=== PATIENT | male | born 1975 | race Caucasian/White ===

== ENCOUNTER 2017-05-17 15:58 | Emergency (ER) | payer MEDICARE, MEDICAID, SELFPAY ==
[2017-05-17 16:00] VITALS: BP 121/90; PULSE 85; RESP 16; TEMP 36.3; O2SAT 96; BMI 29.7
--- NOTE | 2017-05-17 16:02 | NURSING ---
NO OLD EKGS
--- NOTE | 2017-05-17 16:11 | EKG12_ITS ---
Test Reason : CP Blood Pressure : / mmHG Vent. Rate : 086 BPM Atrial Rate : 086 BPM P-R Int : 172 ms QRS Dur : 086 ms QT Int : 346 ms P-R-T Axes : 033 040 052 degrees QTc Int : 414 ms Normal sinus rhythm Normal ECG Confirmed by RANJANA FLORES MD ([id number]), proposal editor LORETA GARCIA ([id number] on 05/20/2017 1:20:03 PM Referred By: EKATERINA Confirmed By:RANJANA FLORES MD
--- NOTE | 2017-05-17 16:16 | ED.DCSUM_ITS ---
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 Per family and staff members at bedside, the transportation maintenance specialist pulled over and called 911. When EMS arrived patient had no complaints. They estimate symptoms lasted less than 5 minutes. He does reportedly state there was some shortness of breath during the episode, but denies any complaint at this time. Mother does state the patient had a heart cath in the past to evaluate his valves. I do not have record of this to review. Physical Examination: Vital signs are unremarkable. Patient sitting upright in bed no acute distress. Head and neck examination is unremarkable. Heart is regular rate and rhythm. There is no chest wall tenderness. Lungs are clear with good air movement. Abdomen is soft nontender. Lower exam examination was no significant edema or calf tenderness. Test Results: EKG is sinus 86 with no sign of acute ischemia. Two-view chest x- ray is unremarkable. Emergency Department Course and Treatment: Patient has had no recurrent symptoms here. His pain was extremely brief and I do not feel significant laboratory evaluation is necessary. This was discussed with mother at bedside. Treatment Plan: [] Disposition: Discharge Impression: Atypical chest pain, resolved This note was generated with Check dictation software. It may contain incorrect words, spelling, and punctuation that were not noted in review of the chart prior to signing ED Disposition - Plan for ED Patient: Chief Complaint: Chest Pain Referrals: Valencia Sánchez DO [Primary Care Provider] -
--- NOTE | 2017-05-17 16:20 | RAD_ITS ---
STUDY: X-RAY CHEST REASON FOR EXAM: Male, 42 years old. Chest pain TECHNIQUE: Frontal and lateral views of the chest. COMPARISON: None. FINDINGS: The lungs are clear and expanded. There is no demonstrated pleural abnormality. Normal size heart. Normal mediastinum and nathalie. Normal visualized pulmonary arteries. Normal visualized aortic arch and descending thoracic aorta. Normal visualized thoracic spine. Normal visualized ribs, clavicles, and shoulders. There is no demonstrated abnormality of the visualized soft tissue structures of the upper abdomen. RAD/Chest PA and Lateral IMPRESSION: Normal x-ray examination of the chest. Electronically Signed: Danny Taylor MD at 16:37 EDT , Service support ,
--- NOTE | 2017-05-17 16:51 | ED.DEP ---
ED Disposition - Plan for ED Patient: Disposition: Home or Assisted Living Chief Complaint: Chest Pain Instructions: ED Chest Pain Atypical Unkn Cause Referrals: Valencia Sánchez DO [Primary Care Provider] - As Needed
[2017-05-17 16:52] VITALS: BP 123/83; PULSE 83; RESP 16; O2SAT 100
== END 2017-05-17 16:58 | disposition home or self-care (01) ==
PROVIDERS: Emergency Provider Emergency Medicine; Family Provider Internal Medicine; PCP Internal Medicine
DX: R07.89 Other chest pain (principal); E66.9 Obesity, unspecified; I10 Essential (primary) hypertension; E78.00 Pure hypercholesterolemia, unspecified; E03.9 Hypothyroidism, unspecified; F84.0 Autistic disorder; Z79.899 Other long term (current) drug therapy
CPT/HCPCS: 71046; 93005; 99282

== ENCOUNTER → 2017-05-21 07:01 | Outpatient (CLI) | payer MEDICARE, MEDICAID, SELFPAY ==
[2017-05-21 08:24] LABS: Absolute Neutrophil Count 2.3 X10^3/uL (2.0-7.7); Basophil# 0.04 X10^3/uL; Basophil% 0.6 % (0-1); Eosinophils% 1.6 % (0-5); Hematocrit 38.7 % (40-54); Hemoglobin 12.6 g/dl (13.0-16.5); Lymphocyte % 49.1 % (19-41); Mean Corp Hgb Conc 32.6 g/gl (32-36); Mean Corpuscular Hgb 32.7 pg (27.0-32.0); Mean Corpuscular Volume 100.5 fL (80-94); Monocyte# 0.63 X10^3/uL; Neutrophil # 2.29 X10^3/uL (2.7-7.7); Neutrophil % 36.2 % (47-70); Platelet Count 236 K/mm3 (150-450); RBC Distribution Width SD 47.2 fl (35.1-43.9); Red Blood Count 3.85 M/mm3 (4.6-6.2); White Blood Count 6.3 K/mm3 (4.4-11.0)
[2017-05-21 08:25] LABS: POSITIVE COUNT YES; POSITIVE DIFFERENTIAL NO; POSITIVE MORPHOLOGY YES
[2017-05-21 08:38] LABS: Valproic Acid (Depakene) Level 78 ug/mL (50-100)
[2017-05-21 09:10] LABS: Cholesterol 236 mg/dL (200); High Density Lipoprotein 26 mg/dL; Thyroid Stim Hormone (TSH) 4.29 uIU/mL (0.358-3.74); Triglycerides 551 mg/dL
[2017-05-23 09:57] LABS: Vitamin D,25 Hydroxy 38.1 ng/mL (29.95-100.01)
[2017-05-23 12:45] LABS: Pathologist Review Reviewed
[2017-05-24 14:45] LABS: Lamotrigine (Lamictal) Level 11.1 ug/mL (2.0-20.0); Topiramate 8.8 ug/mL (2.0-25.0)
== END ==
PROVIDERS: Family Provider Internal Medicine; PCP Internal Medicine; Visit Provider Psychiatry & Neurology Neurology
DX: G40.019 Localization-related (focal) (partial) idiopathic epilepsy and epileptic syndromes with seizures of localized onset, intractable, without status epilepticus (principal); G40.319 Generalized idiopathic epilepsy and epileptic syndromes, intractable, without status epilepticus; E03.9 Hypothyroidism, unspecified; E78.00 Pure hypercholesterolemia, unspecified; E55.9 Vitamin D deficiency, unspecified; I10 Essential (primary) hypertension
CPT/HCPCS: 80061; 80164; 80201; 81001; 82043; 82306; 82542; 82570; 84443; 85025

== ENCOUNTER 2017-07-19 13:05 | Emergency (ER) | payer MEDICARE, MEDICAID, SELFPAY ==
[2017-07-19 13:06] VITALS: BP 131/86; PULSE 88; RESP 18; RESP 19; TEMP 36.5; O2SAT 94; O2SAT 95; BMI 31.8
--- NOTE | 2017-07-19 14:16 | ED.VISSUMM ---
- ER Visit Summary Date of Service: 07/19/17 Chief Complaint: Seizure History of Present Illness: The patient is a 42 M who presents after a seizure. He has a known seizure disorder and is on multiple antiepileptics. He actually has daily seizures. However his seizure today lasted greater than 5 minutes and per the facilities protocol he needs to be sent to the ER if seizure lasts greater than 5 minutes. The seizure did terminate on its own. He was postictal for about 15 minutes but is currently back to baseline with no complaints. The patient denies any recent illness. He has no complaints at this time. Physical Examination: Afebrile vitals are stable Alert and oriented ?3 with no focal or lateralizing neurological deficits Heart regular rate and rhythm Lungs are clear Abdomen soft Test Results: Not indicated Emergency Department Course and Treatment: Patient had levels on all of his antiepileptics checked about 2 months ago which were all normal. He denies missing any doses and has been compliant with his medications. He has no recent illness and otherwise has no complaints. He has a known seizure disorder with daily seizures. I do not believe any further workup is indicated at this time has benign examination. Patient discharged. Treatment Plan: [] Disposition: Discharge Impression: Seizure This note was generated with [employer] dictation software. It may contain incorrect words, spelling, and punctuation that were not noted in review of the chart prior to signing ED Disposition - Plan for ED Patient: Chief Complaint: Seizure Referrals: Valencia Sánchez DO [Primary Care Provider] -
--- NOTE | 2017-07-19 14:18 | ED.DEP ---
ED Disposition - Plan for ED Patient: Chief Complaint: Seizure Instructions: ED Seizure Recurrent Referrals: Valencia Sánchez DO [Primary Care Provider] -
[2017-07-19 14:57] VITALS: BP 119/85; PULSE 80; RESP 17; O2SAT 98
== END 2017-07-19 14:58 | disposition home or self-care (01) ==
LOC: ED 14:41
PROVIDERS: Emergency Provider Emergency Medicine; Family Provider Internal Medicine; PCP Internal Medicine
DX: G40.909 Epilepsy, unspecified, not intractable, without status epilepticus (principal); I10 Essential (primary) hypertension; E78.00 Pure hypercholesterolemia, unspecified; E03.9 Hypothyroidism, unspecified; Z79.899 Other long term (current) drug therapy
CPT/HCPCS: 99285; J7030

== ENCOUNTER 2017-11-25 16:05 | Emergency (ER) | payer MEDICARE, MEDICAID, SELFPAY ==
[2017-11-25 16:06] VITALS: BP 132/67; PULSE 86; RESP 18; TEMP 37.4; O2SAT 95; BMI 28.2
--- NOTE | 2017-11-25 16:28 | ED.VISSUMM ---
- ER Visit Summary Date of Service: 11/25/17 Chief Complaint: Seizure History of Present Illness: The patient is a 42 M brought in by paramedics after a seizure. Patient has daily seizures. Per the intermediate policy if his seizure last longer than 5 minutes he has to be evaluated. Staff estimates the seizure lasted approximately 10-12 minutes followed by a postictal period. There is been no recent change to his seizure medications. Patient follows with Dr. Velasquez. Physical Examination: Vital signs are unremarkable. Patient sitting upright in bed no acute distress. Head neck examination is unremarkable. There is no tongue injury. Heart is regular rate and rhythm. Lung sounds are clear. Abdomen is soft nontender. Neuro exam reveals no focal deficits. Test Results: Blood sugar was measured by paramedics and was 93. Valproic acid level here is 80. Lamictal and Topamax levels were sent out. Emergency Department Course and Treatment: Patient has been observed for an hour and a half and remains at baseline. Mother was advised she would receive a call if his levels return this weekend and are abnormal. Treatment Plan: [] Disposition: Discharge Impression: Seizure with history of epilepsy This note was generated with [employer] dictation software. It may contain incorrect words, spelling, and punctuation that were not noted in review of the chart prior to signing ED Disposition - Plan for ED Patient: Chief Complaint: Seizure Referrals: Valencia Sánchez DO [Primary Care Provider] -
[2017-11-25 17:35] LABS: Valproic Acid (Depakene) Level 80 ug/mL (50-100)
--- NOTE | 2017-11-25 17:48 | ED.DEP ---
ED Disposition - Plan for ED Patient: Disposition: Home or Assisted Living Chief Complaint: Seizure Instructions: ED Seizure Recurrent Referrals: Adam Velasquez MD [STAFF PHYSICIAN] -
[2017-11-25 18:08] VITALS: BP 121/79; PULSE 77; RESP 16; O2SAT 96
[2017-11-29 11:00] LABS: Topiramate 14.6 ug/mL (2.0-25.0)
== END 2017-11-25 18:09 | disposition home or self-care (01) ==
PROVIDERS: Emergency Provider Emergency Medicine; Family Provider Internal Medicine; PCP Internal Medicine
DX: G40.909 Epilepsy, unspecified, not intractable, without status epilepticus (principal); I10 Essential (primary) hypertension; E78.00 Pure hypercholesterolemia, unspecified; E03.9 Hypothyroidism, unspecified; Z79.899 Other long term (current) drug therapy
CPT/HCPCS: 80164; 80201; 82542; 99285; A4216

== ENCOUNTER → 2018-02-04 07:16 | Outpatient (CLI) | payer MEDICARE, MEDICAID, SELFPAY ==
[2018-02-04 10:06] LABS: Valproic Acid (Depakene) Level 88 ug/mL (50-100)
[2018-02-08 12:07] LABS: Lamotrigine (Lamictal) Level 13.8 ug/mL (2.0-20.0); Topiramate 11.8 ug/mL (2.0-25.0)
--- OUTSIDE RECORDS SUMMARY | 2018-03-31 18:20 | XMS RPT_ITS | Continuity of Care Document ---
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 afterwards and was acting appropriately. He has had no vomiting. He has had this happened multiple t imes in the past. PAST MEDICAL HISTORY: Significant for MR, seizure disorder, hypertension, high cholesterol. PAST SURGICAL HISTORY: None. PRIMARY CARE PHYSICIAN: Dr. Barrett. ALLERGIES: ALLERGY TO T EGRETOL. SOCIAL HISTORY: The patient does not smoke or drink alcohol. PHYSICAL EXAMINATION: VITAL SIGNS: Blood pressure 128/66, temperature 98.2, heart rate 67, respirations 17, pulse oximetry 99% on room air. HEENT: The patient has a 7 cm start-shaped laceration to the posterior occiput, no bony step-offs noted. Pupils equal, react to light. TMs are clear. No hemotympanum. NECK: Supple, no C-spine tenderness on palpation. CARDIOVASCULAR: Heart is regular rate and rhythm. LUNGS: Clear. No rales or wheezes. ABDOMEN: Soft, nontender. EXTREMITIES: Intact x4. Exam otherwise unremarkable. EMERGENCY DE PARTMENT COURSE: Laceration repair, wound sterilely draped and prepped, anesthetized locally with lidocaine 6 mL 1% with epinephrine, irrigated with saline, cleansed with Shur-Clens. Using 4-0 nylon, a total of 6 single interrupted sutures placed with good wound edge approximation. The patient tolerated the procedure well. At this point, he will be discharged to home. DIAGNOSIS: Fall with scalp lacer ation, simple repair. Instructed to follow up with his primary care physician in 10 days for suture removal. DISPOSITION: Discharged home in stable condition. Ernst Kim DO T: NTS JOB: [id number] 01/07/162233 <Electronically signed by Ernst Kim DO> Date Ernst Kim DO Cosigner Signature (If Indicated): Date CC: Valencia Barrett DO Date Dictated: 01/07/161624 Date Transcribed: 01/07/161624 Supervisor Grips: Signed 08-Dec-2015 Emergency Department Summary Result: Comments: See Note; NOTES: [facility] Medical Records Department [address] [place] [address] Emergency Department Summary MR#: [id number] Acct: [id number] Name: RAGHU LOPEZ Rep #: [id number] : 1975 40 From: Ernst Kim DO PCP: Valencia Barrett DO Status: [facility] ER DATE OF SERVICE: 12/01/2015 CHIEF COMPLAINT: Laceration, scalp. HISTORY OF CHIEF COMPLAINT: A 40-y ear-old male with history of seizures. Mother heard some noise upstairs and when he came out he was covered in blood, noted that he had a laceration to the back of his head. He has got a history of seiz ures, has them every day. He has been taking his medicines regularly. She does not think the seizure lasted very long. She states it was very short lived. He has not been ill recently. He has been to [facility] multiple times for these type of issues. PAST MEDICAL HISTORY: Significant for hypertension, seizures. SURGICAL HISTORY: None. PRIMARY CARE PHYSICIAN: Dr. Barrett. NEUROLOGIST: Dr. Velasquez. INA GALVEZ MEDICATIONS: Include Depakote, Topamax, Lamictal and Ethosuximide. SOCIAL HISTORY: The patient does not smoke or drink alcohol. Denies any illicit drug use. PHYSICAL EXAMINATION: VITAL SIGNS: Blood pressure 114/67, temperature 97, heart rate 72, respiratory rate 18, pulse oximetry 97. GENERAL APPEARANCE: The patient is awake, alert, in no acute distress, nontoxic appearing. HEENT: He is normoceph alic. Pupils are equal and reactive to light. TMs are clear. No hemotympanum. He has no C-spine tenderness on palpation. Evaluation of the scalp reveals a 3- cm vertical laceration to posterior occiput. No bony step-offs or depressions noted. CARDIOVASCULAR: Heart is regular rate and rhythm. LUNGS: Clear. No rales or wheezes. ABDOMEN: Soft, nontender. EXTREMITIES: Intact x4. Exam otherwise is unremarka ble. EMERGENCY DEPARTMENT COURSE: Laceration repair, wound sterilely draped and prepped, anesthetized locally with 1% lidocaine, total of 4 mL. Wound cleansed with Shur-Clens, irrigated with copious sa line. Using 4-0 nylon, a total of 3 single interrupted sutures placed with good wound edge approximation. The patient tolerated procedure well. At this point, he will be discharged to home. DIAGNOSES: 1. Scalp laceration, 3 cm, simple repair. 2. Closed head injury. 3. Seizure, recurrent. The patient is instructed to follow up with his primary care physician in 10 days for suture removal. DISPOSITION : Discharged to home in stable condition. Ernst Kim DO T: MELANIE JOB: [id number] 12/08/15 6386 <Electronically signed by Ernst Kim DO> Date Ernst Kim DO Cosigner Signature (If Indicated): Date CC: Valencia Barrett DO Date Dictated: 12/01/152247 Date Transcribed: 12/01/152247 Supervisor Grips: Signed 01-Dec-2015 Discharge Instruction Result: Comments: See Note; NOTES: [facility] Medical Records Department [address] [place] [address] Discharge Instruction 12/01/152242 MR#: [id number] Acct: [id number] Name: RAGHU LOPEZ Rep #: [id number] : 1975 40 From: Ernst Kim DO PCP: Valencia Barrett DO Status: PRE ER ED Disposition - Plan for ED Patient: Chief Complaint: Head Injury Instructions: ED Laceratio n, Scalp, ED Seizure, Recurrent (Adult) Referrals: Valencia Barrett DO [Primary Care Provider] - 10 Day for suture removal What to do if you have Problems For any increased pain, shortness of breath , bleeding, nausea or vomiting, chest pain, or any unexpected problems, contact your doctor. Call [facility] ([phone]) or report to the closest Emergency Room. Call 911 if necessary. [phone] <Electronically signed by Ernst Kim DO> Date Ernst Kim DO Cosigner Signature (If Indicated): Date CC: Valencia Barrett DO 05-Jun-2015 Emergency Department Summary Result: Comments: See Note; NOTES: [facility] Medical Records Department [address] [place] [address] Emergency Department Summary MR#: [id number] Acct: [id number] Name: RAGHU LOPEZ Rep #: [id number] : 1975 40 From: Ernst Kim DO PCP: Valencia Barrett DO Status: DEP ER DATE OF SERVICE: 06/04/2015 CHIEF COMPLAINT: Seizure. HISTORY OF CHIEF COMPLAINT: A 40-year-old with a seizure that happened today while at work, he fell onto the ground sustaining a scalp laceration, postictal, apparently seizure activity lasted about 5 minutes, history comes fr om the mom who states that he has seizures every day, 4 different types, occasionally he will have to drop kind of seizures where he just falls and he hits his head. He has had multiple suture repairs of the scalp in the past. PAST MEDICAL HISTORY: The patient's past medical history significant for hypertension and seizures. PAST SURGICAL HISTORY: None. PRIMARY CARE PHYSICIAN: Valencia molina D.O. NEUROLOGIST: Adam Velasquez M.D. CURRENT MEDICATIONS: Include Topamax, Lamictal and Depakote. ALLERGIES: CERTAIN ANTICONVULSANTS, MOM IS NOT SURE. SOCIAL HISTORY: The patient does not smoke, does not drink alcohol. Denies any illicit drug use. PHYSICAL EXAMINATION: VITAL SIGNS: Blood pressure 152/94, temperature 97.4, heart rate 80, respirations 14, pulse oximetry 99 on room air . GENERAL APPEARANCE: He is awake, in no acute distress, nontoxic appearing. He is quiet and really nonverbal initially. HEENT: Normocephalic. Pupils equal, react to light. TMs are clear. NECK: Supp le. Mucous membranes are moist. Evaluation of the posterior occiput does reveal a 3.5 cm linear laceration. No bony step-offs noted. No C-spine tenderness on palpation. CARDIOVASCULAR: Heart is regul ar rate and rhythm. LUNGS: Clear. ABDOMEN: Soft, nontender. EXTREMITIES: Intact x4. Exam otherwise unremarkable. EMERGENCY DEPARTMENT COURSE: The patient had an IV line established. CBC with diff obtained was normal. Chemistries unremarkable. His valproic acid level was therapeutic at 73. CT brain showed nothing acute, just a septal hematoma, after returned from CT, he is not conversant, appr opriate, back to his baseline, looks well. Laceration repair of scalp wound sterilely draped and prepped, anesthetized locally with 1% lidocaine with epinephrine, a total of 6 mL. Wound cleansed with Shur-Clens, irrigated with copious saline. Using 4-0 nylon, a total of 3 single interrupted sutures placed with good wound edge approximation. The patient tolerated the procedure well. At this point, he will be discharged to home. DIAGNOSES: 1. Recurrent seizure. 2. Scalp laceration with simple repair 3.5 cm. Instructed to follow up with doctor Gruber in 10 days for suture removal. To return if increasing pain, redness, swelling, purulent drainage or condition worsens in any way. DISPOSITION: Discharged to home in stable condition. Enrst Kim DO T: MELANIE JOB: [id number] 06/05/15 2355 <Electronically signed by Ernst Kim DO> Date Ernst Kim DO Cosigner Signature (If Indicated): Date CC: Valencia Barrett DO Date Dictated: 06/04/151548 Date Transcribed: 06/04/151548 Supervisor Grips: Signed 04-Jun-2015 Discharge Instruction Result: Comments: See Note; NOTES: [facility] Medical Records Department [address] [place] [address] Discharge Instruction 06/04/155 MR#: [id number] Acct: [id number] Name: LOPEZRAGHU Rep #: [id number] : 1975 40 From: Ernst Kim DO PCP: Valencia Barrett DO Status: REG ER ED Disposition - Plan for ED Patient: Chief Complaint: Seizure Instruction s: ED Seizure, Recurrent (Adult), ED Laceration, Scalp Referrals: Valencia Barrett DO [Primary Care Provider] - 10 Day for suture removal What to do if you have Problems For any increased pain, shortness of breath, bleeding, nausea or vomiting, chest pain, or any unexpected problems, contact your doctor. Call [facility] ([phone]) or report to the closest Emergency Room. Call 911 if necessary. 06/04/15 1546 <Electronically signed by Ernst Kim DO> Date Ernst Kim DO Cosigner Signature (If Indicated): Date CC: Valencia Barrett DO 04-Jun-2015 Brain/Head without Contrast Result: Comments: See Note; NOTES: [facility] Imaging Services [address] [place] [address] Verdana 4d Brain/Head without Contrast MR#: [id number] Acct: [id number] Name: RAGHU LOPEZ Rep #: [id number] : 1975 M 40 From: Johny Claudio DO PCP: Valencia Barrett DO Status: REG ER Study: Brain/Head without Contrast Date of Exam: 06/04/15 Exam# [id number] Ordering Dr : Ernst Kim DO STUDY: CT BRAIN WITHOUT CONTRAST REASON FOR EXAM: Male, 40 years old. Seizure. Laceration to the back of the head. RADIATION DOSAGE (If Supplied By Facility): CTDIvol = ( 60.8 1 ) mGy, DLP = ( 1112.69 ) mGycm TECHNIQUE: Transaxial CT imaging of the brain was performed without administration of intravenous contrast material. Individualized dose optimization techniques we re used for this CT. COMPARISON: November 22, 2014 FINDINGS: There is subcutaneous hematoma overlying the dorsal aspect of the right parietal vertex. Normal c alvarium. Normal size ventricles and extra-axial spaces for the patient's age. Normal white matter tracts of the cerebral hemispheres. Normal basal ganglia and thalami. Normal brainstem. Normal cere bellum. There is no intracranial hemorrhage. There are no findings of an acute ischemic infarction. There is chronic right sphenoid sinusitis. IMPRESSION: 1. No acute intracranial or calvarial abnormality 2. Soft tissue hematoma of the right parietal vertex. Electronically Signed: Johny Claudio DO at 15:40 EDT Tel [phone], Service support [phone], CC: Valencia Barrett DO; Ernst Kim DO Supervisor Grips: Signed 08-Mar-2015 Emergency Department Summary Result: Comments: See Note; NOTES: [facility] Medical Records Department [address] [place] [address] Emergency Department Summary MR#: [id number] Acct: [id number] Name: RAGHU LOPEZ Rep #: [id number] : 1975 40 From: Ramses Roque MD PCP: Valencia Barrett DO Status: [facility] ER DATE OF SERVICE: 02/21/2015 CHIEF COMPLAINT: Head injury and seizure. HISTORY OF PRESENT ILLNESS: A 40-year-old male with history of seizure disorder, compliant with his medications and has daily seizures. He had another one today, lasts approximately 15 seconds. When he had a seizure, he fell, hit his head on the corner of a piece of furniture and sustained a scalp laceration. He denies any headache or vomiting. The patient is really without complaint at this time. PHYS ICAL EXAMINATION: VITAL SIGNS: Afebrile. Vitals are stable. HEENT: There is a roughly 2 cm occipital scalp laceration. No signs of basilar skull fracture such as raccoon eyes. No rich sign. HEART: Regular rate and rhythm. LUNGS: Clear. ABDOMEN: Soft. NECK: Nontender to palpation. NEUROLOGIC: He is alert and oriented with no focal or lateralizing neurological deficits. EMERGENCY DEPARTMENT COURSE: The patient's laceration was anesthetized with local lidocaine and closed using a total of 4 simple interrupted 4-0 nonabsorbable sutures. Discussed imaging with the patient, as he had extens payton number of CT scans for his seizures with closed head injury. He has no history of intracranial hemorrhage. These have always been negative previously. The patient has no headache. No vomiting. He is not anticoagulated. We discuss deferring on imaging given the radiation risks and just monitoring for symptoms; however, the family members are concerned that they are leaving town tomorrow and zaheer l be out of town for the next 9 days, so would not easily be able to be reevaluated, therefore they did request CT. CT of the head was obtained, which is normal. The patient was discharged in good c ondition. Instructed on local wound care and to have sutures removed in 7-10 days. IMPRESSION: 1. Breakthrough seizure in the setting of epilepsy. 2. Closed head injury. 3. Scalp laceration. 4. La ceration repair. DISPOSITION: Discharge. Dr. Ramses Roque MD T: NTS JOB: [id number] 03/08/15 0840 <Electronically signed by Ramses Roque MD> Date Ramses Roque MD Cosigner Signature (If Indicated): Date CC: Valencia Barrett DO Date Dictated: 02/21/151735 Date Transcribed: 02/21/151735 Supervisor Grips: Signed 21-Feb-2015 Discharge Instruction Result: Comments: See Note; NOTES: [facility] Medical Records Department [address] [place] [address] Discharge Instruction 02/21/151736 MR#: [id number] Acct: [id number] Name: RAGHU LOPEZ Rep #: [id number] : 1975 40 From: Ramses Roque MD PCP: Valencia Barrett DO Status: REG ER ED Disposition - Plan for ED Patient: Chief Complaint: Laceration Instr uctions: ED Laceration, Scalp, ED HEAD INJURY, No Wake-Up (Adult) What to do if you have Problems For any increased pain, shortness of breath, bleeding, nausea or vomiting, chest pain, or any une xpected problems, contact your doctor. Call [employer] [facility] ([phone]) or report to the closest Emergency Room. Call 911 if necessary. 02/21/151736 <Electronically signed by Ramses chen MD> Date Ramses Roque MD Cosigner Signature (If Indicated): Date CC: Valencia Barrett DO 21-Feb-2015 Brain/Head without Contrast Result: Comments: See Note; NOTES: [facility] Imaging Services [address] [place] [address] Verdana 4d Brain/Head without Contrast MR#: [id number] Acct: [id number] Name: RAGHU LOPEZ Rep #: [id number] : 1975 M 40 From: Kena Fountain MD PCP: Valencia Barrett DO Status: REG ER Study: Brain/Head without Contrast Date of Exam: 02/21/15 Exam# [id number] Orderin g Dr: Ramses Roque MD STUDY: CT BRAIN WITHOUT CONTRAST REASON FOR EXAM: Male, 40 years old. Seizure, hit back of head, laceration. RADIATION DOSAGE (If Supplied By Facility): CTDIvol = ( 58. 46 ) mGy, DLP = ( 1045.13 ) mGycm TECHNIQUE: Transaxial CT imaging of the brain was performed without administration of intravenous contrast material. COMPARISON: March 12, 2014 FINDINGS: Superficial soft tissue swelling consistent with hematoma and laceration overlying the posterior calvarium superiorly. No calvarial fracture. Normal size ventricles a nd extra-axial spaces for the patient's age. Normal white matter tracts of the cerebral hemispheres. Normal basal ganglia and thalami. Normal brainstem. Normal cerebellum. There is no intracranial h emorrhage. There are no findings of an acute ischemic infarction. The right sphenoid sinus is nearly completely opacified. There is mild mucoperiosteal thickening of the ethmoid air spaces bilateral ly. IMPRESSION: Normal unenhanced CT scan of the brain. No acute intracranial hemorrhage. Sinus disease with near complete opacity of the right sphenoid sinus no lizzy. The sinus disease is new Electronically Signed: Kena Fountain MD at 17:28 EST Tel , Service support [phone], CC: Ramses Roque MD; Eligio Barrett DO Supervisor Grips: Signed 01-Jan-2015 EKG ([id number]) Comments: nsr no acute chg Result: [MEASUREMENTS ANALYSIS] Date of Test: 01/01/2015 13:24:06; Heart Rate: 61; SD Interval: 184; QRS: 86; QT Interval: 374; Corrected QT Interval (QTc): 375; P Wave [place]: 42; QRS Wave [place]: 35; T Wave [place]: 53; Blood Pressure: 100/58 [ECG DIAGNOSTIC STATEMENTS] Date of Test: 01/01/2015 13:24:06; Summary: Sinus Rhythm WITHIN NORMAL LIMITS 23-Mar-2014 Emergency Department Summary Result: Comments: See Note; NOTES: [facility] Medical Records Department [address] [place] [address] Emergency Department Summary MR#: [id number] Acct: [id number] Name: RAGHU LOPEZ Rep #: [id number] : 1975 39 From: Ernst Kim DO PCP: Valencia Barrett DO Status: DEP ER DATE OF SERVICE: 03/22/2014 CHIEF COMPLAINT: Head injury, status post seizure. HISTORY OF CHIEF COMPLAINT: A 39-year-old male with history of seizures, had a seizure, fell, struck his head on a coffee table edge lacerating his scalp. The patient's seizure lasted about 2 minutes. Per mom, he gets seizures every day. He has had them for many years. He takes Depakote, Lamictal and Topamax typically. He has not been ill recently. He has been taking his medications regularly. PAST MEDICAL HISTORY: Other than seizures nothing. SURGICAL HISTORY: None. PRIMARY CARE PHYSICIAN: Dr. Barrett. NEUROLOGIST: Dr. Velasquez. ALLERGIES: CERTAIN ANTICONVULSANTS. SOCIAL HISTORY: The patient does not smoke, does not drink alcohol. Denies illicit drug use. PHYSICAL EXAMINATION: VITAL SIGNS: Blood pressure 120/70, temperature 98.7, heart rate 84, respiratory rate 16. GENERAL APPE ARANCE: He is awake, alert, no acute distress. He is nontoxic appearing. HEENT: He is normocephalic. Pupils are equal and reactive to light. TMs are clear. No hemotympanum. He does have a 4-cm lacer ation to the posterior occiput. NECK: Nontender, normoactive range of motion, is painless, using NEXUS criteria, C-spine cleared clinically. CARDIOVASCULAR: Heart is regular rate and rhythm. LUNGS: Clear. No rales or wheezes. ABDOMEN: Soft, nontender. EXTREMITIES: Intact x4. Exam is otherwise unremarkable. EMERGENCY DEPARTMENT COURSE: CT scan of the brain without contrast showed nothing acut e. Valproic acid level here was 54, therapeutic. The patient's laceration repair, wound sterilely draped and prepped, anesthetized locally with 1 percent lidocaine, total of 6 mL. Wound cleansed gualberto Morgan, irrigated with copious saline. Using 4-0 nylon, a total of 5 single interrupted sutures placed with good wound edge approximation. The patient tolerated procedure well. At this point , he will be discharged to home. DIAGNOSES: Scalp laceration, simple repair, closed head injury and recurrent seizure. Instructed to follow up with Dr. Barrett in 10 days for suture removal and to r eturn if increasing pain, redness, swelling, purulent drainage or condition worsens in any way. DISPOSITION: Discharged to home in stable condition. Ernst Kim DO T: NTS JOB: [id number] 03/23/14 0059 <Electronically signed by Ernst Kim DO> Date Ernst Kim DO CC: Valencia Barrett DO Date Dictated: 03/22/142205 Date Transcribed: 03/22/142205 Supervisor Grips: Signed 22-Mar-2014 Discharge Instruction Result: Comments: See Note; NOTES: [facility] Medical Records Department [address] [place] [address] Discharge Instruction 03/22/142201 MR#: [id number] Acct: [id number] Name: RAGHU LOPEZ Rep #: [id number] : 1975 39 From: Ernst Kim DO PCP: Valencia Barrett DO Status: REG ER ED Disposition - Plan for ED Patient: Chief Complaint: Laceration Instructions: E D Laceration, Scalp, ED Seizure, Recurrent (Adult), ED HEAD INJURY, No Wake-Up (Adult) Referrals: Valencia Barrett DO [Primary Care Provider] - 10 Day for suture removal What to do if you have Pr oblems For any increased pain, shortness of breath, bleeding, nausea or vomiting, chest pain, or any unexpected problems, contact your doctor. Call [facility] ( [phone]) or report to the [facility] Emergency Room. Call 911 if necessary. 03/22/142203 <Electronically signed by Ernst Kim DO> Date Ernst Kim DO Co signer Signature (If Indicated): Date CC: Valencia Barrett DO 22-Mar-2014 Brain/Head without Contrast Result: Comments: See Note; NOTES: [facility] Imaging Services [address] [place] [address] CAT Scan Report MR#: [id number] Acct: [id number] Name: RAGHU LOPEZ Rep #: [id number] : 1975 M 39 From: Lizabeth Ovalle DO PCP: Valencia Barrett DO Status: REG ER Study: Brain/Head without Contrast Date of Exam: 03/22/14 Exam# [id number] Ordering Dr: Ernst Kim DO STUDY: CT BRAIN WITHOUT CONTRAST REASON FOR EXAM: Male, 39 years old. Seizures, laceration, chronic seizures since childhood RADIATION DOSAGE (If Supplied By Facility): CTDIvol = ( 58.42 ) mGy, DLP = ( 1066.27 ) mGycm TECHNIQUE: Transaxial CT imaging of the brain was performed without administration of intravenous contrast material. COMPARISON: 02/08/2010 FIN DINGS: Normal soft tissue structures. There is diffuse calvarial thickening, unchanged from 02/08/2010 which may be related to anti-seizure therapy. Normal size ventricles and extra-axial spaces for the patient's age. Normal white matter tracts of the cerebral hemispheres. Normal basal ganglia and thalami. Normal brainstem. Normal cerebellum. There is no intracranial hemorrhage. There are no fi ndings of an acute ischemic infarction. Normal visualized paranasal sinuses. IMPRESSION: No acute findings. No interval change. Electronically Signed: Chantal Ovalle DO at 21:48 EST Tel , Service support [phone], CC: Valencia Barrett DO; Ernst Kim DO Supervisor Grips: Signed 10-Jul-2013 Emergency Department Summary Result: Comments: See Note; NOTES: [facility] Medical Records Department [address] [place] [address] Emergency Department Summary MR#: [id number] Acct: [id number] Name: RGAHU LOPEZ Rep #: [id number] : 1975 38 From: Yesi Trejo MD PCP: Valencia Barrett DO Status: DEP ER DATE OF SERVICE: 06/27/2013 CHIEF COMPLAINT: Seizure. HISTORY OF PRESENT ILLNESS: This is a 38-year-old male with history of mental developmental delay as well as seizure disorder. He is on many antiepileptic including Depakote and Keppra and there have been no recent changes in his medicines. However, today he had fairly extensive row of seizures. His mother is at bedside and he was brought in by EMS. Mom tells all of the history as the patient is really not able to help thao best. She tells me that he has seizures essentially daily. It sounds as though they are typically absence type seizures and every 6 months or so, he will have what as she describes sounds like a st atus epilepticus where he will have seizure for at least an hour to 2 hours. Last conversation with the neurologist, Dr. Velasquez she had. He had suggested that she bring the patient to the hospital i f he has another long episode of seizures and that is what happened today, so she brought him here. He did have urinary incontinence, but he did not injure himself and she states that the seizure ac tivity she observed was similar to his longer episodes of seizures in the past. There is no history of any trauma or injury. PHYSICAL EXAMINATION: GENERAL: He is well appearing. He is alert. He is c ooperative and pleasant, but he is not verbal. NEUROLOGIC: He has no focal neurologic findings. HEART: Rate is regular. LUNGS: Clear. HEENT: Pupils are equal and reactive to light and accommodatio n. ABDOMEN: Soft and benign. CLINICAL COURSE AND DECISION MAKING: The patient was observed in the ED for about an hour and when I reevaluated him , his mother noticed that he had had a couple of sm all limited absence type seizures that she had observed. Given his history from earlier today, I did elect to give him one dose of Ativan p.o. and she was comfortable with this. They do not have res cue medication such as ____ benzodiazepine at home and I suggest that she discuss this with his neurologist and they are meeting with him next week. I also did discuss the case with the neurologist program professional for Dr. Velasquez and he was comfortable with the plan. DISPOSITION: Discharge. DIAGNOSIS: Acute on chronic seizure disorder. MD Ashley Cast C: Adam Villalta: MELANIE JOB: [id number] 07/10/13 0725 <Electronically signed by Yesi Trejo MD> Date Yesi Trejo MD CC: Valencia Barrett DO Date Dictated: 06/27/131746 Date Transcribed: 06/27/131746 Supervisor Grips: Signed 27-Jun-2013 Discharge Instruction Result: Comments: See Note; NOTES: [facility] Medical Records Department [address] [place] [address] Discharge Instruction 06/27/131749 MR#: [id number] Acct: [id number] Name: RAGHU LOPEZ Rep #: [id number] : 1975 38 From: Yesi Trejo MD PCP: Valnecia Barrett DO Status: REG ER ED Disposition - Plan for ED Patient: Disposition: Home Chief Complaint: Seizure Instructions: SEIZURE, Recurrent [Adult] Referrals: Valencia Barrett DO [Primary Care Provider] - Adam Velasquez Jr [NON-STAFF] - Adam Velasquez MD [STAFF PHYSICIAN] - 3-5 Days What to do if you hav e Problems For any increased pain, shortness of breath, bleeding, nausea or vomiting, chest pain, or any unexpected problems, contact your doctor. Call [facility] ) or report to [facility]. Call 911 if necessary. 06/27/131751 <Electronically signed by Yesi Trejo MD> Date Yesi Trejo MD CC: Valencia Barrett DO Family History Unknown Family Member Name Dates Details First Degree Relatives Comments: HBP Status: Active Social History Name Dates Details Caffeine Use Comments: rare Status: Active Living Situation Comments: Single, heterosexual Status: Active No Drug Use Status: Active Non Drinker/No Alcohol Use Status: Active Non Smoker/No Tobacco Use Status: Active Tobacco use: Never smoker. Comments: 06/23/11 Status: Active Smoking Status Name Dates Details Never smoker Vital Signs Date Test Result Details [id number] Temperature 97.6 f Comments: Method: Temporal Pulse 76 /min Comments: Pattern: Regular Respiration Rate 16 /min Comments: Pattern: Unlabored O2 SAT 99 % Comments: Room air BP Systolic 132 mm[Hg] Comments: Patient Position: Sitting; Cuff Location: Left Arm; Cuff Size: Standard BP Diastolic 74 mm[Hg] Comments: Patient Position: Sitting; Cuff Location: Left Arm; Cuff Size: Standard Weight 225 lb Height 74 in Body Mass Index Calculated 28.89 kg/m2 Body Surface Area Calculated 2.28 m2 [id number]:06 Pulse 88 /min Comments: Pattern: Regular Respiration Rate 18 /min Comments: Pattern: Unlabored O2 SAT 98 % Comments: Room air BP Systolic 120 mm[Hg] Comments: Patient Position: Sitting; Cuff Location: Left Arm; Cuff Size: Large BP Diastolic 78 mm[Hg] Comments: Patient Position: Sitting; Cuff Location: Left Arm; Cuff Size: Large Weight 225 lb Height 74 in Body Mass Index Calculated 28.89 kg/m2 Body Surface Area Calculated 2.28 m2 [id number]:41 Pulse 69 /min Comments: Pattern: Regular Respiration Rate 18 /min Comments: Pattern: Unlabored O2 SAT 96 % Comments: Room air BP Systolic 122 mm[Hg] Comments: Patient Position: Sitting; Cuff Location: Left Arm; Cuff Size: Large BP Diastolic 80 mm[Hg] Comments: Patient Position: Sitting; Cuff Location: Left Arm; Cuff Size: Large Weight 224 lb Height 74 in Body Mass Index Calculated 28.76 kg/m2 Body Surface Area Calculated 2.28 m2 [id number]:10 Pulse 80 /min Comments: Pattern: Regular Respiration Rate 18 /min Comments: Pattern: Unlabored O2 SAT 98 % Comments: Room air BP Systolic 122 mm[Hg] Comments: Patient Position: Sitting; Cuff Location: Left Arm; Cuff Size: Large BP Diastolic 70 mm[Hg] Comments: Patient Position: Sitting; Cuff Location: Left Arm; Cuff Size: Large Weight 222.125 lb Height 74 in Body Mass Index Calculated 28.52 kg/m2 Body Surface Area Calculated 2.27 m2 30-Sqg-762244:46 Pulse 78 /min Comments: Pattern: Regular Respiration Rate 18 /min Comments: Pattern: Unlabored O2 SAT 98 % Comments: Room air BP Systolic 124 mm[Hg] Comments: Patient Position: Sitting; Cuff Location: Left Arm; Cuff Size: Large BP Diastolic 70 mm[Hg] Comments: Patient Position: Sitting; Cuff Location: Left Arm; Cuff Size: Large Weight 220.5 lb Height 74 in Body Mass Index Calculated 28.31 kg/m2 Body Surface Area Calculated 2.27 m2 [id number]-[id number]:00 Pulse 71 /min Comments: Pattern: Regular Respiration Rate 18 /min Comments: Pattern: Unlabored O2 SAT 98 % Comments: Room air BP Systolic 122 mm[Hg] Comments: Patient Position: Sitting; Cuff Location: Left Arm; Cuff Size: Large BP Diastolic 62 mm[Hg] Comments: Patient Position: Sitting; Cuff Location: Left Arm; Cuff Size: Large Weight 218.5 lb Height 74 in Body Mass Index Calculated 28.05 kg/m2 Body Surface Area Calculated 2.26 m2 :27 Pulse 72 /min Comments: Pattern: Regular Respiration Rate 18 /min Comments: Pattern: Unlabored O2 SAT 96 % Comments: Room air BP Systolic 118 mm[Hg] Comments: Patient Position: Sitting; Cuff Location: Left Arm; Cuff Size: Large BP Diastolic 64 mm[Hg] Comments: Patient Position: Sitting; Cuff Location: Left Arm; Cuff Size: Large Weight 213.375 lb Height 74 in Body Mass Index Calculated 27.4 kg/m2 Body Surface Area Calculated 2.23 m2 :52 Pulse 73 /min Comments: Pattern: Regular Respiration Rate 18 /min Comments: Pattern: Unlabored O2 SAT 98 % Comments: Room air BP Systolic 118 mm[Hg] Comments: Patient Position: Sitting; Cuff Location: Left Arm; Cuff Size: Large BP Diastolic 68 mm[Hg] Comments: Patient Position: Sitting; Cuff Location: Left Arm; Cuff Size: Large Weight 206.125 lb Height 74 in Body Mass Index Calculated 26.46 kg/m2 Body Surface Area Calculated 2.2 m2 :18 Pulse 72 /min Comments: Pattern: Regular Respiration Rate 16 /min Comments: Pattern: Unlabored O2 SAT 97 % Comments: Room air BP Systolic 108 mm[Hg] Comments: Patient Position: Sitting; Cuff Location: Left Arm; Cuff Size: Large BP Diastolic 68 mm[Hg] Comments: Patient Position: Sitting; Cuff Location: Left Arm; Cuff Size: Large Weight 206.125 lb Height 74 in Body Mass Index Calculated 26.46 kg/m2 Body Surface Area Calculated 2.2 m2 :58 Pulse 70 /min Comments: Pattern: Regular Respiration Rate 18 /min Comments: Pattern: Unlabored O2 SAT 96 % Comments: Room air BP Systolic 118 mm[Hg] Comments: Patient Position: Sitting; Cuff Location: Left Arm; Cuff Size: Large BP Diastolic 80 mm[Hg] Comments: Patient Position: Sitting; Cuff Location: Left Arm; Cuff Size: Large Weight 200.5 lb Height 74 in Body Mass Index Calculated 25.74 kg/m2 Body Surface Area Calculated 2.18 m2 :23 Temperature 97.6 f Pulse 63 /min Comments: Pattern: Regular Respiration Rate 16 /min Comments: Pattern: Unlabored O2 SAT 100 % Comments: Room air BP Systolic 122 mm[Hg] Comments: Patient Position: Sitting; Cuff Location: Left Arm; Cuff Size: Standard BP Diastolic 80 mm[Hg] Comments: Patient Position: Sitting; Cuff Location: Left Arm; Cuff Size: Standard Weight 200.25 lb Height 74 in Body Mass Index Calculated 25.71 kg/m2 Body Surface Area Calculated 2.17 m2 :50 Pulse 89 /min Comments: Pattern: Regular Respiration Rate 18 /min Comments: Pattern: Unlabored O2 SAT 98 % Comments: Room air BP Systolic 142 mm[Hg] Comments: Patient Position: Sitting; Cuff Location: Left Arm; Cuff Size: Large BP Diastolic 98 mm[Hg] Comments: Patient Position: Sitting; Cuff Location: Left Arm; Cuff Size: Large Weight 200.25 lb Height 74 in Body Mass Index Calculated 25.71 kg/m2 Body Surface Area Calculated 2.17 m2 :53 Temperature 97 f Pulse 67 /min Comments: Pattern: Regular Respiration Rate 18 /min Comments: Pattern: Unlabored O2 SAT 98 % Comments: Room air BP Systolic 122 mm[Hg] Comments: Patient Position: Sitting; Cuff Location: Left Arm; Cuff Size: Standard BP Diastolic 78 mm[Hg] Comments: Patient Position: Sitting; Cuff Location: Left Arm; Cuff Size: Standard Weight 202.375 lb Height 74 in Body Mass Index Calculated 25.98 kg/m2 Body Surface Area Calculated 2.18 m2 :50 Temperature 96.9 f Comments: Method: Temporal Pulse 66 /min Comments: Pattern: Regular Respiration Rate 18 /min Comments: Pattern: Unlabored O2 SAT 96 % Comments: Room air BP Systolic 100 mm[Hg] Comments: Patient Position: Sitting; Cuff Location: Left Arm; Cuff Size: Large BP Diastolic 58 mm[Hg] Comments: Patient Position: Sitting; Cuff Location: Left Arm; Cuff Size: Large Weight 205.125 lb Height 74 in Body Mass Index Calculated 26.34 kg/m2 Body Surface Area Calculated 2.2 m2 :04 Temperature 96.2 f Comments: Method: Oral Pulse 76 /min Comments: Pattern: Regular Respiration Rate 18 /min Comments: Pattern: Unlabored O2 SAT 94 % Comments: Room air BP Systolic 116 mm[Hg] Comments: Patient Position: Sitting; Cuff Location: Left Arm; Cuff Size: Large BP Diastolic 64 mm[Hg] Comments: Patient Position: Sitting; Cuff Location: Left Arm; Cuff Size: Large Weight 218.25 lb Height 74 in Body Mass Index Calculated 28.02 kg/m2 Body Surface Area Calculated 2.26 m2 60-Iar-261015:15 Pulse 65 /min Comments: Pattern: Regular Respiration Rate 18 /min Comments: Pattern: Unlabored O2 SAT 98 % Comments: Room air BP Systolic 122 mm[Hg] Comments: Patient Position: Sitting; Cuff Location: Left Arm; Cuff Size: Large BP Diastolic 60 mm[Hg] Comments: Patient Position: Sitting; Cuff Location: Left Arm; Cuff Size: Large Weight 215.3125 lb Height 74 in Body Mass Index Calculated 27.64 kg/m2 Body Surface Area Calculated 2.24 m2 :33 Comments: DR. Montalvo 2011 no glaucoma test Temperature 97.1 f Comments: Method: Temporal Pulse 68 /min Comments: Pattern: Regular Respiration Rate 16 /min Comments: Pattern: Unlabored O2 SAT 98 % Comments: Room air BP Systolic 138 mm[Hg] Comments: Patient Position: Sitting; Cuff Location: Left Arm; Cuff Size: Standard BP Diastolic 82 mm[Hg] Comments: Patient Position: Sitting; Cuff Location: Left Arm; Cuff Size: Standard Weight 207 lb Height 74 in Body Mass Index Calculated 26.58 kg/m2 Body Surface Area Calculated 2.21 m2 :29 Pulse 77 /min Comments: Pattern: Regular Respiration Rate 20 /min Comments: Pattern: Unlabored O2 SAT 98 % Comments: Room air BP Systolic 120 mm[Hg] Comments: Patient Position: Sitting; Cuff Location: Left Arm; Cuff Size: Large BP Diastolic 60 mm[Hg] Comments: Patient Position: Sitting; Cuff Location: Left Arm; Cuff Size: Large Weight 207 lb Height 74 in Body Mass Index Calculated 26.58 kg/m2 Body Surface Area Calculated 2.21 m2 :12 Temperature 98.6 f Comments: Method: Oral Pulse 72 /min Comments: Pattern: Regular Respiration Rate 20 /min Comments: Pattern: Unlabored BP Systolic 122 mm[Hg] Comments: Patient Position: Sitting; Cuff Location: Left Arm; Cuff Size: Large BP Diastolic 78 mm[Hg] Comments: Patient Position: Sitting; Cuff Location: Left Arm; Cuff Size: Large Weight 207.5625 lb Height 74 in Body Mass Index Calculated 26.65 kg/m2 Body Surface Area Calculated 2.21 m2 :43 Temperature 98.4 f Comments: Method: Oral Pulse 72 /min Comments: Pattern: Regular Respiration Rate 20 /min Comments: Pattern: Unlabored BP Systolic 120 mm[Hg] Comments: Patient Position: Sitting; Cuff Location: Left Arm; Cuff Size: Standard BP Diastolic 70 mm[Hg] Comments: Patient Position: Sitting; Cuff Location: Left Arm; Cuff Size: Standard Weight 206 lb Height 74 in Body Mass Index Calculated 26.45 kg/m2 Body Surface Area Calculated 2.2 m2 :42 Pulse 60 /min Comments: Pattern: Regular Respiration Rate 20 /min Comments: Pattern: Unlabored BP Systolic 122 mm[Hg] Comments: Patient Position: Sitting; Cuff Location: Left Arm; Cuff Size: Large BP Diastolic 70 mm[Hg] Comments: Patient Position: Sitting; Cuff Location: Left Arm; Cuff Size: Large Weight 214.125 lb Height 74 in Body Mass Index Calculated 27.49 kg/m2 Body Surface Area Calculated 2.24 m2 :06 Temperature 98.1 f Comments: Method: Oral Pulse 72 /min Comments: Pattern: Regular Respiration Rate 16 /min Comments: Pattern: Unlabored BP Systolic 124 mm[Hg] Comments: Patient Position: Sitting; Cuff Location: Left Arm; Cuff Size: Standard BP Diastolic 82 mm[Hg] Comments: Patient Position: Sitting; Cuff Location: Left Arm; Cuff Size: Standard Weight 213.5 lb Height 74 in Body Mass Index Calculated 27.41 kg/m2 Body Surface Area Calculated 2.23 m2 :37 Pulse 72 /min Comments: Pattern: Regular Respiration Rate 16 /min Comments: Pattern: Unlabored BP Systolic 112 mm[Hg] Comments: Patient Position: Sitting; Cuff Location: Left Arm; Cuff Size: Standard BP Diastolic 72 mm[Hg] Comments: Patient Position: Sitting; Cuff Location: Left Arm; Cuff Size: Standard Weight 213.5 lb Height 74 in Body Mass Index Calculated 27.41 kg/m2 Body Surface Area Calculated 2.23 m2 :23 Temperature 98.5 f Comments: Method: Oral Pulse 68 /min Comments: Pattern: Regular Respiration Rate 20 /min Comments: Pattern: Unlabored BP Systolic 110 mm[Hg] Comments: Patient Position: Sitting; Cuff Location: Left Arm; Cuff Size: Large BP Diastolic 62 mm[Hg] Comments: Patient Position: Sitting; Cuff Location: Left Arm; Cuff Size: Large Weight 213.5 lb Height 74 in Body Mass Index Calculated 27.41 kg/m2 Body Surface Area Calculated 2.23 m2 :07 Pulse 68 /min Comments: Pattern: Regular Respiration Rate 20 /min Comments: Pattern: Unlabored BP Systolic 142 mm[Hg] Comments: Patient Position: Sitting; Cuff Location: Left Arm; Cuff Size: Large BP Diastolic 78 mm[Hg] Comments: Patient Position: Sitting; Cuff Location: Left Arm; Cuff Size: Large Weight 217.0625 lb Height 74 in Body Mass Index Calculated 27.87 kg/m2 Body Surface Area Calculated 2.25 m2 :26 Pulse 68 /min Comments: Pattern: Regular Respiration Rate 20 /min Comments: Pattern: Unlabored BP Systolic 118 mm[Hg] Comments: Patient Position: Sitting; Cuff Location: Left Arm; Cuff Size: Large BP Diastolic 70 mm[Hg] Comments: Patient Position: Sitting; Cuff Location: Left Arm; Cuff Size: Large Weight 212.5625 lb :03 Temperature 98.1 f Comments: Method: Oral Pulse 80 /min Comments: Pattern: Regular Respiration Rate 16 /min Comments: Pattern: Unlabored BP Systolic 112 mm[Hg] Comments: Patient Position: Sitting; Cuff Location: Left Arm; Cuff Size: Large BP Diastolic 68 mm[Hg] Comments: Patient Position: Sitting; Cuff Location: Left Arm; Cuff Size: Large :04 Pulse 64 /min Comments: Pattern: Regular Respiration Rate 20 /min Comments: Pattern: Unlabored BP Systolic 122 mm[Hg] Comments: Patient Position: Sitting; Cuff Location: Left Arm; Cuff Size: Large BP Diastolic 80 mm[Hg] Comments: Patient Position: Sitting; Cuff Location: Left Arm; Cuff Size: Large Weight 215.25 lb :02 Pulse 74 /min Comments: Pattern: Regular Respiration Rate 18 /min Comments: Pattern: Unlabored BP Systolic 108 mm[Hg] Comments: Patient Position: Sitting; Cuff Location: Left Arm; Cuff Size: Standard BP Diastolic 68 mm[Hg] Comments: Patient Position: Sitting; Cuff Location: Left Arm; Cuff Size: Standard Weight 210.25 lb :01 Pulse 88 /min Comments: Pattern: Regular Respiration Rate 20 /min Comments: Pattern: Unlabored BP Systolic 118 mm[Hg] Comments: Patient Position: Sitting; Cuff Location: Left Arm; Cuff Size: Large BP Diastolic 70 mm[Hg] Comments: Patient Position: Sitting; Cuff Location: Left Arm; Cuff Size: Large Weight 212.1875 lb :41 Pulse 68 /min Comments: Pattern: Regular Respiration Rate 18 /min Comments: Pattern: Unlabored BP Systolic 132 mm[Hg] Comments: Patient Position: Sitting; Cuff Location: Left Arm; Cuff Size: Large BP Diastolic 78 mm[Hg] Comments: Patient Position: Sitting; Cuff Location: Left Arm; Cuff Size: Large Weight 218.3125 lb Height 0 in Head Circumference 0.00 cm :57 Pulse 64 /min Comments: Pattern: Regular Respiration Rate 20 /min Comments: Pattern: Unlabored BP Systolic 122 mm[Hg] Comments: Patient Position: Sitting; Cuff Location: Left Arm; Cuff Size: Large BP Diastolic 70 mm[Hg] Comments: Patient Position: Sitting; Cuff Location: Left Arm; Cuff Size: Large Weight 219.375 lb Height 0 in Head Circumference 0.00 cm :10 Pulse 64 /min Comments: Pattern: Regular Respiration Rate 18 /min Comments: Pattern: Labored BP Systolic 116 mm[Hg] Comments: Patient Position: Sitting; Cuff Location: Left Arm; Cuff Size: Large BP Diastolic 62 mm[Hg] Comments: Patient Position: Sitting; Cuff Location: Left Arm; Cuff Size: Large Weight 222.3125 lb Height 0 in Head Circumference 0.00 cm :46 Pulse 88 /min Comments: Pattern: Regular Respiration Rate 20 /min Comments: Pattern: Unlabored BP Systolic 122 mm[Hg] Comments: Patient Position: Sitting; Cuff Location: Left Arm; Cuff Size: Large BP Diastolic 60 mm[Hg] Comments: Patient Position: Sitting; Cuff Location: Left Arm; Cuff Size: Large Weight 222.3125 lb Height 0 in Head Circumference 0.00 cm :59 Pulse 68 /min Comments: Pattern: Regular Respiration Rate 18 /min Comments: Pattern: Unlabored BP Systolic 120 mm[Hg] Comments: Patient Position: Sitting; Cuff Location: Right Arm; Cuff Size: Large BP Diastolic 64 mm[Hg] Comments: Patient Position: Sitting; Cuff Location: Right Arm; Cuff Size: Large Weight 0 lb Height 0 in Head Circumference 0.00 cm :50 Pulse 72 /min Comments: Pattern: Regular Respiration Rate 18 /min Comments: Pattern: Unlabored BP Systolic 118 mm[Hg] Comments: Patient Position: Sitting; Cuff Location: Right Arm; Cuff Size: Standard BP Diastolic 76 mm[Hg] Comments: Patient Position: Sitting; Cuff Location: Right Arm; Cuff Size: Standard Weight 221.0625 lb Height 0 in Head Circumference 0.00 cm :59 Pulse 60 /min Comments: Pattern: Regular Respiration Rate 16 /min Comments: Pattern: Unlabored BP Systolic 122 mm[Hg] Comments: Patient Position: Sitting; Cuff Location: Right Arm; Cuff Size: Standard BP Diastolic 76 mm[Hg] Comments: Patient Position: Sitting; Cuff Location: Right Arm; Cuff Size: Standard Weight 221.25 lb Height 0 in Head Circumference 0.00 cm :36 Temperature 98.2 f Comments: Method: Oral Pulse 74 /min Comments: Pattern: Regular Respiration Rate 18 /min Comments: Pattern: Unlabored BP Systolic 120 mm[Hg] Comments: Patient Position: Sitting; Cuff Location: Left Arm; Cuff Size: Standard BP Diastolic 76 mm[Hg] Comments: Patient Position: Sitting; Cuff Location: Left Arm; Cuff Size: Standard Weight 233.4375 lb Height 0 in Head Circumference 0.00 cm :04 Temperature 98.5 f Comments: Method: Oral Pulse 74 /min Comments: Pattern: Regular BP Systolic 120 mm[Hg] Comments: Patient Position: Sitting; Cuff Location: Left Arm; Cuff Size: Standard BP Diastolic 74 mm[Hg] Comments: Patient Position: Sitting; Cuff Location: Left Arm; Cuff Size: Standard Weight 233.4375 lb Height 0 in Head Circumference 0.00 cm :31 Temperature 98.9 f Comments: Method: Undefined Pulse 72 /min Comments: Pattern: Regular Respiration Rate 20 /min Comments: Pattern: Undefined BP Systolic 126 mm[Hg] Comments: Patient Position: Sitting; Cuff Location: Left Arm; Cuff Size: Large BP Diastolic 78 mm[Hg] Comments: Patient Position: Sitting; Cuff Location: Left Arm; Cuff Size: Large Weight 235 lb Height 0 in Head Circumference 0.00 cm Results Date Description Value Details :40 Lamotrigine (Lamictal) Level Comments: [facility] (refer to report for specific site)refer to report for address and phone number LAMOTRIG [id number] 10.0 ug/mL (Normal) Range: 2.0-20.0 Comments: Detection Limit = 1.0Performed at: [facility] [address] [id number] Director: Kar Robison MD, Phone: [phone] [id number] Topiramate, Serum Comments: [facility] (refer to report for specific site)refer to report for address and phone number TOPIRAMATE 14.6 ug/mL (Normal) Range: 2.0-25.0 Comments: Detection Limit = 1.0 :40 Valproic Acid (Depakene) Level Comments: [facility] [id number] [place], [address] VALPROIC ACID 80 ug/mL (Normal) Range: 50-100 40-Aoa-30101:16 CBC W/Diff, Automated Comments: DR VELASQUEZ ORDERED TOPAMAX DEPAKOTE LAMICTAL [facility] [id number] [place], [address] PATH REV Reviewed (Normal) Comments: Neutrophilic left shift.MacrocytosisClinical correlation necessary.Ken Pearl M.D. 05/23/17Pathologist comment added AMENDED REPORT 05/23/17 1244 PATH REV previously reported as: May foll Absolute Lymph 3.10 {X10_3/ul} (Normal) Range: 0.83-4.51 Absolute Neut 2.3 {X10_3/uL} (Normal) Range: 2.0-7.7 IM GRAN % 2.500 % (Abnormal) Range: 0.0-0.9 Comments: IG% - Immature Granulocytes (promyelocytes, myelocytes andmetamyelocytes) > 1% indicates that a LEFT SHIFT is Present. BASO% 0.6 % (Normal) Range: 0-1 EO% 1.6 % (Normal) Range: 0-5 MONO% 10.0 % (Normal) Range: 0-10 LY% 49.1 % (Abnormal) Range: 19-41 NEUT% 36.2 % (Abnormal) Range: 47-70 MPV 10.0 fL (Normal) Range: 6.2-12.0 PLT 236 K/mm3 (Normal) Range: 150-450 RDW SD 47.2 fL (Abnormal) Range: 35.1-43.9 RDW CV 13.0 % (Normal) Range: 11.6-14.6 MCHC 32.6 {g/gl} (Normal) Range: 32-36 MCH 32.7 pg (Abnormal) Range: 27.0-32.0 MCV 100.5 fL (Abnormal) Range: 80-94 HCT 38.7 % (Abnormal) Range: 40-54 HGB 12.6 g/dL (Abnormal) Range: 13.0-16.5 RBC 3.85 {M/mm3} (Abnormal) Range: 4.6-6.2 WBC 6.3 K/mm3 (Normal) Range: 4.4-11.0 91-Ogr-96496:16 Lamotrigine (Lamictal) Level Comments: DR VELASQUEZ ORDERED TOPAMAX DEPAKOTE LAMICTAL [facility] (refer to report for specific site)refer to report for address and phone number LAMOTRIG [id number] 11.1 ug/mL (Normal) Range: 2.0-20.0 Comments: Detection Limit = 1.0Performed at: - [facility] [id number] Director: Kar Robison MD, Phone: [phone] 14-Bhh-[id number]:16 Lipid Profile Comments: DR VELASQUEZ ORDERED TOPAMAX DEPAKOTE LAMICTAL [facility] [id number] [place], [place], [id number] VLDL Test not performed mg/dL (Normal) Range: 5-40 LDL Test not performed mg/dL (Normal) Range: 0-130 HDL 26 mg/dL (Abnormal) Comments: The drugs N-Acetylcysteine and Metamizole may falselydepress this assay. Reference Range HDL <40 mg/dL Low HDL Cholesterol HDL >or= 60 mg/dL High HDL Cholesterol TRIG 551 mg/dL (Abnormal) Comments: The drugs N-Acetylcysteine and Metamizole may falselydepress this assay.TRIGLYCERIDE IS GREATER THAN 400 mg/dL.LDL RESULT IS INVALID AND WILL NOT BE REPORTED.Serum Triglycerides Referenc e Interval Normal <150 mg/dL Borderline high 150 - 199 mg/dL High 200 - 499 mg/dL Very High > or = 500 mg/dL CHOL 236 mg/dL (Abnormal) Comments: <200 mg/dL Desirable 200-240 mg/dL Borderline >240 mg/dL High Risk :16 Thyroid Stim Hormone (TSH) Comments: DR VELASQUEZ [facility] [id number] [place], [address] TSH 4.29 {uIU/mL} (Abnormal) Range: 0.358-3.74 :16 Topiramate, Serum Comments: DR VELASQUEZ ORDERED TOPAMAX DEPAKOTE L[facility]ICTAL [facility] (refer to report for specific site)refer to report for address and phone number TOPIRAMATE 8.8 ug/mL (Normal) Range: 2.0-25.0 Comments: Detection Limit = 1.0 :16 Valproic Acid (Depakene) Level Comments: [facility] [id number] [place], [address] VALPROIC ACID 78 ug/mL (Normal) Range: 50-100 56-Rfj-84628:16 Vitamin D,25 Hydroxy Comments: DR VELASQUEZ ORDERED TOPAMAX DEPUNIV[facility] [id number] [place], [address] Vitamin D 25-OH 38.1 ng/mL (Normal) Range: 29.95-100.01 Comments: Vitamin D 25(OH) Status Range Deficiency <20 ng/mL (50nmol/L) Insuffciency 20 - 30 ng/mL (50 - 75 nmol/L) Sufficiency 30 - 100 ng/mL (75 - 250 nmol/L) Toxicity >100 ng/mL (>250 nmol/L) 40-Ttu-650145:42 HgA1C , Office (08606) HgA1C , Office 5.4 % (Normal) Range: 4.6 - 7.1 45-Blb-040861:42 Blood Glucose , Office (74089) Blood Glucose , Office 109 (Normal) :01 CBC W/Diff, Automated Comments: [facility] [id number] [place], [place], [phone]) MONOCYTE 1 % (Normal) Range: 0-10 LYMPH 55 % (Abnormal) Range: 19-41 META 2 % (Abnormal) Range: 0-1 BAND 5 % (Normal) Range: 0-5 SEGS 37 % (Abnormal) Range: 47-70 CELLS COUNTED 100 (Normal) Absolute Lymph 4.00 {X10_3/ul} (Normal) Range: 0.83-4.51 Absolute Neut 3.1 {X10_3/uL} (Normal) Range: 2.0-7.7 MPV 9.4 fL (Normal) Range: 6.2-12.0 PLT 236 K/mm3 (Normal) Range: 150-450 RDW SD 49.7 fL (Abnormal) Range: 35.1-43.9 RDW CV 13.5 % (Normal) Range: 11.6-14.6 MCHC 31.8 {g/gl} (Abnormal) Range: 32-36 MCH 32.0 pg (Normal) Range: 27.0-32.0 MCV 100.5 fL (Abnormal) Range: 80-94 HCT 39.9 % (Abnormal) Range: 40-54 HGB 12.7 g/dL (Abnormal) Range: 13.0-16.5 RBC 3.97 {M/mm3} (Abnormal) Range: 4.6-6.2 WBC 7.3 K/mm3 (Normal) Range: 4.4-11.0 :01 Comprehensive Metabolic Profil Comments: [facility] [address] [place], [place], [id number] GAP 8 (Normal) Range: 5-15 CO2 21.0 mmol/L (Normal) Range: 21.0-32.0 CL 112 mmol/L (Abnormal) Range: 98-107 K 4.4 mmol/L (Normal) Range: 3.5-5.1 NA 141 mmol/L (Normal) Range: 136-145 T BILI 0.20 mg/dL (Normal) Range: 0.20-1.00 ALT 65 U/L (Normal) Range: 12-78 ALK P 36 U/L (Abnormal) Range: 45-117 AST 46 U/L (Abnormal) Range: 15-37 CA 8.1 mg/dL (Abnormal) Range: 8.5-10.1 A/G 1.0 {RATIO} (Normal) Range: 0.9-2.4 GLOB 3.4 g/dL (Normal) Range: 2.3-3.5 ALB 3.4 g/dL (Normal) Range: 3.4-5.0 T PROT 6.8 g/dL (Normal) Range: 6.4-8.2 BUN/CRE 16.7 {RATIO} (Normal) Range: 10-20 EST GFR - AA 81 mL/min (Normal) Comments: GFR Calc EST GFR 67 mL/min (Normal) Comments: Non- GFR Calc CREAT,SERUM 1.26 mg/dL (Normal) Range: 0.70-1.30 Comments: The validity of the calculated GFR AND GFRAA in patients over70 years has not been determined. Clinical correlation isessential. BUN 21 mg/dL (Abnormal) Range: 7-18 GLU 111 mg/dL (Abnormal) Range: 70-110 Comments: Fasting Glucose result from 110 to <126 mg/dLsuggests IMPAIRED HOMEOSTASIS per A.D.A. criteria. :01 PSA,Total - Annual Screen Comments: [facility] [address] [place], [place], [id number] PSA,TOT SCREEN 0.49 ng/mL (Normal) Range: 0.00-4.00 Comments: This test was performed using the TPSA assay method for the[facility] chemistry system. Values obtained with differentassay methods cannot be used interchangably.When changing PSA assays in the course of monitoring apatient, additional sequential testing should be carriedout to confirm baseline values. :01 Thyroid Stim Hormone (TSH) Comments: [facility] [address] [place], [address] TSH 3.21 {uIU/mL} (Normal) Range: 0.358-3.74 :01 Vitamin D,25 Hydroxy Comments: [facility] [address] [place], [address] Vitamin D 25-OH 36.7 ng/mL (Normal) Comments: Vitamin D 25(OH) Status Range Deficiency <20 ng/mL (50nmol/L) Insuffciency 20 - 30 ng/mL (50 - 75 nmol/L) Sufficiency 30 - 100 ng/mL (75 - 250 nmol/L) Toxicity >100 ng/mL (>250 nmol/L) 86-Rwq-282010:10 Blood Glucose , Office (44151) Blood Glucose , Office 90 (Normal) 61-Fbp-[id number]:10 HgA1C , Office (49718) HgA1C , Office 5.3 % (Normal) Range: 4.6 - 7.1 :04 Comprehensive Metabolic Profil Comments: [facility] [address] [place], [address] GAP 10 (Normal) Range: 5-15 CO2 22.0 mmol/L (Normal) Range: 21.0-32.0 CL 111 mmol/L (Abnormal) Range: 98-107 K 4.3 mmol/L (Normal) Range: 3.5-5.1 NA 143 mmol/L (Normal) Range: 136-145 T BILI 0.10 mg/dL (Abnormal) Range: 0.20-1.00 ALT 56 U/L (Normal) Range: 12-78 ALK P 40 U/L (Abnormal) Range: 45-117 AST 37 U/L (Normal) Range: 15-37 CA 8.4 mg/dL (Abnormal) Range: 8.5-10.1 A/G 0.9 {RATIO} (Normal) Range: 0.9-2.4 GLOB 3.4 g/dL (Normal) Range: 2.3-3.5 ALB 3.2 g/dL (Abnormal) Range: 3.4-5.0 T PROT 6.6 g/dL (Normal) Range: 6.4-8.2 BUN/CRE 17.2 {RATIO} (Normal) Range: 10-20 EST GFR - AA 75 mL/min (Normal) Comments: GFR Calc EST GFR 62 mL/min (Normal) Comments: Non- GFR Calc CREAT,SERUM 1.34 mg/dL (Abnormal) Range: 0.70-1.30 Comments: The validity of the calculated GFR AND GFRAA in patients over70 years has not been determined. Clinical correlation isessential. BUN 23 mg/dL (Abnormal) Range: 7-18 GLU 112 mg/dL (Abnormal) Range: 70-110 Comments: Fasting Glucose result from 110 to <126 mg/dLsuggests IMPAIRED HOMEOSTASIS per A.D.A. criteria. :04 Free T3 Comments: [facility] [address] [facility]. [place], [place], [phone] FREE T3 2.3 pg/mL (Normal) Range: 2.18-3.98 :04 Lipid Profile Comments: [facility] [address] [facility]. [place], [place], [phone] VLDL Test not performed mg/dL (Normal) Range: 5-40 LDL Test not performed mg/dL (Normal) Range: 0-130 HDL 34 mg/dL (Abnormal) Comments: The drugs N-Acetylcysteine and Metamizole may falsely deressthis assay. Reference Range HDL <40 mg/dL Low HDL Cholesterol HDL >or= 60 mg/dL High HDL Cholesterol TRIG 406 mg/dL (Abnormal) Comments: The drugs N-Acetylcysteine and Metamizole may falsely deressthis assay.TRIGLYCERIDE IS GREATER THAN 400 mg/dL.LDL RESULT IS INVALID AND WILL NOT BE REPORTED.Serum Triglycerides Reference Interval Normal <150 mg/dL Borderline high 150 - 199 mg/dL High 200 - 499 mg/dL Very High > or = 500 mg/dL CHOL 238 mg/dL (Abnormal) Comments: <200 mg/dL Desirable 200-240 mg/dL Borderline >240 mg/dL High Risk :04 T4 Free Direct Comments: [facility] [address] [facility]. [place], [place], [phone] T4 FREE DIRECT 0.97 ng/dL (Normal) Range: 0.76-1.46 :04 Thyroid Peroxidase AB Comments: [facility] (refer to report for specific site)refer to report for address and phone number TPO AB [phone] 11 {IU/mL} (Normal) Range: 0-34 Comments: Performed at: [facility] [id number] Director: Ortiz Shukla PhD, Phone: [phone] 78-Huj-75816:04 Thyroid Stim Hormone (TSH) Comments: [facility] [address] [facility] [address] [place], [place], [phone] TSH 4.52 {uIU/mL} (Abnormal) Range: 0.358-3.74 :24 CBC W/Diff, Automated Comments: [facility] [address] [facility] [address] [place], [place], [address] Absolute Lymph 2.81 {X10_3/ul} (Normal) Range: 0.83-4.51 Absolute Neut 2.9 {X10_3/uL} (Normal) Range: 2.0-7.7 IM GRAN % 1.000 % (Abnormal) Range: 0.0-0.9 Comments: IG% - Immature Granulocytes (promyelocytes, myelocytes andmetamyelocytes) > 1% indicates that a LEFT SHIFT is Present. BASO% 0.6 % (Normal) Range: 0-1 EO% 1.6 % (Normal) Range: 0-5 MONO% 12.1 % (Abnormal) Range: 0-10 LY% 41.4 % (Abnormal) Range: 19-41 NEUT% 43.3 % (Abnormal) Range: 47-70 MPV 9.3 fL (Normal) Range: 6.2-12.0 PLT 255 K/mm3 (Normal) Range: 150-450 RDW SD 48.5 fL (Abnormal) Range: 35.1-43.9 RDW CV 13.3 % (Normal) Range: 11.6-14.6 MCHC 32.8 {g/gl} (Normal) Range: 32-36 MCH 33.4 pg (Abnormal) Range: 27.0-32.0 MCV 102.0 fL (Abnormal) Range: 80-94 HCT 35.7 % (Abnormal) Range: 40-54 HGB 11.7 g/dL (Abnormal) Range: 13.0-16.5 RBC 3.50 {M/mm3} (Abnormal) Range: 4.6-6.2 WBC 6.8 K/mm3 (Normal) Range: 4.4-11.0 :24 Comprehensive Metabolic Profil Comments: [facility] [address] [place], [address] GAP 9 (Normal) Range: 5-15 CO2 23.0 mmol/L (Normal) Range: 21.0-32.0 CL 114 mmol/L (Abnormal) Range: 98-107 K 4.4 mmol/L (Normal) Range: 3.5-5.1 NA 146 mmol/L (Abnormal) Range: 136-145 T BILI 0.20 mg/dL (Normal) Range: 0.20-1.00 ALT 45 U/L (Normal) Range: 12-78 ALK P 31 U/L (Abnormal) Range: 45-117 AST 32 U/L (Normal) Range: 15-37 CA 8.1 mg/dL (Abnormal) Range: 8.5-10.1 A/G 1.0 {RATIO} (Normal) Range: 0.9-2.4 GLOB 3.3 g/dL (Normal) Range: 2.3-3.5 ALB 3.4 g/dL (Normal) Range: 3.4-5.0 T PROT 6.7 g/dL (Normal) Range: 6.4-8.2 BUN/CRE 18.7 {RATIO} (Normal) Range: 10-20 EST GFR - AA 76 mL/min (Normal) Comments: GFR Calc EST GFR 62 mL/min (Normal) Comments: Non- GFR Calc CREAT,SERUM 1.34 mg/dL (Abnormal) Range: 0.70-1.30 Comments: The validity of the calculated GFR AND GFRAA in patients over70 years has not been determined. Clinical correlation isessential. BUN 25 mg/dL (Abnormal) Range: 7-18 GLU 105 mg/dL (Normal) Range: 70-110 :24 Lamotrigine (Lamictal) Level Comments: [facility] (refer to report for specific site)refer to report for address and phone number LAMOTRIG [id number] 12.6 ug/mL (Normal) Range: 2.0-20.0 Comments: Detection Limit = 1.0Performed at: - [facility] [address] [id number] Director: Kar Robison MD, Phone: [phone] :24 Topiramate, Serum Comments: [facility] (refer to report for specific site)refer to report for address and phone number TOPIRAMATE 9.3 ug/mL (Normal) Range: 2.0-25.0 Comments: Detection Limit = 1.0 :24 Valproic Acid (Depakene) Level Comments: [facility] [address] [place], [address] VALPROIC ACID 92 ug/mL (Normal) Range: 50-100 :15 HgA1C , Office (14875) HgA1C , Office 5.0 % (Normal) Range: 4.6 - 7.1 :15 Blood Glucose , Office (02405) Blood Glucose , Office 75 (Normal) :12 Comprehensive Metabolic Profil Comments: ORDERED: DEPAKOTE, LAMICTIL, TOPAMAXDR.ARNOLD ORDERED: LIPID, TSH, VITD, CBCD, CMP, KRISSY, AND [facility] [address] [place], [place], [phone] GAP 5 (Normal) Range: 5-15 CO2 23.0 mmol/L (Normal) Range: 21.0-32.0 CL 116 mmol/L (Abnormal) Range: 98-107 K 4.2 mmol/L (Normal) Range: 3.5-5.1 NA 144 mmol/L (Normal) Range: 136-145 T BILI 0.20 mg/dL (Normal) Range: 0.20-1.00 ALT 40 U/L (Normal) Range: 12-78 ALK P 38 U/L (Abnormal) Range: 50-136 AST 23 U/L (Normal) Range: 15-37 CA 8.2 mg/dL (Abnormal) Range: 8.5-10.1 A/G 0.9 {RATIO} (Normal) Range: 0.9-2.4 GLOB 3.5 g/dL (Normal) Range: 2.3-3.5 ALB 3.2 g/dL (Abnormal) Range: 3.4-5.0 T PROT 6.7 g/dL (Normal) Range: 6.4-8.2 BUN/CRE 20.2 {RATIO} (Abnormal) Range: 10-20 EST GFR - AA 83 mL/min (Normal) Comments: GFR Calc EST GFR 69 mL/min (Normal) Comments: Non- GFR Calc CREAT,SERUM 1.24 mg/dL (Normal) Range: 0.70-1.30 Comments: The validity of the calculated GFR AND GFRAA in patients over70 years has not been determined. Clinical correlation isessential. BUN 25 mg/dL (Abnormal) Range: 7-18 GLU 102 mg/dL (Normal) Range: 70-110 :12 Lamotrigine (Lamictal) Level Comments: ORDERED: DEPAKOTE, LAMICTIL, TOPAMAXDR.ARNOLD ORDERED: LIPID, TSH, VITD, CBCD, CMP, KRISSY, AND [facility]Lab[facility] (refer to report for specific site)refer to report for address and phone number LAMOTRIG [id number] 12.9 ug/mL (Normal) Range: 2.0-20.0 Comments: Detection Limit = 1.0Performed at: [facility] [address] [id number] Director: Kar Robison MD, Phone: [phone] 12-Jul-20157:12 Lipid Profile Comments: ORDERED: DEPAKOTE, LAMICTIL, TOPAMAXDR.ARNOLD ORDERED: LIPID, TSH, VITD, CBCD, CMP, KRISSY, AND [facility] [address] [facility] [place], [place], [phone] VLDL 32 mg/dL (Normal) Range: 5-40 LDL 77 mg/dL (Normal) Range: 0-130 HDL 28 mg/dL (Abnormal) Comments: Reference Range HDL <40 mg/dL Low HDL Cholesterol HDL >or= 60 mg/dL High HDL Cholesterol TRIG 158 mg/dL (Normal) Comments: Serum Triglycerides Reference Interval Normal <150 mg/dL Borderline high 150 - 199 mg/dL High 200 - 499 mg/dL Very High > or = 500 mg/dL CHOL 137 mg/dL (Normal) Comments: <200 mg/dL Desirable 200-240 mg/dL Borderline >240 mg/dL High Risk :12 Thyroid Stim Hormone (TSH) Comments: ORDERED: DEPAKOTE, LAMICTIL, TOPAMAXDR.ARNOLD ORDERED: LIPID, TSH, VITD, CBCD, CMP, KRISSY, AND [facility] [address] [place], [address] TSH 3.73 {uIU/mL} (Normal) Range: 0.358-3.74 :12 Topiramate, Serum Comments: ORDERED: DEPAKOTE, LAMICTIL, TOPAMAXDR.ARNOLD ORDERED: LIPID, TSH, VITD, CBCD, CMP, KRISSY, AND [facility]ACLabCorp (refer to report for specific site)refer to report for address and phone number TOPIRAMATE 10.0 ug/mL (Normal) Range: 2.0-25.0 Comments: Detection Limit = 1.0 :12 Valproic Acid (Depakene) Level Comments: ORDERED: DEPAKOTE, LAMICTIL, TOPAMAXDR.ARNOLD ORDERED: LIPID, TSH, VITD, CBCD, CMP, KRISSY, AND [facility] [address] [place], [place], [phone] VALPROIC ACID 73 ug/mL (Normal) Range: 50-100 :12 Vitamin D,25 Hydroxy Comments: ORDERED: DEPAKOTE, LAMICTIL, TOPAMAXDR.ARNOLD ORDERED: LIPID, TSH, VITD, CBCD, CMP, KRISSY, AND [facility] [address] [place], [place], [id number] Vitamin D 25-OH 53.5 ng/mL (Normal) Comments: Vitamin D 25(OH) Status Range Deficiency <20 ng/mL (50nmol/L) Insuffciency 20 - 30 ng/mL (50 - 75 nmol/L) Sufficiency 30 - 100 ng/mL (75 - 250 nmol/L) Toxicity >100 ng/mL (>250 nmol/L) 4-Qhh-621173:54 HgA1C , Office (11330) HgA1C , Office 5.3 % (Normal) Range: 4.6 - 7.1 :54 Blood Glucose , Office (98965) Blood Glucose , Office 77 (Normal) 90-Amx-434203:40 Basic Metabolic Profile (BMP) Comments: [facility] [address] [place], [place], [phone] GAP 5 (Normal) Range: 5-15 CO2 22.0 mmol/L (Normal) Range: 21.0-32.0 CL 112 mmol/L (Abnormal) Range: 98-107 K 4.0 mmol/L (Normal) Range: 3.5-5.1 NA 139 mmol/L (Normal) Range: 136-145 CA 8.5 mg/dL (Normal) Range: 8.5-10.1 BUN/CRE 27.5 {RATIO} (Abnormal) Range: 10-20 Estimated CRCL 95.14 ml/min (Normal) EST GFR - AA 86 mL/min (Normal) Comments: GFR Calc EST GFR 71 mL/min (Normal) Comments: Non- GFR Calc CREAT,SERUM 1.20 mg/dL (Normal) Range: 0.70-1.30 Comments: The validity of the calculated GFR AND GFRAA in patients over70 years has not been determined. Clinical correlation isessential. BUN 33 mg/dL (Abnormal) Range: 7-18 GLU 113 mg/dL (Abnormal) Range: 70-110 Comments: Fasting Glucose result from 110 to <126 mg/dLsuggests IMPAIRED HOMEOSTASIS per A.D.A. criteria. 50-Zxq-459082:40 CBC W/Diff, Automated Comments: [facility] [address] [place], [place], [address] Absolute Lymph 3.02 {X10_3/ul} (Normal) Range: 0.83-4.51 Absolute Neut 2.7 {X10_3/uL} (Normal) Range: 2.0-7.7 IM GRAN % 0.800 % (Normal) Range: 0.0-0.9 Comments: IG% - Immature Granulocytes (promyelocytes, myelocytes andmetamyelocytes) > 1% indicates that a LEFT SHIFT is Present. BASO% 0.5 % (Normal) Range: 0-1 EO% 1.1 % (Normal) Range: 0-5 MONO% 8.2 % (Normal) Range: 0-10 LY% 47.6 % (Abnormal) Range: 19-41 NEUT% 41.8 % (Abnormal) Range: 47-70 MPV 9.2 fL (Normal) Range: 6.2-12.0 PLT 224 K/mm3 (Normal) Range: 150-450 RDW SD 52.9 fL (Abnormal) Range: 35.1-43.9 RDW CV 14.5 % (Normal) Range: 11.6-14.6 MCHC 32.8 {g/gl} (Normal) Range: 32-36 MCH 32.4 pg (Abnormal) Range: 27.0-32.0 MCV 98.9 fL (Abnormal) Range: 80-94 HCT 35.4 % (Abnormal) Range: 40-54 HGB 11.6 g/dL (Abnormal) Range: 13.0-16.5 RBC 3.58 {M/mm3} (Abnormal) Range: 4.6-6.2 WBC 6.4 K/mm3 (Normal) Range: 4.4-11.0 90-Ewn-295140:40 Valproic Acid (Depakene) Level Comments: [facility] [address] [place], [address] VALPROIC ACID 73 ug/mL (Normal) Range: 50-100 :53 CBC W/Diff, Automated Comments: [facility] [address] [place], [address] Absolute Lymph 3.63 {X10_3/ul} (Normal) Range: 0.83-4.51 Absolute Neut 2.9 {X10_3/uL} (Normal) Range: 2.0-7.7 IM GRAN % 1.500 % (Abnormal) Range: 0.0-0.9 Comments: IG% - Immature Granulocytes (promyelocytes, myelocytes andmetamyelocytes) > 1% indicates that a LEFT SHIFT is Present. BASO% 0.5 % (Normal) Range: 0-1 EO% 2.1 % (Normal) Range: 0-5 MONO% 9.3 % (Normal) Range: 0-10 LY% 48.5 % (Abnormal) Range: 19-41 NEUT% 38.1 % (Abnormal) Range: 47-70 MPV 9.6 fL (Normal) Range: 6.2-12.0 PLT 278 K/mm3 (Normal) Range: 150-450 RDW SD 52.2 fL (Abnormal) Range: 35.1-43.9 RDW CV 14.5 % (Normal) Range: 11.6-14.6 MCHC 32.2 {g/gl} (Normal) Range: 32-36 MCH 32.6 pg (Abnormal) Range: 27.0-32.0 MCV 101.1 fL (Abnormal) Range: 80-94 HCT 36.9 % (Abnormal) Range: 40-54 HGB 11.9 g/dL (Abnormal) Range: 13.0-16.5 RBC 3.65 {M/mm3} (Abnormal) Range: 4.6-6.2 WBC 7.5 K/mm3 (Normal) Range: 4.4-11.0 :53 Comprehensive Metabolic Profil Comments: [facility] [address] [place] [place], [place], [address] GAP 7 (Normal) Range: 5-15 CO2 21.0 mmol/L (Normal) Range: 21.0-32.0 CL 114 mmol/L (Abnormal) Range: 98-107 K 4.4 mmol/L (Normal) Range: 3.5-5.1 NA 142 mmol/L (Normal) Range: 136-145 T BILI 0.20 mg/dL (Normal) Range: 0.20-1.00 ALT 55 U/L (Normal) Range: 12-78 ALK P 38 U/L (Abnormal) Range: 50-136 AST 44 U/L (Abnormal) Range: 15-37 CA 8.1 mg/dL (Abnormal) Range: 8.5-10.1 A/G 1.0 {RATIO} (Normal) Range: 0.9-2.4 GLOB 3.4 g/dL (Normal) Range: 2.3-3.5 ALB 3.4 g/dL (Normal) Range: 3.4-5.0 T PROT 6.8 g/dL (Normal) Range: 6.4-8.2 BUN/CRE 19.1 {RATIO} (Normal) Range: 10-20 EST GFR - AA 75 mL/min (Normal) Comments: GFR Calc EST GFR 62 mL/min (Normal) Comments: Non- GFR Calc CREAT,SERUM 1.36 mg/dL (Abnormal) Range: 0.70-1.30 Comments: The validity of the calculated GFR AND GFRAA in patients over70 years has not been determined. Clinical correlation isessential. BUN 26 mg/dL (Abnormal) Range: 7-18 GLU 100 mg/dL (Normal) Range: 70-110 :53 Lipid Profile Comments: [facility] [address] [place], [place], [phone] VLDL 38 mg/dL (Normal) Range: 5-40 LDL 73 mg/dL (Normal) Range: 0-130 HDL 34 mg/dL (Abnormal) Comments: Reference Range HDL <40 mg/dL Low HDL Cholesterol HDL >or= 60 mg/dL High HDL Cholesterol TRIG 190 mg/dL (Normal) Comments: Serum Triglycerides Reference Interval Normal <150 mg/dL Borderline high 150 - 199 mg/dL High 200 - 499 mg/dL Very High > or = 500 mg/dL CHOL 145 mg/dL (Normal) Comments: <200 mg/dL Desirable 200-240 mg/dL Borderline >240 mg/dL High Risk :53 PSA,Total - Annual Screen Comments: [facility] [address] [place], [place], [id number] PSA,TOT SCREEN 0.40 ng/mL (Normal) Range: 0.00-4.00 Comments: This test was performed using the TPSA assay method for the[facility] chemistry system. Values obtained with differentassay methods cannot be used interchangably.When changing PSA assays in the course of monitoring apatient, additional sequential testing should be carriedout to confirm baseline values. :53 Thyroid Stim Hormone (TSH) Comments: [facility] [address] [place], [address] TSH 4.06 {uIU/mL} (Abnormal) Range: 0.358-3.74 :53 Vitamin D,25 Hydroxy Comments: [facility] [address] [place], [address] Vitamin D 25-OH 50.9 ng/mL (Normal) Comments: Vitamin D 25(OH) Status Range Deficiency <20 ng/mL (50nmol/L) Insuffciency 20 - 30 ng/mL (50 - 75 nmol/L) Sufficiency 30 - 100 ng/mL (75 - 250 nmol/L) Toxicity >100 ng/mL (>250 nmol/L) :49 HgA1C , Office (96548) HgA1C , Office 4.9 % (Normal) Range: 4.6 - 7.1 :49 Blood Glucose , Office (56237) Blood Glucose , Office 73 (Normal) :09 HgA1C , Office (85741) HgA1C , Office 5.3 % (Normal) Range: 4.6 - 7.1 :34 CALCIFIDIOL (43024) VIT D 25 Comments: PATIENT WAS FASTINGPERFORMED BY: [facility] [facility] [id number] Vitamin D, 25-Hydroxy 51.2 ng/mL (Normal) Range: 30.0-100.0 Comments: Vitamin D deficiency has been defined by the [place] ofMedicine and an Endocrine Society practice guideline as alevel of serum 25-OH vitamin D less than 20 ng/mL (1,2).The Endocrine Society went on to further define vitamin Dinsufficiency as a level between 21 and 29 ng/mL (2).1. IOM ([place] of Medicine). 2010. Dietary reference intakes for calcium and D. [place]: The National Academies Press.2. Rhys BLAND, Obi SANTOS, Rosalino BULLOCK, et al. Evaluation, treatment, and prevention of vitamin D deficiency: an Endocrine Society clinical practice guideline. JCEM. 2010; 96(7):1911-30. :34 TSH (92820) Comments: PATIENT WAS FASTINGPERFORMED BY: [facility] [address] [facility] [id number] TSH 2.240 {uIU/mL} (Normal) Range: 0.450-4.500 :34 METABOLIC PANEL, COMPREHENSIVE Comments: PATIENT WAS FASTINGPERFORMED BY: [facility] [address] [facility] [id number] (21595) ALT (SGPT) 45 [iU]/L (Abnormal) Range: 0-44 AST (SGOT) 40 [iU]/L (Normal) Range: 0-40 Alkaline Phosphatase, S 31 [iU]/L (Abnormal) Range: 39-117 Bilirubin, Total 0.2 mg/dL (Normal) Range: 0.0-1.2 A/G Ratio 1.8 (Normal) Range: 1.1-2.5 Globulin, Total 2.5 g/dL (Normal) Range: 1.5-4.5 Albumin, Serum 4.4 g/dL (Normal) Range: 3.5-5.5 Protein, Total, Serum 6.9 g/dL (Normal) Range: 6.0-8.5 Calcium, Serum 9.5 mg/dL (Normal) Range: 8.7-10.2 Carbon Dioxide, Total 21 mmol/L (Normal) Range: 18-29 Chloride, Serum 104 mmol/L (Normal) Range: 97-108 Potassium, Serum 4.8 mmol/L (Normal) Range: 3.5-5.2 Sodium, Serum 139 mmol/L (Normal) Range: 134-144 BUN/Creatinine Ratio 24 (Abnormal) Range: 8-19 eGFR If Africn Am 102 mL/min/1.73 (Normal) eGFR If NonAfricn Am 88 mL/min/1.73 (Normal) Creatinine, Serum 1.06 mg/dL (Normal) Range: 0.76-1.27 BUN 25 mg/dL (Abnormal) Range: 6-20 Glucose, Serum 83 mg/dL (Normal) Range: 65-99 :34 LIPID PANEL (17005) Comments: PATIENT WAS FASTINGPERFORMED BY: [facility] [id number] LDL/HDL Ratio 3.4 {ratio_units} (Normal) Range: 0.0-3.6 Comments: LDL/HDL Ratio Men Women 1/2 Avg.Risk 1.0 1.5 Av g.Risk 3.6 3.2 2X Avg.Risk 6.2 5.0 3X Avg.Risk 8.0 6.1 LDL Cholesterol Calc 108 mg/dL (Abnormal) Range: 0-99 Comments: Please note reference interval change VLDL Cholesterol Abdirizak 65 mg/dL (Abnormal) Range: 5-40 HDL Cholesterol 32 mg/dL (Abnormal) Comments: According to ATP-III Guidelines, HDL-C >59 mg/dL is considered anegative risk factor for CHD. Triglycerides 325 mg/dL (Abnormal) Range: 0-149 Comments: Please note reference interval change Cholesterol, Total 205 mg/dL (Abnormal) Range: 100-199 Comments: Please note reference interval change 56-Myd-479844:34 CBC W/AUTO DIFF WBC Comments: PATIENT WAS FASTINGPERFORMED BY: [facility] Oixwne[address]82 [facility] [id number] Information: [id number] (54489) Immature Grans (Abs) 0.0 {x10E3/uL} (Normal) Range: 0.0-0.1 Immature Granulocytes 0 % (Normal) Baso (Absolute) 0.0 {x10E3/uL} (Normal) Range: 0.0-0.2 Eos (Absolute) 0.1 {x10E3/uL} (Normal) Range: 0.0-0.4 Monocytes(Absolute) 0.6 {x10E3/uL} (Normal) Range: 0.1-0.9 Lymphs (Absolute) 3.8 {x10E3/uL} (Abnormal) Range: 0.7-3.1 Neutrophils (Absolute) 2.8 {x10E3/uL} (Normal) Range: 1.4-7.0 Basos 1 % (Normal) Eos 2 % (Normal) Monocytes 8 % (Normal) Lymphs 51 % (Normal) Neutrophils 38 % (Normal) Platelets 271 {x10E3/uL} (Normal) Range: 150-379 RDW 13.6 % (Normal) Range: 12.3-15.4 MCHC 32.4 g/dL (Normal) Range: 31.5-35.7 MCH 31.4 pg (Normal) Range: 26.6-33.0 MCV 97 fL (Normal) Range: 79-97 Hematocrit 38.3 % (Normal) Range: 37.5-51.0 Hemoglobin 12.4 g/dL (Abnormal) Range: 12.6-17.7 RBC 3.95 {x10E6/uL} (Abnormal) Range: 4.14-5.80 WBC 7.5 {x10E3/uL} (Normal) Range: 3.4-10.8 :10 CBC W/Diff, Automated Comments: Test performed at:[facility] [id number] Matthews[address] [place], [place] [id number] Absolute Lymph 3.58 {X10_3/ul} (Normal) Range: 0.83-4.51 Absolute Neut 2.3 {X10_3/uL} (Normal) Range: 2.0-7.7 IM GRAN % 1.600 % (Abnormal) Range: 0.0-0.9 Comments: IG% - Immature Granulocytes (promyelocytes, myelocytes andmetamyelocytes) > 1% indicates that a LEFT SHIFT is Present. BASO% 0.7 % (Normal) Range: 0-1 EO% 1.5 % (Normal) Range: 0-5 MONO% 9.2 % (Normal) Range: 0-10 LY% 52.9 % (Abnormal) Range: 19-41 NEUT% 34.1 % (Abnormal) Range: 47-70 MPV 9.4 fL (Normal) Range: 6.2-12.0 PLT 277 K/mm3 (Normal) Range: 150-450 RDW SD 48.6 fL (Abnormal) Range: 35.1-43.9 RDW CV 13.3 % (Normal) Range: 11.6-14.6 MCHC 31.6 {g/gl} (Abnormal) Range: 32-36 MCH 31.6 pg (Normal) Range: 27.0-32.0 MCV 99.7 fL (Abnormal) Range: 80-94 HCT 37.3 % (Abnormal) Range: 40-54 HGB 11.8 g/dL (Abnormal) Range: 13.0-16.5 RBC 3.74 {M/mm3} (Abnormal) Range: 4.6-6.2 WBC 6.8 K/mm3 (Normal) Range: 4.4-11.0 :10 Comprehensive Metabolic Profil Comments: Test performed at:[facility] [id number] [place], [place] [id number] GAP 8 (Normal) Range: 5-15 CO2 23.0 mmol/L (Normal) Range: 21.0-32.0 CL 110 mmol/L (Abnormal) Range: 98-107 K 4.0 mmol/L (Normal) Range: 3.5-5.1 NA 141 mmol/L (Normal) Range: 136-145 T BILI 0.20 mg/dL (Normal) Range: 0.00-4.00 ALT 61 U/L (Normal) Range: 12-78 ALK P 39 U/L (Abnormal) Range: 50-136 AST 42 U/L (Abnormal) Range: 15-37 CA 8.4 mg/dL (Abnormal) Range: 8.5-10.1 A/G 1.0 {RATIO} (Normal) Range: 0.9-2.4 GLOB 3.4 g/dL (Normal) Range: 2.7-4.2 ALB 3.4 g/dL (Normal) Range: 3.4-5.0 T PROT 6.8 g/dL (Normal) Range: 6.4-8.2 BUN/CRE 16.9 {RATIO} (Normal) Range: 10-20 EST GFR - AA 79 mL/min (Normal) EST GFR 65 mL/min (Normal) CREAT,SERUM 1.3 mg/dL (Normal) Range: 0.8-1.3 BUN 22 mg/dL (Abnormal) Range: 7-18 GLU 94 mg/dL (Normal) Range: 70-110 :10 Lipid Profile Comments: Test performed at:[facility] W[address]em[address]ii4432 [facility] [address] [place], [place] [id number] VLDL 51 mg/dL (Abnormal) Range: 5-40 LDL 102 mg/dL (Normal) Range: 0-130 HDL 24 mg/dL (Abnormal) Comments: Reference Range HDL <40 mg/dL Low HDL Cholesterol HDL >or= 60 mg/dL High HDL Cholesterol TRIG 254 mg/dL (Abnormal) Range: 0-199 Comments: Serum Triglycerides Reference Interval Normal <150 mg/dL Borderline high 150 - 199 mg/dL High 200 - 499 mg/dL Very High > or = 500 mg/dL CHOL 177 mg/dL (Normal) Comments: <200 mg/dL Desirable 200-240 mg/dL Borderline >240 mg/dL High Risk :10 Thyroid Stim Hormone (TSH) Comments: Test performed at:[facility] [address] [place] [address] TSH 3.58 {uIU/mL} (Normal) Range: 0.358-3.74 :10 Vitamin D,25 Hydroxy Comments: Test performed at:[facility] [address] [place] [address]691 Vitamin D 25-OH 27.0 ng/mL (Normal) Comments: Vitamin D 25(OH) Status Range Deficiency <20 ng/mL (50nmol/L) Insuffciency 20 - 30 ng/mL (50 - 75 nmol/L) Sufficiency 30 - 100 ng/mL (75 - 250 nmol/L) Toxicity >100 ng/mL (>250 nmol/L) :26 Comprehensive Metabolic Profil Comments: Test performed at:[facility] [address] [place] [address] ; ordered by Tequila GAP 8 (Normal) Range: 5-15 CO2 23.0 mmol/L (Normal) Range: 21.0-32.0 CL 113 mmol/L (Abnormal) Range: 98-107 K 4.2 mmol/L (Normal) Range: 3.5-5.1 NA 144 mmol/L (Normal) Range: 136-145 T BILI 0.20 mg/dL (Normal) Range: 0.00-4.00 ALT 52 U/L (Normal) Range: 12-78 ALK P 41 U/L (Abnormal) Range: 50-136 AST 26 U/L (Normal) Range: 15-37 CA 8.5 mg/dL (Normal) Range: 8.5-10.1 A/G 1.0 {RATIO} (Normal) Range: 0.9-2.4 GLOB 3.5 g/dL (Normal) Range: 2.7-4.2 ALB 3.5 g/dL (Normal) Range: 3.4-5.0 T PROT 7.0 g/dL (Normal) Range: 6.4-8.2 BUN/CRE 17.7 {RATIO} (Normal) Range: 10-20 EST GFR - AA 79 mL/min (Normal) EST GFR 65 mL/min (Normal) CREAT,SERUM 1.3 mg/dL (Normal) Range: 0.8-1.3 BUN 23 mg/dL (Abnormal) Range: 7-18 GLU 100 mg/dL (Normal) Range: 70-110 :26 Lamotrigine (Lamictal) Level Comments: Test performed at:[facility] [address] [place] [address] LAMOTRIG [id number] 15.3 ug/mL (Normal) Range: 2.0-20.0 Comments: Detection Limit = 1.0Performed at: [facility] [address] [id number] Director: Kar Robison MD, Phone: [phone] [id number]:26 Topiramate, Serum Comments: Test performed at:[facility] [address] [place] [address] TOPIRAMATE 8.2 ug/mL (Normal) Range: 2.0-25.0 Comments: Detection Limit = 1.0 :26 Valproic Acid (Depakene) Level Comments: Test performed at:[facility] [address] [place] [address] VALPROIC ACID 80 ug/mL (Normal) Range: 50-100 47-Isy-969974:45 Valproic Acid (Depakene) Level Comments: Test performed at:[facility] [address] [place] [address]69 VALPROIC ACID 54 ug/mL (Normal) Range: 50-100 09-Feb-20147:03 CMP GAP 9 (Normal) Range: 5-15 CO2 22.0 mmol/L (Normal) Range: 21.0-32.0 CL 108 mmol/L (Abnormal) Range: 98-107 K 4.0 mmol/L (Normal) Range: 3.5-5.1 NA 139 mmol/L (Normal) Range: 136-145 BIT 0.20 mg/dL (Normal) Range: 0.00-4.00 ALT 33 U/L (Normal) Range: 12-78 ALK 49 U/L (Abnormal) Range: 50-136 AST 20 U/L (Normal) Range: 15-37 CA 9.5 mg/dL (Normal) Range: 8.5-10.1 AG 0.9 {RATIO} (Normal) Range: 0.9-2.4 GLOB 4.0 g/dL (Normal) Range: 2.7-4.2 ALB 3.5 g/dL (Normal) Range: 3.4-5.0 TPROT 7.5 g/dL (Normal) Range: 6.4-8.2 BC 23.3 {RATIO} (Abnormal) Range: 10-20 GFRAA 87 mL/min (Normal) GFR 72 mL/min (Normal) CREAT 1.2 mg/dL (Normal) Range: 0.8-1.3 BUN 28 mg/dL (Abnormal) Range: 7-18 GLU 101 mg/dL (Normal) Range: 70-110 :03 Lamotrigine (Lamictal) Level Comments: Test performed at:[facility] [address] [place] [address] LAMOTRIG [id number] 2.6 ug/mL (Normal) Range: 2.0-20.0 Comments: Detection Limit = 1.0Performed at: [facility] [address] [id number] Director: Kar Robison MD, Phone: [phone] :[phone] Topiramate, Serum Comments: Test performed at:[facility] [address] [place] [address] TOPIRAMATE 12.5 ug/mL (Normal) Range: 2.0-25.0 Comments: Detection Limit = 1.0 :03 ROSHNI 79 ug/mL (Normal) Range: 50-100 :16 CBCD ALC 3.33 {X10_3/ul} (Normal) Range: 0.83-4.51 ANC 2.5 {X10_3/uL} (Normal) Range: 2.0-7.7 IG% 1.200 % (Abnormal) Range: 0.0-0.9 Comments: IG% - Immature Granulocytes (promyelocytes, myelocytes andmetamyelocytes) > 1% indicates that a LEFT SHIFT is Present. B% 0.3 % (Normal) Range: 0-1 E% 1.2 % (Normal) Range: 0-5 M% 10.5 % (Abnormal) Range: 0-10 L% 49.4 % (Abnormal) Range: 19-41 N% 37.4 % (Abnormal) Range: 47-70 MPV 10.3 fL (Normal) Range: 6.2-12.0 PLT 226 K/mm3 (Normal) Range: 150-450 RDWSD 48.3 fL (Abnormal) Range: 35.1-43.9 RDWCV 13.2 % (Normal) Range: 11.6-14.6 MCHC 31.1 {g/gl} (Abnormal) Range: 32-36 MCH 31.2 pg (Normal) Range: 27.0-32.0 MCV 100.3 fL (Abnormal) Range: 80-94 HCT 38.6 % (Abnormal) Range: 40-54 HGB 12.0 g/dL (Abnormal) Range: 13.0-16.5 RBC 3.85 {M/mm3} (Abnormal) Range: 4.6-6.2 WBC 6.7 K/mm3 (Normal) Range: 4.4-11.0 :16 CMP GAP 9 (Normal) Range: 5-15 CO2 21.0 mmol/L (Normal) Range: 21.0-32.0 CL 109 mmol/L (Abnormal) Range: 98-107 K 4.0 mmol/L (Normal) Range: 3.5-5.1 NA 139 mmol/L (Normal) Range: 136-145 BIT 0.20 mg/dL (Normal) Range: 0.00-4.00 ALT 72 U/L (Normal) Range: 12-78 ALK 43 U/L (Abnormal) Range: 50-136 AST 50 U/L (Abnormal) Range: 15-37 CA 8.4 mg/dL (Abnormal) Range: 8.5-10.1 AG 0.9 {RATIO} (Normal) Range: 0.9-2.4 GLOB 3.6 g/dL (Normal) Range: 2.7-4.2 ALB 3.4 g/dL (Normal) Range: 3.4-5.0 TPROT 7.0 g/dL (Normal) Range: 6.4-8.2 BC 20.0 {RATIO} (Normal) Range: 10-20 ECRCL 91.61 ml/min (Normal) GFRAA 87 mL/min (Normal) GFR 72 mL/min (Normal) CREAT 1.2 mg/dL (Normal) Range: 0.8-1.3 BUN 24 mg/dL (Abnormal) Range: 7-18 GLU 95 mg/dL (Normal) Range: 70-110 :16 LIPID VLDL 78 mg/dL (Abnormal) Range: 5-40 LDL 117 mg/dL (Normal) Range: 0-130 HDL 16 mg/dL (Abnormal) Comments: Reference RangeHDL <40 mg/dL Low HDL CholesterolHDL >or= 60 mg/dL High HDL Cholesterol TRIG 389 mg/dL (Abnormal) Range: 0-199 Comments: Serum Triglycerides Reference IntervalNormal <150 mg/dLBorderline high 150 - 199 mg/dLHigh 200 - 499 mg/ dLVery High > or = 500 mg/dL CHOL 211 mg/dL (Abnormal) Comments: <200 mg/dL Fjwqanpmp489-611 mg/dL Borderline>240 mg/dL High Risk :16 TSH 5.98 {uIU/mL} (Abnormal) Range: 0.358-3.74 :16 ROSHNI 84 ug/mL (Normal) Range: 50-100 :16 VITD 34.8 ng/mL (Normal) Comments: Vitamin D 25(OH) Status RangeDeficiency <20 ng/mL (50nmol/L)Insuffciency 20 - 30 ng/mL (50 - 75 nmol/L)Sufficiency 30 - 100 ng/mL (75 - 250 nmol/L)Toxicity >100 ng/mL (>250 nmol/L) :18 CBCD PATHR Reviewed (Normal) ANC 2.8 {X10_3/uL} (Normal) Range: 2.0-7.7 IG% 2.300 % (Abnormal) Range: 0.0-0.9 Comments: IG% - Immature Granulocytes (promyelocytes, myelocytes andmetamyelocytes) > 1% indicates that a LEFT SHIFT is Present. B% 0.7 % (Normal) Range: 0-1 E% 1.8 % (Normal) Range: 0-5 M% 8.5 % (Normal) Range: 0-10 L% 49.0 % (Abnormal) Range: 19-41 MPV 9.3 fL (Normal) Range: 6.2-12.0 N% 37.7 % (Abnormal) Range: 47-70 PLT 278 K/mm3 (Normal) Range: 150-450 RDWSD 49.8 fL (Abnormal) Range: 35.1-43.9 RDWCV 13.9 % (Normal) Range: 11.6-14.6 MCHC 32.6 {g/gl} (Normal) Range: 32-36 MCH 32.2 pg (Abnormal) Range: 27.0-32.0 MCV 98.7 fL (Abnormal) Range: 80-94 HCT 37.7 % (Abnormal) Range: 40-54 HGB 12.3 g/dL (Abnormal) Range: 13.0-16.5 RBC 3.82 {M/mm3} (Abnormal) Range: 4.6-6.2 WBC 7.3 K/mm3 (Normal) Range: 4.4-11.0 :18 CMP GAP 9 (Normal) Range: 5-15 CO2 23.0 mmol/L (Normal) Range: 21.0-32.0 CL 106 mmol/L (Normal) Range: 98-107 K 4.2 mmol/L (Normal) Range: 3.5-5.1 NA 138 mmol/L (Normal) Range: 136-145 BIT 0.20 mg/dL (Normal) Range: 0.00-1.00 ALT 65 U/L (Normal) Range: 12-78 ALK 36 U/L (Abnormal) Range: 45-117 AST 37 U/L (Normal) Range: 15-37 CA 8.6 mg/dL (Normal) Range: 8.5-10.1 AG 1.2 {RATIO} (Normal) Range: 0.9-2.4 GLOB 3.2 g/dL (Normal) Range: 2.7-4.2 ALB 3.7 g/dL (Normal) Range: 3.4-5.0 TPROT 6.9 g/dL (Normal) Range: 6.4-8.2 BC 22.3 {RATIO} (Abnormal) Range: 10-20 GFRAA 80 mL/min (Normal) GFR 66 mL/min (Normal) CREAT 1.3 mg/dL (Normal) Range: 0.8-1.3 BUN 29 mg/dL (Abnormal) Range: 7-18 GLU 92 mg/dL (Normal) Range: 70-110 :18 MEZA 12.5 ug/mL (Normal) Range: 2.0-20.0 Comments: Detection Limit = 1.0Performed at: [facility] [address] [id number] Director: Kar Robison MD, Phone: [phone] :[phone] TOPIR tTOPIR 4.3 ug/mL (Normal) Range: 2.0-25.0 Comments: Detection Limit = 1.0 :18 ROSHNI 68 ug/mL (Normal) Range: 50-100 :11 LIPID VLDL 54 mg/dL (Abnormal) Range: 5-40 LDL 94 mg/dL (Normal) Range: 0-130 HDL 17 mg/dL (Abnormal) Comments: Reference RangeHDL <40 mg/dL Low HDL CholesterolHDL >or= 60 mg/dL High HDL Cholesterol TRIG 271 mg/dL (Abnormal) Comments: Serum Triglycerides Reference IntervalNormal <150 mg/dLBorderline high 150 - 199 mg/dLHigh 200 - 499 mg/ dLVery High > or = 500 mg/dL CHOL 165 mg/dL (Normal) Comments: <200 mg/dL Qmlvzehni101-057 mg/dL Borderline>240 mg/dL High Risk :33 MEZA 14.9 ug/mL (Normal) Comments: DR BARRETT ORDERED LIPIDDR TEQUILA ORDERED VALPROIC ACID,LAMOTRIGINE,TOPIRAMATE,CMP Range: 2.0-20.0 Comments: Detection Limit = 1.0Performed at: [facility] [address] [id number] Director: Kar Robison MD, Phone: [phone] :[phone] TOPIR Comments: DR BARRETT ORDERED LIPIDDR BAVALFA ORDERED VALPROIC ACID,LAMOTRIGINE,TOPIRAMATE,CMP tTOPIR 5.5 ug/mL (Normal) Range: 2.0-25.0 Comments: Detection Limit = 1.0 :16 CBCMD ANC 2.6 3/uL (Normal) Range: 2.0-7.7 IG# 0.080 3/ul (Abnormal) Range: 0.0-0.0 IG% 1.10 % (Abnormal) Range: 0.0-0.0 B% 0.7 % (Normal) Range: 0-1 E% 1.9 % (Normal) Range: 0-5 M% 11.4 % (Abnormal) Range: 0-10 L% 48.8 % (Abnormal) Range: 19-41 N% 36.1 % (Abnormal) Range: 47-70 MPV 9.4 fL (Normal) Range: 6.2-12.0 PLT 311 K/mm3 (Normal) Range: 150-450 RDWSD 47.1 fL (Abnormal) Range: 35.1-43.9 RDWCV 13.2 % (Normal) Range: 11.6-14.6 MCHC 32.4 g/dL (Normal) Range: 32-36 MCH 31.8 pg (Normal) Range: 27.0-32.0 HCT 38.6 % (Abnormal) Range: 40-54 MCV 98.2 fL (Abnormal) Range: 80-94 HGB 12.5 g/dL (Abnormal) Range: 13.0-16.5 RBC 3.93 {M/mm3} (Abnormal) Range: 4.6-6.2 WBC 7.3 {k/mm3} (Normal) Range: 4.4-11.0 :16 CMP CO2 23.0 mmol/L (Normal) Range: 21.0-32.0 GAP 8 (Normal) Range: 5-15 CL 110 mmol/L (Abnormal) Range: 98-107 K 4.2 mmol/L (Normal) Range: 3.5-5.1 NA 141 mmol/L (Normal) Range: 136-145 ALT 46 U/L (Normal) Range: 12-78 BIT 0.20 mg/dL (Normal) Range: 0.00-1.00 ALK 39 U/L (Abnormal) Range: 50-136 AST 26 U/L (Normal) Range: 15-37 CA 8.3 mg/dL (Abnormal) Range: 8.5-10.1 AG 1.1 {RATIO} (Normal) Range: 0.9-2.4 GLOB 3.5 g/dL (Normal) Range: 2.7-4.2 ALB 3.7 g/dL (Normal) Range: 3.4-5.0 TPROT 7.2 g/dL (Normal) Range: 6.4-8.2 BC 16.2 {RATIO} (Normal) Range: 10-20 GFRAA 80 mL/min (Normal) CREAT 1.3 mg/dL (Normal) Range: 0.8-1.3 GFR 66 mL/min (Normal) BUN 21 mg/dL (Abnormal) Range: 7-18 GLU 89 mg/dL (Normal) Range: 70-110 :16 LIPID HDL 36 mg/dL (Abnormal) Comments: Reference RangeHDL <40 mg/dL Low HDL CholesterolHDL >or= 60 mg/dL High HDL Cholesterol LDL 81 mg/dL (Normal) Range: 0-130 VLDL 50 mg/dL (Abnormal) Range: 5-40 CHOL 167 mg/dL (Normal) Comments: <200 mg/dL Kuxpralft163-695 mg/dL Borderline>240 mg/dL High Risk TRIG 250 mg/dL (Abnormal) Comments: Serum Triglycerides Reference IntervalNormal <150 mg/dLBorderline high 150 - 199 mg/dLHigh 200 - 499 mg/ dLVery High > or = 500 mg/dL :16 VITD 31.6 ng/mL (Normal) Comments: Vitamin D 25(OH) Status RangeDeficiency <20 ng/mL (50nmol/L)Insufficiency 20 - 30 ng/mL (50 - 75 nmol/L)Sufficiency 30 - 100 ng/mL (75 - 250 nm ol/L)Toxicity >100 ng/mL (250 nmol/L)Effective 201222-Jul-201114-Nfi-190948:05 ABS SCREEN CELL III NEGATIVE (Normal) SCREEN CELL I NEGATIVE (Normal) SCREEN CELL II NEGATIVE (Normal) Ab SCREEN GEL NEGATIVE (Normal) 36-Fis-243132:05 B12 1099 pg/mL (Abnormal) Range: 211-946 Comments: Performed at: [facility] [address] [id number] Director: Kar Robison MD, Phone: [phone] at: [place] [address]Aod Director: Geno Gamez MD, Phone: [phone] 22-Otp-143953:05 VONDA DIRECT GIOVANY= NEG w/POLYSPECIFIC (Normal) 55-Rik-774202:05 FDP tFDP NEGATIVE ug/mL (Normal) : ISABEL 284 ng/mL (Normal) Range: 26-388 :05 FOL 34.00 ng/mL (Abnormal) Range: 3.1-17.5 :05 IBC %ISAT 11.3 % (Abnormal) Range: 15.0-55.0 FE 51 ug/dL (Abnormal) Range: 65-175 TIBC 452 ug/dL (Abnormal) Range: 250-450 :05 LDH 184 U/L (Normal) Range: 84-246 :05 METHYL 164 nmol/L (Normal) Range: 73-376 Comments: The reference range for methylmalonic acid has been set at+3sd above the mean for healthy blood bank donors. In theclinical assessment of patients with megaloblastic anemiasa cutoff of +3sd provides gre ater specificity in thediagnosis of the vitamin deficiency states, despite thesacrifice of some sensitivity. :05 RETIC 2.10 % (Abnormal) Range: 0.5-1.5 :34 CBCMD PATHR July (Normal) RBCM NORM C+C {NORMAL} (Normal) PE ADEQUATE (Normal) EOS 2 % (Normal) Range: 0-5 LYMPH 59 % (Abnormal) Range: 19-41 BAND 2 % (Normal) Range: 0-5 PMN 37 % (Abnormal) Range: 47-70 MARSHA 100 (Normal) ANC 2.6 3/uL (Normal) Range: 2.0-7.7 PLT 288 K/mm3 (Normal) Range: 150-450 RDW 13.1 % (Normal) Range: 11.6-14.6 MCHC 34.6 g/dL (Normal) Range: 32-36 MCH 32.7 pg (Abnormal) Range: 27.0-32.0 MCV 94.7 fL (Abnormal) Range: 80-94 HCT 35.6 % (Abnormal) Range: 40-54 HGB 12.3 g/dL (Abnormal) Range: 14.0-18.0 RBC 3.76 {M/mm3} (Abnormal) Range: 4.6-6.2 WBC 6.2 K/mm3 (Normal) Range: 4.4-11.0 :34 CMP GAP 13 (Normal) Range: 5-15 CO2 23.0 mmol/L (Normal) Range: 21.0-32.0 CL 107 mmol/L (Normal) Range: 98-107 K 4.2 mmol/L (Normal) Range: 3.5-5.1 NA 143 mmol/L (Normal) Range: 136-145 BIT 0.30 mg/dL (Normal) Range: 0.00-1.00 ALT 44 U/L (Normal) Range: 12-78 ALK 30 U/L (Abnormal) Range: 50-136 AST 32 U/L (Normal) Range: 15-37 CA 8.8 mg/dL (Normal) Range: 8.5-10.1 AG 1.2 {RATIO} (Normal) Range: 0.9-2.4 GLOB 3.2 g/dL (Normal) Range: 2.7-4.2 ALB 3.8 g/dL (Normal) Range: 3.4-5.0 TPROT 7.0 g/dL (Normal) Range: 6.4-8.2 BC 16.9 {RATIO} (Normal) Range: 10-20 GFRAA 80 mL/min (Normal) GFR 66 mL/min (Normal) CREAT 1.3 mg/dL (Normal) Range: 0.8-1.3 BUN 22 mg/dL (Abnormal) Range: 7-18 GLU 91 mg/dL (Normal) Range: 70-110 :34 LIPID VLDL 37 mg/dL (Normal) Range: 5-40 HDL 26 mg/dL (Abnormal) Comments: Reference Range HDL <40 mg/dL Low HDL Cholesterol HDL >or= 60 mg/dL High HDL Cholesterol LDL 109 mg/dL (Normal) Range: 0-130 CHOL 172 mg/dL (Normal) Comments: <200 mg/dL Desirable 200-240 mg/dL Borderline >240 mg/dL High Risk TRIG 185 mg/dL (Normal) Comments: Serum Triglycerides Reference Interval Normal <150 mg/dL Borderline high 150 - 199 mg/dL High 200 - 499 mg/dL Very High > or = 500 mg/dL :34 TSH 2.16 {uIU/mL} (Normal) Range: 0.358-3.74 :13 MEZA 6.5 ug/mL (Normal) Comments: DR VELASQUEZ ORDERED DEPAKOTE,LAMACTIL,TOPAMAX,LIVER FUNCTIONDR ARNOLD ORDERED VITD Range: 2.0-20.0 Comments: Detection Limit = 1.0Performed at: [facility] [id number] Director: Geno Gamez MD, Phone: [phone] at: [facility] [id number] Director: Kar Robison MD, Phone: [phone] LIVER Comments: DR VELASQUEZ ORDERED DEPAKOTE,LAMACTIL,TOPAMAX,LIVER FUNCTIONDR ARNOLD ORDERED VITD BID 0.08 mg/dL (Normal) Range: 0.00-0.30 ALT 44 U/L (Normal) Range: 12-78 BIT 0.20 mg/dL (Normal) Range: 0.00-1.00 ALK 32 U/L (Abnormal) Range: 50-136 AST 18 U/L (Normal) Range: 15-37 ALB 3.9 g/dL (Normal) Range: 3.4-5.0 TPROT 7.4 g/dL (Normal) Range: 6.4-8.2 :13 TOPIR Comments: DR VELASQUEZ ORDERED DEPAKOTE,LAMACTIL,TOPAMAX,LIVER FUNCTIONDR ARNOLD ORDERED VITD tTOPIR 4.1 ug/mL (Normal) Range: 2.0-25.0 Comments: Detection Limit = 1.0 :13 ROSHNI 75 ug/mL (Normal) Comments: DR VELASQUEZ ORDERED DEPAKOTE,LAMACTIL,TOPAMAX,LIVER FUNCTIONDR ARNOLD ORDERED VITD Range: 50-100 :13 VITD 31.3 ng/mL (Normal) Comments: DR VELASQUEZ ORDERED DEPAKOTE,LAMACTIL,TOPAMAX,LIVER FUNCTIONDR ARNOLD ORDERED VITD Range: 30.0-100.0 Comments: Vitamin D deficiency has been defined by the [place] of[employer] and an Endocrine Society practice guideline as alevel of serum 25-OH vitamin D less than 20 ng/mL (1,2).The Endocrine Society went on to further define vitamin Dinsufficiency as a level between 21 and 29 ng/mL (2).1. IOM ([place] of Medicine). 2010. Dietary reference intakes for calcium and D. [place]: The National Academies Press.2. Rhys MF, Obi SANTOS, Rosalino BULLOCK, et al. Evaluation, treatment, and prevention of vitamin D deficiency: an Endocrine Society clinical practice guideline. JCEM. 2010; 96(7):1911-30. 6-Oab-351034:04 TSH 3.03 {uIU/mL} (Normal) Range: 0.358-3.74 :56 TSH (THYROID STIMULATING Comments: PATIENT WAS FASTINGPERFORMED BY: [facility] Dbxjkc6636 [facility] [id number] HORMONE) (10803) TSH 6.850 {uIU/mL} (Abnormal) Range: 0.450-4.500 :56 CBC & PLATELETS (AUTO) Comments: PATIENT WAS FASTINGPERFORMED BY: [facility] Gxsxsb1037 [facility] [id number] Information: [id number] (48010) Platelets 322 {x10E3/uL} (Normal) Range: 140-415 RDW 13.5 % (Normal) Range: 11.7-15.0 MCHC 32.7 g/dL (Normal) Range: 32.0-36.0 MCH 31.2 pg (Normal) Range: 27.0-34.0 MCV 95 fL (Normal) Range: 80-98 Hematocrit 39.4 % (Normal) Range: 36.0-50.0 Hemoglobin 12.9 g/dL (Normal) Range: 12.5-17.0 RBC 4.13 {x10E6/uL} (Normal) Range: 4.10-5.60 WBC 8.8 {x10E3/uL} (Normal) Range: 4.0-10.5 :56 LIPID PANEL (23976) Comments: PATIENT WAS FASTINGPERFORMED BY: [facility] [id number] LDL/HDL Ratio 3.1 {ratio_units} (Normal) Range: 0.0-3.6 LDL Cholesterol Calc 107 mg/dL (Abnormal) Range: 0-99 VLDL Cholesterol Abdirizak 49 mg/dL (Abnormal) Range: 5-40 HDL Cholesterol 35 mg/dL (Abnormal) Comments: According to ATP-III Guidelines, HDL-C >59 mg/dL is considered anegative risk factor for CHD. Triglycerides 245 mg/dL (Abnormal) Range: 0-149 Cholesterol, Total 191 mg/dL (Normal) Range: 100-199 :56 CALCIFEDIOL (85499) Comments: PATIENT WAS FASTINGPERFORMED BY: [facility]6370 [facility] [id number] Vitamin D, 25-Hydroxy 22.0 ng/mL (Abnormal) Range: 32.0-100.0 Comments: Effective January 25, 2011 Vitamin D, 25-Hydroxy reference intervals will be changing to 30-100. .Recent studies consider the lower li liu of 32.0 ng/mL to be athreshold for optimal health.Yonas ARNOLD. J Nutr. 2004;135(2):317-22. :25 LIPID PANEL (90962) Comments: PATIENT WAS FASTINGPERFORMED BY: [facility] Ovjaaz0648 [facility] [id number] Information: [id number] LDL/HDL Ratio 3.3 {ratio_units} (Normal) Range: 0.0-3.6 HDL Cholesterol 37 mg/dL (Abnormal) Comments: According to ATP-III Guidelines, HDL-C >59 mg/dL is considered anegative risk factor for CHD. LDL Cholesterol Calc 121 mg/dL (Abnormal) Range: 0-99 VLDL Cholesterol Abdirizak 41 mg/dL (Abnormal) Range: 5-40 Triglycerides 203 mg/dL (Abnormal) Range: 0-149 Cholesterol, Total 199 mg/dL (Normal) Range: 100-199 :53 TSH (79799) Comments: do in 3 months; PATIENT WAS FASTINGPERFORMED BY: [facility] [id number] TSH 3.940 {uIU/mL} (Normal) Range: 0.450-4.500 :53 HEPATIC FUNCTION PANEL Comments: PATIENT WAS FASTINGPERFORMED BY: [facility] [id number] Information: [id number] (52013) ALT (SGPT) 51 [iU]/L (Normal) Range: 0-55 Alkaline Phosphatase, S 33 [iU]/L (Normal) Range: 25-150 AST (SGOT) 40 [iU]/L (Normal) Range: 0-40 Bilirubin, Direct 0.08 mg/dL (Normal) Range: 0.00-0.40 Albumin, Serum 4.3 g/dL (Normal) Range: 3.5-5.5 Bilirubin, Total 0.2 mg/dL (Normal) Range: 0.0-1.2 Protein, Total, Serum 7.0 g/dL (Normal) Range: 6.0-8.5 :53 LIPID PANEL (22591) Comments: do in 3 months; PATIENT WAS FASTINGPERFORMED BY: [facility]6370 [facility] [id number] LDL/HDL Ratio 2.7 {ratio_units} (Normal) Range: 0.0-3.6 LDL Cholesterol Calc 107 mg/dL (Abnormal) Range: 0-99 VLDL Cholesterol Abdirizak 58 mg/dL (Abnormal) Range: 5-40 HDL Cholesterol 40 mg/dL (Normal) Comments: According to ATP-III Guidelines, HDL-C >59 mg/dL is considered anegative risk factor for CHD. Cholesterol, Total 205 mg/dL (Abnormal) Range: 100-199 Triglycerides 291 mg/dL (Abnormal) Range: 0-149 :35 Hepatic Function Panel (7) Comments: PATIENT WAS FASTINGPERFORMED BY: [facility] [id number] [facility] [id number] Alkaline Phosphatase, S 31 [iU]/L (Normal) Range: 25-150 ALT (SGPT) 53 [iU]/L (Normal) Range: 0-55 AST (SGOT) 36 [iU]/L (Normal) Range: 0-40 Bilirubin, Direct 0.09 mg/dL (Normal) Range: 0.00-0.40 Bilirubin, Total 0.3 mg/dL (Normal) Range: 0.0-1.2 Albumin, Serum 4.5 g/dL (Normal) Range: 3.5-5.5 Protein, Total, Serum 7.0 g/dL (Normal) Range: 6.0-8.5 :35 Lipid Panel With LDL/HDL Comments: PATIENT WAS FASTINGPERFORMED BY: [facility] [id number] [facility] [id number] Ratio LDL Cholesterol Calc 143 mg/dL (Abnormal) Range: 0-99 LDL/HDL Ratio 4.0 {ratio_units} (Abnormal) Range: 0.0-3.6 VLDL Cholesterol Abdirizak 50 mg/dL (Abnormal) Range: 5-40 Cholesterol, Total 229 mg/dL (Abnormal) Range: 100-199 HDL Cholesterol 36 mg/dL (Abnormal) Comments: According to ATP-III Guidelines, HDL-C >59 mg/dL is considered anegative risk factor for CHD. Triglycerides 249 mg/dL (Abnormal) Range: 0-149 [id number] TSH (39375) Comments: PATIENT NOT FASTINGPERFORMED BY: [employer] GamesF[id number] [facility] [id number] Information: [id number] TSH 3.800 {uIU/mL} (Normal) Range: 0.450-4.500 :21 CBC Comments: ORDERED LIPIDNMR LIVERDR.SAVAGE ORDERED DEPAKOTE LAMACTAL CBC LIVER HCT 38.8 % (Abnormal) Range: 40-54 HGB 13.0 g/dL (Abnormal) Range: 14.0-18.0 MCH 32.4 pg (Abnormal) Range: 27.0-32.0 MCHC 33.6 g/dL (Normal) Range: 32-36 MCV 96.3 fL (Abnormal) Range: 80-94 MPV 7.3 fL (Normal) Range: 6.5-12.0 PLT 283 K/mm3 (Normal) Range: 150-450 RBC 4.03 {M/mm3} (Abnormal) Range: 4.6-6.2 RDW 13.1 % (Normal) Range: 11.6-14.6 WBC 7.2 K/mm3 (Normal) Range: 4.4-11.0 :21 LAMOTRIG 196970 7.9 ug/mL (Normal) Comments: ORDERED LIPIDNMR LIVERDR.SAVAGE ORDERED DEPAKOTE LAMACTAL CBC LIVER Range: 2.0-20.0 Comments: Detection Limit = 1.0Performed at: - [facility] [id number] [place], [place] [id number] Director: Jez Grullon PhDPerformed at: [facility] [id number] Director: Kar Robison MD :21 LIVER Comments: ORDERED LIPIDNMR LIVERDR.SAVAGE ORDERED DEPAKOTE LAMACTAL CBC LIVER D BILI 0.07 mg/dL (Normal) Range: 0.00-0.30 ALB 3.8 g/dL (Normal) Range: 3.4-5.0 ALK P 38 U/L (Abnormal) Range: 50-136 ALT 32 U/L (Normal) Range: 12-78 AST 9 U/L (Abnormal) Range: 15-37 T BILI 0.30 mg/dL (Normal) Range: 0.00-1.00 T PROT 7.5 g/dL (Normal) Range: 6.4-8.2 :21 NMR LIPOPROFILE . (Normal) Comments: ORDERED LIPIDNMR LIVERDRRAMIREZ ORDERED DEPAKOTE LAMACTAL CBC LIVER Comments: PLEASE SEE SCANNED RESULTS IN PCI. :21 VALPROIC ACID 83 ug/mL (Normal) Comments: ORDERED LIPIDNMR LIVERDR.SAVAGE ORDERED DEPAKOTE LAMACTAL CBC LIVER Range: 50-100 :30 NMR LIPOPROFILE CHOLESTEROL TOT 249 mg/dL (Abnormal) HDL-C 40 mg/dL (Abnormal) LARGE HDL-P 1.0 umol/L (Abnormal) LARGE VLDL-P 15.1 nmol/L (Abnormal) Comments: Small LDL-P, LDL Particle Size, Large HDL-P and Large VLDL-Phave been validated by [employer] but not cleared by [place] FDA;the clinical utility of these test results has not been fully establi shed. LDL PARTICLE SZ 20.6 nm (Normal) Comments: . Small (Pattern B) 18.0 - 20.5 Large (Pattern A) 20.6 - 23.0 . LDL-C 143 mg/dL (Abnormal) Comments: LDL-C is inaccurate if patient is nonfasting. . Optimal < 100 Above optimal 100 - 129 Borderline 130 - 159 High 160 - 189 Very high > 189 . LDL-P 2073 nmol/L (Abnormal) Comments: . Optimal < 1000 Above optimal 1000 - 1299 Borderline 13 00 - 1599 High 1600 - 2000 Very high > 2000 . PATIENT GOALS Comment (Normal) Comments: High Risk: LDL-P < 1000; Secondary goal: SmallLDL-P < 527 Moderately High-Risk: LDL-P < 1300; Secondarygoal: Small LDL-P < 527Performed At: [id number] [place] [id number] SMALL LDL-P 1111 nmol/L (Abnormal) Comments: . Low < 117 Moderate 117 - 526 Borderline 5 27 - 839 High > 839 . TRIGLYCERIDES 329 mg/dL (Abnormal) :30 NMRLIP xCHOLTOT 249 mg/dL (Abnormal) xHDL-C 40 mg/dL (Abnormal) xLARGE HDL-P 1.0 umol/L (Abnormal) xLARGE VLDL-P 15.1 nmol/L (Abnormal) Comments: Small LDL-P, LDL Particle Size, Large HDL-P and Large VLDL-Phave been validated by [employer] but not cleared by [place] FDA;the clinical utility of these test results has not been fully establi shed. xLDL PART SIZE 20.6 nm (Normal) Comments: . Small (Pattern B) 18.0 - 20.5 Large (Pattern A) 20.6 - 23.0 . xLDL-C 143 mg/dL (Abnormal) Comments: LDL-C is inaccurate if patient is nonfasting. . Optimal < 100 Above optimal 100 - 129 Borderline 130 - 159 High 160 - 189 Very high > 189 . xLDLP 2073 nmol/L (Abnormal) Comments: . Optimal < 1000 Above optimal 1000 - 1299 Borderline 13 00 - 1599 High 1600 - 2000 Very high > 2000 . xPATIENT GOALS Comment (Normal) Comments: High Risk: LDL-P < 1000; Secondary goal: SmallLDL-P < 527 Moderately High-Risk: LDL-P < 1300; Secondarygoal: Small LDL-P < 527Performed At: [facility] [address] [id number] xSMLDLP 1111 nmol/L (Abnormal) Comments: . Low < 117 Moderate 117 - 526 Borderline 5 27 - 839 High > 839 . xTRIGLYCERIDES 329 mg/dL (Abnormal) :41 HEPATIC FUNCTION PANEL Comments: PATIENT WAS FASTINGClinical Information: ADD [id number], [id number] [facility]FORMED BY: [facility] [id number] ([id number]) Albumin, Serum 4.5 g/dL (Normal) Range: 3.5-5.5 Alkaline Phosphatase, S 36 [iU]/L (Normal) Range: 25-150 ALT (SGPT) 27 [iU]/L (Normal) Range: 0-55 AST (SGOT) 22 [iU]/L (Normal) Range: 0-40 Bilirubin, Direct 0.07 mg/dL (Normal) Range: 0.00-0.40 Bilirubin, Total 0.3 mg/dL (Normal) Range: 0.1-1.2 Protein, Total, Serum 7.0 g/dL (Normal) Range: 6.0-8.5 :41 LIPID PANEL ([id number]) Comments: do in 3 mo; PATIENT WAS FASTINGPERFORMED BY: [facility] [place] [id number] Cholesterol, Total 235 mg/dL (Abnormal) Range: 100-199 HDL Cholesterol 42 mg/dL (Normal) Comments: According to ATP-III Guidelines, HDL-C >59 mg/dL is considered anegative risk factor for CHD. LDL Cholesterol Calc 122 mg/dL (Abnormal) Range: 0-99 LDL/HDL Ratio 2.9 {ratio_units} (Normal) Range: 0.0-3.6 Triglycerides 353 mg/dL (Abnormal) Range: 0-149 VLDL Cholesterol Abdirizak 71 mg/dL (Abnormal) Range: 5-40 :19 CBCD,SMEAR DIFF CELLS COUNTED 100 (Normal) HCT 38.1 % (Abnormal) Range: 40-54 HGB 13.1 g/dL (Abnormal) Range: 14.0-18.0 LYMPH 51 % (Abnormal) Range: 19-41 MCH 32.5 pg (Abnormal) Range: 27.0-32.0 MCHC 34.4 g/dL (Normal) Range: 32-36 MCV 94.5 fL (Abnormal) Range: 80-94 MONOCYTE 8 % (Normal) Range: 0-10 PLT 221 K/mm3 (Normal) Range: 150-450 PLT EST SeeNote (Normal) Comments: Result: ADEQUATE RBC 4.03 {M/mm3} (Abnormal) Range: 4.6-6.2 RDW 13.0 % (Normal) Range: 11.6-14.6 RED CELL MORPH SeeNote {NORMAL} (Normal) Comments: Result: NORM C+C SEGS 41 % (Abnormal) Range: 47-70 WBC 6.8 K/mm3 (Normal) Range: 4.4-11.0 :19 COMP METABOLIC A/G 1.1 {RATIO} (Normal) Range: 0.9-2.4 ALB 3.6 g/dL (Normal) Range: 3.4-5.0 ALK P 58 U/L (Normal) Range: 50-136 ALT 29 U/L (Abnormal) Range: 30-65 AST 9 U/L (Abnormal) Range: 15-37 BUN 21 mg/dL (Abnormal) Range: 7-18 BUN/CRE 19.1 {RATIO} (Normal) Range: 10-20 CA 8.6 mg/dL (Normal) Range: 8.5-10.1 CL 107 mmol/L (Normal) Range: 98-107 CO2 24.5 mmol/L (Normal) Range: 21.0-32.0 CREAT,SERUM 1.1 mg/dL (Normal) Range: 0.8-1.3 EST GFR 82 mL/min (Normal) EST GFR - AA 99 mL/min (Normal) GAP 9 (Normal) Range: 5-15 GLOB 3.4 g/dL (Normal) Range: 2.7-4.2 GLU 94 mg/dL (Normal) Range: 70-110 K 4.1 mmol/L (Normal) Range: 3.5-5.1 NA 140 mmol/L (Normal) Range: 136-145 T BILI 0.17 mg/dL (Normal) Range: 0.00-1.00 T PROT 7.0 g/dL (Normal) Range: 6.4-8.2 :19 LIPID CHOL 175 mg/dL (Normal) Comments: <200 mg/dL Desirable 200-240 mg/dL Borderline >240 mg/dL High Risk HDL 40 mg/dL (Normal) Comments: Reference Range HDL <40 mg/dL Low HDL Cholesterol HDL >or= 60 mg/dL High HDL Cholesterol LDL 89 mg/dL (Normal) Range: 0-130 TRIG 231 mg/dL (Abnormal) Comments: Serum Triglycerides Reference Interval Normal <150 mg/dL Borderline high 150 - 199 mg/dL High 200 - 499 mg/dL Very High > or = 500 mg/dL VLDL 46 mg/dL (Abnormal) Range: 5-40 :19 TSH 3.92 {uIU/mL} (Normal) Range: 0.34-4.82 :21 CBCD,SMEAR DIFF CELLS COUNTED 100 (Normal) HCT 36.8 % (Abnormal) Range: 40-54 HGB 12.7 g/dL (Abnormal) Range: 14.0-18.0 LYMPH 60 % (Abnormal) Range: 19-41 MCH 31.3 pg (Normal) Range: 27.0-32.0 MCHC 34.5 g/dL (Normal) Range: 32-36 MCV 90.6 fL (Normal) Range: 80-94 MONOCYTE 5 % (Normal) Range: 0-10 PATH REV SeeNote (Normal) Comments: Result: Reviewed Normocytic anemia.Reactive lymphocytes noted. Kristofer Graves D.O. AMENDED REPORT 06/26/07 1525 PATH REV previously reported as: Katie latif Reason: Pathologist comment added PLT 271 K/mm3 (Normal) Range: 150-450 PLT EST SeeNote (Normal) Comments: Result: ADEQUATE RBC 4.06 {M/mm3} (Abnormal) Range: 4.6-6.2 RDW 13.0 % (Normal) Range: 11.6-14.6 RED CELL MORPH SeeNote {NORMAL} (Normal) Comments: Result: NORM C+C SEGS 35 % (Abnormal) Range: 47-70 WBC 6.9 K/mm3 (Normal) Range: 4.4-11.0 :21 COMP METABOLIC A/G 1.1 {RATIO} (Normal) Range: 0.9-2.4 ALB 3.5 g/dL (Normal) Range: 3.4-5.0 ALK P 52 U/L (Normal) Range: 50-136 ALT 31 [iU]/L (Normal) Range: 30-65 AST 16 U/L (Normal) Range: 15-37 BUN 21 mg/dL (Abnormal) Range: 7-18 BUN/CRE 21.0 {RATIO} (Abnormal) Range: 10-20 CA 8.5 mg/dL (Normal) Range: 8.5-10.1 CL 108 mmol/L (Abnormal) Range: 98-107 CO2 19.9 mmol/L (Abnormal) Range: 21.0-32.0 CREAT,SERUM 1.0 mg/dL (Normal) Range: 0.8-1.3 GAP 12 (Normal) Range: 5-15 GLOB 3.3 g/dL (Normal) Range: 2.7-4.2 GLU 85 mg/dL (Normal) Range: 70-110 K 4.1 mmol/L (Normal) Range: 3.5-5.1 NA 140 mmol/L (Normal) Range: 136-145 T BILI 0.14 mg/dL (Normal) Range: 0.00-1.00 T PROT 6.8 g/dL (Normal) Range: 6.4-8.2 :21 LIPID CHOL 176 mg/dL (Normal) Comments: <200 mg/dL Desirable 200-240 mg/dL Borderline >240 mg/dL High Risk HDL 38 mg/dL (Normal) Comments: Reference Range HDL <40 mg/dL Low HDL Cholesterol HDL >or= 60 mg/dL High HDL Cholesterol LDL 92 mg/dL (Normal) Range: 0-130 TRIG 232 mg/dL (Abnormal) Comments: Serum Triglycerides Reference Interval Normal <150 mg/dL Borderline high 150 - 199 mg/dL High 200 - 499 mg/dL Very High > or = 500 mg/dL VLDL 46 mg/dL (Abnormal) Range: :21 TSH 2.93 {uIU/mL} (Normal) Range: 0.34-4.82 :32 LIPID CHOL 171 mg/dL (Normal) Comments: <200 mg/dL Desirable 200-240 mg/dL Borderline >240 mg/dL High Risk HDL 32 mg/dL (Abnormal) Comments: Reference Range HDL <40 mg/dL Low HDL Cholesterol HDL >or= 60 mg/dL High HDL Cholesterol LDL 82 mg/dL (Normal) Range: 0-130 TRIG 286 mg/dL (Abnormal) Comments: Serum Triglycerides Reference Interval Normal <150 mg/dL Borderline high 150 - 199 mg/dL High 200 - 499 mg/dL Very High > or = 500 mg/dL VLDL 57 mg/dL (Abnormal) Range: :25 B12/FOLATES 810 FOLATES,S 2013 14.2 ng/mL (Normal) Comments: Indeterminate: 3.4 - 5.4 Deficient: <3.4 VIT B12 1503 888 pg/mL (Normal) Range: 211-911 :25 CBC HCT 40.0 % (Normal) Range: 40-54 HGB 13.9 g/dL (Abnormal) Range: 14.0-18.0 MCH 32.1 pg (Abnormal) Range: 27.0-32.0 MCHC 34.7 g/dL (Normal) Range: 32-36 MCV 92.4 fL (Normal) Range: 80-94 PLT 287 K/mm3 (Normal) Range: 150-450 RBC 4.33 {M/mm3} (Abnormal) Range: 4.6-6.2 RDW 13.5 % (Normal) Range: 11.6-14.6 WBC 6.1 K/mm3 (Normal) Range: 4.4-11.0 :25 FERRITIN 156 ng/mL (Normal) Range: 3-244 :25 HAPTOGLOB 1628 80 mg/dL (Normal) Range: 34-200 Comments: Performed At: [facility] [place], [place] [id number] :25 IRON, SERUM 95 ug/dL (Normal) Range: 35-150 :25 LDH 136 U/L (Normal) Range: 100-190 :25 RETIC 2.37 % (Abnormal) Range: 0.5-1.5 :25 TIBC 360 ug/dL (Normal) Range: 250-450 :24 CBCD,SMEAR DIFF BAND 1 % (Normal) Range: 0-5 BASOPHIL 1 % (Normal) Range: 0-1 CELLS COUNTED 100 (Normal) EOS 1 % (Normal) Range: 0-5 HCT 39.2 % (Abnormal) Range: 40-54 HGB 13.2 g/dL (Abnormal) Range: 14.0-18.0 LYMPH 55 % (Abnormal) Range: 19-41 MCH 31.6 pg (Normal) Range: 27.0-32.0 MCHC 33.8 g/dL (Normal) Range: 32-36 MCV 93.8 fL (Normal) Range: 80-94 MONOCYTE 7 % (Normal) Range: 0-10 PATH REV SeeNote (Normal) Comments: Result: July PLT 277 K/mm3 (Normal) Range: 150-450 PLT EST SeeNote (Normal) Comments: Result: ADEQUATE RBC 4.18 {M/mm3} (Abnormal) Range: 4.6-6.2 RDW 13.4 % (Normal) Range: 11.6-14.6 RED CELL MORPH SeeNote {NORMAL} (Normal) Comments: Result: NORM C&C SEGS 35 % (Abnormal) Range: 47-70 WBC 6.9 K/mm3 (Normal) Range: 4.4-11.0 :24 LIPID CHOL 202 mg/dL (Abnormal) Comments: <200 mg/dL Desirable 200-240 mg/dL Borderline >240 mg/dL High Risk HDL 37 mg/dL (Normal) Comments: Reference Range HDL <40 mg/dL Low HDL Cholesterol HDL >or= 60 mg/dL High HDL Cholesterol LDL 91 mg/dL (Normal) Range: 0-130 TRIG 370 mg/dL (Abnormal) Comments: Serum Triglycerides Reference Interval Normal <150 mg/dL Borderline high 150 - 199 mg/dL High 200 - 499 mg/dL Very High > or = 500 mg/dL VLDL 74 mg/dL (Abnormal) Range: 5-40 :24 TSH 4.27 {uIU/mL} (Normal) Range: 0.34-4.82 :16 CBCD,SMEAR DIFF CELLS COUNTED 100 (Normal) EOS 7 % (Abnormal) Range: 0-5 HCT 39.3 % (Abnormal) Range: 40-54 HGB 13.4 g/dL (Abnormal) Range: 14.0-18.0 LYMPH 48 % (Abnormal) Range: 19-41 MCH 31.9 pg (Normal) Range: 27.0-32.0 MCHC 34.1 g/dL (Normal) Range: 32-36 MCV 93.5 fL (Normal) Range: 80-94 MONOCYTE 13 % (Abnormal) Range: 0-10 PLT 239 K/mm3 (Normal) Range: 150-450 PLT EST SeeNote (Normal) Comments: Result: ADEQUATE RBC 4.20 {M/mm3} (Abnormal) Range: 4.6-6.2 RDW 13.6 % (Normal) Range: 11.6-14.6 RED CELL MORPH SeeNote {NORMAL} (Normal) Comments: Result: NORM C&C SEGS 32 % (Abnormal) Range: 47-70 WBC 7.0 K/mm3 (Normal) Range: 4.4-11.0 :16 COMP METABOLIC A/G 1.0 {RATIO} (Normal) Range: 0.9-2.4 ALB 3.7 g/dL (Normal) Range: 3.4-5.0 ALK P 60 U/L (Normal) Range: 50-136 ALT 37 [iU]/L (Normal) Range: 30-65 AST 14 U/L (Abnormal) Range: 15-37 BUN 21 mg/dL (Abnormal) Range: 7-18 BUN/CRE 17.5 {RATIO} (Normal) Range: 10-20 CA 8.6 mg/dL (Normal) Range: 8.5-10.1 CL 106 mmol/L (Normal) Range: 98-107 CO2 24.3 mmol/L (Normal) Range: 22.0-29.0 CREAT,SERUM 1.2 mg/dL (Normal) Range: 0.8-1.3 GAP 10 (Normal) Range: 5-15 GLOB 3.6 g/dL (Abnormal) Range: 2.3-3.5 GLU 91 mg/dL (Normal) Range: 70-110 K 4.1 mmol/L (Normal) Range: 3.5-5.1 NA 140 mmol/L (Normal) Range: 136-145 T BILI 0.23 mg/dL (Normal) Range: 0.00-1.00 T PROT 7.3 g/dL (Normal) Range: 6.4-8.2 :16 D BILI 0.04 mg/dL (Normal) Range: 0.00-0.30 :16 TSH 3.66 {uIU/mL} (Normal) Range: 0.34-4.82 Plan of Care Name Dates Details Instructions Benign essential hypertension : Follow up in 6 months Indication: Benign essential hypertension Benign essential hypertension : HTN/CAD Red Flags Indication: Benign essential hypertension Epilepsy, unspecified, not intractable, without status epilepticus : Continue Current Prescription(s) Indication: Epilepsy, unspecified, not intractable, without status epilepticus Epilepsy, unspecified, not intractable, without status epilepticus : Reviewed 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[employer]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 Indication: Epilepsy, unspecified, not intractable, without status epilepticus Hypercholesterolemia : Cholesterol mgmt Indication: Hypercholesterolemia Non-smoker : Eprescribed prescriptions (G8553) Indication: Non-smoker Annual Medicare Physical WITH abnormal findings (Renamed from Encounter for general adult medical examination with abnormal findings) : fall reduction handout Indication: Annual Medicare Physical WITH abnormal findings (Renamed from Encounter for general adult medical examination with abnormal findings) Annual Medicare Physical WITH abnormal findings (Renamed from Encounter for general adult medical examination with abnormal findings) : elderly packet given Indication: Annual Medicare Physical WITH abnormal findings (Renamed from Encounter for general adult medical examination with abnormal findings) Annual Medicare Physical WITH abnormal findings (Renamed from Encounter for general adult medical examination with abnormal findings) : advance planning information Indication: Annual Medicare Physical WITH abnormal findings (Renamed from Encounter for general adult medical examination with abnormal findings) Encounter for screening for malignant neoplasm of colon (Renamed from Special screening for malignant neoplasms, colon) : *Colon Cancer Screening Indication: Encounter for screening for malignant neoplasm of colon (Renamed from Special screening for malignant neoplasms, colon) Epilepsy, unspecified, not intractable, without status epilepticus : Reviewed Bindery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 Indication: Epilepsy, unspecified, not intractable, without status epilepticus Hypercholesterolemia : Cholesterol mgmt Indication: Hypercholesterolemia Benign essential hypertension : HTN/CAD Red Flags Indication: Benign essential hypertension Controlled diabetes mellitus : Follow up in 4 months Indication: Controlled diabetes mellitus Controlled diabetes mellitus : *Diabetes Education Indication: Controlled diabetes mellitus Benign essential hypertension : Diet, Exercise, and Wt loss Indication: Benign essential hypertension Benign essential hypertension : HTN/CAD Red Flags Indication: Benign essential hypertension Epilepsy, unspecified, not intractable, without status epilepticus : Continue Current Prescription(s) Indication: Epilepsy, unspecified, not intractable, without status epilepticus Epilepsy, unspecified, not intractable, without status epilepticus : Reviewed Bindery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 Indication: Epilepsy, unspecified, not intractable, without status epilepticus Hypercholesterolemia : Cholesterol mgmt Indication: Hypercholesterolemia Hypothyroidism : Continue Current Prescription(s) Indication: Hypothyroidism Hypothyroidism : Reviewed Lab Indication: Hypothyroidism Controlled diabetes mellitus : Follow up in 3 months Indication: Controlled diabetes mellitus Benign essential hypertension : Diet, Exercise, and Wt loss Indication: Benign essential hypertension Benign essential hypertension : HTN/CAD Red Flags Indication: Benign essential hypertension Hypercholesterolemia : Cholesterol mgmt Indication: Hypercholesterolemia Controlled diabetes mellitus : Follow up in 3 months Indication: Controlled diabetes mellitus Epilepsy, unspecified, not intractable, without status epilepticus : Continue Current Prescription(s) Indication: Epilepsy, unspecified, not intractable, without status epilepticus Epilepsy, unspecified, not intractable, without status epilepticus : Reviewed Bindery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 Indication: Epilepsy, unspecified, not intractable, without status epilepticus Hypercholesterolemia : Cholesterol mgmt Indication: Hypercholesterolemia Epilepsy, unspecified, not intractable, without status epilepticus : Reviewed Bindery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 Indication: Epilepsy, unspecified, not intractable, without status epilepticus Epilepsy, unspecified, not intractable, without status epilepticus : Reviewed Bindery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 Indication: Epilepsy, unspecified, not intractable, without status epilepticus Epilepsy, unspecified, not intractable, without status epilepticus : Reviewed Lab Indication: Epilepsy, unspecified, not intractable, without status epilepticus Epilepsy, unspecified, not intractable, without status epilepticus : Reviewed Diagnostic Tests Indication: Epilepsy, unspecified, not intractable, without status epilepticus Epilepsy, unspecified, not intractable, without status epilepticus : Reviewed Bindery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 Indication: Epilepsy, unspecified, not intractable, without status epilepticus Hypercholesterolemia : Cholesterol mgmt Indication: Hypercholesterolemia Benign essential hypertension : HTN/CAD Red Flags Indication: Benign essential hypertension Controlled diabetes mellitus : Follow up in 4 months Indication: Controlled diabetes mellitus Controlled diabetes mellitus : Eprescribed prescriptions (G8553) Indication: Controlled diabetes mellitus Controlled diabetes mellitus : Diabetes and Exercise: Preventing Low Blood Sugar: blood sugar Indication: Controlled diabetes mellitus Controlled diabetes mellitus : Follow up in 3 months Indication: Controlled diabetes mellitus Hypothyroidism : Continue Current Prescription(s) Indication: Hypothyroidism Hypercholesterolemia : Cholesterol mgmt Indication: Hypercholesterolemia Benign essential hypertension : HTN/CAD Red Flags Indication: Benign essential hypertension Controlled diabetes mellitus : Eprescribed prescriptions (G8553) Indication: Controlled diabetes mellitus Controlled diabetes mellitus : Diabetes and Exercise: Preventing Low Blood Sugar: blood sugar Indication: Controlled diabetes mellitus Laceration of scalp : Reviewed Bindery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 Indication: Laceration of scalp Benign essential hypertension : HTN/CAD Red Flags Indication: Benign essential hypertension Controlled diabetes mellitus : *Diabetes Education Indication: Controlled diabetes mellitus Hypercholesterolemia : Cholesterol mgmt Indication: Hypercholesterolemia Controlled diabetes mellitus : Follow up in 3 months Indication: Controlled diabetes mellitus Controlled diabetes mellitus : Eprescribed prescriptions (G8553) Indication: Controlled diabetes mellitus Controlled diabetes mellitus : Diabetes and Exercise: Preventing Low Blood Sugar: blood sugar Indication: Controlled diabetes mellitus Physical exam WITH abnormal findings (Renamed from Encounter for general adult medical examination with abnormal findings) : advance planning information Indication: Physical exam WITH abnormal findings (Renamed from Encounter for general adult medical examination with abnormal findings) Controlled diabetes mellitus : Follow up in 3 months Indication: Controlled diabetes mellitus Controlled diabetes mellitus : Diet, Exercise, and Wt loss Indication: Controlled diabetes mellitus Controlled diabetes mellitus : *Diabetes Education Indication: Controlled diabetes mellitus Benign essential hypertension : HTN/CAD Red Flags Indication: Benign essential hypertension Need for prophylactic vaccination and inoculation against influenza : Flu (Influenza) *: flu shot Indication: Need for prophylactic vaccination and inoculation against influenza Benign essential hypertension : Follow up in 6 months-- gen med adn mediare physical Indication: Benign essential hypertension Epilepsy, unspecified, not intractable, without status epilepticus : Reviewed Diagnostic Tests Indication: Epilepsy, unspecified, not intractable, without status epilepticus Epilepsy, unspecified, not intractable, without status epilepticus : Reviewed Bindery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 Indication: Epilepsy, unspecified, not intractable, without status epilepticus Encounter for Medicare annual wellness exam : fall reduction handout Indication: Encounter for Medicare annual wellness exam Encounter for Medicare annual wellness exam : advance planning information Indication: Encounter for Medicare annual wellness exam Encounter for Medicare annual wellness exam : *Weight Loss Discussion Indication: Encounter for Medicare annual wellness exam Anemia, unspecified : Anemia: diagnosis and treatment Indication: Anemia, unspecified Benign essential hypertension : HTN/CAD Red Flags Indication: Benign essential hypertension Hypercholesterolemia : Cholesterol mgmt Indication: Hypercholesterolemia Need for prophylactic vaccination and inoculation against influenza : Flu (Influenza) *: flu Indication: Need for prophylactic vaccination and inoculation against influenza Need for prophylactic vaccination and inoculation against influenza : Flu (Influenza) *: flu shot Indication: Need for prophylactic vaccination and inoculation against influenza Benign essential hypertension : Eprescribed prescriptions (G8553) Indication: Benign essential hypertension Hypothyroidism : Continue Current Prescription(s) Indication: Hypothyroidism Benign essential hypertension : Follow up may 2013 general medical Indication: Benign essential hypertension Benign essential hypertension : Continue Current Prescription(s) Indication: Benign essential hypertension Hypercholesterolemia : Cholesterol mgmt Indication: Hypercholesterolemia Benign essential hypertension : HTN/CAD Red Flags Indication: Benign essential hypertension Hypercholesterolemia : Reviewed Lab Indication: Hypercholesterolemia Hypercholesterolemia : Follow up in 6 months Indication: Hypercholesterolemia Hypercholesterolemia : Cholesterol mgmt Indication: Hypercholesterolemia Epilepsy, unspecified, not intractable, without status epilepticus : Continue Current Prescription(s) Indication: Epilepsy, unspecified, not intractable, without status epilepticus Hypothyroidism : Continue Current Prescription(s) Indication: Hypothyroidism Benign essential hypertension : Follow up in 4 months Indication: Benign essential hypertension Hypercholesterolemia : Cholesterol mgmt Indication: Hypercholesterolemia Epilepsy, unspecified, not intractable, without status epilepticus : Reviewed Bindery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 Indication: Epilepsy, unspecified, not intractable, without status epilepticus Hypothyroidism : Reviewed Lab Indication: Hypothyroidism Benign essential hypertension : Diet, Exercise, and Wt loss Indication: Benign essential hypertension Benign essential hypertension : HTN/CAD Red Flags Indication: Benign essential hypertension Benign essential hypertension : High Blood Pressure (Essential Hypertension) *: blood pressure problems Indication: Benign essential hypertension Benign essential hypertension : Follow up in 6 months Indication: Benign essential hypertension Hypothyroidism : Continue Current Prescription(s) Indication: Hypothyroidism Benign essential hypertension : HTN/CAD Red Flags Indication: Benign essential hypertension Hypercholesterolemia : *Cholesterol - Nonprescription Treatment Indication: Hypercholesterolemia Hypercholesterolemia : Cholesterol mgmt Indication: Hypercholesterolemia Abnormal TSH : Follow up in 6 months Indication: Abnormal TSH Hypercholesterolemia : Reviewed Lab Indication: Hypercholesterolemia Vitamin D deficiency, unspecified : *ERGOCALCIFEROL DOSAGE PER SHEWMON Indication: Vitamin D deficiency, unspecified Abnormal TSH : Reviewed Lab Indication: Abnormal TSH Hypercholesterolemia : FOLLOW UP IN 6 MONTHS Indication: Hypercholesterolemia Benign essential hypertension : Continue Current Prescription(s) Indication: Benign essential hypertension Hypothyroidism : Continue Current Prescription(s) Indication: Hypothyroidism Hypercholesterolemia : CHOLESTEROL MGMT. Indication: Hypercholesterolemia Hypercholesterolemia : *Cholesterol - Nonprescription Treatment Indication: Hypercholesterolemia Hypercholesterolemia : *Cholesterol - Medication Side Effects Indication: Hypercholesterolemia Benign essential hypertension : BP MONITORING - SELF Indication: Benign essential hypertension Benign essential hypertension : FOLLOW UP IN 3 MONTHS Indication: Benign essential hypertension Benign essential hypertension : Continue Current Prescription(s) Indication: Benign essential hypertension Hypothyroidism : Continue Current Prescription(s) Indication: Hypothyroidism Hypothyroidism : Reviewed Lab Indication: Hypothyroidism Epilepsy, unspecified, not intractable, without status epilepticus : Continue Current Prescription(s) Indication: Epilepsy, unspecified, not intractable, without status epilepticus Hypercholesterolemia : Reviewed Lab Indication: Hypercholesterolemia Benign essential hypertension : Reviewed Lab Indication: Benign essential hypertension Hypercholesterolemia : CHOLESTEROL MGMT. Indication: Hypercholesterolemia Hypercholesterolemia : *Cholesterol - Nonprescription Treatment Indication: Hypercholesterolemia Benign essential hypertension : Diet, Exercise, and Wt loss Indication: Benign essential hypertension Benign essential hypertension : HTN/CAD Red Flags Indication: Benign essential hypertension Benign essential hypertension : FOLLOW UP IN 3 MONTHS Indication: Benign essential hypertension Hypercholesterolemia : Reviewed Lab Indication: Hypercholesterolemia Epilepsy, unspecified, not intractable, without status epilepticus : Continue Current Prescription(s) Indication: Epilepsy, unspecified, not intractable, without status epilepticus Hypercholesterolemia : *Cholesterol - Nonprescription Treatment Indication: Hypercholesterolemia Hypercholesterolemia : CHOLESTEROL MGMT. Indication: Hypercholesterolemia Hypothyroidism : Continue Current Prescription(s) Indication: Hypothyroidism Benign essential hypertension : Diet, Exercise, and Wt loss Indication: Benign essential hypertension Benign essential hypertension : HTN/CAD Red Flags Indication: Benign essential hypertension Benign essential hypertension : FOLLOW UP IN 6 MONTHS Indication: Benign essential hypertension Hypothyroidism : Continue Current Prescription(s) Indication: Hypothyroidism Epilepsy, unspecified, not intractable, without status epilepticus : Reviewed [employer]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 Indication: Epilepsy, unspecified, not intractable, without status epilepticus Hypercholesterolemia : CHOLESTEROL MGMT. Indication: Hypercholesterolemia Hypercholesterolemia : *Cholesterol - Nonprescription Treatment Indication: Hypercholesterolemia Hypercholesterolemia : *Cholesterol - Medication Side Effects Indication: Hypercholesterolemia Benign essential hypertension : Diet, Exercise, and Wt loss Indication: Benign essential hypertension Benign essential hypertension : HTN/CAD Red Flags Indication: Benign essential hypertension Benign essential hypertension : Continue Current Prescription(s) Indication: Benign essential hypertension Hypothyroidism : Continue Current Prescription(s) Indication: Hypothyroidism Hypercholesterolemia : Cholesterol - Nonprescription Treatment Indication: Hypercholesterolemia Hypercholesterolemia : CHOLESTEROL MGMT. Indication: Hypercholesterolemia Hypercholesterolemia : Cholesterol - Medication Side Effects Indication: Hypercholesterolemia Benign essential hypertension : Diet, Exercise, and Wt loss Indication: Benign essential hypertension Benign essential hypertension : HTN/CAD Red Flags Indication: Benign essential hypertension Benign essential hypertension : Continue Current Prescription(s) Indication: Benign essential hypertension Hypothyroidism : Continue Current Prescription(s) Indication: Hypothyroidism Hypercholesterolemia : Cholesterol - Nonprescription Treatment Indication: Hypercholesterolemia Hypercholesterolemia : CHOLESTEROL MGMT. Indication: Hypercholesterolemia Hypercholesterolemia : Cholesterol - Medication Side Effects Indication: Hypercholesterolemia Benign essential hypertension : Diet, Exercise, and Wt loss Indication: Benign essential hypertension Benign essential hypertension : HTN/CAD Red Flags Indication: Benign essential hypertension Hypercholesterolemia : CHOLESTEROL MGMT. Indication: Hypercholesterolemia Hypercholesterolemia : Cholesterol - Nonprescription Treatment Indication: Hypercholesterolemia Hypercholesterolemia : Cholesterol - Medication Side Effects Indication: Hypercholesterolemia Benign essential hypertension : Diet, Exercise, and Wt loss Indication: Benign essential hypertension Benign essential hypertension : HTN/CAD Red Flags Indication: Benign essential hypertension Hypercholesterolemia : CHOLESTEROL MGMT. Indication: Hypercholesterolemia Hypercholesterolemia : Cholesterol - Nonprescription Treatment Indication: Hypercholesterolemia Hypercholesterolemia : Cholesterol - Medication Side Effects Indication: Hypercholesterolemia Hypothyroidism : Continue Current Prescription(s) Indication: Hypothyroidism HTN/CAD Red Flags Hypercholesterolemia : Diet, Exercise, and Wt loss Indication: Hypercholesterolemia Hypercholesterolemia : Reviewed Lab Indication: Hypercholesterolemia Reviewed Lab Hypothyroidism : Reviewed Lab Indication: Hypothyroidism Hypercholesterolemia : CHOLESTEROL MGMT. Indication: Hypercholesterolemia Hypercholesterolemia : Cholesterol - Medication Side Effects Indication: Hypercholesterolemia Hypercholesterolemia : Cholesterol - Nonprescription Treatment Indication: Hypercholesterolemia FOLLOW UP IN 6 MONTHS Epilepsy, unspecified, not intractable, without status epilepticus : Continue Current Prescription(s) Indication: Epilepsy, unspecified, not intractable, without status epilepticus Hypercholesterolemia : FOLLOW UP IN 6 MONTHS Indication: Hypercholesterolemia Hypercholesterolemia : Cholesterol - Nonprescription Treatment Indication: Hypercholesterolemia Hypercholesterolemia : CHOLESTEROL MGMT. Indication: Hypercholesterolemia Hypercholesterolemia : Cholesterol - Medication Side Effects Indication: Hypercholesterolemia Hypercholesterolemia : Diet and Exercise Indication: Hypercholesterolemia HTN/CAD Red Flags Other injury of chest wall : FOLLOW UP IF NO IMPROVEMENT OR IF SYMPTOMS WORSEN Indication: Other injury of chest wall Planned Observations CALCIFIDIOL (35243) VIT D 25Indication: Vitamin D deficiency, unspecified On: :53 Request TSH ([id number])Indication: Hypothyroidism On: :53 Request URINALYSIS, W/ MICRO ([id number])Indication: Benign essential hypertension On: 36-Brm-645503:53 Request MICROALBUMIN: CREATININE RATIO ([id number]) AND ([id number])Indication: Benign essential hypertension On: 46-Nzl-260361:53 Request METABOLIC PANEL, COMPREHENSIVE ([id number])Indication: Benign essential hypertension On: :53 Request LIPID PANEL ([id number])Indication: Benign essential hypertension On: :53 Request CBC W/AUTO DIFF WBC ([id number])Indication: Benign essential hypertension On: :53 Request CALCIFEDIOL (33343)Indication: Vitamin D deficiency, unspecified On: 4-Pnz-020365:38 Request URINALYSIS, W/ MICRO ([id number])Indication: Benign essential hypertension On: 3-Jry-816185:37 Request MICROALBUMIN: CREATININE RATIO ([id number]) AND ([id number])Indication: Benign essential hypertension On: :37 Request METABOLIC PANEL, COMPREHENSIVE ([id number])Indication: Benign essential hypertension On: :37 Request LIPID PANEL (67102)Indication: Hypercholesterolemia On: :37 Request CBC W/AUTO DIFF WBC ([id number])Indication: Benign essential hypertension On: :37 Request TSH ([id number])Indication: Hypothyroidism On: 8-Nrm-084534:37 Request PSA (PROSTATE SPECIFIC ANTIGEN) (V76.44)Indication: Encounter for screening for malignant neoplasm of prostate (Renamed from Screening for prostate cancer) On: 95-Amw-605706:13 Request URINALYSIS, W/ MICRO ([id number])Indication: Controlled diabetes mellitus On: 89-Mhc-496479:11 Request MICROALBUMIN: CREATININE RATIO (05067) AND ([id number])Indication: Controlled diabetes mellitus On: 71-Mdf-990578:11 Request METABOLIC PANEL, COMPREHENSIVE (05624)Indication: Controlled diabetes mellitus On: 69-Tmh-197876:11 Request CBC W/AUTO DIFF WBC ([id number])Indication: Controlled diabetes mellitus On: 76-Eyk-659408:11 Request TSH ([id number])Indication: Hypothyroidism On: 77-Fdy-573724:11 Request CALCIFIDIOL (84333) VIT D 25Indication: Vitamin D deficiency, unspecified On: 12-Lya-795510:10 Request TSH ([id number])Indication: Hypothyroidism On: 1-Ifb-504121:43 Request T4, FREE (THYROXINE) (35763)Indication: Hypothyroidism On: 1-Qnh-028944:43 Request T3, FREE (TRIDOTHYRONINE) (34832)Indication: Hypothyroidism On: 43 Request Anti-TPO Antibody (45729)Indication: Hypothyroidism On: :36 Request T4, FREE (THYROXINE) (96750)Indication: Hypothyroidism On: :36 Request T3, FREE (TRIDOTHYRONINE) ([id number])Indication: Hypothyroidism On: :36 Request TSH (74850)Indication: Controlled diabetes mellitus On: :36 Request URINALYSIS, W/ MICRO ([id number])Indication: Benign essential hypertension On: :36 Request MICROALBUMIN: CREATININE RATIO (99395) AND ([id number])Indication: Benign essential hypertension On: :36 Request METABOLIC PANEL, COMPREHENSIVE (13628)Indication: Benign essential hypertension On: :36 Request LIPID PANEL ([id number])Indication: Hypercholesterolemia On: :36 Request CBC W/AUTO DIFF WBC ([id number])Indication: Benign essential hypertension On: :36 Request Blood Glucose , Office ([id number])Indication: Controlled diabetes mellitus On: :36 Request HgA1C , Office ([id number])Indication: Controlled diabetes mellitus On: :35 Request CALCIFIDIOL (04252) VIT D 25Indication: Vitamin D deficiency, unspecified On: : Request URINALYSIS, W/ MICRO ([id number])Indication: Benign essential hypertension On: :19 Request MICROALBUMIN: CREATININE RATIO (37246) AND ([id number])Indication: Benign essential hypertension On: :19 Request METABOLIC PANEL, COMPREHENSIVE (19879)Indication: Benign essential hypertension On: : Request CBC W/AUTO DIFF WBC ([id number])Indication: Benign essential hypertension On: :19 Request LIPID PANEL ([id number])Indication: Hypercholesterolemia On: :19 Request TSH ([id number])Indication: Hypothyroidism On: :19 Request CALCIFIDIOL (36404) VIT D 25Indication: Vitamin D deficiency, unspecified On: :46 Request TSH (99749)Indication: Hypothyroidism On: 46 Request URINALYSIS, W/ MICRO ([id number])Indication: Controlled diabetes mellitus On: 46 Request MICROALBUMIN: CREATININE RATIO (62384) AND (65841)Indication: Controlled diabetes mellitus On: :46 Request METABOLIC PANEL, COMPREHENSIVE (37188)Indication: Controlled diabetes mellitus On: :46 Request LIPID PANEL ([id number])Indication: Hypercholesterolemia On: Request CBC W/AUTO DIFF WBC ([id number])Indication: Controlled diabetes mellitus On: Request METABOLIC PANEL, COMPREHENSIVE ([id number])Indication: Benign essential hypertension On: :29 Request PSA (PROSTATE SPECIFIC ANTIGEN) (V76.44)Indication: Encounter for screening for malignant neoplasm of prostate (Renamed from Screening for prostate cancer) On: :16 Request CALCIFIDIOL ([id number]) VIT D 25Indication: Vitamin D deficiency, unspecified On: :14 Request URINALYSIS, W/ MICRO (23178)Indication: Benign essential hypertension On: :14 Request MICROALBUMIN: CREATININE RATIO (11292) AND (37960)Indication: Benign essential hypertension On: :14 Request METABOLIC PANEL, COMPREHENSIVE (89743)Indication: Benign essential hypertension On: :14 Request CBC W/AUTO DIFF WBC ([id number])Indication: Benign essential hypertension On: :14 Request LIPID PANEL ([id number])Indication: Hypercholesterolemia On: :14 Request TSH ([id number])Indication: Hypothyroidism On: :14 Request Blood Glucose , Office ([id number])Indication: Controlled diabetes mellitus On: :09 Request URINALYSIS, W/ MICRO ([id number])Indication: Benign essential hypertension On: 76-Xqm-730549:08 Request MICROALBUMIN: CREATININE RATIO (86206) AND (02290)Indication: Benign essential hypertension On: 11-Ikz-546668:08 Request CALCIFEDIOL (60397)Indication: Unspecified Diagnosis On: :55 Request Vitamin D Hydroxy (57240)Indication: Vitamin D deficiency, unspecified On: : Request TSH ([id number])Indication: Hypothyroidism On: : Request MICROALBUMIN: CREATININE RATIO (33755) AND (34377)Indication: Benign essential hypertension On: Request METABOLIC PANEL, COMPREHENSIVE (41792)Indication: Benign essential hypertension On: : Request LIPID PANEL ([id number])Indication: Hypercholesterolemia On: : Request CBC with auto diff (69884)Indication: Benign essential hypertension On: Request LIPID PANEL (13413)Indication: Hypercholesterolemia On: :34 Request TSH ([id number])Indication: Abnormal TSH On: :33 Request FECAL OCCULT- Tubes sent home (62307)Indication: Anemia, unspecified On: Request GIOVANY TEST, DIRECT (21645)Indication: Anemia, unspecified On: Request FOLIC ACID SERUM (84221)Indication: Anemia, unspecified On: Request Methymalonic Acid, Serum (06725)Indication: Anemia, unspecified On: Request VITAMIN B-12 (CYANOCOBALAMIN) (00950)Indication: Anemia, unspecified On: Request RETICULOCYTE COUNT MANUL ([id number])Indication: Anemia, unspecified On: Request LDH (LD) (LACTATE DEHYDROGENASE) (52640)Indication: Anemia, unspecified On: Request IRON BINDING CAPACITY (TIBC) (72657)Indication: Anemia, unspecified On: Request IRON (39931)Indication: Anemia, unspecified On: Request FERRITIN (47850)Indication: Anemia, unspecified On: Request CBC, PLATELETS & AUT DIFF (79030)Indication: Anemia, unspecified On: 47-Lcn-005264:30 Request CALCIFEDIOL (40133)Indication: Vitamin D deficiency, unspecified On: 42-Fqa-489059:37 Request MICROALBUMIN: CREATININE RATIO (01044) AND (73206)Indication: Benign essential hypertension On: :36 Request URINALYSIS (25460)Indication: Benign essential hypertension On: :36 Request TSH (36435)Indication: Hypothyroidism On: :34 Request CBC, Platelets & Auto Diff (05104)Indication: Benign essential hypertension On: :34 Request Metabolic Panel, Comprehensive (07511)Indication: Benign essential hypertension On: :33 Request Valproic Acid (17405)Indication: Epilepsy, unspecified, not intractable, without status epilepticus On: :33 Request Lipid Panel (66161)Indication: Hypercholesterolemia On: :32 Request Vitamin D Hydroxy (86014)Indication: Vitamin D deficiency, unspecified On: :45 Request LIPID PANEL (86290)Indication: Hypercholesterolemia On: :45 Request TSH ([id number])Indication: Hypothyroidism On: :45 Request URINALYSIS, W/ MICRO (68741)Indication: Benign essential hypertension On: :45 Request MICROALBUMIN: CREATININE RATIO (96169) AND (03247)Indication: Benign essential hypertension On: :45 Request METABOLIC PANEL, COMPREHENSIVE (36197)Indication: Benign essential hypertension On: :45 Request CBC WITH MANUAL DIFF (65505)Indication: Benign essential hypertension On: :45 Request LIPID PANEL (57025)Indication: Hypercholesterolemia On: 0-Ebd-246160:41 Request LIPID PANEL (83388)Indication: Hypercholesterolemia On: :16 Request Vitamin D Hydroxy (16386)Indication: Vitamin D deficiency, unspecified On: :16 Request URINALYSIS, W/ MICRO ([id number])Indication: Benign essential hypertension On: 12-Lhe-512862:16 Request MICROALBUMIN: CREATININE RATIO (95164) AND (31163)Indication: Benign essential hypertension On: 03-Ofs-661689:16 Request METABOLIC PANEL, COMPREHENSIVE (90018)Indication: Benign essential hypertension On: 26-Zas-646907:15 Request CBC WITH MANUAL DIFF ([id number])Indication: Benign essential hypertension On: 05-Tqo-828414:15 Request TSH ([id number])Indication: Hypothyroidism On: 00-Ulv-512750:08 Request LIPID PANEL ([id number])Indication: Hypercholesterolemia On: 66-Jlq-241206:08 Request FOLIC ACID SERUM (22206)Indication: Anemia, unspecified On: 02-Pjw-302405:28 Request Fecal Occult Blood , Office (49464)Indication: Anemia, unspecified On: :38 Request FIBRIN DEGRAD QUANTITATV (04465)Indication: Anemia, unspecified On: : Request RETICULOCYTE COUNT (06347)Indication: Anemia, unspecified On: :38 Request LDH (LD) (LACTATE DEHYDROGENASE) (23396)Indication: Anemia, unspecified On: :38 Request GIOVANY TEST, INDIRECT (05195)Indication: Anemia, unspecified On: 0-Zva-798581:38 Request GIOVANY TEST, DIRECT (56324)Indication: Anemia, unspecified On: :38 Request Methylmalonic acid, serum 23977Hihgypknkj: Anemia, unspecified On: 1-Sih-076402:38 Request Vitamin B-12 (cyanocobalamin) (80554)Indication: Anemia, unspecified On: 9-Uuz-632300:37 Request Iron Binding Capacity (TIBC) (24394)Indication: Anemia, unspecified On: 1-Oyr-516475:37 Request Iron (97552)Indication: Anemia, unspecified On: 9-Slk-016015:37 Request Ferritin (02282)Indication: Anemia, unspecified On: 4-Izg-114947:37 Request Folic Acid Serum (70995)Indication: Anemia, unspecified On: 0-Vda-194714:37 Request MICROALBUMIN: CREATININE RATIO (63058) AND (32296)Indication: Benign essential hypertension On: 99-Xzx-869375:03 Request CBC WITH MANUAL DIFF (34626)Indication: Benign essential hypertension On: 28-Lua-674366:03 Request METABOLIC PANEL, COMPREHENSIVE (49850)Indication: Benign essential hypertension On: 33-Ekj-254286:03 Request TSH ([id number])Indication: Hypothyroidism On: 71-Maw-231563:03 Request LIPID PANEL (69407)Indication: Hypercholesterolemia On: 05-Kav-156252:03 Request CALCIFIDIOL (23409) VIT D 25Indication: Vitamin D deficiency, unspecified On: 86-Eav-459383:42 Request TSH (55759)Indication: Abnormal TSH On: 81-Oau-118837:40 Request MICROALBUMIN: CREATININE RATIO (96899) AND (73464)Indication: Hypothyroidism On: 1-Ifs-068034:39 Request PHENYLKETONES QUALIT (09818)Indication: Epilepsy, unspecified, not intractable, without status epilepticus On: 28-Zaj-671674:12 Request Comments: Diliantin level PSA (PROSTATE SPECIFIC ANTIGEN) (15179)Indication: Benign essential hypertension On: 56-Utl-418356:04 Request LIPID PANEL (12006)Indication: Hypercholesterolemia On: :03 Request HEPATIC FUNCTION PANEL (55552)Indication: Hypercholesterolemia On: :19 Request LIPOPROTEIN, BLD, BY NMR (93970)Indication: Hypercholesterolemia On: :19 Request LIPID PANEL (93715)Indication: Hypercholesterolemia On: 91-Zci-640714:19 Request Comments: do in 3 months LIPOPROTEIN, BLD, BY NMR (72094)Indication: Hypercholesterolemia On: :28 Request LIPID PANEL ([id number])Indication: Hypercholesterolemia On: 01-Ylq-045812:28 Request URINALYSIS W/O MICRO (52187)Indication: Benign essential hypertension On: 67-Kyp-945033:00 Request TSH (01658)Indication: Hypothyroidism On: 22-Mfq-339909:00 Request MICROALBUMIN: CREATININE RATIO (75806) AND (85843)Indication: Benign essential hypertension On: 96-Fst-581548:00 Request METABOLIC PANEL, COMPREHENSIVE (18673)Indication: Benign essential hypertension On: 74-Rbq-796426:00 Request LIPID PANEL (58307)Indication: Benign essential hypertension On: 97-Nuc-276126:00 Request CBC WITH MANUAL DIFF ([id number])Indication: Benign essential hypertension On: 81-Oex-383035:00 Request URINALYSIS W/O MICRO ([id number]) On: 81-Gun-686590:50 Request MICROALBUMIN URINE QUANT ([id number]) On: 23-Nzy-441068:49 Request LIPID PANEL ([id number]) On: 23-Fwn-698527:49 Request CBC WITH MANUAL DIFF ([id number]) On: 97-Vez-740603:49 Request TSH (26863)Indication: Hypothyroidism On: :49 Request Lipid Panel (42841)Indication: Hypercholesterolemia On: 1-Wwy-943378:17 Request VITAMIN B-12 (CYANOCOBALAMIN) (42121)Indication: Anemia, unspecified On: 9-Umh-929197:12 Request RETICULOCYTE COUNT MANUL (52972)Indication: Anemia, unspecified On: 6-Vkq-912801:12 Request LDH (LD) (LACTATE DEHYDROGENASE) (10290)Indication: Anemia, unspecified On: 2-Gqf-910053:12 Request IRON BINDING CAPACITY (TIBC) ([id number])Indication: Anemia, unspecified On: 5-Tbu-196874:12 Request IRON ([id number])Indication: Anemia, unspecified On: 0-Aup-752633:12 Request FOLIC ACID SERUM (06651)Indication: Anemia, unspecified On: 2-Ffp-266779:12 Request HAPTOGLOBIN (75948)Indication: Anemia, unspecified On: 8-Aep-426679:12 Request FERRITIN ([id number])Indication: Anemia, unspecified On: 2-Oik-470060:12 Request CBC, PLATELETS & AUT DIFF (13749)Indication: Anemia, unspecified On: 4-Axc-188160:12 Request CBC WITH MANUAL DIFF ([id number])Indication: Anemia, unspecified On: 90-Xbr-174717:27 Request TSH (89827)Indication: Hypothyroidism On: 96-Qkb-841407:25 Request LIPID PANEL (93253)Indication: Hypercholesterolemia On: 92-Ysg-440017:25 Request Planned Encounters Medical; 6 Month FU - On: 26-Apr-2018 13:15 [facility] Valencia Barrett DO, DO, Kathleen Planned Procedures Flu Vaccine (Quadrivalent) On: 03-Jan-2017 Intent 54836Sx: Valencia aBrrett DO Comments: Lot #[id number]/[id number]-L dltd, IMDose prefilled syringegiven by:SAL Pedroza and ABN signed Valencia Barrett DO ELECTROCARDIOGRAM, COMPLETE On: 03-Jan-2017 Intent (ECG) (87772)By: Arnold HILL, Comments: nsr no acute chg - Valencia Arnold DO, Valencia Flu Vaccine (Quadrivalent) On: 01-Jan-2015 Intent [id number]: Valencia Barrett DO Comments: Lot:[id number]:09/04/15Amt:0.5mlRoute:IMSite: L DltdGiven By: SAL Escobedo signed Valencia Barrett DO EKG ([id number])By: Arnold HILL, On: 14-Dec-2013 Intent Valenciasixto Barrett DO Valencia Comments: nsr no acute chg ADMINISTRATION OF INFLUENZA On: 14-Dec-2013 Intent VIRUS VACCINE (G0008)By: Arnold Comments: Lot #[id number]-L dltd, IMDose prefilled syringegiven by:SAL Pedroza and ABN signed DO, Valencia Arnold DO, Valencia FLU VAC, SPLIT, >3 YEARS, On: 14-Dec-2013 Intent INTRAMUSC (94360)By: Valencia Barrett DO, DO Valencia ADMINISTRATION OF INFLUENZA On: 11-Dec-2012 Intent VIRUS VACCINE (G0008)By: Arnold Comments: Lot:[id number]:6.14Amt:0.5mLSite: L Dltd, IMGiven by: SAL Leal signed DO, Valencia Arnold DO, Valencia EKG (05349)By: Arnold HILL, On: 11-Dec-2012 Intent Valenciapat Barrett DOMiaValencia Comments: nsr no acute chg Eprescribed prescriptions On: 11-Dec-2012 Intent (G8553)By: Valencia Barrett DO Arnold DO, Valencia FLU VAC, SPLIT, >3 YEARS, On: 11-Dec-2012 Intent INTRAMUSC (48427)By: Valencia Barrett DO Arnold DO, Valencia Eprescribed prescriptions On: 26-Apr-2012 Intent (G8553)By: Valencia Barrett DO, DO, Kathleen EKG (21924)By: Arnold HILL, On: 20-Dec-2011 Intent Valencia Taylor DO Comments: no acute chg/ nsr EKG (00558)By: Arnold HILL, On: 16-Dec-2010 Intent Valencia Taylor DO Comments: nsr no acute chg TDAP VACCINE >7 IM (60770)By: On: 16-Dec-2010 Intent Valencia Barrett DO, DO, Kathleen FLU VAC, SPLIT, >3 YEARS, On: 05-Dec-2010 Intent INTRAMUSC (30160)By: Sherry, Comments: had already Delilah SALAZAR IMMUNIZ ADMNIN, 1 VAC, On: 10-Dec-2009 Intent SNGL/COMBO (56118)By: Delilah Powell LPN FLU VAC, SPLIT, >3 YEARS, On: 10-Dec-2009 Intent INTRAMUSC (55984)By: Sherry, Comments: Lot #[id number]-4/11Site-L armDose0.5mlgiven by:BRADLEY Mazariegos LPN EKG (76364)By: Arnold HILL, On: 18-Jun-2009 Intent Valencia Taylor DO Comments: NSR NO ACUTE CHAGNES EKG (36376)By: Arnold HILL, On: 26-Jun-2008 Intent Valencia Taylor DO Comments: nsr no acute EKG (63428)By: Arnold HILL, On: 05-Jul-2007 Intent Valencia Taylor DO Comments: NSR NO ACUTE ISCHEMIC CHANGES EKG (03655)By: Arnold HILL, On: 25-May-2006 Intent Valencia Taylor DO Comments: NSR NO ACUTE ISCHEMIC CHANGES Radiology - ClavicleBy: TIEN On: 26-Apr-2006 Intent MATTHEW ROBERSON Radiology - Shoulder - RightBy: On: 26-Apr-2006 Intent MATTHEW CHAUHAN CNP Instructions Name Dates Details Non-smoker : How to access health information online Indication: Non-smoker Non-smoker : How to access health information online - Detail Indication: Non-smoker Non-smoker : Patient Instructions Indication: Non-smoker Non-smoker : How to access health information online - Detail Indication: Non-smoker Non-smoker : Patient Instructions Indication: Non-smoker Controlled diabetes mellitus : How to access health information online Indication: Controlled diabetes mellitus Controlled diabetes mellitus : How to access health information online - Detail Indication: Controlled diabetes mellitus Controlled diabetes mellitus : Patient Instructions Indication: Controlled diabetes mellitus Non-smoker : How to access health information online Indication: Non-smoker Non-smoker : Patient Instructions Indication: Non-smoker Non-smoker : How to access health information online Indication: Non-smoker Non-smoker : How to access health information online - Detail Indication: Non-smoker Non-smoker : Patient Instructions Indication: Non-smoker Non-smoker : How to access health information online Indication: Non-smoker Non-smoker : How to access health information online - Detail Indication: Non-smoker Non-smoker : Patient Instructions Indication: Non-smoker Controlled diabetes mellitus : How to access health information online - Detail Indication: Controlled diabetes mellitus Controlled diabetes mellitus : How to access health information online - Detail Indication: Controlled diabetes mellitus Controlled diabetes mellitus : Patient Instructions Indication: Controlled diabetes mellitus Controlled diabetes mellitus : How to access health information online Indication: Controlled diabetes mellitus Controlled diabetes mellitus : How to access health information online - Detail Indication: Controlled diabetes mellitus Controlled diabetes mellitus : Patient Instructions Indication: Controlled diabetes mellitus Controlled diabetes mellitus : How to access health information online Indication: Controlled diabetes mellitus Controlled diabetes mellitus : How to access health information online - Detail Indication: Controlled diabetes mellitus Controlled diabetes mellitus : Patient Instructions Indication: Controlled diabetes mellitus Need for prophylactic vaccination and inoculation against influenza : How to access health information online Indication: Need for prophylactic vaccination and inoculation against influenza Need for prophylactic vaccination and inoculation against influenza : How to access health information online - Detail Indication: Need for prophylactic vaccination and inoculation against influenza Need for prophylactic vaccination and inoculation against influenza : Patient Instructions Indication: Need for prophylactic vaccination and inoculation against influenza Benign essential hypertension : How to access health information online Indication: Benign essential hypertension Benign essential hypertension : How to access health information online - Detail Indication: Benign essential hypertension Benign essential hypertension : Patient Instructions Indication: Benign essential hypertension Need for prophylactic vaccination and inoculation against influenza : Patient Instructions Indication: Need for prophylactic vaccination and inoculation against influenza Hypercholesterolemia : Patient Instructions Indication: Hypercholesterolemia Benign essential hypertension : Patient Instructions Indication: Benign essential hypertension Encounters Office Visit On: 20-Oct-2017 11:41 Encounter Reason: Follow up for chronic medical issues - The patient feels well with minor complaints, has good energy level and is sleeping well. Patient has been compliant with instructions. Current medication use: no End: 20-Oct-2017 12:56 side effects and compliant with dosing regimen. Patient sleeps 7 hours per night. Nutrition: balanced diet and supplemental vitamins. The medical issues the patient is following up for include All ident ified problems below, high blood pressure and hypothyroid. blood pressure range : and weight :.Encounter Diagnosis: BMI 28.0-28.9,adult, Non-smoker, Epilepsy, unspecified, not intractable, without status epilepticus, Hypercholesterolemia, Vitamin D deficiency, unspecified, Hypothyroidism, Benign essential hypertension (401.1) [facility] Office Visit On: 05-May-2017 10:03 Encounter Reason: Follow up for chronic medical issues - The patient feels well with minor complaints, has good energy level and is sleeping well. Patient has been compliant with instructions. Current medication use: no End: 05-May-2017 12:35 side effects and compliant with dosing regimen. Patient sleeps 7 hours per night. Nutrition: balanced diet and supplemental vitamins. The medical issues the patient is following up for include All ident ified problems below, high blood pressure and hypothyroid. blood pressure range : and weight :., [ADDITIONAL REASON] Annual Medicare Exam - No the patient did not have a mini mental status exam do ne today. The activities of daily living the patient needs help with are shopping for groceries, housework, laundry, managing finances, taking medications and meal preparation. The patient has not had f ecal incontinence, had urinary incontinence, missed or ran out of medications to soon, driven in past 6 months, fallen in the past 6 months, gotten lost, has a medalert necklace or bracelet, put area ru gs through house or put handrails in bathroom. The patient does not have durable power of admitted attorneys or living will. Other providers contributing to the patient's care are other: (neurologist). Encounter Diagnosis: BMI 28.0-28.9,adult, Non-smoker, Benign essential hypertension (401.1), Hypothyroidism, Epilepsy, unspecified, not intractable, without status epilepticus, Vitamin D deficiency, unspecified, Hypercholesterolemia, Annual Medicare Physical WITH abnormal findings (Renamed from Encounter for general adult medical examination with abnormal findings), Encounter for screening for malignant neoplasm of prostate (Renamed from Screening for prostate cancer), Encounter for screening for malignant neoplasm of colon (Renamed from Special screening for malignant neoplasms, colon) [facility] Annotation/Addendum On: 17-Mar-2017 10:39 Encounter Diagnosis: Benign essential hypertension (401.1) End: 17-Mar-2017 10:42 [facility] Office Visit On: 03-Jan-2017 10:14 Encounter Reason: Follow up for chronic medical issues - The patient feels well with minor complaints, has good energy level and is sleeping well. Patient has been compliant with instructions. Current medication use: no End: 03-Jan-2017 12:53 side effects and compliant with dosing regimen. Patient sleeps 6 hours per night. Nutrition: balanced diet and supplemental vitamins. The medical issues the patient is following up for include All ident ified problems below, blood sugar issues, high blood pressure and high cholesterol. weight :.Encounter Diagnosis: BMI 28.0-28.9,adult, Non-smoker, Controlled diabetes mellitus, Benign essential hypertension (401.1), Vitamin D deficiency, unspecified , Hypercholesterolemia, Epilepsy, unspecified, not intractable, without status epilepticus, Anemia, unspecified, Hypothyroidism, Need for prophylactic vaccination and inoculation against influenza [facility] Office Visit On: 24-Sep-2016 10:04 Encounter Reason: Follow up for chronic medical issues - The patient feels well with minor complaints, has good energy level and is sleeping well. Patient has been compliant with instructions. Current medication use: no End: 24-Sep-2016 13:25 side effects and compliant with dosing regimen. Patient sleeps 7 hours per night. Nutrition: balanced diet and supplemental vitamins. The medical issues the patient is following up for include All ident ified problems below, high blood pressure, high cholesterol, hypothyroid and other.Encounter Diagnosis: BMI 28.0-28.9,adult, Non-smoker, Benign essential hypertension (401.1), Hypothyroidism, Epilepsy, unspecified, not intractable, without status epilepticus, Hypercholesterolemia, Vitamin D deficiency, unspecified, Controlled diabetes mellitus, Encounter for screening for malignant neoplasm of prostate (Renamed from Screening for prostate cancer) [facility] Phone Encounter On: 05-Jul-2016 11:42 Encounter Diagnosis: Hypothyroidism End: 05-Jul-2016 11:46 [facility] Office Visit On: 16-Jun-2016 10:40 Encounter Reason: Follow up for chronic medical issues - The patient feels well with minor complaints, has good energy level and is sleeping well. Patient has been compliant with instructions. Current medication use: no End: 17-Jun-2016 8:29 side effects and compliant with dosing regimen. Patient sleeps 7 hours per night. Nutrition: balanced diet and supplemental vitamins. The medical issues the patient is following up for include All ident ified problems below, high blood pressure and high cholesterol.Encounter Diagnosis: BMI 28.0-28.9,adult, Non-smoker, Benign essential hypertension (401.1), Hypercholesterolemia, Hypothyroidism, Epilepsy, unspecified, not intractable, without status epilepticus, Controlled diabetes mellitus [facility] Office Visit On: 10-Jun-2016 11:27 Encounter Reason: Follow up ER - Reason for hospitalization note: (May 29 we were in hotel rooma nd he had a seziure and he fell off of the bed and hit his head,). Patient has been compliant with instructions.Encounter Diagnosis: End: 10-Jun-2016 12:15 BMI 28.0-28.9,adult, Non-smoker, Epilepsy, unspecified, not intractable, without status epilepticus, Laceration [facility] Office Visit On: 23-Jan-2016 10:14 Encounter Reason: Follow up ER - Reason for hospitalization note: (laceration)., [ADDITIONAL REASON] suture removal Encounter Diagnosis: Encounter for removal of sutures, Laceration, Epilepsy, unspecified, not intractable, without status epilepticus End: 23-Jan-2016 12:28 [facility] Office Visit On: 11-Dec-2015 11:50 Encounter Reason: suture removal - The suture were placed because of laceration.Complications at the area of the sutures include none. Note for suture removal: a week ago mon fell and hit his head, [ADDITIONAL REASON] Follow up ER End: 11-Dec-2015 14:35 Encounter Diagnosis: Epilepsy, unspecified, not intractable, without status epilepticus, Laceration, Encounter for removal of sutures [facility] Office Visit On: 15-Oct-2015 13:14 Encounter Reason: Follow up for chronic medical issues - The patient feels well with minor complaints, has good energy level and is sleeping well. Patient has been compliant with instructions. Current medication use: no End: 15-Oct-2015 14:28 side effects and compliant with dosing regimen. Patient sleeps 7 hours per night. Nutrition: balanced diet and supplemental vitamins. The medical issues the patient is following up for include All ident ified problems below, blood sugar issues, high blood pressure, high cholesterol and hypothyroid.Encounter Diagnosis: Controlled diabetes mellitus, Hypothyroidism, Hypercholesterolemia, Benign essential hypertension (401.1), Vitamin D deficiency, unspecified [facility] Office Visit On: 09-Jul-2015 12:53 Encounter Reason: Follow up for chronic medical issues - The patient feels well with minor complaints, has good energy level and is sleeping well. Patient has been compliant with instructions. Current medication use: no End: 09-Jul-2015 13:47 side effects and compliant with dosing regimen. Patient sleeps 7 hours per night. Nutrition: balanced diet and supplemental vitamins. The medical issues the patient is following up for include All ident ified problems below, blood sugar issues, high blood pressure and high cholesterol.Encounter Diagnosis: Controlled diabetes mellitus, Vitamin D deficiency, unspecified, Benign essential hypertension (401.1), Hypercholesterolemia, Hypothyroidism [facility] Office Visit On: 20-Jun-2015 6:51 Encounter Reason: Follow up ER - Reason for hospitalization note: (sutures placed (3)). Hospitalization details include: fall (from seizure ??during work) Patient has been compliant with instructions. Current medication End: 20-Jun-2015 12:02 use: no side effects. Note for Follow up ER: brought in by mother Encounter Diagnosis: Laceration of scalp, Encounter for removal of sutures [facility] Prescription Refill On: 26-May-2015 14:26 Encounter Diagnosis: Benign essential hypertension (401.1) End: 26-May-2015 14:29 [facility] Office Visit On: 09-Apr-2015 12:49 Encounter Reason: Follow up for chronic medical issues - The patient feels well with minor complaints, has good energy level and is sleeping well. Patient has been compliant with instructions. Current medication use: no End: 09-Apr-2015 13:24 side effects and compliant with dosing regimen. Patient sleeps 7 hours per night. Nutrition: supplemental vitamins. The medical issues the patient is following up for include All identified problems bel ow, blood sugar issues, high blood pressure and high cholesterol.Encounter Diagnosis: Controlled diabetes mellitus, Hypothyroidism, Hypercholesterolemia, Benign essential hypertension (401.1), Vitamin D deficiency, unspecified, Encounter for screening for malignant neoplasm of prostate (Renamed from Screening for prostate cancer) [facility] Nurse Visit On: 10-Mar-2015 8:02 Encounter Reason: Follow up ER - Reason for hospitalization note: (jose). Hospitalization details include: fall Current medication use: no side effects. The patient feels well with no complaints.Encounter Diagnosis: End: 10-Mar-2015 11:45 Encounter for removal of sutures [facility] Office Visit On: 01-Jan-2015 12:48 Encounter Reason: Follow up for chronic medical issues - The patient feels well with minor complaints, has good energy level and is sleeping well. Patient has been compliant with instructions. Current medication use: no End: 01-Jan-2015 15:37 side effects and compliant with dosing regimen. Patient sleeps 7 hours per night. Nutrition: balanced diet and supplemental vitamins. The medical issues the patient is following up for include All ident ified problems below, high blood pressure, high cholesterol and hypothyroid., [ADDITIONAL REASON] Annual Medicare Exam - The patient had reviewed and updated the family history, medication/s, past medical history and social history. Yes the patient did have a mini mental status exam done today. The activities of daily living the patient needs help with are bathing (he bathes hi mself, but needs help turning the water on), shopping for groceries, laundry, managing finances and taking medications. The patient has not had fecal incontinence, had urinary incontinence, missed or ra n out of medications to soon, driven in past 6 months, fallen in the past 6 months, gotten lost, has a medalert necklace or bracelet, put area rugs through house or put handrails in bathroom. The patien t has completed the following preventative measures: colonoscopy (never had). The patient does not have durable power of admitted attorneys or living will. The patient has noticed nothing from the geriatic depres luisa scale. Other providers contributing to the patient's care are other: (Neurologist - Dr. Velasquez). Encounter Diagnosis: Need for prophylactic vaccination and inoculation against influenza, Hypothyroidism, Hypercholesterolemia, Benign essential hypertension (401.1), Vitamin D deficiency, unspecified, Controlled diabetes mellitus, Physical exam WITH abnormal findings (Renamed from Encounter for general adult medical examination with abnormal findings) [facility] Lab Order On: 23-Jul-2014 13:54 Encounter Diagnosis: Unspecified Diagnosis End: 23-Jul-2014 13:56 [facility] Office Visit On: 03-Jul-2014 12:54 Encounter Reason: Follow up tests - Date: (06/29/14 labs)., [ADDITIONAL REASON] Follow up for chronic medical issues - The patient feels well with minor complai End: 03-Jul-2014 13:25 nts, has good energy level and is sleeping well. Patient has been compliant with instructions. Current medication use: no side effects and compliant with dosing regimen. Patient sleeps 7 hours per night . Nutrition: balanced diet and supplemental vitamins. The medical issues the patient is following up for include All identified problems below, high blood pressure, high cholesterol and hypothyroid. Encounter Diagnosis: Hypothyroidism (244.9), Benign essential hypertension (401.1), Vitamin D deficiency, unspecified (268.9), Hypercholesterolemia (272.0) [facility] Office Visit On: 03-Apr-2014 11:11 Encounter Reason: Follow up ER - Reason for hospitalization note: (had a seizure and hit his head on coffee table and split it open and to get 5 sutures in it.).Encounter Diagnosis: End: 03-Apr-2014 17:34 Epilepsy, unspecified, without mention of intractable epilepsy (345.90), Laceration of scalp, REMOVAL, SUTURES (V58.32) [facility] Office Visit On: 14-Dec-2013 10:30 Encounter Reason: Follow up tests - Date: (12.08.13)., [ADDITIONAL REASON] Follow up for chronic medical issues - The patient feels well with minor complai End: 14-Dec-2013 13:16 nts, has good energy level and is sleeping well. Patient has been compliant with instructions. Current medication use: no side effects and compliant with dosing regimen. Patient sleeps 7 hours per night . Nutrition: balanced diet and supplemental vitamins. The medical issues the patient is following up for include All identified problems below, high blood pressure, high cholesterol, hypothyroid and other. blood pressure range :. , [ADDITIONAL REASON] Annual Medicare Exam - No the patient did not have a mini mental status exam done today. The activities of daily living the patient needs help with are housework, laundry, managing finances, taking medications and meal preparation. The patient has had fecal incontinence, had urinary incontinence, fallen in the past 6 months (seizures) and put area rugs through house, but the dilia ent has not missed or ran out of medications to soon, driven in past 6 months, gotten lost, has a medalert necklace or bracelet or put handrails in bathroom. The patient has completed the following prev entative measures: PSA testing (Never had one due to age) and colonoscopy (never had one due to age). The patient does not have durable power of admitted attorneys or living will. The patient has noticed nothing from the geriatic depression scale. Other providers contributing to the patient's care are other: (Dr. Velasquez -Neurologist). Encounter Diagnosis: Vitamin D deficiency, unspecified (268.9), Hypothyroidism (244.9), Hypercholesterolemia (272.0), Benign essential hypertension (401.1), Epilepsy, unspecified, without mention of intractable epilepsy (345.90), Need for prophylactic vaccination and inoculation against influenza (V04.81), Abnormal TSH (794.5), Anemia(285.9), Annual Medicare Physical (V70.0) [facility] Lab Order On: 27-Nov-2013 13:31 Encounter Diagnosis: Benign essential hypertension (401.1), Epilepsy, unspecified, without mention of intractable epilepsy (345.90), Hypercholesterolemia (272.0), Hypothyroidism (244.9), Vitamin D deficiency, unspecified (268.9) End: 27-Nov-2013 13:38 [facility] Office Visit On: 11-Dec-2012 9:29 Encounter Reason: Follow up for chronic medical issues - The patient feels well with minor complaints, has good energy level and is sleeping well. Patient has been compliant with instructions. Current medication use: no End: 11-Dec-2012 12:43 side effects and compliant with dosing regimen. Patient sleeps 7 hours per night. Nutrition: balanced diet and supplemental vitamins. The medical issues the patient is following up for include All ident ified problems below, high blood pressure, high cholesterol, hypothyroid and other. blood pressure range :., [ADDITIONAL REASON] Follow up tests - Date: (12/02/12 labs). Encounter Diagnosis: Vitamin D deficiency, unspecified (268.9), Hypothyroidism (244.9), Epilepsy, unspecified, without mention of intractable epilepsy (345.90), Hypercholesterolemia (272.0), Benign essential hypertension (401.1), Need for prophylactic vaccination and inoculation against influenza (V04.81) [facility] Office Visit On: 26-Apr-2012 11:09 Encounter Reason: Follow up tests - Date: (04/22/12 labs)., [ADDITIONAL REASON] Follow up for chronic medical issues - The patient feels well with minor complai End: 26-Apr-2012 11:43 nts, has good energy level and is sleeping well. Patient has been compliant with instructions. Current medication use: no side effects and compliant with dosing regimen. Patient sleeps 7 hours per night . Nutrition: balanced diet and supplemental vitamins. The medical issues the patient is following up for include All identified problems below, high blood pressure and high cholesterol. Encounter Diagnosis: Hypercholesterolemia (272.0), Epilepsy, unspecified, without mention of intractable epilepsy (345.90), Hypothyroidism (244.9), Vitamin D deficiency, unspecified (268.9), Abnormal TSH (794.5), Foliculitis (704.8), Anemia(285.9) [facility] Office Visit On: 20-Dec-2011 16:42 Encounter Reason: Follow up for chronic medical issues - The patient feels well with minor complaints, has good energy level and is sleeping well. Patient has been compliant with instructions. Current medication use: no End: 20-Dec-2011 17:29 side effects and compliant with dosing regimen. Patient sleeps 7 hours per night. Nutrition: balanced diet and supplemental vitamins. The medical issues the patient is following up for include All ident ified problems below, high blood pressure, high cholesterol and other (anemia).Encounter Diagnosis: Benign essential hypertension (401.1), Vitamin D deficiency, unspecified (268.9), Hypothyroidism (244.9), Epilepsy, unspecified, without mention of intractable epilepsy (345.90), Hypercholesterolemia (272.0) [facility] Phone Encounter On: 23-Jul-2011 15:27 Encounter Diagnosis: Anemia(285.9) End: 23-Jul-2011 15:28 [facility] Phone Encounter On: 12-Jul-2011 18:35 Encounter Diagnosis: Anemia(285.9) End: 12-Jul-2011 18:38 [facility] Office Visit On: 23-Jun-2011 10:29 Encounter Reason: Follow up for chronic medical issues - The patient feels well with minor complaints, has good energy level and is sleeping well. Patient has been compliant with instructions. Current medication use: no End: 23-Jun-2011 11:09 side effects and compliant with dosing regimen. Patient sleeps 7 hours per night. Nutrition: balanced diet and supplemental vitamins. The medical issues the patient is following up for include All ident ified problems below, high blood pressure, high cholesterol and hypothyroid. blood pressure range : and weight :., [ADDITIONAL REASON] Follow up tests - Date: (06/12/11 and 06/17/11 labs). Encounter Diagnosis: Hypercholesterolemia (272.0), Vitamin D deficiency, unspecified (268.9), Hypothyroidism (244.9), Benign essential hypertension (401.1) [facility] Nurse Visit On: 15-Jan-2011 11:05 Encounter Reason: Nurse procedure visit - The symptoms have been associated with other (staple removal).Encounter Diagnosis: REMOVAL, SUTURES (V58.32) End: 15-Jan-2011 12:48 [facility] Office Visit On: 04-Jan-2011 16:34 Encounter Reason: suture removal - The lesion requiring suture removal happened days (10 days) ago. The body lesions are described as located on the neck (back of head.). The suture were placed because of laceration (fel End: 04-Jan-2011 16:51 l at home and hit head on bookcase.).Complications at the area of the sutures include none.Encounter Diagnosis: REMOVAL, SUTURES (V58.32) [facility] Office Visit On: 16-Dec-2010 10:23 Encounter Reason: Follow up for chronic medical issues - The patient feels well with minor complaints, has good energy level and is sleeping well. Patient has been compliant with instructions. Current medication use: no End: 16-Dec-2010 11:00 side effects and compliant with dosing regimen. Patient sleeps 7 hours per night. Nutrition: balanced diet and supplemental vitamins. The medical issues the patient is following up for include All ident ified problems below, high blood pressure, high cholesterol, hypothyroid and other., [ADDITIONAL REASON] Follow up tests - Date: (12/07/10). Encounter Diagnosis: Unspecified Diagnosis, Hypothyroidism (244.9), Abnormal TSH (794.5), Vitamin D deficiency, unspecified (268.9), Hypercholesterolemia (272.0), Epilepsy, unspecified, without mention of intractable epilepsy (345.90) [facility] Phone Encounter On: 11-Nov-2010 15:37 Encounter Diagnosis: Hypercholesterolemia (272.0), Anemia(285.9), Hypothyroidism (244.9) End: 11-Nov-2010 15:40 [facility] Phone Encounter On: 19-Jun-2010 14:03 Encounter Diagnosis: Benign essential hypertension (401.1), Hypercholesterolemia (272.0), Epilepsy, unspecified, without mention of intractable epilepsy (345.90) End: 19-Jun-2010 14:13 [facility] Office Visit On: 19-Jun-2010 9:44 Encounter Reason: Follow up for chronic medical issues - The patient feels well with minor complaints, has good energy level and is sleeping well. Patient has been compliant with instructions. Current medication use: no End: 19-Jun-2010 10:37 side effects and compliant with dosing regimen. Patient sleeps 7 hours per night. Nutrition: balanced diet and supplemental vitamins. The medical issues the patient is following up for include All ident ified problems below, high blood pressure and high cholesterol., [ADDITIONAL REASON] Follow up, Laboratory Test Results - Date: (06/17/10). Encounter Diagnosis: Epilepsy, unspecified, without mention of intractable epilepsy (345.90), Hypercholesterolemia (272.0), Hypothyroidism (244.9), Benign essential hypertension (401.1) [facility] Office Visit On: 18-Mar-2010 9:21 Encounter Reason: Follow up for chronic medical issues - The patient feels well with minor complaints, has good energy level and is sleeping well. Patient has been compliant with instructions. Current medication use: no End: 18-Mar-2010 10:03 side effects and compliant with dosing regimen. Patient sleeps 7 hours per night. Nutrition: balanced diet and supplemental vitamins. The medical issues the patient is following up for include All ident ified problems below, high blood pressure and high cholesterol. weight :.Encounter Diagnosis: Benign essential hypertension (401.1), Hypothyroidism (244.9), Epilepsy, unspecified, without mention of intractable epilepsy (345.90), Hypercholesterolemia (272.0) [facility] Office Visit On: 16-Feb-2010 14:53 Encounter Reason: Follow up ER - Reason for hospitalization note: (laceration to head secondary to fall). Patient has been compliant with instructions. Current medication use: no side effects, compliant with dosing regim End: 16-Feb-2010 15:21 en and considered effective by patient. The patient feels well with no complaints. Patient sleeps 7 hours per night. Nutrition: balanced diet.Encounter Diagnosis: REMOVAL, SUTURES (V58.32) [facility] Office Visit On: 10-Dec-2009 10:04 Encounter Reason: Follow up for chronic medical issues - The patient feels well with minor complaints ,has good energy level and is sleeping well. Patient has been compliant with instructions. Current medication use: no End: 10-Dec-2009 10:28 side effects and compliant with dosing regimen. Patient sleeps 6 hours per night. Nutrition: balanced diet and supplemental vitamins. The medical issues the patient is following up for include All ident ified problems below ,high blood pressure and high cholesterol. , [ADDITIONAL REASON] Follow up, Laboratory Test Results - Date: (12/05/09). Encounter Diagnosis: Benign essential hypertension (401.1), Hypothyroidism (244.9), Hypercholesterolemia (272.0), Epilepsy, unspecified, without mention of intractable epilepsy (345.90), Need for prophylactic vaccination and inoculation against influenza (V04.81) [facility] Office Visit On: 17-Jul-2009 11:57 Encounter Reason: Skin lesion - It has been decreasing in size. The skin lesion is characterized as red. The skin lesion is located on the abdomen (right side). Encounter Diagnosis: Foliculitis (704.8) End: 17-Jul-2009 12:47 [facility] Office Visit On: 18-Jun-2009 8:59 Encounter Reason: Follow up for chronic medical issues - The patient feels well with minor complaints ,has good energy level and is sleeping well. Patient has been compliant with instructions. Current medication use: no End: 18-Jun-2009 10:26 side effects and compliant with dosing regimen. Patient sleeps 6 hours per night. Nutrition: inappropriate diet and supplemental vitamins. The medical issues the patient is following up for include All identified problems below ,high blood pressure and hypothyroid. Encounter Diagnosis: Benign essential hypertension (401.1), Hypercholesterolemia (272.0), Epilepsy, unspecified, without mention of intractable epilepsy (345.90), Hypothyroidism (244.9) [facility] Office Visit On: 17-Feb-2009 15:40 Encounter Reason: Follow up for chronic medical issues - The patient feels well with minor complaints ,has good energy level and is sleeping well. Patient has been compliant with instructions. Current medication use: no End: 17-Feb-2009 16:23 side effects and compliant with dosing regimen. Patient sleeps 7 hours per night. Nutrition: balanced diet and supplemental vitamins. The medical issues the patient is following up for include All ident ified problems below ,high blood pressure ,high cholesterol and hypothyroid. , [ADDITIONAL REASON] Follow up, Laboratory Test Results - Date: (02/08/09). Encounter Diagnosis: Benign essential hypertension (401.1), Hypercholesterolemia (272.0), Hypothyroidism (244.9), Epilepsy, unspecified, without mention of intractable epilepsy (345.90) [facility] Office Visit On: 29-Oct-2008 15:56 Encounter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
--- OUTSIDE RECORDS SUMMARY | 2018-03-31 18:21 | XMS RPT_ITS | Continuity of Care Document ---
:1975 Author Organization [facility] Address [address] [facility] [address] [place] [address] Phone Care Team Providers Name Role Phone Valencia Barrett DO Unavailable Long PORTABLE TRACK CREW CHIEF, Alice L Unavailable Unavailable Messenger, PORTABLE TRACK CREW CHIEF Delilah Unavailable Unavailable Unavailable Unavailable Problems Name [...] for 0 days Refills: 0 Ordered:14-Dec-2013 Long PORTABLE TRACK CREW CHIEF, Alice LActive LAMICTAL, 100MG (Oral Tablet) 2 QD for 0 days Refills: 0 Ordered:14-Dec-2013 Long PORTABLE TRACK CREW CHIEF, Alice LActive Levothyroxine Sodium 112 MCG Oral Tablet 1 Tablet daily for 0 days Quantity: 30 {Tablet} Refills: 3 Ordered:30-Dec-2017 Abby Barrett DO, DO, Kathleen Start : 30-Dec-2017 Active Lisinopril 20 MG Oral Tablet 1 [...] 0 days Quantity: 90 {Tablet} Refills: 3 Ordered:04-Apr-2017 Abby Barrett DO, DO, Kathleen Start : 04-Apr-2017 Active TOPAMAX, 100MG (Oral Tablet) 2 BID for 0 days Refills: 0 Ordered:29-Oct-2008 Delilah Powelltive Tricor 145 MG Oral Tablet 1 (one) Tablet daily for 30 days Quantity: 30 {Tablet} Refills: 2 Ordered:16-May-2017 Abby Barrett DO, DO, Kathleen Start : 16-May-2017 Active Comments:generic okay VITAMIN D3, 2000UNIT (Oral [...] Department Summary Result: Comments: See Note; NOTES: [facility] Medical Records Department [address] [place] [address] Emergency Department Summary 11/25/17 1628 MR#: [id number] Acct: [id number] Name: RAGHU LOPEZ Rep #: [id number] : 1975 42 From: Corazon Morris MD PCP: Valencia Barrett DO Status: DEP ER - ER Visit Summary Date of Service: 11/25/17 Chief Complaint: Seizure History of Pres ent Illness: The patient is a 42 M brought in by paramedics after a seizure. Patient has daily seizures. Per the shelter policy if his seizure last longer than [...] of epilepsy This note was generated with DediServe dictation software. It may contain incorrect words, [...] Primary Care Provider. Call [facility] rs Registry ([phone]) or report to the closest Emergency Room. Call 911 if necessary. 11/26/17 0109 <Electronically signed by Corazon Morris MD> Date Corazon Morris MD Cosigner Signature (If Indicated): Date CC: Valencia Barrett DO 25-Nov-2017 Discharge Instruction Result: Comments: See Note; NOTES: [facility] Medical Records Department [address] [place] [address] Discharge Instruction 11/25/17 1748 MR#: [id number] Acct: [id number] Name: Tyler LOPEZ Rep #: [id number] : 1975 42 From: Corazon Morris MD [...] your Primary Care Provider. Call Doctors Registry ([phone]) or report to the closest Emergency Room. Call 911 if necessary. 11/25/17 1749 <El ectronically signed by Corazon Morris MD> Date Corazon Morris MD Cosigner Signature (If Indicated): Date CC: Valencia Barrett DO 19-Jul-2017 Discharge Instruction Result: Comments: See Note; NOTES: [facility] Medical Records Department [address] [place] [address] [place] [address] Discharge Instruction 07/19/171417 MR#: [id number] Acct: [id number] Name: Tyler LOPEZ ROSALINO Candida Rep #: [id number] : 1975 42 From: Ramses Roque MD [...] your Primary Care Provider. Call Doctors Registry ([phone]) or report to the closest Emergency Room. Call 911 if necessary. 07/19/17 1418 <Electronically signed by Marty Roque MD> Date Ramses Roque MD Cosignsaamntha Signature (If Indicated): Date CC: Valencia Barrett DO 19-Jul-2017 Emergency Department Summary Result: Comments: See Note; NOTES: [facility] Medical Records Department [address] [place] [address] Emergency Department Summary 07/19/17 1416 MR#: [id number] Acct: [id number] Name: RAGHU LOPEZ Rep #: [id number] : 1975 42 From: Ramses Roque MD [...] Impression: Seizure This note was generated with DediServe dictation software. It may contain incorrect words, [...] your Primary Care Provider. Call [facility] Registry ([phone]) or report to the closest Emergency Room. Call 911 if necess corby. 07/19/17 1418 <Electronically signed by Ramses Roque MD> Date Ramses Da Silvaigner Signature (If Indicated): Date ____ CC: Valencia Barrett DO 20-May-2017 12 Lead Electrocardiogram Result: Comments: See Note; NOTES: [facility] Cardiovascular Services [address] [place] [address] 12 Lead EKG 05/17/17 1604 MR#: [id number] Acct: [id number] Name: RAGHU LOPEZ Rep # : [id number] : 1975 42 From: Mark Miller MD [...] ECG Confirmed by MARK ALMANZAR, MARK ([id number]), digital editor LORETA GARCIA ([id number]) on 05/20/2017 1:20:03 PM Referred By: EKATERINA Confirmed By:AMRK MILLER MD 05/20/17 1320 Date Mark Miller MD CC: Corazon Morris MD; Valencia Barrett DO Signed 18-May-2017 Emergency Department Summary Result: Comments: See Note; NOTES: [facility] Medical Records Department [address] [place] [address] Emergency Department Summary 05/17/17 1614 MR#: [id number] Acct: [id number] Name: RAGHU LOPEZ Rep #: [id number] : 1975 42 From: Corazon Morris MD PCP: Valencia Barrett DO Status: DEP ER - ER Visit Summary Date of Service: 05/17/17 Chief Complaint: Chest pain History of P resent Illness: The patient is a 42 M who reported 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 Per family and staff members at bedside, the school transportation director pulled over and c alled 911. When [...] pain, resolved This note was generated with DediServe dictation software. It may contain incorrect words, [...] your Primary Care Provider. Call Mendy henao ([phone]) or report to the closest Emergency Room. Call 911 if necessary. 05/18/17 0016 <Electronically signed by Corazon Morris MD> Date Corazon Morris MD Cosigner Signature (If Indicated): Date CC: Valencia Barrett DO 17-May-2017 Discharge Instruction Result: Comments: See Note; NOTES: [facility] Medical Records Department [address] [place] [address] Discharge Instruction 05/17/171650 MR#: [id number] Acct: [id number] Name: Tyler LOPEZ ROSALINO Candida Rep #: [id number] : 1975 42 From: Corazon Morris MD [...] your Primary Care Provider. Call Doctors Registry ([phone]) or report to the closest Emergency Room. Call 911 if ne cessary. 05/17/171651 <Electronically signed by Corazon Morris MD> Date Corazon Morris MD Cosigner Signature (If Indicated): Date CC: Valencia Barrett DO 17-May-2017 Chest PA and Lateral Result: Comments: See Note; NOTES: [facility] Imaging Services [address] [place] [address] Chest PA and Lateral MR#: [id number] Acct: [id number] Name: RAGHU LOPEZ Rep #: [id number] : 1975 M 42 From: Danny Taylor MD PCP: Valencia Barrett DO Status: [facility] ER Study: Chest PA and Lateral Date of Exam: 05/17/17 Exam# [id number] Ordering Dr: Corazon Morris MD STUDY: X-RAY [...] CC: Corazon Morris MD; Valencia Barrett DO Manager Medical Affairs: Signed 01-Feb-2016 Emergency Department Summary Result: Comments: See Note; NOTES: [facility] Medical Records Department [address] [place] [address] Emergency Department Summary MR#: [id number] Acct: [id number] Name: RAGHU LOPEZ Rep #: [id number] : 1975 40 From: Ernst Kim DO PCP: Valencia Barrett DO Status: [facility] ER DATE OF SERVICE: 01/07/2016 CHIEF [...] condition. Ernst Kim DO T: NTS JOB: [id number] 0825 <Electronically signed by Ernst Kim DO> Date Ernst Kim DO Cosigner Signature (If Indicated): Date CC: Valencia Barrett DO Date Dictated: 01/07/161624 Date Transcribed: 01/07/161624 Manager Medical Affairs: Signed 10-Jan-2016 Emergency Department Summary Result: Comments: See Note; NOTES: [facility] Medical Records Department [address] [place] [address] Emergency Department Summary MR#: [id number] Acct: [id number] Name: RAGHU LOPEZ Rep #: [id number] : 1975 40 From: Ernst Kim DO [...] condition. Ernst Kim DO T: NTS JOB: [id number] 01/10/16 0658 <Electronically signed by Ernst Kim DO> Date Ernst Kim DO Cosigner Signature (If Indicated): Date CC: Valencia Barrett DO Date Dictated: 01/07/165 Date Transcribed: 01/07/161624 Manager Medical Affairs: Signed 07-Jan-2016 Emergency Department Summary Result: Comments: See Note; NOTES: [facility] Medical Records Department [address] [place] [address] Emergency Department Summary MR#: [id number] Acct: [id number] Name: RAGHU LOPEZ Rep #: [id number] : 1975 40 From: Ernst Kim DO PCP: aVlencia Barrett DO Status: DEP ER DATE OF [...] condition. Ernst Kim DO T: NTS JOB: [id number] 01/07/162233 <Electronically signed by Ernst Kim DO> Date Ernst Kim DO Cosigner Signature (If Indicated): Date CC: Valencia Barrett DO Date Dictated: 01/07/161624 Date Transcribed: 01/07/161624 Manager Medical Affairs: Signed 08-Dec-2015 Emergency Department Summary Result: Comments: See Note; NOTES: [facility] Medical Records Department [address] [place] [address] Emergency Department Summary MR#: [id number] Acct: [id number] Name: RAGHU LOPEZ Rep #: [id number] : 1975 40 From: Ernst Kim DO PCP: Valencia Barrett DO Status: [facility] ER DATE OF SERVICE: 12/01/2015 CHIEF [...] been ill recently. He has been to [facility] multiple times for these type of [...] condition. Ernst Kim DO T: MELANIE JOB: [id number] 12/08/15 3849 <Electronically signed by Ernst Kim DO> Date Ernst Kim DO Cosigner Signature (If Indicated): Date CC: Valencia Barrett DO Date Dictated: 12/01/152247 Date Transcribed: 12/01/152247 Manager Medical Affairs: Signed 01-Dec-2015 Discharge Instruction Result: Comments: See Note; NOTES: [facility] Medical Records Department [address] [place] [address] Discharge Instruction 12/01/152242 MR#: [id number] Acct: [id number] Name: RAGHU LOPEZ Rep #: [id number] : 1975 40 From: Ernst Kim DO [...] problems, contact your doctor. Call Doctors Registry ([phone]) or report to the closest Emergency Room. Call 911 if necessary. 2243 <Electronically signed by Ernst Kim DO> Date Ernst Kim DO Cosigner Signature (If Indicated): Date CC: Valencia Barrett DO 05-Jun-2015 Emergency Department Summary Result: Comments: See Note; NOTES: [facility] Medical Records Department [address] [place] [address] Emergency Department Summary MR#: [id number] Acct: [id number] Name: RAGHU LOPEZ Rep #: [id number] : 1975 40 From: Ernst Kim DO [...] condition. Ernst Kim DO T: MELANIE JOB: [id number] 06/05/15 2355 <Electronically signed by Ernst Kim DO> Date Ernst Kim DO Cosigner Signature (If Indicated): Date CC: Valencia Barrett DO Date Dictated: 06/04/151548 Date Transcribed: 06/04/151548 Manager Medical Affairs: Signed 04-Jun-2015 Discharge Instruction Result: Comments: See Note; NOTES: [facility] Medical Records Department [address] [place] [address] Discharge Instruction 06/04/155 MR#: [id number] Acct: [id number] Name: LOPEZRAGHU Rep #: [id number] : 1975 40 From: Ernst Kim DO [...] problems, contact your doctor. Call Doctors Registry ([phone]) or report to the closest Emergency Room. Call 911 if necessary. 06/04/15 1546 <Electronically signed by Ernst Kim DO> Date Ernst Kim DO Cosigner Signature (If Indicated): Date CC: Valencia Barrett DO 04-Jun-2015 Brain/Head without Contrast Result: Comments: See Note; NOTES: [facility] Imaging Services [address] [place] [address] Verdana 4d Brain/Head without Contrast MR#: [id number] Acct: [id number] Name: RAGHU LOPEZ Rep #: [id number] : 1975 M 40 From: Johny Claudio DO PCP: Valencia Barrett DO Status: REG ER Study: Brain/Head without Contrast Date of Exam: 06/04/15 Exam# [id number] Ordering Dr : Ernst Kim DO STUDY: [...] Johny Claudio DO at 15:40 EDT Tel [phone], Service support [phone], CC: Valencia Barrett DO; Ernst Kim DO Manager Medical Affairs: Signed 08-Mar-2015 Emergency Department Summary Result: Comments: See Note; NOTES: [facility] Medical Records Department [address] [place] [address] Emergency Department Summary MR#: [id number] Acct: [id number] Name: RAGHU LOPEZ Rep #: [id number] : 1975 40 From: Ramses Roque MD PCP: Valencia Barrett DO Status: [facility] ER DATE OF SERVICE: 02/21/2015 CHIEF [...] Dr. Ramses Roque MD T: NTS JOB: [id number] 03/08/15 0840 <Electronically signed by Ramses Roque MD> Date Ramses Roque MD Cosigner Signature (If Indicated): Date CC: Valencia Barrett DO Date Dictated: 02/21/151735 Date Transcribed: 02/21/151735 Manager Medical Affairs: Signed 21-Feb-2015 Discharge Instruction Result: Comments: See Note; NOTES: [facility] Medical Records Department [address] [place] [address] Discharge Instruction 02/21/151736 MR#: [id number] Acct: [id number] Name: RAGHU LOPEZ Rep #: [id number] : 1975 40 From: Ramses Roque MD [...] une xpected problems, contact your doctor. Call [employer] ([phone]) or report to the closest Emergency Room. Call 911 if necessary. 02/21/151736 <Electronically signed by Ramses chen MD> Date Ramses Roque MD Cosigner Signature (If Indicated): Date CC: Valencia Barrett DO 21-Feb-2015 Brain/Head without Contrast Result: Comments: See Note; NOTES: [facility] Imaging Services [address] [facility] [address] [place] [address] Verdana 4d Brain/Head without Contrast MR#: [id number] Acct: [id number] Name: RAGHU LOPEZ Rep #: [id number] : 1975 M 40 From: Kena Fountain MD PCP: Valencia Barrett DO Status: REG ER Study: Brain/Head without Contrast Date of Exam: 02/21/15 Exam# [id number] Orderin g Dr: Ramses Roque MD STUDY: [...] at 17:28 EST Tel , Service support [phone], CC: Ramses Roque MD; Eligio Barrett DO Manager Medical Affairs: Signed 01-Jan-2015 EKG ([id number]) Comments: nsr no acute chg Result: [MEASUREMENTS ANALYSIS] Date of Test: 01/01/2015 13:24:06; Heart Rate: 61; AR Interval: 184; QRS: 86; QT Interval: 374; Corrected QT Interval (QTc): 375; P Wave [place]: 42; QRS [place]: 35; T Wave [place]: 53; Blood Pressure: 100/58 [ECG DIAGNOSTIC STATEMENTS] Date of Test: 01/01/2015 13:24:06; Summary: Sinus Rhythm WITHIN NORMAL LIMITS 23-Mar-2014 Emergency Department Summary Result: Comments: See Note; NOTES: [facility] Medical Records Department [address] [place] [address] Emergency Department Summary MR#: [id number] Acct: [id number] Name: RAGHU LOPEZ Rep #: [id number] : 1975 39 From: Ernst Kim DO [...] seizure. Instructed to follow up with Dr. aBrrett in 10 days for suture removal and to r eturn if increasing pain, redness, swelling, purulent drainage or condition worsens in any way. DISPOSITION: Discharged to home in stable condition. Ernst Kim DO T: NTS JOB: [id number] 0 03/23/14 0059 <Electronically signed by Ernst Kim DO> Date Ernst Kim DO CC: Valencia Barrett DO Date Dictated: 03/22/142205 Date Transcribed: 03/22/142205 Manager Medical Affairs: Signed 22-Mar-2014 Discharge Instruction Result: Comments: See Note; NOTES: [facility] Medical Records Department [address] [place] [address] Discharge Instruction 03/22/142201 MR#: [id number] Acct: [id number] Name: RAGHU LOPEZ Rep #: [id number] : 1975 39 From: Ernst Kim DO [...] Call Doctors Registry ) or report to the [facility] Emergency Room. Call 911 if necessary. 03/22/142203 <Electronically signed by Ernst Kim DO> Date Ernst Kim DO Co signer Signature (If Indicated): Date CC: Valencia Barrett DO 22-Mar-2014 Brain/Head without Contrast Result: Comments: See Note; NOTES: [facility] Imaging Services [address] [place] [address] CAT Scan Report MR#: [id number] Acct: [id number] Name: RAGHU LOPEZ Rep #: [id number] : 1975 M 39 From: Lizabeth Ovalle DO PCP: Valenica Barrett DO Status: REG ER Study: Brain/Head without Contrast Date of Exam: 03/22/14 Exam# [id number] Ordering Dr: Ernst Kim DO STUDY: CT [...] at 21:48 EST Tel , Service support [phone], CC: Valencia Barrett DO; Ernst Kim DO Manager Medical Affairs: Signed 10-Jul-2013 Emergency Department Summary Result: Comments: See Note; NOTES: [facility] Medical Records Department [address] [place] [address] Emergency Department Summary MR#: [id number] Acct: [id number] Name: RAGHU LOPEZ Rep #: [id number] : 1975 38 From: Yesi Trejo MD [...] did discuss the case with the neurologist commissioning manager for Dr. Velasquez and he was comfortable with the plan. DISPOSITION: Discharge. DIAGNOSIS: Acute on chronic seizure disorder. MD Ashley Cast C: Adam Villalta: MELANIE JOB: [id number] 07/10/13 0725 <Electronically signed by Yesi Trejo MD> Date Yesi Trejo MD CC: Valencia Barrett DO Date Dictated: 06/27/131746 Date Transcribed: 06/27/131746 Manager Medical Affairs: Signed 27-Jun-2013 Discharge Instruction Result: Comments: See Note; NOTES: [facility] Medical Records Department [address] [place] [address] Discharge Instruction 06/27/131749 MR#: [id number] Acct: [id number] Name: RAGHU LOPEZ Rep #: [id number] : 1975 38 From: Yesi Trejo MD PCP: Valencia Barrett DO Status: REG ER ED Disposition - Plan for ED Patient: Disposition: Home Chief Complaint: Seizure Instructions: SEIZURE, Recurrent [Adult] Referrals: Valencia Barrett DO [Primary Care Provider] - Adam Velasquez Jr [NON-STAFF] - Adma Velasquez MD [STAFF PHYSICIAN] - 3-5 Days What to do if you hav e Problems For any increased pain, shortness of breath, bleeding, nausea or vomiting, chest pain, or any unexpected problems, contact your doctor. Call Doctors Registry ) or report to [facility] Emergency Room. Call 911 if necessary. 06/27/131751 [...] smoker Vital Signs Date Test Result Details [id number]-Kmo-997468:44 Temperature 97.6 f Comments: Method: Temporal Pulse [...] kg/m2 Body Surface Area Calculated 2.28 m2 5-Qwj-652984:06 Pulse 88 /min Comments: Pattern: Regular Respiration [...] kg/m2 Body Surface Area Calculated 2.28 m2 50-Tda-793095:41 Pulse 69 /min Comments: Pattern: Regular Respiration [...] kg/m2 Body Surface Area Calculated 2.28 m2 84-Okp-542591:10 Pulse 80 /min Comments: Pattern: Regular Respiration [...] kg/m2 Body Surface Area Calculated 2.27 m2 23-Sms-381450:46 Pulse 78 /min Comments: Pattern: Regular Respiration [...] kg/m2 Body Surface Area Calculated 2.27 m2 7-Und-436403:00 Pulse 71 /min Comments: Pattern: Regular Respiration [...] kg/m2 Body Surface Area Calculated 2.26 m2 53-Nxt-554376:15 Pulse 65 /min Comments: Pattern: Regular Respiration [...] report for address and phone number LAMOTRIG 238306 10.0 ug/mL (Normal) Range: 2.0-20.0 Comments: Detection Limit = 1.0Performed at: [facility] [address] [id number] Director: Kra Robison MD, Phone: [phone] 64-Jep-452351:40 Topiramate, Serum Comments: [facility] (refer to report for specific site)refer to report for address and phone number TOPIRAMATE 14.6 ug/mL (Normal) Range: 2.0-25.0 Comments: Detection Limit = 1.0 :40 Valproic Acid (Depakene) Level Comments: [facility] [address] [place], [address] VALPROIC ACID 80 ug/mL (Normal) Range: 50-100 78-Wub-63901:16 CBC W/Diff, Automated Comments: DR VELASQUEZ ORDERED TOPAMAX DEPAKOTE LAMICTAL [facility] [address] [place], [address] PATH REV Reviewed (Normal) Comments: [...] 4.6-6.2 WBC 6.3 K/mm3 (Normal) Range: 4.4-11.0 14-Qsk-96128:16 Lamotrigine (Lamictal) Level Comments: DR VELASQUEZ ORDERED TOPAMAX DEPAKOTE LAMICTAL [facility] (refer to report for specific site)refer to report for address and phone number LAMOTRIG 640960 11.1 ug/mL (Normal) Range: 2.0-20.0 Comments: Detection Limit = 1.0Performed at: - [facility] [id number] Director: Kar Robison MD, Phone: [phone] 59-Rkq-33991:16 Lipid Profile Comments: DR VELASQUEZ ORDERED TOPAMAX DEPAKOTE LAMICTAL [facility] [address] [place], [place], [id number] VLDL Test not performed mg/dL (Normal) Range: [...] Hormone (TSH) Comments: DR VELASQUEZ [facility]AM[facility] [address] [place], [address] TSH 4.29 {uIU/mL} (Abnormal) Range: 0.358-3.74 :16 Topiramate, Serum Comments: DR VELASQUEZ ORDERED TOPAMAX DEPAKOTE L[facility]AL [facility] (refer to report for specific site)refer to report for address and phone number TOPIRAMATE 8.8 ug/mL (Normal) Range: 2.0-25.0 Comments: Detection Limit = 1.0 :16 Valproic Acid (Depakene) Level Comments: [facility] [address] [place], [address] VALPROIC ACID 78 ug/mL (Normal) Range: 50-100 52-Xuh-94421:16 Vitamin D,25 Hydroxy Comments: DR VELASQUEZ ORDERED TOPAMAX DEPST[facility] [address] [place], [address] Vitamin D 25-OH 38.1 ng/mL (Normal) Range: 29.95-100.01 Comments: Vitamin D 25(OH) Status Range Deficiency <20 ng/mL (50nmol/L) Insuffciency 20 - 30 ng/mL (50 - 75 nmol/L) Sufficiency 30 - 100 ng/mL (75 - 250 nmol/L) Toxicity >100 ng/mL (>250 nmol/L) 64-Qbi-849300:42 HgA1C , Office (75536) HgA1C , Office 5.4 % (Normal) Range: 4.6 - 7.1 64-Uab-456686:42 Blood Glucose , Office (33774) Blood Glucose , Office 109 (Normal) :01 CBC W/Diff, Automated Comments: [facility] [address] [place], [place], [address](254) MONOCYTE 1 % (Normal) Range: 0-10 LYMPH [...] Range: 4.4-11.0 :01 Comprehensive Metabolic Profil Comments: [facility] [address] [place], [place], [id number] GAP 8 (Normal) Range: 5-15 CO2 21.0 [...] criteria. :01 PSA,Total - Annual Screen Comments: [facility] [address] [place], [place], [id number] PSA,TOT SCREEN 0.49 ng/mL (Normal) Range: 0.00-4.00 Comments: This test was performed using the TPSA assay method for the[facility] chemistry system. Values obtained with differentassay methods cannot be used interchangably.When changing PSA assays in the course of monitoring apatient, additional sequential testing should be carriedout to confirm baseline values. :01 Thyroid Stim Hormone (TSH) Comments: [facility] [address] [place], [address] TSH 3.21 {uIU/mL} (Normal) Range: 0.358-3.74 :01 Vitamin D,25 Hydroxy Comments: [facility] [address] [place], [address] Vitamin D 25-OH 36.7 ng/mL (Normal) Comments: Vitamin D 25(OH) Status Range Deficiency <20 ng/mL (50nmol/L) Insuffciency 20 - 30 ng/mL (50 - 75 nmol/L) Sufficiency 30 - 100 ng/mL (75 - 250 nmol/L) Toxicity >100 ng/mL (>250 nmol/L) 76-Icy-127062:10 Blood Glucose , Office (91455) Blood Glucose , Office 90 (Normal) 17-Cou-212204:10 HgA1C , Office (73043) HgA1C , Office 5.3 % (Normal) Range: 4.6 - 7.1 :04 Comprehensive Metabolic Profil Comments: [facility] [address] [place], [address] GAP 10 (Normal) Range: 5-15 CO2 22.0 [...] per A.D.A. criteria. :04 Free T3 Comments: [facility] [address] [facility]. [place], [place], [address] FREE T3 2.3 pg/mL (Normal) Range: 2.18-3.98 :04 Lipid Profile Comments: [facility] [address] [facility]. [place], [place], [address] VLDL Test not performed mg/dL (Normal) Range: [...] High Risk :04 T4 Free Direct Comments: [facility] [address] [facility]. [place], [place], [address] T4 FREE DIRECT 0.97 ng/dL (Normal) Range: 0.76-1.46 :04 Thyroid Peroxidase AB Comments: [facility] (refer to report for specific site)refer to report for address and phone number TPO AB 6676 11 {IU/mL} (Normal) Range: 0-34 Comments: Performed at: [facility] [id number] Director: Ortiz Shukla PhD, Phone: [phone] 10-Mbt-30973:04 Thyroid Stim Hormone (TSH) Comments: [facility] [address] [facility] [address] [place], [place], [address] TSH 4.52 {uIU/mL} (Abnormal) Range: 0.358-3.74 :24 CBC W/Diff, Automated Comments: [facility] [address] [facility] [address] [place], [place], [address] Absolute Lymph 2.81 {X10_3/ul} (Normal) Range: 0.83-4.51 [...] Range: 4.4-11.0 :24 Comprehensive Metabolic Profil Comments: [facility] [address] [place], [address] GAP 9 (Normal) Range: 5-15 CO2 23.0 [...] report for address and phone number LAMOTRIG [id number] 12.6 ug/mL (Normal) Range: 2.0-20.0 Comments: Detection Limit = 1.0Performed at: - [facility] [address] [id number] Director: Kar Robison MD, Phone: [phone] :24 Topiramate, Serum Comments: [facility] (refer to report for specific site)refer to report for address and phone number TOPIRAMATE 9.3 ug/mL (Normal) Range: 2.0-25.0 Comments: Detection Limit = 1.0 :24 Valproic Acid (Depakene) Level Comments: [facility] [address] [place], [address] VALPROIC ACID 92 ug/mL (Normal) Range: 50-100 :15 HgA1C , Office (02981) HgA1C , Office 5.0 % (Normal) Range: 4.6 - 7.1 :15 Blood Glucose , Office (07305) Blood Glucose , Office 75 (Normal) :12 Comprehensive Metabolic Profil Comments: ORDERED: DEPAKOTE, LAMICTIL, TOPAMAXDR.ARNOLD ORDERED: LIPID, TSH, VITD, CBCD, CMP, KRISSY, AND [facility] [address] [place], [place], [id number] GAP 5 (Normal) Range: 5-15 CO2 23.0 [...] report for address and phone number LAMOTRIG [id number] 12.9 ug/mL (Normal) Range: 2.0-20.0 Comments: Detection Limit = 1.0Performed at: [facility] [address] [id number] Director: Kar Robison MD, Phone: [phone] 12-Jul-20157:12 Lipid Profile Comments: ORDERED: DEPAKOTE, LAMICTIL, TOPAMAXDR.ARNOLD ORDERED: LIPID, TSH, VITD, CBCD, CMP, KRISSY, AND [facility] Fwznjrdeca2189 [facility] [place], [place], [id number] VLDL 32 mg/dL (Normal) Range: 5-40 LDL [...] LIPID, TSH, VITD, CBCD, CMP, KRISSY, AND [facility] [address], [address] TSH 3.73 {uIU/mL} (Normal) Range: [...] LIPID, TSH, VITD, CBCD, CMP, KRISSY, AND [facility] [address] [place], [place], [id number] VALPROIC ACID 73 ug/mL (Normal) Range: 50-100 :12 Vitamin D,25 Hydroxy Comments: ORDERED: DEPAKOTE, LAMICTIL, TOPAMAXDR.ARNOLD ORDERED: LIPID, TSH, VITD, CBCD, CMP, KRISSY, AND [facility] [address] [place], [place], [address] Vitamin D 25-OH 53.5 ng/mL (Normal) Comments: Vitamin D 25(OH) Status Range Deficiency <20 ng/mL (50nmol/L) Insuffciency 20 - 30 ng/mL (50 - 75 nmol/L) Sufficiency 30 - 100 ng/mL (75 - 250 nmol/L) Toxicity >100 ng/mL (>250 nmol/L) 1-Ctj-152026:54 HgA1C , Office (32290) HgA1C , Office 5.3 % (Normal) Range: 4.6 - 7.1 :54 Blood Glucose , Office (13816) Blood Glucose , Office 77 (Normal) 67-Zsb-202136:40 Basic Metabolic Profile (BMP) Comments: [facility] [address] [place], [place], [phone] GAP 5 (Normal) Range: 5-15 CO2 22.0 [...] <126 mg/dLsuggests IMPAIRED HOMEOSTASIS per A.D.A. criteria. 39-Opd-217702:40 CBC W/Diff, Automated Comments: [facility] [address] [place], [place], [address] Absolute Lymph 3.02 {X10_3/ul} (Normal) Range: 0.83-4.51 [...] 4.6-6.2 WBC 6.4 K/mm3 (Normal) Range: 4.4-11.0 53-Ylz-221553:40 Valproic Acid (Depakene) Level Comments: [facility] [address] [place], [address] VALPROIC ACID 73 ug/mL (Normal) Range: 50-100 :53 CBC W/Diff, Automated Comments: [facility] [address] [place], [address] Absolute Lymph 3.63 {X10_3/ul} (Normal) [...] Range: 4.4-11.0 :53 Comprehensive Metabolic Profil Comments: [facility] [address] [place], [place], [address] GAP 7 (Normal) Range: 5-15 CO2 21.0 [...] (Normal) Range: 70-110 :53 Lipid Profile Comments: [facility] [address] [place], [place], [phone] VLDL 38 mg/dL (Normal) Range: 5-40 LDL [...] Risk :53 PSA,Total - Annual Screen Comments: [facility] [address] [place], [place], [address] PSA,TOT SCREEN 0.40 ng/mL (Normal) Range: 0.00-4.00 Comments: This test was performed using the TPSA assay method for the[facility] chemistry system. Values obtained with differentassay methods cannot be used interchangably.When changing PSA assays in the course of monitoring apatient, additional sequential testing should be carriedout to confirm baseline values. :53 Thyroid Stim Hormone (TSH) Comments: [facility] [address] [place], [address] TSH 4.06 {uIU/mL} (Abnormal) Range: 0.358-3.74 :53 Vitamin D,25 Hydroxy Comments: [facility] [address] [place], [address] Vitamin D 25-OH 50.9 ng/mL (Normal) Comments: Vitamin D 25(OH) Status Range Deficiency <20 ng/mL (50nmol/L) Insuffciency 20 - 30 ng/mL (50 - 75 nmol/L) Sufficiency 30 - 100 ng/mL (75 - 250 nmol/L) Toxicity >100 ng/mL (>250 nmol/L) :49 HgA1C , Office (41282) HgA1C , Office 4.9 % (Normal) Range: 4.6 - 7.1 :49 Blood Glucose , Office (05929) Blood Glucose , Office 73 (Normal) :09 HgA1C , Office (22808) HgA1C , Office 5.3 % (Normal) Range: 4.6 - 7.1 :34 CALCIFIDIOL (60084) VIT D 25 Comments: PATIENT WAS FASTINGPERFORMED BY: [facility] [id number] Vitamin D, 25-Hydroxy 51.2 ng/mL (Normal) Range: 30.0-100.0 Comments: Vitamin D deficiency has been defined by the [place] ofMedicine and an Endocrine Society practice guideline as alevel of serum 25-OH vitamin D less than 20 ng/mL (1,2).The Endocrine Society went on to further define vitamin Dinsufficiency as a level between 21 and 29 ng/mL (2).1. IOM ([place] of Medicine). 2010. Dietary reference intakes for calcium and D. [place]: The National Academies Press.2. Rhys BLAND, Obi SANTOS, Rosalino BULLOCK, et al. Evaluation, treatment, and prevention of vitamin D deficiency: an Endocrine Society clinical practice guideline. JCEM. 2010; 96(7):1911-30. :34 TSH (80663) Comments: PATIENT WAS FASTINGPERFORMED BY: [facility] [address] [id number] TSH 2.240 {uIU/mL} (Normal) Range: 0.450-4.500 :34 METABOLIC PANEL, COMPREHENSIVE Comments: PATIENT WAS FASTINGPERFORMED BY: [facility] [address] [id number] (12849) ALT (SGPT) 45 [iU]/L (Abnormal) Range: 0-44 [...] mg/dL (Normal) Range: 65-99 :34 LIPID PANEL (64992) Comments: PATIENT WAS FASTINGPERFORMED BY: [facility] [id number] LDL/HDL Ratio 3.4 {ratio_units} (Normal) Range: 0.0-3.6 [...] 100-199 Comments: Please note reference interval change 66-Ybb-556436:34 CBC W/AUTO DIFF WBC Comments: PATIENT WAS FASTINGPERFORMED BY: [facility] I[address]jla22[address] [facility] [facility] [id number] Information: [id number] (88295) Immature Grans (Abs) 0.0 {x10E3/uL} (Normal) Range: [...] :10 CBC W/Diff, Automated Comments: Test performed at:[facility] [address] [place], [place] [address] Absolute Lymph 3.58 {X10_3/ul} (Normal) Range: 0.83-4.51 [...] :10 Comprehensive Metabolic Profil Comments: Test performed at:[facility] [address] [place], [place] [phone] GAP 8 (Normal) Range: 5-15 CO2 23.0 [...] 70-110 :10 Lipid Profile Comments: Test performed at:[facility] O[address]qxfzeic4[address] [facility] [place] [place], [place] [phone] VLDL 51 mg/dL (Abnormal) Range: 5-40 LDL [...] Thyroid Stim Hormone (TSH) Comments: Test performed at:[facility] [address] [place] [address] TSH 3.58 {uIU/mL} (Normal) Range: 0.358-3.74 :10 Vitamin D,25 Hydroxy Comments: Test performed at:[facility] [address] [place] [address] Vitamin D 25-OH 27.0 ng/mL (Normal) Comments: Vitamin D 25(OH) Status Range Deficiency <20 ng/mL (50nmol/L) Insuffciency 20 - 30 ng/mL (50 - 75 nmol/L) Sufficiency 30 - 100 ng/mL (75 - 250 nmol/L) Toxicity >100 ng/mL (>250 nmol/L) :26 Comprehensive Metabolic Profil Comments: Test performed at:[facility] [address] [place] [address] ; ordered by Tequila GAP 8 [...] :26 Lamotrigine (Lamictal) Level Comments: Test performed at:[facility] Re[address] [place] [address] LAMOTRIG 538019 15.3 ug/mL (Normal) Range: 2.0-20.0 Comments: Detection Limit = 1.0Performed at: [facility] [id number] Director: Kar Robison MD, Phone: [phone] 46-Zbz-19486:26 Topiramate, Serum Comments: Test performed at:[facility] [address] [place] [address] TOPIRAMATE 8.2 ug/mL (Normal) Range: 2.0-25.0 Comments: Detection Limit = 1.0 :26 Valproic Acid (Depakene) Level Comments: Test performed at:[facility] W[address]ings[address] [place] [address] VALPROIC ACID 80 ug/mL (Normal) Range: 50-100 10-Qgl-761482:45 Valproic Acid (Depakene) Level Comments: Test performed at:[facility] [address] [place] [address] VALPROIC ACID 54 ug/mL (Normal) Range: 50-100 [...] :03 Lamotrigine (Lamictal) Level Comments: Test performed at:[facility] Rslqdzzfjj9331 [place] [address] LAMOTRIG 080608 2.6 ug/mL (Normal) Range: 2.0-20.0 Comments: Detection Limit = 1.0Performed at: [facility] [id number] Director: Kar Robison MD, Phone: [phone] :[phone] Topiramate, Serum Comments: Test performed at:[facility] Yjerorbswx8214 [place] [address] TOPIRAMATE 12.5 ug/mL (Normal) Range: 2.0-25.0 Comments: [...] CHOL 211 mg/dL (Abnormal) Comments: <200 mg/dL Lqmwzoyfn880-559 mg/dL Borderline>240 mg/dL High Risk :16 TSH [...] 2.0-20.0 Comments: Detection Limit = 1.0Performed at: [facility] [address] [id number] Director: Kar Robison MD, Phone: [phone] :18 TOPIR tTOPIR 4.3 ug/mL (Normal) Range: [...] CHOL 165 mg/dL (Normal) Comments: <200 mg/dL Vtqobhsyr511-523 mg/dL Borderline>240 mg/dL High Risk :33 MEZA 14.9 ug/mL (Normal) Comments: DR BARRETT ORDERED LIPIDDR TEQUILA ORDERED VALPROIC ACID,LAMOTRIGINE,TOPIRAMATE,CMP Range: 2.0-20.0 Comments: Detection Limit = 1.0Performed at: [facility] [address] [id number] Director: Kar Robison MD, Phone: [phone] :33 TOPIR Comments: DR BARRETT ORDERED LIPIDDR [...] CHOL 167 mg/dL (Normal) Comments: <200 mg/dL Zncpjbhou462-993 mg/dL Borderline>240 mg/dL High Risk TRIG 250 [...] 250 nm ol/L)Toxicity >100 ng/mL (250 nmol/L)Effective 201222-Jul-201191-Lxc-081388:05 ABS SCREEN CELL III NEGATIVE (Normal) SCREEN CELL I NEGATIVE (Normal) SCREEN CELL II NEGATIVE (Normal) Ab SCREEN GEL NEGATIVE (Normal) 42-Lig-026348:05 B12 1099 pg/mL (Abnormal) Range: 211-946 Comments: Performed at: [facility] [address] [id number] Director: Kar Robison MD, Phone: [phone] at: [place] [address]Jqa Director: Geno Gamez MD, Phone: [phone] 32-Yjk-999109:05 VONDA DIRECT GIOVANY= NEG w/POLYSPECIFIC (Normal) 18-Lfd-217023:05 FDP tFDP NEGATIVE ug/mL (Normal) : ISABEL [...] 2.0-20.0 Comments: Detection Limit = 1.0Performed at: [facility] [id number] Director: Geno Gamez MD, Phone: [phone] at: [facility] [id number] Director: Kar Robison MD, Phone: [phone] :13 LIVER Comments: DR VELASQUEZ ORDERED DEPAKOTE,LAMACTIL,TOPAMAX,LIVER [...] D deficiency has been defined by the [place] of[place]icine and an Endocrine Society practice guideline as alevel of serum 25-OH vitamin D less than 20 ng/mL (1,2).The Endocrine Society went on to further define vitamin Dinsufficiency as a level between 21 and 29 ng/mL (2).1. IOM ([place] of Medicine). 2010. Dietary reference intakes for calcium and D. [place]: The National Academies Press.2. Rhys MF, Obi SANTOS, Rosalino BULLOCK, et al. Evaluation, treatment, and prevention of vitamin D deficiency: an Endocrine Society clinical practice guideline. JCEM. 2010; 96(7):1911-30. 5-Oyg-179890:04 TSH 3.03 {uIU/mL} (Normal) Range: 0.358-3.74 :56 TSH (THYROID STIMULATING Comments: PATIENT WAS FASTINGPERFORMED BY: [facility] Vmbldb[address] [facility] [id number] HORMONE) (40080) TSH 6.850 {uIU/mL} (Abnormal) Range: 0.450-4.500 :56 CBC & PLATELETS (AUTO) Comments: PATIENT WAS FASTINGPERFORMED BY: [facility] [address] [id number] Information: [id number] (43267) Platelets 322 {x10E3/uL} (Normal) Range: 140-415 RDW 13.5 % (Normal) Range: 11.7-15.0 MCHC 32.7 g/dL (Normal) Range: 32.0-36.0 MCH 31.2 pg (Normal) Range: 27.0-34.0 MCV 95 fL (Normal) Range: 80-98 Hematocrit 39.4 % (Normal) Range: 36.0-50.0 Hemoglobin 12.9 g/dL (Normal) Range: 12.5-17.0 RBC 4.13 {x10E6/uL} (Normal) Range: 4.10-5.60 WBC 8.8 {x10E3/uL} (Normal) Range: 4.0-10.5 :56 LIPID PANEL (71241) Comments: PATIENT WAS FASTINGPERFORMED BY: [employer] [facility] [id number] LDL/HDL Ratio 3.1 {ratio_units} (Normal) Range: 0.0-3.6 LDL Cholesterol Calc 107 mg/dL (Abnormal) Range: 0-99 VLDL Cholesterol Abdirizak 49 mg/dL (Abnormal) Range: 5-40 HDL Cholesterol 35 mg/dL (Abnormal) Comments: According to ATP-III Guidelines, HDL-C >59 mg/dL is considered anegative risk factor for CHD. Triglycerides 245 mg/dL (Abnormal) Range: 0-149 Cholesterol, Total 191 mg/dL (Normal) Range: 100-199 :56 CALCIFEDIOL (85854) Comments: PATIENT WAS FASTINGPERFORMED BY: [facility] [id number] Vitamin D, 25-Hydroxy 22.0 ng/mL (Abnormal) Range: 32.0-100.0 Comments: Effective January 25, 2011 Vitamin D, 25-Hydroxy reference intervals will be changing to 30-100. .Recent studies consider the lower li liu of 32.0 ng/mL to be athreshold for optimal health.Yonas ARNOLD. J Nutr. 2004;135(2):317-22. :25 LIPID PANEL (59225) Comments: PATIENT WAS FASTINGPERFORMED BY: [facility] Eqdqer7[address] [id number] Information: [id number] LDL/HDL Ratio 3.3 {ratio_units} (Normal) Range: 0.0-3.6 HDL Cholesterol 37 mg/dL (Abnormal) Comments: According to ATP-III Guidelines, HDL-C >59 mg/dL is considered anegative risk factor for CHD. LDL Cholesterol Calc 121 mg/dL (Abnormal) Range: 0-99 VLDL Cholesterol Abdirizak 41 mg/dL (Abnormal) Range: 5-40 Triglycerides 203 mg/dL (Abnormal) Range: 0-149 Cholesterol, Total 199 mg/dL (Normal) Range: 100-199 :53 TSH (04379) Comments: do in 3 months; PATIENT WAS FASTINGPERFORMED BY: [employer] [employer] [id number] TSH 3.940 {uIU/mL} (Normal) Range: 0.450-4.500 :53 HEPATIC FUNCTION PANEL Comments: PATIENT WAS FASTINGPERFORMED BY: [employer] [employer] [id number] Information: [id number] (43561) ALT (SGPT) 51 [iU]/L (Normal) Range: 0-55 Alkaline Phosphatase, S 33 [iU]/L (Normal) Range: 25-150 AST (SGOT) 40 [iU]/L (Normal) Range: 0-40 Bilirubin, Direct 0.08 mg/dL (Normal) Range: 0.00-0.40 Albumin, Serum 4.3 g/dL (Normal) Range: 3.5-5.5 Bilirubin, Total 0.2 mg/dL (Normal) Range: 0.0-1.2 Protein, Total, Serum 7.0 g/dL (Normal) Range: 6.0-8.5 :53 LIPID PANEL (76327) Comments: do in 3 months; PATIENT WAS FASTINGPERFORMED BY: [facility] [id number] LDL/HDL Ratio 2.7 {ratio_units} (Normal) Range: 0.0-3.6 [...] Panel (7) Comments: PATIENT WAS FASTINGPERFORMED BY: [facility] [address] [id number] Alkaline Phosphatase, S 31 [iU]/L (Normal) Range: 25-150 ALT (SGPT) 53 [iU]/L (Normal) Range: 0-55 AST (SGOT) 36 [iU]/L (Normal) Range: 0-40 Bilirubin, Direct 0.09 mg/dL (Normal) Range: 0.00-0.40 Bilirubin, Total 0.3 mg/dL (Normal) Range: 0.0-1.2 Albumin, Serum 4.5 g/dL (Normal) Range: 3.5-5.5 Protein, Total, Serum 7.0 g/dL (Normal) Range: 6.0-8.5 :35 Lipid Panel With LDL/HDL Comments: PATIENT WAS FASTINGPERFORMED BY: [facility] Mydgdc[address]41 [address] [id number] Ratio LDL Cholesterol Calc 143 mg/dL (Abnormal) Range: 0-99 LDL/HDL Ratio 4.0 {ratio_units} (Abnormal) Range: 0.0-3.6 VLDL Cholesterol Abdirizak 50 mg/dL (Abnormal) Range: 5-40 Cholesterol, Total 229 mg/dL (Abnormal) Range: 100-199 HDL Cholesterol 36 mg/dL (Abnormal) Comments: According to ATP-III Guidelines, HDL-C >59 mg/dL is considered anegative risk factor for CHD. Triglycerides 249 mg/dL (Abnormal) Range: 0-149 50-Sbe-106969:05 TSH (01323) Comments: PATIENT NOT FASTINGPERFORMED BY: [facility] [id number] Information: [id number] TSH 3.800 {uIU/mL} (Normal) Range: 0.450-4.500 :21 [...] 7.2 K/mm3 (Normal) Range: 4.4-11.0 :21 LAMOTRIG 608254 7.9 ug/mL (Normal) Comments: ORDERED LIPIDNMR LIVERDR.SAVAGE ORDERED DEPAKOTE LAMACTAL CBC LIVER Range: 2.0-20.0 Comments: Detection Limit = 1.0Performed at: - [facility] J[address] [place], [place] [id number] Director: Jez Grullon PhDPerformed at: [facility] [id number] Director: Kar Robison MD :21 LIVER Comments: [...] 1300; Secondarygoal: Small LDL-P < 527Performed At: E5YcadQbsomlv [address] [place] [id number] SMALL LDL-P 1111 nmol/L (Abnormal) Comments: . [...] 1300; Secondarygoal: Small LDL-P < 527Performed At: [facility] [address] [id number] xSMLDLP 1111 nmol/L (Abnormal) Comments: . Low < 117 Moderate 117 - 526 Borderline 5 27 - 839 High > 839 . xTRIGLYCERIDES 329 mg/dL (Abnormal) :41 HEPATIC FUNCTION PANEL Comments: PATIENT WAS FASTINGClinical Information: ADD [id number], [id number] PERFORMED BY: [facility] [id number] (53862) Albumin, Serum 4.5 g/dL (Normal) Range: 3.5-5.5 Alkaline Phosphatase, S 36 [iU]/L (Normal) Range: 25-150 ALT (SGPT) 27 [iU]/L (Normal) Range: 0-55 AST (SGOT) 22 [iU]/L (Normal) Range: 0-40 Bilirubin, Direct 0.07 mg/dL (Normal) Range: 0.00-0.40 Bilirubin, Total 0.3 mg/dL (Normal) Range: 0.1-1.2 Protein, Total, Serum 7.0 g/dL (Normal) Range: 6.0-8.5 :41 LIPID PANEL (19799) Comments: do in 3 mo; PATIENT WAS FASTINGPERFORMED BY: [employer] [place] [id number] Cholesterol, Total 235 mg/dL (Abnormal) Range: 100-199 [...] mg/dL (Normal) Range: 34-200 Comments: Performed At: [facility] [place], [place] [id number] :25 IRON, SERUM 95 ug/dL (Normal) Range: [...] not intractable, without status epilepticus : Reviewed Nailhead Setter Letter Indication: Epilepsy, unspecified, not intractable, without [...] not intractable, without status epilepticus : Reviewed Nailhead Setter Letter Indication: Epilepsy, unspecified, not intractable, without [...] not intractable, without status epilepticus : Reviewed Nailhead Setter Letter Indication: Epilepsy, unspecified, not intractable, without [...] not intractable, without status epilepticus : Reviewed Nailhead Setter Letter Indication: Epilepsy, unspecified, not intractable, without status epilepticus Hypercholesterolemia : Cholesterol mgmt Indication: Hypercholesterolemia Epilepsy, unspecified, not intractable, without status epilepticus : Reviewed Nailhead Setter Letter Indication: Epilepsy, unspecified, not intractable, without status epilepticus Epilepsy, unspecified, not intractable, without status epilepticus : Reviewed Nailhead Setter Letter Indication: Epilepsy, unspecified, not intractable, without status epilepticus Epilepsy, unspecified, not intractable, without status epilepticus : Reviewed Lab Indication: Epilepsy, unspecified, not intractable, without status epilepticus Epilepsy, unspecified, not intractable, without status epilepticus : Reviewed Diagnostic Tests Indication: Epilepsy, unspecified, not intractable, without status epilepticus Epilepsy, unspecified, not intractable, without status epilepticus : Reviewed Nailhead Setter Letter Indication: Epilepsy, unspecified, not intractable, without [...] diabetes mellitus Laceration of scalp : Reviewed Nailhead Setter Letter Indication: Laceration of scalp Benign essential [...] not intractable, without status epilepticus : Reviewed Nailhead Setter Letter Indication: Epilepsy, unspecified, not intractable, without [...] not intractable, without status epilepticus : Reviewed Nailhead Setter Letter Indication: Epilepsy, unspecified, not intractable, without [...] not intractable, without status epilepticus : Reviewed Nailhead Setter Letter Indication: Epilepsy, unspecified, not intractable, without [...] injury of chest wall Planned Observations CALCIFIDIOL (61846) VIT D 25Indication: Vitamin D deficiency, unspecified On: :53 Request TSH (32191)Indication: Hypothyroidism On: :53 Request URINALYSIS, W/ MICRO (63869)Indication: Benign essential hypertension On: 98-Zmz-416428:53 Request MICROALBUMIN: CREATININE RATIO (41851) AND (52300)Indication: Benign essential hypertension On: 78-Zhp-900765:53 Request METABOLIC PANEL, COMPREHENSIVE (34580)Indication: Benign essential hypertension On: :53 Request LIPID PANEL (01467)Indication: Benign essential hypertension On: :53 Request CBC W/AUTO DIFF WBC (88422)Indication: Benign essential hypertension On: :53 Request CALCIFEDIOL (41158)Indication: Vitamin D deficiency, unspecified On: 4-Xev-983988:38 Request URINALYSIS, W/ MICRO (65148)Indication: Benign essential hypertension On: 1-Xjb-768654:37 Request MICROALBUMIN: CREATININE RATIO (48821) AND (72836)Indication: Benign essential hypertension On: :37 Request METABOLIC PANEL, COMPREHENSIVE (98668)Indication: Benign essential hypertension On: :37 Request LIPID PANEL (84697)Indication: Hypercholesterolemia On: :37 Request CBC W/AUTO DIFF WBC (71818)Indication: Benign essential hypertension On: :37 Request TSH (94653)Indication: Hypothyroidism On: 2-Prb-982543:37 Request PSA (PROSTATE SPECIFIC ANTIGEN) (V76.44)Indication: Encounter for screening for malignant neoplasm of prostate (Renamed from Screening for prostate cancer) On: 36-Lrx-824478:13 Request URINALYSIS, W/ MICRO (35777)Indication: Controlled diabetes mellitus On: 94-Dzw-764161:11 Request MICROALBUMIN: CREATININE RATIO (26892) AND (96343)Indication: Controlled diabetes mellitus On: 05-Pfu-564224:11 Request METABOLIC PANEL, COMPREHENSIVE (78327)Indication: Controlled diabetes mellitus On: 35-Mqy-879080:11 Request CBC W/AUTO DIFF WBC (73594)Indication: Controlled diabetes mellitus On: 23-Swp-954267:11 Request TSH (32821)Indication: Hypothyroidism On: 84-Yyt-459905:11 Request CALCIFIDIOL (57823) VIT D 25Indication: Vitamin D deficiency, unspecified On: 25-Csl-509584:10 Request TSH (42983)Indication: Hypothyroidism On: 4-Qpf-217818:43 Request T4, FREE (THYROXINE) (00113)Indication: Hypothyroidism On: 5-Svs-121661:43 Request T3, FREE (TRIDOTHYRONINE) (55930)Indication: Hypothyroidism On: 43 Request Anti-TPO Antibody (37636)Indication: Hypothyroidism On: :36 Request T4, FREE (THYROXINE) (53899)Indication: Hypothyroidism On: :36 Request T3, FREE (TRIDOTHYRONINE) (71565)Indication: Hypothyroidism On: :36 Request TSH (63446)Indication: Controlled diabetes mellitus On: :36 Request URINALYSIS, W/ MICRO (19568)Indication: Benign essential hypertension On: :36 Request MICROALBUMIN: CREATININE RATIO (40047) AND (70835)Indication: Benign essential hypertension On: :36 Request METABOLIC PANEL, COMPREHENSIVE (35157)Indication: Benign essential hypertension On: :36 Request LIPID PANEL (97763)Indication: Hypercholesterolemia On: :36 Request CBC W/AUTO DIFF WBC (93210)Indication: Benign essential hypertension On: :36 Request Blood Glucose , Office (68822)Indication: Controlled diabetes mellitus On: :36 Request HgA1C , Office (93014)Indication: Controlled diabetes mellitus On: :35 Request CALCIFIDIOL (14736) VIT D 25Indication: Vitamin D deficiency, unspecified On: : Request URINALYSIS, W/ MICRO (75284)Indication: Benign essential hypertension On: :19 Request MICROALBUMIN: CREATININE RATIO (82765) AND (52646)Indication: Benign essential hypertension On: :19 Request METABOLIC PANEL, COMPREHENSIVE (61971)Indication: Benign essential hypertension On: : Request CBC W/AUTO DIFF WBC (12643)Indication: Benign essential hypertension On: :19 Request LIPID PANEL (77276)Indication: Hypercholesterolemia On: :19 Request TSH (38843)Indication: Hypothyroidism On: :19 Request CALCIFIDIOL (42728) VIT D 25Indication: Vitamin D deficiency, unspecified On: :46 Request TSH (63500)Indication: Hypothyroidism On: 46 Request URINALYSIS, W/ MICRO (49217)Indication: Controlled diabetes mellitus On: 46 Request MICROALBUMIN: CREATININE RATIO (28734) AND (56047)Indication: Controlled diabetes mellitus On: :46 Request METABOLIC PANEL, COMPREHENSIVE ([id number])Indication: Controlled diabetes mellitus On: :46 Request LIPID PANEL (88934)Indication: Hypercholesterolemia On: Request CBC W/AUTO DIFF WBC (59607)Indication: Controlled diabetes mellitus On: Request METABOLIC PANEL, COMPREHENSIVE (81048)Indication: Benign essential hypertension On: :29 Request PSA (PROSTATE SPECIFIC ANTIGEN) (V76.44)Indication: Encounter for screening for malignant neoplasm of prostate (Renamed from Screening for prostate cancer) On: :16 Request CALCIFIDIOL (12575) VIT D 25Indication: Vitamin D deficiency, unspecified On: :14 Request URINALYSIS, W/ MICRO (04773)Indication: Benign essential hypertension On: :14 Request MICROALBUMIN: CREATININE RATIO (45828) AND (36617)Indication: Benign essential hypertension On: :14 Request METABOLIC PANEL, COMPREHENSIVE (99663)Indication: Benign essential hypertension On: :14 Request CBC W/AUTO DIFF WBC (89271)Indication: Benign essential hypertension On: :14 Request LIPID PANEL (94068)Indication: Hypercholesterolemia On: :14 Request TSH (76999)Indication: Hypothyroidism On: :14 Request Blood Glucose , Office (75261)Indication: Controlled diabetes mellitus On: :09 Request URINALYSIS, W/ MICRO (10098)Indication: Benign essential hypertension On: 26-Gmp-294019:08 Request MICROALBUMIN: CREATININE RATIO (62443) AND (11812)Indication: Benign essential hypertension On: 60-Osj-129855:08 Request CALCIFEDIOL (61167)Indication: Unspecified Diagnosis On: :55 Request Vitamin D Hydroxy (79749)Indication: Vitamin D deficiency, unspecified On: : Request TSH (56846)Indication: Hypothyroidism On: : Request MICROALBUMIN: CREATININE RATIO (53844) AND (89481)Indication: Benign essential hypertension On: Request METABOLIC PANEL, COMPREHENSIVE (22238)Indication: Benign essential hypertension On: : Request LIPID PANEL (71701)Indication: Hypercholesterolemia On: : Request CBC with auto diff (71673)Indication: Benign essential hypertension On: Request LIPID PANEL (57318)Indication: Hypercholesterolemia On: :34 Request TSH (91737)Indication: Abnormal TSH On: :33 Request FECAL OCCULT- Tubes sent home (53161)Indication: Anemia, unspecified On: Request GIOVANY TEST, DIRECT ([id number])Indication: Anemia, unspecified On: Request FOLIC ACID SERUM (82652)Indication: Anemia, unspecified On: Request Methymalonic Acid, Serum (99757)Indication: Anemia, unspecified On: Request VITAMIN B-12 (CYANOCOBALAMIN) (58752)Indication: Anemia, unspecified On: Request RETICULOCYTE COUNT MANUL (50537)Indication: Anemia, unspecified On: Request LDH (LD) (LACTATE DEHYDROGENASE) (91887)Indication: Anemia, unspecified On: Request IRON BINDING CAPACITY (TIBC) (62464)Indication: Anemia, unspecified On: Request IRON (10568)Indication: Anemia, unspecified On: Request FERRITIN (35921)Indication: Anemia, unspecified On: Request CBC, PLATELETS & AUT DIFF (73004)Indication: Anemia, unspecified On: 78-Ohz-543414:30 Request CALCIFEDIOL (24467)Indication: Vitamin D deficiency, unspecified On: 02-Nde-354631:37 Request MICROALBUMIN: CREATININE RATIO (44769) AND (04652)Indication: Benign essential hypertension On: :36 Request URINALYSIS (44620)Indication: Benign essential hypertension On: :36 Request TSH (61820)Indication: Hypothyroidism On: :34 Request CBC, Platelets & Auto Diff (28118)Indication: Benign essential hypertension On: :34 Request Metabolic Panel, Comprehensive (88390)Indication: Benign essential hypertension On: :33 Request Valproic Acid (98929)Indication: Epilepsy, unspecified, not intractable, without status epilepticus On: :33 Request Lipid Panel (43350)Indication: Hypercholesterolemia On: :32 Request Vitamin D Hydroxy (40104)Indication: Vitamin D deficiency, unspecified On: :45 Request LIPID PANEL (49840)Indication: Hypercholesterolemia On: :45 Request TSH (20432)Indication: Hypothyroidism On: :45 Request URINALYSIS, W/ MICRO (66050)Indication: Benign essential hypertension On: :45 Request MICROALBUMIN: CREATININE RATIO (96482) AND (60392)Indication: Benign essential hypertension On: :45 Request METABOLIC PANEL, COMPREHENSIVE (69029)Indication: Benign essential hypertension On: :45 Request CBC WITH MANUAL DIFF ([id number])Indication: Benign essential hypertension On: :45 Request LIPID PANEL (71879)Indication: Hypercholesterolemia On: 2-Cfn-230373:41 Request LIPID PANEL (07703)Indication: Hypercholesterolemia On: :16 Request Vitamin D Hydroxy (62818)Indication: Vitamin D deficiency, unspecified On: :16 Request URINALYSIS, W/ MICRO ([id number])Indication: Benign essential hypertension On: 36-Sub-075723:16 Request MICROALBUMIN: CREATININE RATIO (78236) AND (69705)Indication: Benign essential hypertension On: 40-Cxy-550600:16 Request METABOLIC PANEL, COMPREHENSIVE (69168)Indication: Benign essential hypertension On: 62-Uwh-208120:15 Request CBC WITH MANUAL DIFF ([id number])Indication: Benign essential hypertension On: 19-Vac-518800:15 Request TSH (89353)Indication: Hypothyroidism On: 44-Vwg-239212:08 Request LIPID PANEL (84993)Indication: Hypercholesterolemia On: 17-Bey-115919:08 Request FOLIC ACID SERUM (83639)Indication: Anemia, unspecified On: 06-Ogl-837307:28 Request Fecal Occult Blood , Office (13332)Indication: Anemia, unspecified On: :38 Request FIBRIN DEGRAD QUANTITATV (06267)Indication: Anemia, unspecified On: : Request RETICULOCYTE COUNT (19031)Indication: Anemia, unspecified On: :38 Request LDH (LD) (LACTATE DEHYDROGENASE) (85009)Indication: Anemia, unspecified On: :38 Request GIOVANY TEST, INDIRECT (24950)Indication: Anemia, unspecified On: 1-Jwy-045988:38 Request GIOVANY TEST, DIRECT (65563)Indication: Anemia, unspecified On: :38 Request Methylmalonic acid, serum 43227Qpqmgcpika: Anemia, unspecified On: 7-Tiq-861714:38 Request Vitamin B-12 (cyanocobalamin) (99947)Indication: Anemia, unspecified On: 2-Sxa-325918:37 Request Iron Binding Capacity (TIBC) (45243)Indication: Anemia, unspecified On: 2-Kst-870717:37 Request Iron (48033)Indication: Anemia, unspecified On: 6-Vwb-771007:37 Request Ferritin (10421)Indication: Anemia, unspecified On: 7-Ohp-291340:37 Request Folic Acid Serum (49882)Indication: Anemia, unspecified On: 5-Ytp-454458:37 Request MICROALBUMIN: CREATININE RATIO (42079) AND ([id number])Indication: Benign essential hypertension On: 04-Uyn-985112:03 Request CBC WITH MANUAL DIFF (18433)Indication: Benign essential hypertension On: 47-Rbp-734311:03 Request METABOLIC PANEL, COMPREHENSIVE (87654)Indication: Benign essential hypertension On: 31-Grw-381823:03 Request TSH ([id number])Indication: Hypothyroidism On: 17-Pek-780866:03 Request LIPID PANEL (48173)Indication: Hypercholesterolemia On: 41-Iio-843956:03 Request CALCIFIDIOL (88074) VIT D 25Indication: Vitamin D deficiency, unspecified On: 00-Mah-354849:42 Request TSH (67894)Indication: Abnormal TSH On: 94-Qqi-006772:40 Request MICROALBUMIN: CREATININE RATIO (20906) AND ([id number])Indication: Hypothyroidism On: 9-Wni-255060:39 Request PHENYLKETONES QUALIT (42309)Indication: Epilepsy, unspecified, not intractable, without status epilepticus On: 13-Moz-107921:12 Request Comments: Diliantin level PSA (PROSTATE SPECIFIC ANTIGEN) (83212)Indication: Benign essential hypertension On: 75-Guy-373984:04 Request LIPID PANEL (58929)Indication: Hypercholesterolemia On: :03 Request HEPATIC FUNCTION PANEL (48554)Indication: Hypercholesterolemia On: :19 Request LIPOPROTEIN, BLD, BY NMR (09968)Indication: Hypercholesterolemia On: :19 Request LIPID PANEL (41521)Indication: Hypercholesterolemia On: 50-Jzp-779272:19 Request Comments: do in 3 months LIPOPROTEIN, BLD, BY NMR ([id number])Indication: Hypercholesterolemia On: :28 Request LIPID PANEL (16442)Indication: Hypercholesterolemia On: 16-Aqs-435699:28 Request URINALYSIS W/O MICRO (03003)Indication: Benign essential hypertension On: 24-Iye-442764:00 Request TSH ([id number])Indication: Hypothyroidism On: 07-Efg-181043:00 Request MICROALBUMIN: CREATININE RATIO (54935) AND (21421)Indication: Benign essential hypertension On: 42-Lrl-959416:00 Request METABOLIC PANEL, COMPREHENSIVE (20919)Indication: Benign essential hypertension On: 38-Gxt-291058:00 Request LIPID PANEL (06458)Indication: Benign essential hypertension On: 88-Fbk-470601:00 Request CBC WITH MANUAL DIFF ([id number])Indication: Benign essential hypertension On: 18-Ujg-119851:00 Request URINALYSIS W/O MICRO (03305) On: 49-Fxb-024366:50 Request MICROALBUMIN URINE QUANT (92852) On: 46-Tdh-806620:49 Request LIPID PANEL (31785) On: 50-Vif-243053:49 Request CBC WITH MANUAL DIFF ([id number]) On: 70-Bgm-241069:49 Request TSH (52871)Indication: Hypothyroidism On: :49 Request Lipid Panel (53318)Indication: Hypercholesterolemia On: 0-Afj-983716:17 Request VITAMIN B-12 (CYANOCOBALAMIN) (38066)Indication: Anemia, unspecified On: 0-Rtz-784509:12 Request RETICULOCYTE COUNT MANUL ([id number])Indication: Anemia, unspecified On: 9-Rwl-033554:12 Request LDH (LD) (LACTATE DEHYDROGENASE) (57254)Indication: Anemia, unspecified On: 4-Amv-325986:12 Request IRON BINDING CAPACITY (TIBC) (43049)Indication: Anemia, unspecified On: 6-Hwa-634782:12 Request IRON ([id number])Indication: Anemia, unspecified On: 4-Moe-378195:12 Request FOLIC ACID SERUM (92411)Indication: Anemia, unspecified On: 6-Czi-220402:12 Request HAPTOGLOBIN (33321)Indication: Anemia, unspecified On: 9-Pdj-857541:12 Request FERRITIN ([id number])Indication: Anemia, unspecified On: 3-Bjh-017856:12 Request CBC, PLATELETS & AUT DIFF ([id number])Indication: Anemia, unspecified On: 7-Ygp-925471:12 Request CBC WITH MANUAL DIFF ([id number])Indication: Anemia, unspecified On: 87-Tgz-916536:27 Request TSH (30104)Indication: Hypothyroidism On: 23-Emq-573685:25 Request LIPID PANEL (03431)Indication: Hypercholesterolemia On: 90-Snx-041451:25 Request Planned Encounters Medical; 6 Month FU - On: 26-Apr-2018 13:15 [facility] Valencia Barrett DO, DO, Kathleen Planned Procedures Flu Vaccine (Quadrivalent) On: 03-Jan-2017 Intent [id number]: Valencia Barrett DO Comments: Lot #[id number]/22/17ite-L dltd, IMDose prefilled syringegiven by:SAL Pedroza and ABN signed Valencia Barrett DO ELECTROCARDIOGRAM, COMPLETE On: 03-Jan-2017 Intent (ECG) ([id number])By: Arnold HILL, Comments: nsr no acute chg - Valencia Arnold DO, Valencia Flu Vaccine (Quadrivalent) On: 01-Jan-2015 Intent [id number]: Valencia Barrett DO Comments: Lot:[id number]:09/04/15Amt:0.5mlRoute:IMSite: L DltdGiven By: SAL Escobedo signed Valencia Barrett DO EKG (67530)By: Arnold HILL, On: 14-Dec-2013 Intent Valenciasixto Barrett DO Valencia Comments: nsr no acute chg ADMINISTRATION OF INFLUENZA On: 14-Dec-2013 Intent VIRUS VACCINE (G0008)By: Arnold Comments: Lot #[id number]-L dltd, IMDose prefilled syringegiven by:SAL Pedroza and ABN signed DO, Valencia Arnold DO, Valencia FLU VAC, SPLIT, >3 YEARS, On: 14-Dec-2013 Intent INTRAMUSC (63573)By: Valencia Barrett DO, DO Valencia ADMINISTRATION OF INFLUENZA On: 11-Dec-2012 Intent VIRUS VACCINE (G0008)By: Arnold Comments: Lot:[id number]:6.14Amt:0.5mLSite: L Dltd, IMGiven by: SAL Leal signed DO, Valencia Arnold DO, Valencia EKG ([id number])By: Arnold HILL, On: 11-Dec-2012 Intent Valenciapat Barrett DOMiaValencia Comments: nsr no acute chg Eprescribed prescriptions On: 11-Dec-2012 Intent (G8553)By: Valencia Barrett DO Arnold DO, Valencia FLU VAC, SPLIT, >3 YEARS, On: 11-Dec-2012 Intent INTRAMUSC (30733)By: Valencia Barrett DO Arnold DO, Valencia Eprescribed prescriptions On: 26-Apr-2012 Intent (G8553)By: Valencia Barrett DO, DO, Kathleen EKG ([id number])By: Arnold HILL, On: 20-Dec-2011 Intent Valencia Taylor DO Comments: no acute chg/ nsr EKG (33147)By: Arnold HILL, On: 16-Dec-2010 Intent Valencia Taylor DO Comments: nsr no acute chg TDAP VACCINE >7 IM ([id number])By: On: 16-Dec-2010 Intent Valencia Barrett DO, DO, Kathleen FLU VAC, SPLIT, >3 YEARS, On: 05-Dec-2010 Intent INTRAMUSC (90985)By: Sherry, Comments: had already Delilah SALAZAR IMMUNIZ ADMNIN, 1 VAC, On: 10-Dec-2009 Intent SNGL/COMBO (37519)By: Delilah Powell LPN FLU VAC, SPLIT, >3 YEARS, On: 10-Dec-2009 Intent INTRAMUSC (73305)By: Sherry, Comments: Lot #[id number]-4/11Site-L armDose0.5mlgiven by:BRADLEY Mazariegos LPN EKG (52214)By: Arnold HILL, On: 18-Jun-2009 Intent Valencia Taylor DO Comments: NSR NO ACUTE CHAGNES EKG (81036)By: Arnold HILL, On: 26-Jun-2008 Intent Valencia Taylor DO Comments: nsr no acute EKG (71887)By: Arnold HILL, On: 05-Jul-2007 Intent Valencia Taylor DO Comments: NSR NO ACUTE ISCHEMIC CHANGES EKG (24226)By: Arnold HILL, On: 25-May-2006 Intent Valencia Taylor [...] patient does not have durable power of civil rights attorney or living will. Other providers contributing to [...] patient does not have durable power of civil rights attorney or living will. The patient has noticed [...] patient does not have durable power of civil rights attorney or living will. The patient has noticed [...]
--- OUTSIDE RECORDS SUMMARY | 2018-03-31 18:23 | XMS RPT_ITS | Continuity of Care Document ---
:1975 Author Organization [facility] Address [address] [facility] [address] [place] [address] Phone Care Team Providers Name Role Phone Valencia Barrett DO Unavailable Long POLICY SPECIALIST, Alice L Unavailable Unavailable Messenger, POLICY SPECIALIST Delilah Unavailable Unavailable Unavailable Unavailable Problems Name [...] for 0 days Refills: 0 Ordered:14-Dec-2013 Long POLICY SPECIALIST, Alice LActive LAMICTAL, 100MG (Oral Tablet) 2 QD for 0 days Refills: 0 Ordered:14-Dec-2013 Long POLICY SPECIALIST, Alice LActive Levothyroxine Sodium 112 MCG Oral [...] for 0 days Refills: 0 Ordered:29-Oct-2008 Delilah Powell Tricor 145 MG Oral Tablet 1 (one) [...] Department Summary Result: Comments: See Note; NOTES: [facility] Medical Records Department [address] [place] [address] Emergency Department Summary 11/25/17 1628 MR#: [id number] Acct: [id number] Name: RAGHU LOPEZ Rep #: [id number] : 1975 42 From: Corazon Morris MD [...] of epilepsy This note was generated with [employer] dictation software. It may contain incorrect words, [...] Primary Care Provider. Call [facility] Registry ([phone]) or report to the closest Emergency Room. Call 911 if necessary. 11/26/17 0109 <Electronically signed by Corazon Morris MD> Date Corazon Morris MD Cosigner Signature (If Indicated): Date CC: Valencia Barrett DO 25-Nov-2017 Discharge Instruction Result: Comments: See Note; NOTES: [facility] Medical Records Department [address] [place] [address] Discharge Instruction 11/25/17 1748 MR#: [id number] Acct: [id number] Name: Tyler LOPEZ Rep #: [id number] : 1975 42 From: Corazon Morris MD [...] your Primary Care Provider. Call Doctors Registry ([phone]) or report to the closest Emergency Room. Call 911 if necessary. 11/25/17 1749 <El ectronically signed by Corazon Morris MD> Date Corazon Morris MD Cosigner Signature (If Indicated): Date CC: Valencia Barrett DO 19-Jul-2017 Discharge Instruction Result: Comments: See Note; NOTES: [facility] Medical Records Department [address] [place] [address] [place] [address] Discharge Instruction 07/19/171417 MR#: [id number] Acct: [id number] Name: Tyler LOPEZ ROSALINO Candida Rep #: [id number] : 1975 42 From: Ramses Roque MD [...] your Primary Care Provider. Call Doctors Registry ([phone]) or report to the closest Emergency Room. Call 911 if necessary. 07/19/17 1418 <Electronically signed by Marty Roque MD> Date Ramses Roque MD Cosignsamantha Signature (If Indicated): Date CC: Valencia Barrett DO 19-Jul-2017 Emergency Department Summary Result: Comments: See Note; NOTES: [facility] Medical Records Department [address] [place] [address] Emergency Department Summary 07/19/17 1416 MR#: [id number] Acct: [id number] Name: RAGHU LOPEZ Rep #: [id number] : 1975 42 From: Ramses Roque MD [...] Impression: Seizure This note was generated with [employer] dictation software. It may contain incorrect words, [...] your Primary Care Provider. Call [facility] Registry ([phone]) or report to the closest Emergency Room. Call 911 if necess corby. 07/19/17 1418 <Electronically signed by Ramses Roque MD> Date Ramses Da Silvaigner Signature (If Indicated): Date ____ CC: Valencia Barrett DO 20-May-2017 12 Lead Electrocardiogram Result: Comments: See Note; NOTES: [facility] Cardiovascular Services [address] [place] [address] 12 Lead EKG 05/17/17 1604 MR#: [id number] Acct: [id number] Name: RAGHU LOPEZ Rep # : [id number] : 1975 42 From: Mark Miller MD [...] ECG Confirmed by MARK ALMANZAR, MARK ([id number]), marketing editor LORETA GARCIA ([id number]) on 05/20/2017 1:20:03 PM Referred By: EKATERINA Confirmed By:MARK MILLER MD 05/20/17 1320 Date Mark Miller MD CC: Corazon Morris MD; Valencia Barrett DO Signed 18-May-2017 Emergency Department Summary Result: Comments: See Note; NOTES: [facility] Medical Records Department [address] [place] [address] Emergency Department Summary 05/17/17 1614 MR#: [id number] Acct: [id number] Name: RAGHU LOPEZ Rep #: [id number] : 1975 42 From: Corazon Morris MD PCP: Valencia Barrett DO Status: DEP ER - ER Visit Summary Date of Service: 05/17/17 Chief Complaint: Chest pain History of P resent Illness: The patient is a 42 M who reported 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 Per family and staff members at bedside, the transportation economics teacher pulled over and c alled 911. When [...] pain, resolved This note was generated with [employer] dictation software. It may contain incorrect words, [...] your Primary Care Provider. Call Mendy henao ([phone]) or report to the closest Emergency Room. Call 911 if necessary. 05/18/17 0016 <Electronically signed by Corazon Morris MD> Date Corazon Morris MD Cosigner Signature (If Indicated): Date CC: Valencia Barrett DO 17-May-2017 Discharge Instruction Result: Comments: See Note; NOTES: [facility] Medical Records Department [address] [place] [address] Discharge Instruction 05/17/171650 MR#: [id number] Acct: [id number] Name: Tyler LOPEZ ROSALINO Candida Rep #: [id number] : 1975 42 From: Corazon Morris MD [...] your Primary Care Provider. Call Doctors Registry ([phone]) or report to the closest Emergency Room. Call 911 if ne cessary. 05/17/171651 <Electronically signed by Corazon Morris MD> Date Corazon Morris MD Cosigner Signature (If Indicated): Date CC: Valencia Barrett DO 17-May-2017 Chest PA and Lateral Result: Comments: See Note; NOTES: [facility] Imaging Services [address] [place] [address] Chest PA and Lateral MR#: [id number] Acct: [id number] Name: RAGHU LOPEZ Rep #: [id number] : 1975 M 42 From: Danny Taylor MD PCP: Valencia Barrett DO Status: [facility] ER Study: Chest PA and Lateral Date of Exam: 05/17/17 Exam# [id number] Ordering Dr: Corazon Morris MD STUDY: X-RAY [...] CC: Corazon Morris MD; Valencia Barrett DO Crime Data Specialist: Signed 01-Feb-2016 Emergency Department Summary Result: Comments: See Note; NOTES: [facility] Medical Records Department [address] [place] [address] Emergency Department Summary MR#: [id number] Acct: [id number] Name: RAGHU LOPEZ Rep #: [id number] : 1975 40 From: Ernst Kim DO PCP: Valencia Barrett DO Status: [facility] ER DATE OF SERVICE: 01/07/2016 CHIEF [...] condition. Ernst Kim DO T: NTS JOB: [id number] 0825 <Electronically signed by Ernst Kim DO> Date Ernst Kim DO Cosigner Signature (If Indicated): Date CC: Valencia Barrett DO Date Dictated: 01/07/161624 Date Transcribed: 01/07/161624 Crime Data Specialist: Signed 10-Jan-2016 Emergency Department Summary Result: Comments: See Note; NOTES: [facility] Medical Records Department [address] [place] [address] Emergency Department Summary MR#: [id number] Acct: [id number] Name: RAGHU LOPEZ Rep #: [id number] : 1975 40 From: Ernst Kim DO [...] condition. Ernst Kim DO T: NTS JOB: [id number] 01/10/16 0658 <Electronically signed by Ernst Kim DO> Date Ernst Kim DO Cosigner Signature (If Indicated): Date CC: Valencia Barrett DO Date Dictated: 01/07/165 Date Transcribed: 01/07/161624 Crime Data Specialist: Signed 07-Jan-2016 Emergency Department Summary Result: Comments: See Note; NOTES: [facility] Medical Records Department [address] [place] [address] Emergency Department Summary MR#: [id number] Acct: [id number] Name: RAGHU LOPEZ Rep #: [id number] : 1975 40 From: Ernst Kim DO [...] condition. Ernst Kim DO T: NTS JOB: [id number] 01/07/162233 <Electronically signed by Ernst Kim DO> Date Ernts Kim DO Cosigner Signature (If Indicated): Date CC: Valencia Barrett DO Date Dictated: 01/07/161624 Date Transcribed: 01/07/161624 Crime Data Specialist: Signed 08-Dec-2015 Emergency Department Summary Result: Comments: See Note; NOTES: [facility] Medical Records Department [address] [place] [address] Emergency Department Summary MR#: [id number] Acct: [id number] Name: RAGHU LOPEZ Rep #: [id number] : 1975 40 From: Ernst Kim DO PCP: Valencia Barrett DO Status: [facility] ER DATE OF SERVICE: 12/01/2015 CHIEF [...] been ill recently. He has been to [facility] multiple times for these type of issues. [...] condition. Ernst Kim DO T: MELANIE JOB: [id number] 12/08/15 7123 <Electronically signed by Ernst Kim DO> Date Ernst Kim DO Cosigner Signature (If Indicated): Date CC: Valencia Barrett DO Date Dictated: 12/01/152247 Date Transcribed: 12/01/152247 Crime Data Specialist: Signed 01-Dec-2015 Discharge Instruction Result: Comments: See Note; NOTES: [facility] Medical Records Department [address] [place] [address] Discharge Instruction 12/01/152242 MR#: [id number] Acct: [id number] Name: RAGHU LOPEZ Rep #: [id number] : 1975 40 From: Ernst Kim DO [...] problems, contact your doctor. Call Doctors Registry ([phone]) or report to the closest Emergency Room. Call 911 if necessary. 2243 <Electronically signed by Ernst Kim DO> Date Ernst Kim DO Cosigner Signature (If Indicated): Date CC: Valencia Barrett DO 05-Jun-2015 Emergency Department Summary Result: Comments: See Note; NOTES: [facility] Medical Records Department [address] [place] [address] Emergency Department Summary MR#: [id number] Acct: [id number] Name: RAGHU LOPEZ Rep #: [id number] : 1975 40 From: Ernst Kim DO [...] condition. Ernst Kim DO T: MELANIE JOB: [id number] 06/05/15 2355 <Electronically signed by Ernst Kim DO> Date Ernst Kim DO Cosigner Signature (If Indicated): Date CC: Valencia Barrett DO Date Dictated: 06/04/151548 Date Transcribed: 06/04/151548 Crime Data Specialist: Signed 04-Jun-2015 Discharge Instruction Result: Comments: See Note; NOTES: [facility] Medical Records Department [address] [place] [address] Discharge Instruction 06/04/155 MR#: [id number] Acct: [id number] Name: LOPEZRAGHU Rep #: [id number] : 1975 40 From: Ernst Kim DO [...] problems, contact your doctor. Call Doctors Registry ([phone]) or report to the closest Emergency Room. Call 911 if necessary. 06/04/15 1546 <Electronically signed by Ernst Kim DO> Date Ernst Kim DO Cosigner Signature (If Indicated): Date CC: Valencia Barrett DO 04-Jun-2015 Brain/Head without Contrast Result: Comments: See Note; NOTES: [facility] Imaging Services [address] [place] [address] Verdana 4d Brain/Head without Contrast MR#: [id number] Acct: [id number] Name: RAGHU LOPEZ Rep #: [id number] : 1975 M 40 From: Johny Claudio DO PCP: Valencia Barrett DO Status: REG ER Study: Brain/Head without Contrast Date of Exam: 06/04/15 Exam# [id number] Ordering Dr : Ernst Kim DO STUDY: [...] Johny Claudio DO at 15:40 EDT Tel [phone], Service support [phone], CC: Valencia Barrett DO; Ernst Kim DO Crime Data Specialist: Signed 08-Mar-2015 Emergency Department Summary Result: Comments: See Note; NOTES: [facility] Medical Records Department [address] [place] [address] Emergency Department Summary MR#: [id number] Acct: [id number] Name: RAGHU LOPEZ Rep #: [id number] : 1975 40 From: Ramses Roque MD PCP: Valencia Barrett DO Status: [facility] ER DATE OF SERVICE: 02/21/2015 CHIEF [...] Dr. Ramses Roque MD T: NTS JOB: [id number] 03/08/15 0840 <Electronically signed by Ramses Roque MD> Date Ramses Roque MD Cosigner Signature (If Indicated): Date CC: Valencia Barrett DO Date Dictated: 02/21/151735 Date Transcribed: 02/21/151735 Crime Data Specialist: Signed 21-Feb-2015 Discharge Instruction Result: Comments: See Note; NOTES: [facility] Medical Records Department [address] [place] [address] Discharge Instruction 02/21/151736 MR#: [id number] Acct: [id number] Name: RAGHU LOPEZ Rep #: [id number] : 1975 40 From: Ramses Roque MD [...] une xpected problems, contact your doctor. Call [facility] ([phone]) or report to the closest Emergency Room. Call 911 if necessary. 02/21/151736 <Electronically signed by Ramses chen MD> Date Ramses Roque MD Cosigner Signature (If Indicated): Date CC: Valencia Barrett DO 21-Feb-2015 Brain/Head without Contrast Result: Comments: See Note; NOTES: [facility] Imaging Services [address] [facility] [place] [address] Verdana 4d Brain/Head without Contrast MR#: [id number] Acct: [id number] Name: RAGHU LOPEZ Rep #: [id number] : 1975 M 40 From: Kena Fountain MD PCP: Valencia Barrett DO Status: REG ER Study: Brain/Head without Contrast Date of Exam: 02/21/15 Exam# [id number] Orderin g Dr: Ramses Roque MD STUDY: [...] at 17:28 EST Tel , Service support [phone], CC: Ramses Roque MD; Eligio Barrett DO Crime Data Specialist: Signed 01-Jan-2015 EKG (21835) Comments: nsr no acute chg Result: [MEASUREMENTS ANALYSIS] Date of Test: 01/01/2015 13:24:06; Heart Rate: 61; AR Interval: 184; QRS: 86; QT Interval: 374; Corrected QT Interval (QTc): 375; P Wave [place]: 42; QRS Wave [place]: 35; T Wave [place]: 53; Blood Pressure: 100/58 [ECG DIAGNOSTIC STATEMENTS] Date of Test: 01/01/2015 13:24:06; Summary: Sinus Rhythm WITHIN NORMAL LIMITS 23-Mar-2014 Emergency Department Summary Result: Comments: See Note; NOTES: [facility] Medical Records Department [address] [place] [address] Emergency Department Summary MR#: [id number] Acct: [id number] Name: RAGHU LOPEZ Rep #: [id number] : 1975 39 From: Ernst Kim DO [...] condition. Ernst Kim DO T: NTS JOB: [id number] 0 03/23/14 0059 <Electronically signed by Ernst Kim DO> Date Ernst Kim DO CC: Valencia Barrett DO Date Dictated: 03/22/142205 Date Transcribed: 03/22/142205 Crime Data Specialist: Signed 22-Mar-2014 Discharge Instruction Result: Comments: See Note; NOTES: [facility] Medical Records Department [address] [place] [address] Discharge Instruction 03/22/142201 MR#: [id number] Acct: [id number] Name: RAGHU LOPEZ Rep #: [id number] : 1975 39 From: Ernst Kim DO [...] Doctors Registry ) or report to the [facility] Emergency Room. Call 911 if necessary. 03/22/142203 <Electronically signed by Ernst Kim DO> Date Ernst Kim DO Co signer Signature (If Indicated): Date CC: Valencia Barrett DO 22-Mar-2014 Brain/Head without Contrast Result: Comments: See Note; NOTES: [facility] Imaging Services [address] [place] [address] CAT Scan Report MR#: [id number] Acct: [id number] Name: RAGHU LOPEZ Rep #: [id number] : 1975 M 39 From: Lizabeth Ovalle DO PCP: Valencia Barrett DO Status: REG ER Study: Brain/Head without Contrast Date of Exam: 03/22/14 Exam# [id number] Ordering Dr: Ernst Kim DO STUDY: CT [...] at 21:48 EST Tel , Service support [phone], CC: Valencia Barrett DO; Ernst Kim DO Crime Data Specialist: Signed 10-Jul-2013 Emergency Department Summary Result: Comments: See Note; NOTES: [facility] Medical Records Department [address] [place] [address] Emergency Department Summary MR#: [id number] Acct: [id number] Name: RAGHU LOPEZ Rep #: [id number] : 1975 38 From: Yesi Trejo MD [...] did discuss the case with the neurologist emission specialist for Dr. Velasquez and he was comfortable with the plan. DISPOSITION: Discharge. DIAGNOSIS: Acute on chronic seizure disorder. MD Ashley Cast C: Adam Villalta: MELANIE JOB: [id number] 07/10/13 0725 <Electronically signed by Yesi Trejo MD> Date Yesi Trejo MD CC: Valencia Barrett DO Date Dictated: 06/27/131746 Date Transcribed: 06/27/131746 Crime Data Specialist: Signed 27-Jun-2013 Discharge Instruction Result: Comments: See Note; NOTES: [facility] Medical Records Department [address] [place] [address] Discharge Instruction 06/27/131749 MR#: [id number] Acct: [id number] Name: RAGHU LOPEZ Rep #: [id number] : 1975 38 From: Yesi Trejo MD [...] Doctors Registry ) or report to the medical center Emergency Room. Call 911 if necessary. 06/27/131751 [...] smoker Vital Signs Date Test Result Details 93-Gcq-140163:44 Temperature 97.6 f Comments: Method: Temporal Pulse [...] kg/m2 Body Surface Area Calculated 2.28 m2 1-Qlm-982714:06 Pulse 88 /min Comments: Pattern: Regular Respiration [...] kg/m2 Body Surface Area Calculated 2.28 m2 84-Tyg-354268:41 Pulse 69 /min Comments: Pattern: Regular Respiration [...] kg/m2 Body Surface Area Calculated 2.28 m2 31-Mik-015770:10 Pulse 80 /min Comments: Pattern: Regular Respiration [...] kg/m2 Body Surface Area Calculated 2.27 m2 19-Gcv-856016:46 Pulse 78 /min Comments: Pattern: Regular Respiration [...] kg/m2 Body Surface Area Calculated 2.27 m2 0-Ofc-146658:00 Pulse 71 /min Comments: Pattern: Regular Respiration [...] kg/m2 Body Surface Area Calculated 2.26 m2 09-Gzp-042475:15 Pulse 65 /min Comments: Pattern: Regular Respiration [...] report for address and phone number LAMOTRIG [id number] 10.0 ug/mL (Normal) Range: 2.0-20.0 Comments: Detection Limit = 1.0Performed at: [facility] [address] [id number] Director: Kar Robison MD, Phone: [phone] 04-Trl-754101:40 Topiramate, Serum Comments: [facility] (refer to report for specific site)refer to report for address and phone number TOPIRAMATE 14.6 ug/mL (Normal) Range: 2.0-25.0 Comments: Detection Limit = 1.0 :40 Valproic Acid (Depakene) Level Comments: [facility] [address] [place], [address] VALPROIC ACID 80 ug/mL (Normal) Range: 50-100 02-Glf-70641:16 CBC W/Diff, Automated Comments: DR VELASQUEZ ORDERED TOPAMAX DEPAKOTE LAMICTAL [facility] [address] [place], [address] PATH REV Reviewed (Normal) Comments: [...] 4.6-6.2 WBC 6.3 K/mm3 (Normal) Range: 4.4-11.0 64-Spf-44841:16 Lamotrigine (Lamictal) Level Comments: DR VELASQUEZ ORDERED TOPAMAX DEPAKOTE LAMICTAL [facility] (refer to report for specific site)refer to report for address and phone number LAMOTRIG [id number] 11.1 ug/mL (Normal) Range: 2.0-20.0 Comments: Detection Limit = 1.0Performed at: - [facility] [id number] Director: Kar Robison MD, Phone: [phone] 43-Quk-42682:16 Lipid Profile Comments: DR VELASQUEZ ORDERED TOPAMAX DEPAKOTE LAMICTAL [facility] [address] [place], [place], [address] VLDL Test not performed mg/dL (Normal) Range: [...] Hormone (TSH) Comments: DR VELASQUEZ ORDERED TOPAMAX DEPOH[facility] [address] [place], [address] TSH 4.29 {uIU/mL} (Abnormal) Range: 0.358-3.74 :16 Topiramate, Serum Comments: DR VELASQUEZ ORDERED TOPAMAX DEPAKOTE LAMICTAL ONLY[facility] (refer to report for specific site)refer to report for address and phone number TOPIRAMATE 8.8 ug/mL (Normal) Range: 2.0-25.0 Comments: Detection Limit = 1.0 :16 Valproic Acid (Depakene) Level Comments: [facility] [address] [place], [address] VALPROIC ACID 78 ug/mL (Normal) Range: 50-100 54-Euh-70230:16 Vitamin D,25 Hydroxy Comments: DR VELASQUEZ ORDERED TOPAMAX DEPOHIOHE[facility]TE [facility] [address] [place], [address] Vitamin D 25-OH 38.1 ng/mL (Normal) Range: 29.95-100.01 Comments: Vitamin D 25(OH) Status Range Deficiency <20 ng/mL (50nmol/L) Insuffciency 20 - 30 ng/mL (50 - 75 nmol/L) Sufficiency 30 - 100 ng/mL (75 - 250 nmol/L) Toxicity >100 ng/mL (>250 nmol/L) 35-Fhh-529274:42 HgA1C , Office (47517) HgA1C , Office 5.4 % (Normal) Range: 4.6 - 7.1 56-Ojo-468814:42 Blood Glucose , Office (58640) Blood Glucose , Office 109 (Normal) :01 CBC W/Diff, Automated Comments: [facility] [address] [place], [place], [phone](115) MONOCYTE 1 % (Normal) Range: 0-10 LYMPH [...] Range: 4.4-11.0 :01 Comprehensive Metabolic Profil Comments: [facility] [address] [place], [place], [address] GAP 8 (Normal) Range: 5-15 CO2 21.0 [...] criteria. :01 PSA,Total - Annual Screen Comments: [facility] [address] [place], [place], [address] PSA,TOT SCREEN 0.49 ng/mL (Normal) Range: 0.00-4.00 Comments: This test was performed using the TPSA assay method for the[facility] chemistry system. Values obtained with differentassay methods cannot be used interchangably.When changing PSA assays in the course of monitoring apatient, additional sequential testing should be carriedout to confirm baseline values. :01 Thyroid Stim Hormone (TSH) Comments: [facility] [address] [place], [address] TSH 3.21 {uIU/mL} (Normal) Range: 0.358-3.74 :01 Vitamin D,25 Hydroxy Comments: [facility] [address] [place], [address] Vitamin D 25-OH 36.7 ng/mL (Normal) Comments: Vitamin D 25(OH) Status Range Deficiency <20 ng/mL (50nmol/L) Insuffciency 20 - 30 ng/mL (50 - 75 nmol/L) Sufficiency 30 - 100 ng/mL (75 - 250 nmol/L) Toxicity >100 ng/mL (>250 nmol/L) 56-Wgm-804232:10 Blood Glucose , Office (26725) Blood Glucose , Office 90 (Normal) 57-Bsn-591394:10 HgA1C , Office (12576) HgA1C , Office 5.3 % (Normal) Range: 4.6 - 7.1 :04 Comprehensive Metabolic Profil Comments: [facility] [address] [place], [address] GAP 10 (Normal) Range: 5-15 CO2 22.0 [...] per A.D.A. criteria. :04 Free T3 Comments: [facility] [address] [facility] [place], [place], [address] FREE T3 2.3 pg/mL (Normal) Range: 2.18-3.98 :04 Lipid Profile Comments: [facility] [address] [facility]. [place], [place], [address] VLDL Test not performed mg/dL (Normal) Range: [...] High Risk :04 T4 Free Direct Comments: [facility] [address] [facility]. [place], [place], [id number] T4 FREE DIRECT 0.97 ng/dL (Normal) Range: 0.76-1.46 :04 Thyroid Peroxidase AB Comments: [facility] (refer to report for specific site)refer to report for address and phone number TPO AB 6676 11 {IU/mL} (Normal) Range: 0-34 Comments: Performed at: [facility] [id number] Director: Ortiz Shukla PhD, Phone: [phone] 60-Yga-77905:04 Thyroid Stim Hormone (TSH) Comments: [facility] [address] [place], [place], [address] TSH 4.52 {uIU/mL} (Abnormal) Range: 0.358-3.74 :24 CBC W/Diff, Automated Comments: [facility] [address] [place], [place], [address] Absolute Lymph 2.81 {X10_3/ul} (Normal) Range: 0.83-4.51 [...] Range: 4.4-11.0 :24 Comprehensive Metabolic Profil Comments: [facility] [address] [place], [address] GAP 9 (Normal) Range: 5-15 CO2 23.0 [...] report for address and phone number LAMOTRIG 437448 12.6 ug/mL (Normal) Range: 2.0-20.0 Comments: Detection Limit = 1.0Performed at: - [facility] [address] [id number] Director: Kar Robison MD, Phone: [phone] :24 Topiramate, Serum Comments: [facility] (refer to report for specific site)refer to report for address and phone number TOPIRAMATE 9.3 ug/mL (Normal) Range: 2.0-25.0 Comments: Detection Limit = 1.0 :24 Valproic Acid (Depakene) Level Comments: [facility] [address] [place], [address] VALPROIC ACID 92 ug/mL (Normal) Range: 50-100 :15 HgA1C , Office (61348) HgA1C , Office 5.0 % (Normal) Range: 4.6 - 7.1 :15 Blood Glucose , Office (53950) Blood Glucose , Office 75 (Normal) :12 Comprehensive Metabolic Profil Comments: ORDERED: DEPAKOTE, LAMICTIL, TOPAMAXDR.ARNOLD ORDERED: LIPID, TSH, VITD, CBCD, CMP, KRISSY, AND [facility]ACWMer[facility] [address] [place], [place], [address] GAP 5 (Normal) Range: 5-15 CO2 23.0 [...] report for address and phone number LAMOTRIG 121348 12.9 ug/mL (Normal) Range: 2.0-20.0 Comments: Detection Limit = 1.0Performed at: [facility] [id number] Director: Kar Robison MD, Phone: [phone] 12-Jul-20157:12 Lipid Profile Comments: ORDERED: DEPAKOTE, LAMICTIL, TOPAMAXDR.ARNOLD ORDERED: LIPID, TSH, VITD, CBCD, CMP, KRISSY, AND [facility] Wbabejehqd5936 [facility] [place], [place], [id number] VLDL 32 mg/dL (Normal) Range: 5-40 LDL [...] LIPID, TSH, VITD, CBCD, CMP, KRISSY, AND [facility] [address]hwpdkw[address] [place], [address] TSH 3.73 {uIU/mL} (Normal) Range: [...] LIPID, TSH, VITD, CBCD, CMP, KRISSY, AND [facility] [address] [place], [place], [address] VALPROIC ACID 73 ug/mL (Normal) Range: 50-100 :12 Vitamin D,25 Hydroxy Comments: ORDERED: DEPAKOTE, LAMICTIL, TOPAMAXDR.ARNOLD ORDERED: LIPID, TSH, VITD, CBCD, CMP, KRISSY, AND [facility] Sl[address]edsfn[address] [place], [place], [id number] Vitamin D 25-OH 53.5 ng/mL (Normal) Comments: Vitamin D 25(OH) Status Range Deficiency <20 ng/mL (50nmol/L) Insuffciency 20 - 30 ng/mL (50 - 75 nmol/L) Sufficiency 30 - 100 ng/mL (75 - 250 nmol/L) Toxicity >100 ng/mL (>250 nmol/L) 3-Apt-968295:54 HgA1C , Office (28582) HgA1C , Office 5.3 % (Normal) Range: 4.6 - 7.1 :54 Blood Glucose , Office (71554) Blood Glucose , Office 77 (Normal) 60-Wbc-639996:40 Basic Metabolic Profile (BMP) Comments: [facility] [address] [place], [place], [phone] GAP 5 (Normal) Range: 5-15 CO2 22.0 [...] <126 mg/dLsuggests IMPAIRED HOMEOSTASIS per A.D.A. criteria. 44-Vwf-475724:40 CBC W/Diff, Automated Comments: [facility] [address] [place], [place], [address] Absolute Lymph 3.02 {X10_3/ul} (Normal) Range: 0.83-4.51 [...] 4.6-6.2 WBC 6.4 K/mm3 (Normal) Range: 4.4-11.0 82-Qen-742843:40 Valproic Acid (Depakene) Level Comments: [facility] [address] [place], [address] VALPROIC ACID 73 ug/mL (Normal) Range: 50-100 :53 CBC W/Diff, Automated Comments: [facility] [address] [place], [address] Absolute Lymph 3.63 {X10_3/ul} (Normal) [...] Range: 4.4-11.0 :53 Comprehensive Metabolic Profil Comments: [facility] [address] [place], [place], [address] GAP 7 (Normal) Range: 5-15 CO2 21.0 [...] (Normal) Range: 70-110 :53 Lipid Profile Comments: [facility] [address] [place], [place], [address] VLDL 38 mg/dL (Normal) Range: 5-40 LDL [...] Risk :53 PSA,Total - Annual Screen Comments: [facility] [address] [place], [place], [address] PSA,TOT SCREEN 0.40 ng/mL (Normal) Range: 0.00-4.00 Comments: This test was performed using the TPSA assay method for the[facility] chemistry system. Values obtained with differentassay methods cannot be used interchangably.When changing PSA assays in the course of monitoring apatient, additional sequential testing should be carriedout to confirm baseline values. :53 Thyroid Stim Hormone (TSH) Comments: [facility] [address] [place], [address] TSH 4.06 {uIU/mL} (Abnormal) Range: 0.358-3.74 :53 Vitamin D,25 Hydroxy Comments: [facility] [address] [place], [address] Vitamin D 25-OH 50.9 ng/mL (Normal) Comments: Vitamin D 25(OH) Status Range Deficiency <20 ng/mL (50nmol/L) Insuffciency 20 - 30 ng/mL (50 - 75 nmol/L) Sufficiency 30 - 100 ng/mL (75 - 250 nmol/L) Toxicity >100 ng/mL (>250 nmol/L) :49 HgA1C , Office (30594) HgA1C , Office 4.9 % (Normal) Range: 4.6 - 7.1 :49 Blood Glucose , Office (35406) Blood Glucose , Office 73 (Normal) :09 HgA1C , Office (73059) HgA1C , Office 5.3 % (Normal) Range: 4.6 - 7.1 :34 CALCIFIDIOL (45706) VIT D 25 Comments: PATIENT WAS FASTINGPERFORMED BY: [facility]6370 [facility] [id number] Vitamin D, 25-Hydroxy 51.2 ng/mL (Normal) Range: 30.0-100.0 Comments: Vitamin D deficiency has been defined by the [place] of[place] and an Endocrine Society practice guideline as alevel of serum 25-OH vitamin D less than 20 ng/mL (1,2).The Endocrine Society went on to further define vitamin Dinsufficiency as a level between 21 and 29 ng/mL (2).1. IOM ([place] of Medicine). 2010. Dietary reference intakes for calcium and D. [place]: The National Academies Press.2. Rhys BLAND, Obi SANTOS, Rosalino BULLOCK, et al. Evaluation, treatment, and prevention of vitamin D deficiency: an Endocrine Society clinical practice guideline. JCEM. 2010; 96(7):1911-30. :34 TSH (04821) Comments: PATIENT WAS FASTINGPERFORMED BY: [employer] Khjtzn6530 [facility] [id number] TSH 2.240 {uIU/mL} (Normal) Range: 0.450-4.500 :34 METABOLIC PANEL, COMPREHENSIVE Comments: PATIENT WAS FASTINGPERFORMED BY: [employer] Edvuzn5086 [facility] [id number] (33450) ALT (SGPT) 45 [iU]/L (Abnormal) Range: 0-44 [...] mg/dL (Normal) Range: 65-99 :34 LIPID PANEL (00681) Comments: PATIENT WAS FASTINGPERFORMED BY: [employer]70 [facility] [id number] LDL/HDL Ratio 3.4 {ratio_units} (Normal) Range: 0.0-3.6 [...] 100-199 Comments: Please note reference interval change 74-Sbb-343015:34 CBC W/AUTO DIFF WBC Comments: PATIENT WAS FASTINGPERFORMED BY: [facility] Ydlgqn2572 [facility] [id number] Information: [id number] (24410) Immature Grans (Abs) 0.0 {x10E3/uL} (Normal) Range: [...] :10 CBC W/Diff, Automated Comments: Test performed at:[facility] [address] [place], [place] [address] Absolute Lymph 3.58 {X10_3/ul} (Normal) Range: 0.83-4.51 [...] :10 Comprehensive Metabolic Profil Comments: Test performed at:[facility] [address] [place], [place] [id number] GAP 8 (Normal) Range: 5-15 CO2 23.0 [...] 70-110 :10 Lipid Profile Comments: Test performed at:[facility] Aajkyshdtu3035 [facility] [address]. [place], [place] [address] VLDL 51 mg/dL (Abnormal) Range: 5-40 LDL [...] Thyroid Stim Hormone (TSH) Comments: Test performed at:[facility] [address] [place] [address] TSH 3.58 {uIU/mL} (Normal) Range: 0.358-3.74 :10 Vitamin D,25 Hydroxy Comments: Test performed at:[facility] [address] [place] [address] Vitamin D 25-OH 27.0 ng/mL (Normal) Comments: Vitamin D 25(OH) Status Range Deficiency <20 ng/mL (50nmol/L) Insuffciency 20 - 30 ng/mL (50 - 75 nmol/L) Sufficiency 30 - 100 ng/mL (75 - 250 nmol/L) Toxicity >100 ng/mL (>250 nmol/L) :26 Comprehensive Metabolic Profil Comments: Test performed at:[facility] [address] [place] [address] ; ordered by Tequila GAP 8 [...] :26 Lamotrigine (Lamictal) Level Comments: Test performed at:[facility] [address] [place] [address] LAMOTRIG [id number] 15.3 ug/mL (Normal) Range: 2.0-20.0 Comments: Detection Limit = 1.0Performed at: [facility] LabCo[address] [id number] Director: Kar Robison MD, Phone: [phone] 16-Twe-50008:26 Topiramate, Serum Comments: Test performed at:[facility] [address] [place] [address] TOPIRAMATE 8.2 ug/mL (Normal) Range: 2.0-25.0 Comments: Detection Limit = 1.0 :26 Valproic Acid (Depakene) Level Comments: Test performed at:[facility] [address] [place] [address] VALPROIC ACID 80 ug/mL (Normal) Range: 50-100 67-Ics-437132:45 Valproic Acid (Depakene) Level Comments: Test performed at:[facility] [address]qant[address] [place] [address] VALPROIC ACID 54 ug/mL (Normal) Range: 50-100 [...] :03 Lamotrigine (Lamictal) Level Comments: Test performed at:[facility] X[address]ff[address]gt4127 [place] [address] LAMOTRIG 829522 2.6 ug/mL (Normal) Range: 2.0-20.0 Comments: Detection Limit = 1.0Performed at: [facility] [address]Co[address] [id number] Director: Kar Robison MD, Phone: [phone] :[phone] Topiramate, Serum Comments: Test performed at:[facility] W[address]zre7434 [place] [address] TOPIRAMATE 12.5 ug/mL (Normal) Range: 2.0-25.0 Comments: [...] CHOL 211 mg/dL (Abnormal) Comments: <200 mg/dL Vtpwbkilj760-205 mg/dL Borderline>240 mg/dL High Risk :16 TSH [...] 2.0-20.0 Comments: Detection Limit = 1.0Performed at: [facility] [address] [id number] Director: Kar Robison MD, Phone: [phone] :[phone] TOPIR tTOPIR 4.3 ug/mL (Normal) Range: [...] CHOL 165 mg/dL (Normal) Comments: <200 mg/dL Ocpstribn241-074 mg/dL Borderline>240 mg/dL High Risk :33 MEZA 14.9 ug/mL (Normal) Comments: DR BARRETT ORDERED LIPIDDR TEQUILA ORDERED VALPROIC ACID,LAMOTRIGINE,TOPIRAMATE,CMP Range: 2.0-20.0 Comments: Detection Limit = 1.0Performed at: [facility] [address] [id number] Director: Kar Robison MD, Phone: [phone] :33 TOPIR Comments: DR BARRETT ORDERED LIPIDDR [...] CHOL 167 mg/dL (Normal) Comments: <200 mg/dL Zlpfzotoh614-970 mg/dL Borderline>240 mg/dL High Risk TRIG 250 [...] 250 nm ol/L)Toxicity >100 ng/mL (250 nmol/L)Effective 201222-Jul-201138-Dmd-037723:05 ABS SCREEN CELL III NEGATIVE (Normal) SCREEN CELL I NEGATIVE (Normal) SCREEN CELL II NEGATIVE (Normal) Ab SCREEN GEL NEGATIVE (Normal) 12-Spo-935635:05 B12 1099 pg/mL (Abnormal) Range: 211-946 Comments: Performed at: [facility] [address] [id number] Director: Kar Robison MD, Phone: [phone] at: [place] [address]Ggd Director: Geno Gamez MD, Phone: [phone] 66-Lxt-008423:05 VONDA DIRECT GIOVANY= NEG w/POLYSPECIFIC (Normal) 88-Gjq-537864:05 FDP tFDP NEGATIVE ug/mL (Normal) : ISABEL [...] 2.0-20.0 Comments: Detection Limit = 1.0Performed at: [facility] [address] [id number] Director: Geno Gamez MD, Phone: [phone] at: [facility] [address]Co[address] [id number] Director: Kar Robison MD, Phone: [phone] :13 LIVER Comments: DR VELASQUEZ ORDERED DEPAKOTE,LAMACTIL,TOPAMAX,LIVER [...] D deficiency has been defined by the [place] of[place]icine and an Endocrine Society practice guideline as alevel of serum 25-OH vitamin D less than 20 ng/mL (1,2).The Endocrine Society went on to further define vitamin Dinsufficiency as a level between 21 and 29 ng/mL (2).1. IOM ([place] of [employer]). 2010. Dietary reference intakes for calcium and D. [place]: The National Academies Press.2. Rhys MF, Obi SANTOS, Rosalino BULLOCK, et al. Evaluation, treatment, and prevention of vitamin D deficiency: an Endocrine Society clinical practice guideline. JCEM. 2010; 96(7):1911-30. 9-Ajf-058409:04 TSH 3.03 {uIU/mL} (Normal) Range: 0.358-3.74 :56 TSH (THYROID STIMULATING Comments: PATIENT WAS FASTINGPERFORMED BY: [facility] Gpeyfg0198 Jim[facility] [id number] HORMONE) (57681) TSH 6.850 {uIU/mL} (Abnormal) Range: 0.450-4.500 :56 CBC & PLATELETS (AUTO) Comments: PATIENT WAS FASTINGPERFORMED BY: [facility] Hqborg7588 [facility] [id number] Information: [id number] (89118) Platelets 322 {x10E3/uL} (Normal) Range: 140-415 RDW 13.5 % (Normal) Range: 11.7-15.0 MCHC 32.7 g/dL (Normal) Range: 32.0-36.0 MCH 31.2 pg (Normal) Range: 27.0-34.0 MCV 95 fL (Normal) Range: 80-98 Hematocrit 39.4 % (Normal) Range: 36.0-50.0 Hemoglobin 12.9 g/dL (Normal) Range: 12.5-17.0 RBC 4.13 {x10E6/uL} (Normal) Range: 4.10-5.60 WBC 8.8 {x10E3/uL} (Normal) Range: 4.0-10.5 :56 LIPID PANEL (43471) Comments: PATIENT WAS FASTINGPERFORMED BY: [employer] [facility] [id number] LDL/HDL Ratio 3.1 {ratio_units} (Normal) Range: 0.0-3.6 LDL Cholesterol Calc 107 mg/dL (Abnormal) Range: 0-99 VLDL Cholesterol Abdirizak 49 mg/dL (Abnormal) Range: 5-40 HDL Cholesterol 35 mg/dL (Abnormal) Comments: According to ATP-III Guidelines, HDL-C >59 mg/dL is considered anegative risk factor for CHD. Triglycerides 245 mg/dL (Abnormal) Range: 0-149 Cholesterol, Total 191 mg/dL (Normal) Range: 100-199 :56 CALCIFEDIOL (57375) Comments: PATIENT WAS FASTINGPERFORMED BY: [employer]6370 [facility] [id number] Vitamin D, 25-Hydroxy 22.0 ng/mL (Abnormal) Range: 32.0-100.0 Comments: Effective January 25, 2011 Vitamin D, 25-Hydroxy reference intervals will be changing to 30-100. .Recent studies consider the lower li liu of 32.0 ng/mL to be athreshold for optimal health.Yonas ARNOLD. J Nutr. 2004;135(2):317-22. :25 LIPID PANEL (33803) Comments: PATIENT WAS FASTINGPERFORMED BY: [employer] Axhnqt4593 [facility] [id number] Information: [id number] LDL/HDL Ratio 3.3 {ratio_units} (Normal) Range: 0.0-3.6 HDL Cholesterol 37 mg/dL (Abnormal) Comments: According to ATP-III Guidelines, HDL-C >59 mg/dL is considered anegative risk factor for CHD. LDL Cholesterol Calc 121 mg/dL (Abnormal) Range: 0-99 VLDL Cholesterol Abdirizak 41 mg/dL (Abnormal) Range: 5-40 Triglycerides 203 mg/dL (Abnormal) Range: 0-149 Cholesterol, Total 199 mg/dL (Normal) Range: 100-199 :53 TSH (19584) Comments: do in 3 months; PATIENT WAS FASTINGPERFORMED BY: [employer]70 [facility] [id number] TSH 3.940 {uIU/mL} (Normal) Range: 0.450-4.500 :53 HEPATIC FUNCTION PANEL Comments: PATIENT WAS FASTINGPERFORMED BY: [employer]70 [facility] [id number] Information: [id number] (12435) ALT (SGPT) 51 [iU]/L (Normal) Range: 0-55 Alkaline Phosphatase, S 33 [iU]/L (Normal) Range: 25-150 AST (SGOT) 40 [iU]/L (Normal) Range: 0-40 Bilirubin, Direct 0.08 mg/dL (Normal) Range: 0.00-0.40 Albumin, Serum 4.3 g/dL (Normal) Range: 3.5-5.5 Bilirubin, Total 0.2 mg/dL (Normal) Range: 0.0-1.2 Protein, Total, Serum 7.0 g/dL (Normal) Range: 6.0-8.5 :53 LIPID PANEL (17349) Comments: do in 3 months; PATIENT WAS FASTINGPERFORMED BY: [employer]6370 [facility] [id number] LDL/HDL Ratio 2.7 {ratio_units} (Normal) Range: 0.0-3.6 [...] Panel (7) Comments: PATIENT WAS FASTINGPERFORMED BY: [employer] Zioxmj0240 [facility] [id number] Alkaline Phosphatase, S 31 [iU]/L (Normal) Range: 25-150 ALT (SGPT) 53 [iU]/L (Normal) Range: 0-55 AST (SGOT) 36 [iU]/L (Normal) Range: 0-40 Bilirubin, Direct 0.09 mg/dL (Normal) Range: 0.00-0.40 Bilirubin, Total 0.3 mg/dL (Normal) Range: 0.0-1.2 Albumin, Serum 4.5 g/dL (Normal) Range: 3.5-5.5 Protein, Total, Serum 7.0 g/dL (Normal) Range: 6.0-8.5 :35 Lipid Panel With LDL/HDL Comments: PATIENT WAS FASTINGPERFORMED BY: [employer] Kktpfl6621 [facility] [id number] Ratio LDL Cholesterol Calc 143 mg/dL (Abnormal) Range: 0-99 LDL/HDL Ratio 4.0 {ratio_units} (Abnormal) Range: 0.0-3.6 VLDL Cholesterol Abdirizak 50 mg/dL (Abnormal) Range: 5-40 Cholesterol, Total 229 mg/dL (Abnormal) Range: 100-199 HDL Cholesterol 36 mg/dL (Abnormal) Comments: According to ATP-III Guidelines, HDL-C >59 mg/dL is considered anegative risk factor for CHD. Triglycerides 249 mg/dL (Abnormal) Range: 0-149 12-Hul-232382:05 TSH (32177) Comments: PATIENT NOT FASTINGPERFORMED BY: [employer] (Inspect Manager)[facility] [id number] Information: [id number] TSH 3.800 {uIU/mL} (Normal) Range: 0.450-4.500 :21 [...] 7.2 K/mm3 (Normal) Range: 4.4-11.0 :21 LAMOTRIG [id number] 7.9 ug/mL (Normal) Comments: ORDERED LIPIDNMR LIVERDR.SAVAGE ORDERED DEPAKOTE LAMACTAL CBC LIVER Range: 2.0-20.0 Comments: Detection Limit = 1.0Performed at: - [facility] Pzi5424 [place], [place] [id number] Director: Jez Grullon PhDPerformed at: [facility]Co[address] [id number] Director: Kar Robison MD :21 LIVER Comments: [...] 1300; Secondarygoal: Small LDL-P < 527Performed At: K2PdskZzsxfxu [address] [place] [id number] SMALL LDL-P 1111 nmol/L (Abnormal) Comments: . [...] 1300; Secondarygoal: Small LDL-P < 527Performed At: [facility] [address] [id number] xSMLDLP 1111 nmol/L (Abnormal) Comments: . Low < 117 Moderate 117 - 526 Borderline 5 27 - 839 High > 839 . xTRIGLYCERIDES 329 mg/dL (Abnormal) :41 HEPATIC FUNCTION PANEL Comments: PATIENT WAS FASTINGClinical Information: ADD [id number], [id number] PERFORMED BY: [facility] [id number] (11655) Albumin, Serum 4.5 g/dL (Normal) Range: 3.5-5.5 Alkaline Phosphatase, S 36 [iU]/L (Normal) Range: 25-150 ALT (SGPT) 27 [iU]/L (Normal) Range: 0-55 AST (SGOT) 22 [iU]/L (Normal) Range: 0-40 Bilirubin, Direct 0.07 mg/dL (Normal) Range: 0.00-0.40 Bilirubin, Total 0.3 mg/dL (Normal) Range: 0.1-1.2 Protein, Total, Serum 7.0 g/dL (Normal) Range: 6.0-8.5 :41 LIPID PANEL (43167) Comments: do in 3 mo; PATIENT WAS FASTINGPERFORMED BY: [facility].sh [place] [id number] Cholesterol, Total 235 mg/dL (Abnormal) Range: 100-199 [...] mg/dL (Normal) Range: 34-200 Comments: Performed At: [facility]6370 [place], [place] [id number] :25 IRON, SERUM 95 ug/dL (Normal) Range: [...] not intractable, without status epilepticus : Reviewed Ecosystem Ecology Professor Letter Indication: Epilepsy, unspecified, not intractable, without [...] not intractable, without status epilepticus : Reviewed Ecosystem Ecology Professor Letter Indication: Epilepsy, unspecified, not intractable, without [...] not intractable, without status epilepticus : Reviewed Ecosystem Ecology Professor Letter Indication: Epilepsy, unspecified, not intractable, without [...] not intractable, without status epilepticus : Reviewed Ecosystem Ecology Professor Letter Indication: Epilepsy, unspecified, not intractable, without status epilepticus Hypercholesterolemia : Cholesterol mgmt Indication: Hypercholesterolemia Epilepsy, unspecified, not intractable, without status epilepticus : Reviewed Ecosystem Ecology Professor Letter Indication: Epilepsy, unspecified, not intractable, without status epilepticus Epilepsy, unspecified, not intractable, without status epilepticus : Reviewed Ecosystem Ecology Professor Letter Indication: Epilepsy, unspecified, not intractable, without status epilepticus Epilepsy, unspecified, not intractable, without status epilepticus : Reviewed Lab Indication: Epilepsy, unspecified, not intractable, without status epilepticus Epilepsy, unspecified, not intractable, without status epilepticus : Reviewed Diagnostic Tests Indication: Epilepsy, unspecified, not intractable, without status epilepticus Epilepsy, unspecified, not intractable, without status epilepticus : Reviewed Ecosystem Ecology Professor Letter Indication: Epilepsy, unspecified, not intractable, without [...] diabetes mellitus Laceration of scalp : Reviewed Ecosystem Ecology Professor Letter Indication: Laceration of scalp Benign essential [...] not intractable, without status epilepticus : Reviewed Ecosystem Ecology Professor Letter Indication: Epilepsy, unspecified, not intractable, without [...] not intractable, without status epilepticus : Reviewed Ecosystem Ecology Professor Letter Indication: Epilepsy, unspecified, not intractable, without [...] not intractable, without status epilepticus : Reviewed Ecosystem Ecology Professor Letter Indication: Epilepsy, unspecified, not intractable, without [...] injury of chest wall Planned Observations CALCIFIDIOL (61921) VIT D 25Indication: Vitamin D deficiency, unspecified On: :53 Request TSH (04417)Indication: Hypothyroidism On: :53 Request URINALYSIS, W/ MICRO (41354)Indication: Benign essential hypertension On: 44-Abq-908192:53 Request MICROALBUMIN: CREATININE RATIO (26784) AND (98833)Indication: Benign essential hypertension On: 90-Dqo-234737:53 Request METABOLIC PANEL, COMPREHENSIVE (22802)Indication: Benign essential hypertension On: :53 Request LIPID PANEL (65163)Indication: Benign essential hypertension On: :53 Request CBC W/AUTO DIFF WBC (60409)Indication: Benign essential hypertension On: :53 Request CALCIFEDIOL (52776)Indication: Vitamin D deficiency, unspecified On: 0-Flu-927570:38 Request URINALYSIS, W/ MICRO (56181)Indication: Benign essential hypertension On: 8-Eaj-285855:37 Request MICROALBUMIN: CREATININE RATIO (59014) AND (45949)Indication: Benign essential hypertension On: :37 Request METABOLIC PANEL, COMPREHENSIVE (73217)Indication: Benign essential hypertension On: :37 Request LIPID PANEL (01766)Indication: Hypercholesterolemia On: :37 Request CBC W/AUTO DIFF WBC (82979)Indication: Benign essential hypertension On: :37 Request TSH (69907)Indication: Hypothyroidism On: 1-Vcv-243421:37 Request PSA (PROSTATE SPECIFIC ANTIGEN) (V76.44)Indication: Encounter for screening for malignant neoplasm of prostate (Renamed from Screening for prostate cancer) On: 01-Kml-990691:13 Request URINALYSIS, W/ MICRO (97598)Indication: Controlled diabetes mellitus On: 23-Xlk-837992:11 Request MICROALBUMIN: CREATININE RATIO (50981) AND (06133)Indication: Controlled diabetes mellitus On: 43-Gbj-241920:11 Request METABOLIC PANEL, COMPREHENSIVE (23040)Indication: Controlled diabetes mellitus On: 98-Kbg-282328:11 Request CBC W/AUTO DIFF WBC (66647)Indication: Controlled diabetes mellitus On: 05-Coa-273151:11 Request TSH (57615)Indication: Hypothyroidism On: 61-Skb-770931:11 Request CALCIFIDIOL (26171) VIT D 25Indication: Vitamin D deficiency, unspecified On: 37-Ebd-890538:10 Request TSH (14848)Indication: Hypothyroidism On: 1-Cxp-657252:43 Request T4, FREE (THYROXINE) (51508)Indication: Hypothyroidism On: 1-Pmx-971010:43 Request T3, FREE (TRIDOTHYRONINE) (31102)Indication: Hypothyroidism On: 43 Request Anti-TPO Antibody (40997)Indication: Hypothyroidism On: :36 Request T4, FREE (THYROXINE) (31787)Indication: Hypothyroidism On: :36 Request T3, FREE (TRIDOTHYRONINE) (30764)Indication: Hypothyroidism On: :36 Request TSH (77706)Indication: Controlled diabetes mellitus On: :36 Request URINALYSIS, W/ MICRO (36772)Indication: Benign essential hypertension On: :36 Request MICROALBUMIN: CREATININE RATIO (17689) AND (79631)Indication: Benign essential hypertension On: :36 Request METABOLIC PANEL, COMPREHENSIVE (41938)Indication: Benign essential hypertension On: :36 Request LIPID PANEL (94421)Indication: Hypercholesterolemia On: :36 Request CBC W/AUTO DIFF WBC (65371)Indication: Benign essential hypertension On: :36 Request Blood Glucose , Office (36516)Indication: Controlled diabetes mellitus On: :36 Request HgA1C , Office (43894)Indication: Controlled diabetes mellitus On: :35 Request CALCIFIDIOL (26610) VIT D 25Indication: Vitamin D deficiency, unspecified On: : Request URINALYSIS, W/ MICRO (83104)Indication: Benign essential hypertension On: :19 Request MICROALBUMIN: CREATININE RATIO (00486) AND (82812)Indication: Benign essential hypertension On: :19 Request METABOLIC PANEL, COMPREHENSIVE (68733)Indication: Benign essential hypertension On: : Request CBC W/AUTO DIFF WBC (44421)Indication: Benign essential hypertension On: :19 Request LIPID PANEL (43661)Indication: Hypercholesterolemia On: :19 Request TSH (34626)Indication: Hypothyroidism On: :19 Request CALCIFIDIOL (34757) VIT D 25Indication: Vitamin D deficiency, unspecified On: :46 Request TSH (47288)Indication: Hypothyroidism On: 46 Request URINALYSIS, W/ MICRO (61483)Indication: Controlled diabetes mellitus On: 46 Request MICROALBUMIN: CREATININE RATIO (26534) AND (83610)Indication: Controlled diabetes mellitus On: :46 Request METABOLIC PANEL, COMPREHENSIVE (29666)Indication: Controlled diabetes mellitus On: :46 Request LIPID PANEL (04585)Indication: Hypercholesterolemia On: Request CBC W/AUTO DIFF WBC (43765)Indication: Controlled diabetes mellitus On: Request METABOLIC PANEL, COMPREHENSIVE (51288)Indication: Benign essential hypertension On: :29 Request PSA (PROSTATE SPECIFIC ANTIGEN) (V76.44)Indication: Encounter for screening for malignant neoplasm of prostate (Renamed from Screening for prostate cancer) On: :16 Request CALCIFIDIOL (58433) VIT D 25Indication: Vitamin D deficiency, unspecified On: :14 Request URINALYSIS, W/ MICRO (50909)Indication: Benign essential hypertension On: :14 Request MICROALBUMIN: CREATININE RATIO (92244) AND (18837)Indication: Benign essential hypertension On: :14 Request METABOLIC PANEL, COMPREHENSIVE ([id number])Indication: Benign essential hypertension On: :14 Request CBC W/AUTO DIFF WBC ([id number])Indication: Benign essential hypertension On: :14 Request LIPID PANEL (97991)Indication: Hypercholesterolemia On: :14 Request TSH (76090)Indication: Hypothyroidism On: :14 Request Blood Glucose , Office (04795)Indication: Controlled diabetes mellitus On: :09 Request URINALYSIS, W/ MICRO (05567)Indication: Benign essential hypertension On: 67-Lji-973304:08 Request MICROALBUMIN: CREATININE RATIO (20837) AND (31478)Indication: Benign essential hypertension On: 99-Rhq-334654:08 Request CALCIFEDIOL (25212)Indication: Unspecified Diagnosis On: :55 Request Vitamin D Hydroxy (36188)Indication: Vitamin D deficiency, unspecified On: : Request TSH (12736)Indication: Hypothyroidism On: : Request MICROALBUMIN: CREATININE RATIO (34692) AND (22938)Indication: Benign essential hypertension On: Request METABOLIC PANEL, COMPREHENSIVE (48119)Indication: Benign essential hypertension On: : Request LIPID PANEL ([id number])Indication: Hypercholesterolemia On: : Request CBC with auto diff (63976)Indication: Benign essential hypertension On: Request LIPID PANEL (27185)Indication: Hypercholesterolemia On: :34 Request TSH (47135)Indication: Abnormal TSH On: :33 Request FECAL OCCULT- Tubes sent home (91282)Indication: Anemia, unspecified On: Request GIOVANY TEST, DIRECT (32300)Indication: Anemia, unspecified On: Request FOLIC ACID SERUM (02503)Indication: Anemia, unspecified On: Request Methymalonic Acid, Serum (28881)Indication: Anemia, unspecified On: Request VITAMIN B-12 (CYANOCOBALAMIN) (46267)Indication: Anemia, unspecified On: Request RETICULOCYTE COUNT MANUL (26124)Indication: Anemia, unspecified On: Request LDH (LD) (LACTATE DEHYDROGENASE) (68609)Indication: Anemia, unspecified On: Request IRON BINDING CAPACITY (TIBC) (71873)Indication: Anemia, unspecified On: Request IRON ([id number])Indication: Anemia, unspecified On: Request FERRITIN (48537)Indication: Anemia, unspecified On: Request CBC, PLATELETS & AUT DIFF (17699)Indication: Anemia, unspecified On: 12-Qqj-584600:30 Request CALCIFEDIOL (07402)Indication: Vitamin D deficiency, unspecified On: 10-Atq-633335:37 Request MICROALBUMIN: CREATININE RATIO (38826) AND (83883)Indication: Benign essential hypertension On: :36 Request URINALYSIS (56589)Indication: Benign essential hypertension On: :36 Request TSH (96714)Indication: Hypothyroidism On: :34 Request CBC, Platelets & Auto Diff (48051)Indication: Benign essential hypertension On: :34 Request Metabolic Panel, Comprehensive (59164)Indication: Benign essential hypertension On: :33 Request Valproic Acid (17740)Indication: Epilepsy, unspecified, not intractable, without status epilepticus On: :33 Request Lipid Panel (24873)Indication: Hypercholesterolemia On: :32 Request Vitamin D Hydroxy (32621)Indication: Vitamin D deficiency, unspecified On: :45 Request LIPID PANEL (18584)Indication: Hypercholesterolemia On: :45 Request TSH (58746)Indication: Hypothyroidism On: :45 Request URINALYSIS, W/ MICRO (19669)Indication: Benign essential hypertension On: :45 Request MICROALBUMIN: CREATININE RATIO (62445) AND (70676)Indication: Benign essential hypertension On: :45 Request METABOLIC PANEL, COMPREHENSIVE (74002)Indication: Benign essential hypertension On: :45 Request CBC WITH MANUAL DIFF ([id number])Indication: Benign essential hypertension On: :45 Request LIPID PANEL (39888)Indication: Hypercholesterolemia On: 0-Cav-851310:41 Request LIPID PANEL (60028)Indication: Hypercholesterolemia On: :16 Request Vitamin D Hydroxy (69507)Indication: Vitamin D deficiency, unspecified On: :16 Request URINALYSIS, W/ MICRO (15963)Indication: Benign essential hypertension On: 86-Ecz-925542:16 Request MICROALBUMIN: CREATININE RATIO (09619) AND (86774)Indication: Benign essential hypertension On: 76-Nci-747683:16 Request METABOLIC PANEL, COMPREHENSIVE (40882)Indication: Benign essential hypertension On: 21-Kev-305738:15 Request CBC WITH MANUAL DIFF (23827)Indication: Benign essential hypertension On: 63-Tjf-598787:15 Request TSH ([id number])Indication: Hypothyroidism On: 11-Gdf-363036:08 Request LIPID PANEL (83810)Indication: Hypercholesterolemia On: 81-Vif-520981:08 Request FOLIC ACID SERUM (17610)Indication: Anemia, unspecified On: 44-Jtf-342187:28 Request Fecal Occult Blood , Office (52925)Indication: Anemia, unspecified On: :38 Request FIBRIN DEGRAD QUANTITATV (88792)Indication: Anemia, unspecified On: : Request RETICULOCYTE COUNT (85911)Indication: Anemia, unspecified On: :38 Request LDH (LD) (LACTATE DEHYDROGENASE) (55079)Indication: Anemia, unspecified On: :38 Request GIOVANY TEST, INDIRECT (72056)Indication: Anemia, unspecified On: 5-Ova-520183:38 Request GIOVANY TEST, DIRECT ([id number])Indication: Anemia, unspecified On: :38 Request Methylmalonic acid, serum 58365Uiqvfftslt: Anemia, unspecified On: 3-Vpo-711078:38 Request Vitamin B-12 (cyanocobalamin) (66539)Indication: Anemia, unspecified On: 1-Ugo-238595:37 Request Iron Binding Capacity (TIBC) (76315)Indication: Anemia, unspecified On: 8-Hfv-131271:37 Request Iron (76512)Indication: Anemia, unspecified On: 3-Kae-613142:37 Request Ferritin (64806)Indication: Anemia, unspecified On: 9-Tvl-041608:37 Request Folic Acid Serum (16624)Indication: Anemia, unspecified On: 6-Blz-003431:37 Request MICROALBUMIN: CREATININE RATIO (93640) AND (50241)Indication: Benign essential hypertension On: 80-Jkf-061120:03 Request CBC WITH MANUAL DIFF (42051)Indication: Benign essential hypertension On: 95-Vdt-477400:03 Request METABOLIC PANEL, COMPREHENSIVE (21991)Indication: Benign essential hypertension On: 53-Oqx-798863:03 Request TSH ([id number])Indication: Hypothyroidism On: 28-Rer-944485:03 Request LIPID PANEL (62142)Indication: Hypercholesterolemia On: 31-Utt-355221:03 Request CALCIFIDIOL (50688) VIT D 25Indication: Vitamin D deficiency, unspecified On: 19-Lkh-084184:42 Request TSH ([id number])Indication: Abnormal TSH On: 32-Cqb-099592:40 Request MICROALBUMIN: CREATININE RATIO (15068) AND (01715)Indication: Hypothyroidism On: 4-Rxc-284747:39 Request PHENYLKETONES QUALIT (40126)Indication: Epilepsy, unspecified, not intractable, without status epilepticus On: 37-Nlh-100204:12 Request Comments: Diliantin level PSA (PROSTATE SPECIFIC ANTIGEN) (54059)Indication: Benign essential hypertension On: 85-Jzf-363953:04 Request LIPID PANEL (81826)Indication: Hypercholesterolemia On: :03 Request HEPATIC FUNCTION PANEL (46885)Indication: Hypercholesterolemia On: :19 Request LIPOPROTEIN, BLD, BY NMR (21491)Indication: Hypercholesterolemia On: :19 Request LIPID PANEL (88951)Indication: Hypercholesterolemia On: 05-Rtd-468242:19 Request Comments: do in 3 months LIPOPROTEIN, BLD, BY NMR ([id number])Indication: Hypercholesterolemia On: :28 Request LIPID PANEL (79666)Indication: Hypercholesterolemia On: 50-Gjm-821836:28 Request URINALYSIS W/O MICRO (84804)Indication: Benign essential hypertension On: 92-Xay-878217:00 Request TSH ([id number])Indication: Hypothyroidism On: 68-Tru-734032:00 Request MICROALBUMIN: CREATININE RATIO (45105) AND ([id number])Indication: Benign essential hypertension On: 75-Hya-309838:00 Request METABOLIC PANEL, COMPREHENSIVE ([id number])Indication: Benign essential hypertension On: 47-Aky-507646:00 Request LIPID PANEL ([id number])Indication: Benign essential hypertension On: 34-Crf-768510:00 Request CBC WITH MANUAL DIFF ([id number])Indication: Benign essential hypertension On: 81-Pki-794762:00 Request URINALYSIS W/O MICRO ([id number]) On: 68-Muk-812029:50 Request MICROALBUMIN URINE QUANT ([id number]) On: 24-Bys-640356:49 Request LIPID PANEL (21329) On: 32-Kbp-427347:49 Request CBC WITH MANUAL DIFF ([id number]) On: 72-Hav-619897:49 Request TSH (07504)Indication: Hypothyroidism On: :49 Request Lipid Panel ([id number])Indication: Hypercholesterolemia On: 5-Xam-202515:17 Request VITAMIN B-12 (CYANOCOBALAMIN) ([id number])Indication: Anemia, unspecified On: 7-Pyw-464285:12 Request RETICULOCYTE COUNT MANUL ([id number])Indication: Anemia, unspecified On: 1-Tbf-640913:12 Request LDH (LD) (LACTATE DEHYDROGENASE) (27522)Indication: Anemia, unspecified On: 4-Gqv-711335:12 Request IRON BINDING CAPACITY (TIBC) (08649)Indication: Anemia, unspecified On: 2-Rlr-510026:12 Request IRON ([id number])Indication: Anemia, unspecified On: 8-Phe-058303:12 Request FOLIC ACID SERUM ([id number])Indication: Anemia, unspecified On: 1-Xfw-220426:12 Request HAPTOGLOBIN ([id number])Indication: Anemia, unspecified On: 2-Gdp-521694:12 Request FERRITIN ([id number])Indication: Anemia, unspecified On: 5-Ulm-357441:12 Request CBC, PLATELETS & AUT DIFF (61341)Indication: Anemia, unspecified On: 1-Qzl-192904:12 Request CBC WITH MANUAL DIFF (08972)Indication: Anemia, unspecified On: 55-Rdr-143023:27 Request TSH (05562)Indication: Hypothyroidism On: 57-Oxi-041801:25 Request LIPID PANEL (68774)Indication: Hypercholesterolemia On: 53-Mfx-125471:25 Request Planned Encounters Medical; 6 Month FU - On: 26-Apr-2018 13:15 [facility] Valencia Barrett DO, DO, Kathleen Planned Procedures Flu Vaccine (Quadrivalent) On: 03-Jan-2017 Intent 29451Cc: Valencia Barrett DO Comments: Lot #[id number]/22/17ite-L dltd, IMDose prefilled syringegiven by:SAL Pedroza and ABN signed Valencia Barrett DO ELECTROCARDIOGRAM, COMPLETE On: 03-Jan-2017 Intent (ECG) (03786)By: Arnold HILL, Comments: nsr no acute chg - Valencia Arnold DO, Valencia Flu Vaccine (Quadrivalent) On: 01-Jan-2015 Intent 22495Cp: Valencia Barrett DO Comments: Lot:[id number]:09/04/15Amt:0.5mlRoute:IMSite: L DltdGiven By: SAL Escobedo signed Valencia Barrett DO EKG (02337)By: Arnold HILL, On: 14-Dec-2013 Intent Valenciasixto Barrett DO Valencia Comments: nsr no acute chg ADMINISTRATION OF INFLUENZA On: 14-Dec-2013 Intent VIRUS VACCINE (G0008)By: Arnold Comments: Lot #[id number]-L dltd, IMDose prefilled syringegiven by:SAL Pedroza and ABN signed DO, Valencia Arnold DO, Valencia FLU VAC, SPLIT, >3 YEARS, On: 14-Dec-2013 Intent INTRAMUSC (37355)By: Valencia Barrett DO, DO Valencia ADMINISTRATION OF INFLUENZA On: 11-Dec-2012 Intent VIRUS VACCINE (G0008)By: Arnold Comments: Lot:[id number]:6.14Amt:0.5mLSite: L Dltd, IMGiven by: SAL Leal signed DO, Valencia Arnold DO, Valencia EKG (05432)By: Arnold HILL, On: 11-Dec-2012 Intent Valenciapat Barrett DOMiaValencia Comments: nsr no acute chg Eprescribed prescriptions On: 11-Dec-2012 Intent (G8553)By: Valencia Barrett DO Arnold DO, Valencia FLU VAC, SPLIT, >3 YEARS, On: 11-Dec-2012 Intent INTRAMUSC (56295)By: Valencia Barrett DO Arnold DO, Valencia Eprescribed prescriptions On: 26-Apr-2012 Intent (G8553)By: Valencia Barrett DO, DO, Kathleen EKG ([id number])By: Arnold HILL, On: 20-Dec-2011 Intent Valencia Taylor DO Comments: no acute chg/ nsr EKG ([id number])By: Arnold HILL, On: 16-Dec-2010 Intent Valencia Taylor DO Comments: nsr no acute chg TDAP VACCINE >7 IM (48737)By: On: 16-Dec-2010 Intent Valencia Barrett DO, DO, Kathleen FLU VAC, SPLIT, >3 YEARS, On: 05-Dec-2010 Intent INTRAMUSC (71255)By: Sherry, Comments: had already Delilah SALAZAR IMMUNIZ ADMNIN, 1 VAC, On: 10-Dec-2009 Intent SNGL/COMBO (28665)By: Delilah Powell LPN FLU VAC, SPLIT, >3 YEARS, On: 10-Dec-2009 Intent INTRAMUSC (58002)By: Sherry, Comments: Lot #[id number]-4/11Site-L armDose0.5mlgiven by:BRADLEY Mazariegos LPN EKG (86378)By: Arnold HILL, On: 18-Jun-2009 Intent Valencia Taylor DO Comments: NSR NO ACUTE CHAGNES EKG ([id number])By: Arnold HILL, On: 26-Jun-2008 Intent Valencia Taylor DO Comments: nsr no acute EKG (28465)By: Arnold HILL, On: 05-Jul-2007 Intent Valencia Taylor DO Comments: NSR NO ACUTE ISCHEMIC CHANGES EKG (45313)By: Arnold HILL, On: 25-May-2006 Intent Valencia Taylor [...] patient does not have durable power of business attorney or living will. Other providers contributing [...] patient does not have durable power of business attorney or living will. The patient has [...] patient does not have durable power of business attorney or living will. The patient has [...]
--- OUTSIDE RECORDS SUMMARY | 2018-03-31 18:24 | XMS RPT_ITS | Continuity of Care Document ---
:1975 Author Organization [facility] Address [address] [facility] [address] [place] [address] Phone Care Team Providers Name Role Phone Valencia Barrett DO Unavailable Long STEEL ERECTOR, Alice L Unavailable Unavailable Messenger, STEEL ERECTOR Delilah Unavailable Unavailable Unavailable Unavailable Problems Name [...] for 0 days Refills: 0 Ordered:14-Dec-2013 Long STEEL ERECTOR, Alice LActive LAMICTAL, 100MG (Oral Tablet) 2 QD for 0 days Refills: 0 Ordered:14-Dec-2013 Long STEEL ERECTOR, Alice LActive Levothyroxine Sodium 112 MCG Oral [...] for 0 days Refills: 0 Ordered:29-Oct-2008 Delilah oPwelltive Tricor 145 MG Oral Tablet 1 (one) [...] Department Summary Result: Comments: See Note; NOTES: [facility] Medical Records Department [address] [place] [address] Emergency Department Summary 11/25/17 1628 MR#: [id number] Acct: [id number] Name: RAGHU LOPEZ Rep #: [id number] : 1975 42 From: Corazon Morris MD PCP: Valencia Barrett DO Status: DEP ER - ER Visit Summary Date of Service: 11/25/17 Chief Complaint: Seizure History of Pres ent Illness: The patient is a 42 M brought in by paramedics after a seizure. Patient has daily seizures. Per the long-term policy if his seizure last longer than [...] of epilepsy This note was generated with Gate2Play dictation software. It may contain incorrect words, [...] Primary Care Provider. Call Docto rs Registry ([phone]) or report to the closest Emergency Room. Call 911 if necessary. 11/26/17 0109 <Electronically signed by Corazon Morris MD> Date Corazon Morris MD Cosigner Signature (If Indicated): Date CC: Valencia Barrett DO 25-Nov-2017 Discharge Instruction Result: Comments: See Note; NOTES: [facility] Medical Records Department [address] [place] [address] Discharge Instruction 11/25/17 1748 MR#: [id number] Acct: [id number] Name: Tyler LOPEZ Rep #: [id number] : 1975 42 From: Corazon Morris MD [...] your Primary Care Provider. Call Doctors Registry ([phone]) or report to the closest Emergency Room. Call 911 if necessary. 11/25/17 1749 <El ectronically signed by Corazon Morris MD> Date Corazon Morris MD Cosigner Signature (If Indicated): Date CC: Valencia Barrett DO 19-Jul-2017 Discharge Instruction Result: Comments: See Note; NOTES: [facility] Medical Records Department [address] [place] [address] [place] [address] Discharge Instruction 07/19/171417 MR#: [id number] Acct: [id number] Name: Tyler LOPEZ ROSALINO Candida Rep #: [id number] : 1975 42 From: Ramses Roque MD PCP: Valencia Barrett DO Status: PRE ER ED Disposition - Plan for ED Patient: Chief Complaint: Seizure Instructions: ED Seizure Recur rent Referrals: Valencia aBrrett DO [Primary Care Provider] - What to do if you have Problems For any increased pain, shortness of breath, bleeding, nausea or vomiting, chest pain, or any unexpected problems, contact your Primary Care Provider. Call Doctors Registry ([phone]) or report to the closest Emergency Room. Call 911 if necessary. 07/19/17 1418 <Electronically signed by Marty Roque MD> Date Ramses Roque MD Cosignsamantha Signature (If Indicated): Date CC: Valencia Barrett DO 19-Jul-2017 Emergency Department Summary Result: Comments: See Note; NOTES: [facility] Records Department [address] [place] [address] Emergency Department Summary 07/19/17 1416 MR#: [id number] Acct: [id number] Name: RAGHU LOPEZ Rep #: [id number] : 1975 42 From: Ramses Roque MD [...] Impression: Seizure This note was generated with Gate2Play dictation software. It may contain incorrect words, [...] your Primary Care Provider. Call Doctors Registry ([phone]) or report to the closest Emergency Room. Call 911 if necess corby. 07/19/17 1418 <Electronically signed by Ramses Roque MD> Date Ramses Da Silvaigner Signature (If Indicated): Date ____ CC: Valencia Barrett DO 20-May-2017 12 Lead Electrocardiogram Result: Comments: See Note; NOTES: [facility] Services [address] [place] [address] 12 Lead EKG 05/17/17 1604 MR#: [id number] Acct: [id number] Name: RAGHU LOPEZ Rep # : [id number] : 1975 42 From: aMrk Miller MD Attending Dr: Status: DEP ER [...] ECG Confirmed by MARK ALMANZAR, MARK ([id number]), slot editor LORETA GARCIA ([id number]) on 05/20/2017 1:20:03 PM Referred By: EKATERINA Confirmed By:MARK MILLER MD 05/20/17 1320 Date Mark Miller MD CC: Corazon Morris MD; Valencia Barrett DO Signed 18-May-2017 Emergency Department Summary Result: Comments: See Note; NOTES: [facility] Records Department [address] [place] [address] Emergency Department Summary 05/17/17 1614 MR#: [id number] Acct: [id number] Name: RAGHU LOPEZ Rep #: [id number] : 1975 42 From: Corazon Morris MD PCP: Valencia Barrett DO Status: DEP ER - ER Visit Summary Date of Service: 05/17/17 Chief Complaint: Chest pain History of P resent Illness: The patient is a 42 M who reported 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 Per family and staff members at bedside, the cyber transport systems specialist pulled over and c alled 911. When [...] pain, resolved This note was generated with Gate2Play dictation software. It may contain incorrect words, [...] your Primary Care Provider. Call Mendy henao ([phone]) or report to the closest Emergency Room. Call 911 if necessary. 05/18/17 0016 <Electronically signed by Corazon Morris MD> Date Corazon Morris MD Cosigner Signature (If Indicated): Date CC: Valencia Barrett DO 17-May-2017 Discharge Instruction Result: Comments: See Note; NOTES: [facility] Records Department [address] [place] [address] Discharge Instruction 05/17/171650 MR#: [id number] Acct: [id number] Name: Tyler LOPEZ ROSALINO Candida Rep #: [id number] : 1975 42 From: Corazon Morris MD [...] your Primary Care Provider. Call Doctors Registry ([phone]) or report to the closest Emergency Room. Call 911 if ne cessary. 05/17/171651 <Electronically signed by Corazon Morris MD> Date Corazon Morris MD Cosigner Signature (If Indicated): Date CC: Valencia Barrett DO 17-May-2017 Chest PA and Lateral Result: Comments: See Note; NOTES: [facility] Imaging Services [address] [place] [address] Chest PA and Lateral MR#: [id number] Acct: [id number] Name: RAGHU LOPEZ Rep #: [id number] : 1975 M 42 From: Danny Taylor MD PCP: Valencia Barrett DO Status: [facility] ER Study: Chest PA and Lateral Date of Exam: 05/17/17 Exam# [id number] Ordering Dr: Corazon Morris MD STUDY: X-RAY [...] CC: Corazon Morris MD; Valencia Barrett DO Net Mvc Developer: Signed 01-Feb-2016 Emergency Department Summary Result: Comments: See Note; NOTES: [facility] Records Department [address] [place] [address] Emergency Department Summary MR#: [id number] Acct: [id number] Name: RAGHU LOPEZ Rep #: [id number] : 1975 40 From: Ernst Kim DO PCP: Valencia Barrett DO Status: [facility] ER DATE OF SERVICE: 01/07/2016 CHIEF [...] condition. Ernst Kim DO T: NTS JOB: [id number] 0825 <Electronically signed by Ernst Kim DO> Date Ernst Kim DO Cosigner Signature (If Indicated): Date CC: Valencia Barrett DO Date Dictated: 01/07/161624 Date Transcribed: 01/07/161624 Net Mvc Developer: Signed 10-Jan-2016 Emergency Department Summary Result: Comments: See Note; NOTES: [facility] Department [address] [place] [address] Emergency Department Summary MR#: [id number] Acct: [id number] Name: RAGHU LOPEZ Rep #: [id number] : 1975 40 From: Ernst Kim DO [...] condition. Ernst Kim DO T: NTS JOB: [id number] 01/10/16 0658 <Electronically signed by Ernst Kim DO> Date Ernst Kim DO Cosigner Signature (If Indicated): Date CC: Valenica Barrett DO Date Dictated: 01/07/165 Date Transcribed: 01/07/161624 Net Mvc Developer: Signed 07-Jan-2016 Emergency Department Summary Result: Comments: See Note; NOTES: [facility] Records Department [address] [place] [address] Emergency Department Summary MR#: [id number] Acct: [id number] Name: RAGHU LOPEZ Rep #: [id number] : 1975 40 From: Ernst Kim DO [...] condition. Ernst Kim DO T: NTS JOB: [id number] 01/07/162233 <Electronically signed by Ernst Kim DO> Date Ernst Kim DO Cosigner Signature (If Indicated): Date CC: Valencia Barrett DO Date Dictated: 01/07/161624 Date Transcribed: 01/07/161624 Net Mvc Developer: Signed 08-Dec-2015 Emergency Department Summary Result: Comments: See Note; NOTES: [facility] Medical Records Department [address] [place] [address] Emergency Department Summary MR#: [id number] Acct: [id number] Name: RAGHU LOPEZ Rep #: [id number] : 1975 40 From: Ernst Kim DO PCP: Valencia Barrett DO Status: [facility] ER DATE OF SERVICE: 12/01/2015 CHIEF [...] been ill recently. He has been to [facility] multiple times for these type of [...] condition. Ernst Kim DO T: MELANIE JOB: [id number] 12/08/15 3033 <Electronically signed by Ernst Kim DO> Date Ernst Kim DO Cosigner Signature (If Indicated): Date CC: Valencia Barrett DO Date Dictated: 12/01/152247 Date Transcribed: 12/01/152247 Net Mvc Developer: Signed 01-Dec-2015 Discharge Instruction Result: Comments: See Note; NOTES: [facility] Department [address] [place] [address] Discharge Instruction 12/01/152242 MR#: [id number] Acct: [id number] Name: RAGHU LOPEZ Rep #: [id number] : 1975 40 From: Ernst Kim DO [...] problems, contact your doctor. Call Doctors Registry ([phone]) or report to the closest Emergency Room. Call 911 if necessary. [phone] <Electronically signed by Ernst Kim DO> Date Ernst Kim DO Cosigner Signature (If Indicated): Date CC: Valencia Barrett DO 05-Jun-2015 Emergency Department Summary Result: Comments: See Note; NOTES: [facility] Department [address] [place] [address] Emergency Department Summary MR#: [id number] Acct: [id number] Name: RAGHU LOPEZ Rep #: [id number] : 1975 40 From: Ernst Kim DO [...] condition. Ernst Kim DO T: MELANIE JOB: [id number] 06/05/15 2355 <Electronically signed by Ernst Kim DO> Date Ernst Kim DO Cosigner Signature (If Indicated): Date CC: Valencia Barrett DO Date Dictated: 06/04/151548 Date Transcribed: 06/04/151548 Net Mvc Developer: Signed 04-Jun-2015 Discharge Instruction Result: Comments: See Note; NOTES: [facility] Medical Records Department [address] [place] [address] Discharge Instruction 06/04/155 MR#: [id number] Acct: [id number] Name: LOPEZRAGHU Rep #: [id number] : 1975 40 From: Ernst Kim DO [...] problems, contact your doctor. Call Doctors Registry ([phone]) or report to the closest Emergency Room. Call 911 if necessary. 06/04/15 1546 <Electronically signed by Ernst Kim DO> Date Ernst Kim DO Cosigner Signature (If Indicated): Date CC: Valencia Barrett DO 04-Jun-2015 Brain/Head without Contrast Result: Comments: See Note; NOTES: [facility] Imaging Services [address] [place] [address] Verdana 4d Brain/Head without Contrast MR#: [id number] Acct: [id number] Name: RAGHU LOPEZ Rep #: [id number] : 1975 M 40 From: Johny Claudio DO PCP: Valencia Barrett DO Status: REG ER Study: Brain/Head without Contrast Date of Exam: 06/04/15 Exam# [id number] Ordering Dr : Ernst Kim DO STUDY: [...] Johny Claudio DO at 15:40 EDT Tel [phone], Service support [phone], CC: Valencia Barrett DO; Ernst Kim DO Net Mvc Developer: Signed 08-Mar-2015 Emergency Department Summary Result: Comments: See Note; NOTES: [facility] Records Department [address] [place] [address] Emergency Department Summary MR#: [id number] Acct: [id number] Name: RAGHU LOPEZ Rep #: [id number] : 1975 40 From: Ramses Roque MD PCP: Valencia Barrett DO Status: [facility] ER DATE OF SERVICE: 02/21/2015 CHIEF [...] Dr. Ramses Roque MD T: NTS JOB: [id number] 03/08/15 0840 <Electronically signed by Ramses Roque MD> Date Ramses Roque MD Cosigner Signature (If Indicated): Date CC: Valencia Barrett DO Date Dictated: 02/21/151735 Date Transcribed: 02/21/151735 Net Mvc Developer: Signed 21-Feb-2015 Discharge Instruction Result: Comments: See Note; NOTES: [facility] [address] [place] [address] Discharge Instruction 02/21/151736 MR#: [id number] Acct: [id number] Name: RAGHU LOPEZ Rep #: [id number] : 1975 40 From: Ramses Roque MD [...] une xpected problems, contact your doctor. Call [place] [facility] ([phone]) or report to the closest Emergency Room. Call 911 if necessary. 02/21/151736 <Electronically signed by Ramses chen MD> Date Ramses Roque MD Cosigner Signature (If Indicated): Date CC: Valencia Barrett DO 21-Feb-2015 Brain/Head without Contrast Result: Comments: See Note; NOTES: [facility] [address] [facility] [place] [address] Verdana 4d Brain/Head without Contrast MR#: [id number] Acct: [id number] Name: RAGHU LOPEZ Rep #: [id number] : 1975 M 40 From: Kena Fountain MD PCP: Valencia Barrett DO Status: REG ER Study: Brain/Head without Contrast Date of Exam: 02/21/15 Exam# [id number] Orderin g Dr: Ramses Roque MD STUDY: [...] at 17:28 EST Tel , Service support [phone], CC: Ramses Roque MD; Eligio Barrett DO Net Mvc Developer: Signed 01-Jan-2015 EKG ([id number]) Comments: nsr no acute chg Result: [MEASUREMENTS ANALYSIS] Date of Test: 01/01/2015 13:24:06; Heart Rate: 61; NM Interval: 184; QRS: 86; QT Interval: 374; Corrected QT Interval (QTc): 375; P Wave Ryan: 42; QRS Wave Ryan: 35; T Wave Ryan: 53; Blood Pressure: 100/58 [ECG DIAGNOSTIC STATEMENTS] Date of Test: 01/01/2015 13:24:06; Summary: Sinus Rhythm WITHIN NORMAL LIMITS 23-Mar-2014 Emergency Department Summary Result: Comments: See Note; NOTES: [facility] Department [address] [place] [address] Emergency Department Summary MR#: [id number] Acct: [id number] Name: RAGHU LOPEZ Rep #: [id number] : 1975 39 From: Ernst Kim DO [...] condition. Ernst Kim DO T: NTS JOB: [id number] 0 03/23/14 0059 <Electronically signed by Ernst Kim DO> Date Ernst Kim DO CC: Valencia Barrett DO Date Dictated: 03/22/142205 Date Transcribed: 03/22/142205 Net Mvc Developer: Signed 22-Mar-2014 Discharge Instruction Result: Comments: See Note; NOTES: [facility] Department [address] [place] [address] Discharge Instruction 03/22/142201 MR#: [id number] Acct: [id number] Name: RAGHU LOPEZ Rep #: [id number] : 1975 39 From: Ernst Kim DO [...] Doctors Registry ) or report to the [facility] Emergency Room. Call 911 if necessary. 03/22/142203 <Electronically signed by Ernst Kim DO> Date Ernst Kim DO Co signer Signature (If Indicated): Date CC: Valencia Barrett DO 22-Mar-2014 Brain/Head without Contrast Result: Comments: See Note; NOTES: [facility] Services [address] [place] [address] CAT Scan Report MR#: [id number] Acct: [id number] Name: RAGHU LOPEZ Rep #: [id number] : 1975 M 39 From: Lizabeth Ovalle DO PCP: Valencia Barrett DO Status: REG ER Study: Brain/Head without Contrast Date of Exam: 03/22/14 Exam# [id number] Ordering Dr: Ernst Kim DO STUDY: CT [...] at 21:48 EST Tel , Service support [phone], CC: Valencia Barrett DO; Ernst Kim DO Net Mvc Developer: Signed 10-Jul-2013 Emergency Department Summary Result: Comments: See Note; NOTES: [facility] Department [address] [place] [address] Emergency Department Summary MR#: [id number] Acct: [id number] Name: RAGHU LOPEZ Rep #: [id number] : 1975 38 From: Yesi Trejo MD [...] patient is really not able to help htao best. She tells me that he has [...] did discuss the case with the neurologist operations specialist for Dr. Velasquez and he was comfortable with the plan. DISPOSITION: Discharge. DIAGNOSIS: Acute on chronic seizure disorder. MD Ashley Cast C: Adam Villalta: MELANIE JOB: [id number] 07/10/13 0725 <Electronically signed by Yesi Trejo MD> Date Yesi Trejo MD CC: Valencia Barrett DO Date Dictated: 06/27/131746 Date Transcribed: 06/27/131746 Net Mvc Developer: Signed 27-Jun-2013 Discharge Instruction Result: Comments: See Note; NOTES: [facility] Department [address] [place] [address] Discharge Instruction 06/27/131749 MR#: [id number] Acct: [id number] Name: RAGHU LOPEZ Rep #: [id number] : 1975 38 From: Yesi Trejo MD [...] Call Doctors Registry ) or report to [facility] Emergency Room. Call 911 if [...] smoker Vital Signs Date Test Result Details 79-Soo-523975:44 Temperature 97.6 f Comments: Method: Temporal Pulse [...] kg/m2 Body Surface Area Calculated 2.28 m2 5-Xdh-925977:06 Pulse 88 /min Comments: Pattern: Regular Respiration [...] kg/m2 Body Surface Area Calculated 2.28 m2 67-Xar-672047:41 Pulse 69 /min Comments: Pattern: Regular Respiration [...] kg/m2 Body Surface Area Calculated 2.28 m2 55-Qwb-705934:10 Pulse 80 /min Comments: Pattern: Regular Respiration [...] kg/m2 Body Surface Area Calculated 2.27 m2 14-Hrv-420031:46 Pulse 78 /min Comments: Pattern: Regular Respiration [...] kg/m2 Body Surface Area Calculated 2.27 m2 5-Yws-864511:00 Pulse 71 /min Comments: Pattern: Regular Respiration [...] kg/m2 Body Surface Area Calculated 2.26 m2 85-Lsc-542671:15 Pulse 65 /min Comments: Pattern: Regular Respiration [...] report for address and phone number LAMOTRIG [id number] 10.0 ug/mL (Normal) Range: 2.0-20.0 Comments: Detection Limit = 1.0Performed at: [facility] [address] [id number] Director: Kar Robison MD, Phone: [phone] 76-Fek-529369:40 Topiramate, Serum Comments: [facility] (refer to report for specific site)refer to report for address and phone number TOPIRAMATE 14.6 ug/mL (Normal) Range: 2.0-25.0 Comments: Detection Limit = 1.0 :40 Valproic Acid (Depakene) Level Comments: [facility] [address] [place], [address] VALPROIC ACID 80 ug/mL (Normal) Range: 50-100 69-Rri-39278:16 CBC W/Diff, Automated Comments: DR VELASQUEZ ORDERED TOPAMAX DEPAKOTE LAMICTAL ONLYWThe [facility] [address] [place], [address] PATH REV Reviewed (Normal) Comments: [...] 4.6-6.2 WBC 6.3 K/mm3 (Normal) Range: 4.4-11.0 05-Ajr-65073:16 Lamotrigine (Lamictal) Level Comments: DR VELASQUEZ ORDERED TOPAMAX DEPAKOTE LAMICTAL [facility] (refer to report for specific site)refer to report for address and phone number LAMOTRIG 128329 11.1 ug/mL (Normal) Range: 2.0-20.0 Comments: Detection Limit = 1.0Performed at: - [facility] [id number] Director: Kar Robison MD, Phone: [phone] 84-Blb-77342:16 Lipid Profile Comments: DR VELASQUEZ ORDERED TOPAMAX DEPAKOTE LAMICTAL ONLYSt. [facility] [address] [place], [place], [address] VLDL Test not performed mg/dL (Normal) Range: [...] (TSH) Comments: DR VELASQUEZ ORDERED TOPAMAX DEPST[facility] [address] [place], [address] TSH 4.29 {uIU/mL} (Abnormal) Range: 0.358-3.74 :16 Topiramate, Serum Comments: DR VELASQUEZ ORDERED TOPAMAX DEPAKOTE LAMICTAL [facility] (refer to report for specific site)refer to report for address and phone number TOPIRAMATE 8.8 ug/mL (Normal) Range: 2.0-25.0 Comments: Detection Limit = 1.0 :16 Valproic Acid (Depakene) Level Comments: [facility] [address] [place], [address] VALPROIC ACID 78 ug/mL (Normal) Range: 50-100 19-Bvn-38145:16 Vitamin D,25 Hydroxy Comments: DR VELASQUEZ ORDERED TOPAMAX DEPST. [facility] [address] [place], [address] Vitamin D 25-OH 38.1 ng/mL (Normal) Range: 29.95-100.01 Comments: Vitamin D 25(OH) Status Range Deficiency <20 ng/mL (50nmol/L) Insuffciency 20 - 30 ng/mL (50 - 75 nmol/L) Sufficiency 30 - 100 ng/mL (75 - 250 nmol/L) Toxicity >100 ng/mL (>250 nmol/L) 08-Sqy-538336:42 HgA1C , Office (79918) HgA1C , Office 5.4 % (Normal) Range: 4.6 - 7.1 62-Rwy-102828:42 Blood Glucose , Office (72425) Blood Glucose , Office 109 (Normal) :01 CBC W/Diff, Automated Comments: [facility] [address] [place], [place], [address](239) MONOCYTE 1 % (Normal) Range: 0-10 LYMPH [...] Range: 4.4-11.0 :01 Comprehensive Metabolic Profil Comments: [facility] [address] [place], [place], [address] GAP 8 (Normal) Range: 5-15 CO2 21.0 [...] criteria. :01 PSA,Total - Annual Screen Comments: [facility] [address] [place], [place], [address] PSA,TOT SCREEN 0.49 ng/mL (Normal) Range: 0.00-4.00 Comments: This test was performed using the TPSA assay method for the[facility] chemistry system. Values obtained with differentassay methods cannot be used interchangably.When changing PSA assays in the course of monitoring apatient, additional sequential testing should be carriedout to confirm baseline values. :01 Thyroid Stim Hormone (TSH) Comments: [facility] [address] [place], [address] TSH 3.21 {uIU/mL} (Normal) Range: 0.358-3.74 :01 Vitamin D,25 Hydroxy Comments: [facility] [address] [place], [address] Vitamin D 25-OH 36.7 ng/mL (Normal) Comments: Vitamin D 25(OH) Status Range Deficiency <20 ng/mL (50nmol/L) Insuffciency 20 - 30 ng/mL (50 - 75 nmol/L) Sufficiency 30 - 100 ng/mL (75 - 250 nmol/L) Toxicity >100 ng/mL (>250 nmol/L) 76-Xav-230005:10 Blood Glucose , Office (29503) Blood Glucose , Office 90 (Normal) 58-Xpk-953030:10 HgA1C , Office (58165) HgA1C , Office 5.3 % (Normal) Range: 4.6 - 7.1 :04 Comprehensive Metabolic Profil Comments: [facility] [address] [place], [address] GAP 10 (Normal) Range: 5-15 CO2 22.0 [...] per A.D.A. criteria. :04 Free T3 Comments: [facility] [address] [facility] [place], [place], [address] FREE T3 2.3 pg/mL (Normal) Range: 2.18-3.98 :04 Lipid Profile Comments: [facility] [address] [facility] [place], [place], [address] VLDL Test not performed mg/dL (Normal) Range: [...] High Risk :04 T4 Free Direct Comments: [facility] [address] [facility] [place], [place], [address] T4 FREE DIRECT 0.97 ng/dL (Normal) Range: 0.76-1.46 :04 Thyroid Peroxidase AB Comments: [facility] (refer to report for specific site)refer to report for address and phone number TPO AB 6676 11 {IU/mL} (Normal) Range: 0-34 Comments: Performed at: [facility] [id number] Director: Ortiz Shukla PhD, Phone: [phone] 18-Kpe-22691:04 Thyroid Stim Hormone (TSH) Comments: [facility] [address] [facility] [address] [place], [place], [address] TSH 4.52 {uIU/mL} (Abnormal) Range: 0.358-3.74 :24 CBC W/Diff, Automated Comments: [facility] [address] [facility] [address] [facility] [address] [place], [place], [address] Absolute Lymph 2.81 {X10_3/ul} (Normal) Range: 0.83-4.51 [...] Range: 4.4-11.0 :24 Comprehensive Metabolic Profil Comments: [facility] [address] [place], [address] GAP 9 (Normal) Range: 5-15 CO2 23.0 [...] report for address and phone number LAMOTRIG 086046 12.6 ug/mL (Normal) Range: 2.0-20.0 Comments: Detection Limit = 1.0Performed at: - [facility] [address] [id number] Director: Kar Robison MD, Phone: [phone] :24 Topiramate, Serum Comments: [facility] (refer to report for specific site)refer to report for address and phone number TOPIRAMATE 9.3 ug/mL (Normal) Range: 2.0-25.0 Comments: Detection Limit = 1.0 :24 Valproic Acid (Depakene) Level Comments: [facility] [address] [place], [address] VALPROIC ACID 92 ug/mL (Normal) Range: 50-100 :15 HgA1C , Office (00492) HgA1C , Office 5.0 % (Normal) Range: 4.6 - 7.1 :15 Blood Glucose , Office (74520) Blood Glucose , Office 75 (Normal) :12 Comprehensive Metabolic Profil Comments: ORDERED: DEPAKOTE, LAMICTIL, TOPAMAXDR.ARNOLD ORDERED: LIPID, TSH, VITD, CBCD, CMP, KRISSY, AND UACWThe [facility] [address] [place], [place], [address] GAP 5 (Normal) Range: 5-15 CO2 23.0 [...] report for address and phone number LAMOTRIG 799740 12.9 ug/mL (Normal) Range: 2.0-20.0 Comments: Detection Limit = 1.0Performed at: [facility] Lab[address] [id number] Director: Kar Robison MD, Phone: [phone] 12-Jul-20157:12 Lipid Profile Comments: ORDERED: DEPAKOTE, LAMICTIL, TOPAMAXDR.ARNOLD ORDERED: LIPID, TSH, VITD, CBCD, CMP, KRISSY, AND [facility] Gkthpfwalg7016 [facility] [place], [place], [id number] VLDL 32 mg/dL (Normal) Range: 5-40 LDL [...] LIPID, TSH, VITD, CBCD, CMP, KRISSY, AND [facility] [address] [place], [address] TSH 3.73 {uIU/mL} (Normal) Range: [...] LIPID, TSH, VITD, CBCD, CMP, KRISSY, AND [facility] [address] [place], [place], [address] VALPROIC ACID 73 ug/mL (Normal) Range: 50-100 :12 Vitamin D,25 Hydroxy Comments: ORDERED: DEPAKOTE, LAMICTIL, TOPAMAXDR.ARNOLD ORDERED: LIPID, TSH, VITD, CBCD, CMP, KRISSY, AND [facility] [address]kt[address] [place], [place], [id number] Vitamin D 25-OH 53.5 ng/mL (Normal) Comments: Vitamin D 25(OH) Status Range Deficiency <20 ng/mL (50nmol/L) Insuffciency 20 - 30 ng/mL (50 - 75 nmol/L) Sufficiency 30 - 100 ng/mL (75 - 250 nmol/L) Toxicity >100 ng/mL (>250 nmol/L) 3-Dgy-780794:54 HgA1C , Office (43987) HgA1C , Office 5.3 % (Normal) Range: 4.6 - 7.1 :54 Blood Glucose , Office (17635) Blood Glucose , Office 77 (Normal) 42-Msn-664687:40 Basic Metabolic Profile (BMP) Comments: [facility] [address] [place], [place], [id number] GAP 5 (Normal) Range: 5-15 CO2 22.0 [...] <126 mg/dLsuggests IMPAIRED HOMEOSTASIS per A.D.A. criteria. 14-Gyd-415184:40 CBC W/Diff, Automated Comments: [facility] [address] [place], [place], [address] Absolute Lymph 3.02 {X10_3/ul} (Normal) Range: 0.83-4.51 [...] 4.6-6.2 WBC 6.4 K/mm3 (Normal) Range: 4.4-11.0 05-Kix-415140:40 Valproic Acid (Depakene) Level Comments: [facility] [address] [place], [address] VALPROIC ACID 73 ug/mL (Normal) Range: 50-100 :53 CBC W/Diff, Automated Comments: [facility] [address] [place], [address] Absolute Lymph 3.63 {X10_3/ul} (Normal) [...] Range: 4.4-11.0 :53 Comprehensive Metabolic Profil Comments: [facility] [address] [place] [address], [place], [address] GAP 7 (Normal) Range: 5-15 CO2 21.0 [...] (Normal) Range: 70-110 :53 Lipid Profile Comments: [facility] [address] [place], [place], [address] VLDL 38 mg/dL (Normal) Range: 5-40 LDL [...] Risk :53 PSA,Total - Annual Screen Comments: [facility] [address] [place], [place], [id number] PSA,TOT SCREEN 0.40 ng/mL (Normal) Range: 0.00-4.00 Comments: This test was performed using the TPSA assay method for the[facility] chemistry system. Values obtained with differentassay methods cannot be used interchangably.When changing PSA assays in the course of monitoring apatient, additional sequential testing should be carriedout to confirm baseline values. :53 Thyroid Stim Hormone (TSH) Comments: [facility] [address] [place], [address] TSH 4.06 {uIU/mL} (Abnormal) Range: 0.358-3.74 :53 Vitamin D,25 Hydroxy Comments: [facility] [address] [place], [address] Vitamin D 25-OH 50.9 ng/mL (Normal) Comments: Vitamin D 25(OH) Status Range Deficiency <20 ng/mL (50nmol/L) Insuffciency 20 - 30 ng/mL (50 - 75 nmol/L) Sufficiency 30 - 100 ng/mL (75 - 250 nmol/L) Toxicity >100 ng/mL (>250 nmol/L) :49 HgA1C , Office (95345) HgA1C , Office 4.9 % (Normal) Range: 4.6 - 7.1 :49 Blood Glucose , Office (12520) Blood Glucose , Office 73 (Normal) :09 HgA1C , Office (37172) HgA1C , Office 5.3 % (Normal) Range: 4.6 - 7.1 :34 CALCIFIDIOL (23710) VIT D 25 Comments: PATIENT WAS FASTINGPERFORMED BY: [facility]6370 [facility] [id number] Vitamin D, 25-Hydroxy 51.2 ng/mL (Normal) Range: 30.0-100.0 Comments: Vitamin D deficiency has been defined by the [place] and an Endocrine Society practice guideline as alevel of serum 25-OH vitamin D less than 20 ng/mL (1,2).The Endocrine Society went on to further define vitamin Dinsufficiency as a level between 21 and 29 ng/mL (2).1. IOM ([place] [employer]). 2010. Dietary reference intakes for calcium and D. [place]: The National Academies Press.2. Rhys BLAND, Obi SANTOS, Rosalino BULLOCK, et al. Evaluation, treatment, and prevention of vitamin D deficiency: an Endocrine Society clinical practice guideline. JCEM. 2010; 96(7):1911-30. :34 TSH (67461) Comments: PATIENT WAS FASTINGPERFORMED BY: [employer] Xciaio3199 [facility] [id number] TSH 2.240 {uIU/mL} (Normal) Range: 0.450-4.500 :34 METABOLIC PANEL, COMPREHENSIVE Comments: PATIENT WAS FASTINGPERFORMED BY: [employer] Dcyuwb4162 [facility] [id number] (09442) ALT (SGPT) 45 [iU]/L (Abnormal) Range: 0-44 [...] mg/dL (Normal) Range: 65-99 :34 LIPID PANEL (26230) Comments: PATIENT WAS FASTINGPERFORMED BY: tsumobi70 [facility] [id number] LDL/HDL Ratio 3.4 {ratio_units} (Normal) Range: 0.0-3.6 [...] 100-199 Comments: Please note reference interval change 71-Jqi-473241:34 CBC W/AUTO DIFF WBC Comments: PATIENT WAS FASTINGPERFORMED BY: [facility] Kbpmli5704 [facility] [id number] Information: [id number] (60444) Immature Grans (Abs) 0.0 {x10E3/uL} (Normal) Range: [...] :10 CBC W/Diff, Automated Comments: Test performed at:[facility] [address] [place], [place] [address] Absolute Lymph 3.58 {X10_3/ul} (Normal) Range: 0.83-4.51 [...] :10 Comprehensive Metabolic Profil Comments: Test performed at:[facility] [address] [place], [place] [address] GAP 8 (Normal) Range: 5-15 CO2 23.0 [...] 70-110 :10 Lipid Profile Comments: Test performed at:[facility] Kceedjktfv1175 [facility] [address]. [place], [place] [id number] VLDL 51 mg/dL (Abnormal) Range: 5-40 LDL [...] Thyroid Stim Hormone (TSH) Comments: Test performed at:[facility] [address] [place] [address] TSH 3.58 {uIU/mL} (Normal) Range: 0.358-3.74 :10 Vitamin D,25 Hydroxy Comments: Test performed at:[facility] [address] [place] [address] Vitamin D 25-OH 27.0 ng/mL (Normal) Comments: Vitamin D 25(OH) Status Range Deficiency <20 ng/mL (50nmol/L) Insuffciency 20 - 30 ng/mL (50 - 75 nmol/L) Sufficiency 30 - 100 ng/mL (75 - 250 nmol/L) Toxicity >100 ng/mL (>250 nmol/L) :26 Comprehensive Metabolic Profil Comments: Test performed at:[facility] [address] [place] [address] ; ordered by Tequila GAP 8 [...] :26 Lamotrigine (Lamictal) Level Comments: Test performed at:[facility] [address] [place] [address] LAMOTRIG 828350 15.3 ug/mL (Normal) Range: 2.0-20.0 Comments: Detection Limit = 1.0Performed at: [facility] LabCo[address] [id number] Director: Kar Robison MD, Phone: [phone] 31-Fft-71033:26 Topiramate, Serum Comments: Test performed at:[facility] [address] [place] [address] TOPIRAMATE 8.2 ug/mL (Normal) Range: 2.0-25.0 Comments: Detection Limit = 1.0 :26 Valproic Acid (Depakene) Level Comments: Test performed at:[facility] [address] [place] [address] VALPROIC ACID 80 ug/mL (Normal) Range: 50-100 95-Ynw-047949:45 Valproic Acid (Depakene) Level Comments: Test performed at:[facility] M[address] [place] [address] VALPROIC ACID 54 ug/mL (Normal) Range: 50-100 [...] :03 Lamotrigine (Lamictal) Level Comments: Test performed at:[facility] [address]qkakmo2600 [place] [address] LAMOTRIG 007485 2.6 ug/mL (Normal) Range: 2.0-20.0 Comments: Detection Limit = 1.0Performed at: [facility] LabCo[address] [id number] Director: Kar Robison MD, Phone: [phone] :[phone] Topiramate, Serum Comments: Test performed at:[facility] Dwhbunvqho9436 [place] [address] TOPIRAMATE 12.5 ug/mL (Normal) Range: 2.0-25.0 Comments: [...] CHOL 211 mg/dL (Abnormal) Comments: <200 mg/dL Hwfnstuby027-798 mg/dL Borderline>240 mg/dL High Risk :16 TSH [...] 2.0-20.0 Comments: Detection Limit = 1.0Performed at: [facility] [address] [id number] Director: Kar Robison MD, Phone: [phone] :18 TOPIR tTOPIR 4.3 ug/mL (Normal) Range: [...] CHOL 165 mg/dL (Normal) Comments: <200 mg/dL Qvibvqhhx619-136 mg/dL Borderline>240 mg/dL High Risk :33 MEZA 14.9 ug/mL (Normal) Comments: DR BARRETT ORDERED LIPIDDR TEQUILA ORDERED VALPROIC ACID,LAMOTRIGINE,TOPIRAMATE,CMP Range: 2.0-20.0 Comments: Detection Limit = 1.0Performed at: [facility] [address] [id number] Director: Kar Robison MD, Phone: [phone] :33 TOPIR Comments: DR BARRETT ORDERED LIPIDDR [...] CHOL 167 mg/dL (Normal) Comments: <200 mg/dL Wwfutfcal353-497 mg/dL Borderline>240 mg/dL High Risk TRIG 250 [...] 250 nm ol/L)Toxicity >100 ng/mL (250 nmol/L)Effective 201222-Jul-201142-Nkt-365897:05 ABS SCREEN CELL III NEGATIVE (Normal) SCREEN CELL I NEGATIVE (Normal) SCREEN CELL II NEGATIVE (Normal) Ab SCREEN GEL NEGATIVE (Normal) 05-Tqk-735317:05 B12 1099 pg/mL (Abnormal) Range: 211-946 Comments: Performed at: [facility] [address] [id number] Director: Kar Robison MD, Phone: [phone] at: [place] [address]Juh Director: Geno Gamez MD, Phone: [phone] 87-Gii-593620:05 VONDA DIRECT GIOVANY= NEG w/POLYSPECIFIC (Normal) 80-Qlj-586013:05 FDP tFDP NEGATIVE ug/mL (Normal) : ISABEL [...] 2.0-20.0 Comments: Detection Limit = 1.0Performed at: [facility] [employer] [id number] Director: Geno Gamez MD, Phone: [phone] at: [facility] LabCo[address] [id number] Director: Kar Robison MD, Phone: [phone] :13 LIVER Comments: DR VELASQUEZ ORDERED DEPAKOTE,LAMACTIL,TOPAMAX,LIVER [...] D deficiency has been defined by the [place] [employer] and an Endocrine Society practice guideline as alevel of serum 25-OH vitamin D less than 20 ng/mL (1,2).The Endocrine Society went on to further define vitamin Dinsufficiency as a level between 21 and 29 ng/mL (2).1. IOM ([place] [employer]). 2010. Dietary reference intakes for calcium and D. [place]: The National Academies Press.2. Rhys MF, Obi SANTOS, Rosalino BULLOCK, et al. Evaluation, treatment, and prevention of vitamin D deficiency: an Endocrine Society clinical practice guideline. JCEM. 2010; 96(7):1911-30. 4-Okq-095881:04 TSH 3.03 {uIU/mL} (Normal) Range: 0.358-3.74 :56 TSH (THYROID STIMULATING Comments: PATIENT WAS FASTINGPERFORMED BY: [facility] Zgoakj2192 [place] [facility] [id number] HORMONE) (80013) TSH 6.850 {uIU/mL} (Abnormal) Range: 0.450-4.500 :56 CBC & PLATELETS (AUTO) Comments: PATIENT WAS FASTINGPERFORMED BY: [facility] Voqruk1563 [facility] [id number] Information: [id number] (23827) Platelets 322 {x10E3/uL} (Normal) Range: 140-415 RDW 13.5 % (Normal) Range: 11.7-15.0 MCHC 32.7 g/dL (Normal) Range: 32.0-36.0 MCH 31.2 pg (Normal) Range: 27.0-34.0 MCV 95 fL (Normal) Range: 80-98 Hematocrit 39.4 % (Normal) Range: 36.0-50.0 Hemoglobin 12.9 g/dL (Normal) Range: 12.5-17.0 RBC 4.13 {x10E6/uL} (Normal) Range: 4.10-5.60 WBC 8.8 {x10E3/uL} (Normal) Range: 4.0-10.5 :56 LIPID PANEL (41507) Comments: PATIENT WAS FASTINGPERFORMED BY: [employer] [facility] [id number] LDL/HDL Ratio 3.1 {ratio_units} (Normal) Range: 0.0-3.6 LDL Cholesterol Calc 107 mg/dL (Abnormal) Range: 0-99 VLDL Cholesterol Abdirizak 49 mg/dL (Abnormal) Range: 5-40 HDL Cholesterol 35 mg/dL (Abnormal) Comments: According to ATP-III Guidelines, HDL-C >59 mg/dL is considered anegative risk factor for CHD. Triglycerides 245 mg/dL (Abnormal) Range: 0-149 Cholesterol, Total 191 mg/dL (Normal) Range: 100-199 :56 CALCIFEDIOL (69156) Comments: PATIENT WAS FASTINGPERFORMED BY: [employer]6370 [facility] [id number] Vitamin D, 25-Hydroxy 22.0 ng/mL (Abnormal) Range: 32.0-100.0 Comments: Effective January 25, 2011 Vitamin D, 25-Hydroxy reference intervals will be changing to 30-100. .Recent studies consider the lower li liu of 32.0 ng/mL to be athreshold for optimal health.Yonas ARNOLD. J Nutr. 2004;135(2):317-22. :25 LIPID PANEL (77863) Comments: PATIENT WAS FASTINGPERFORMED BY: [employer] Trrxka2882 [facility] [id number] Information: [id number] LDL/HDL Ratio 3.3 {ratio_units} (Normal) Range: 0.0-3.6 HDL Cholesterol 37 mg/dL (Abnormal) Comments: According to ATP-III Guidelines, HDL-C >59 mg/dL is considered anegative risk factor for CHD. LDL Cholesterol Calc 121 mg/dL (Abnormal) Range: 0-99 VLDL Cholesterol Abdirizak 41 mg/dL (Abnormal) Range: 5-40 Triglycerides 203 mg/dL (Abnormal) Range: 0-149 Cholesterol, Total 199 mg/dL (Normal) Range: 100-199 :53 TSH (02093) Comments: do in 3 months; PATIENT WAS FASTINGPERFORMED BY: tsumobi70 [facility] [id number] TSH 3.940 {uIU/mL} (Normal) Range: 0.450-4.500 :53 HEPATIC FUNCTION PANEL Comments: PATIENT WAS FASTINGPERFORMED BY: tsumobi70 [facility] [id number] Information: [id number] (41525) ALT (SGPT) 51 [iU]/L (Normal) Range: 0-55 Alkaline Phosphatase, S 33 [iU]/L (Normal) Range: 25-150 AST (SGOT) 40 [iU]/L (Normal) Range: 0-40 Bilirubin, Direct 0.08 mg/dL (Normal) Range: 0.00-0.40 Albumin, Serum 4.3 g/dL (Normal) Range: 3.5-5.5 Bilirubin, Total 0.2 mg/dL (Normal) Range: 0.0-1.2 Protein, Total, Serum 7.0 g/dL (Normal) Range: 6.0-8.5 :53 LIPID PANEL (51305) Comments: do in 3 months; PATIENT WAS FASTINGPERFORMED BY: [employer]6370 [facility] [id number] LDL/HDL Ratio 2.7 {ratio_units} (Normal) Range: 0.0-3.6 [...] Panel (7) Comments: PATIENT WAS FASTINGPERFORMED BY: [employer] Vezktx5777 [facility] [id number] Alkaline Phosphatase, S 31 [iU]/L (Normal) Range: 25-150 ALT (SGPT) 53 [iU]/L (Normal) Range: 0-55 AST (SGOT) 36 [iU]/L (Normal) Range: 0-40 Bilirubin, Direct 0.09 mg/dL (Normal) Range: 0.00-0.40 Bilirubin, Total 0.3 mg/dL (Normal) Range: 0.0-1.2 Albumin, Serum 4.5 g/dL (Normal) Range: 3.5-5.5 Protein, Total, Serum 7.0 g/dL (Normal) Range: 6.0-8.5 :35 Lipid Panel With LDL/HDL Comments: PATIENT WAS FASTINGPERFORMED BY: [employer] Xhzckp1137 [facility] [id number] Ratio LDL Cholesterol Calc 143 mg/dL (Abnormal) Range: 0-99 LDL/HDL Ratio 4.0 {ratio_units} (Abnormal) Range: 0.0-3.6 VLDL Cholesterol Abdirizak 50 mg/dL (Abnormal) Range: 5-40 Cholesterol, Total 229 mg/dL (Abnormal) Range: 100-199 HDL Cholesterol 36 mg/dL (Abnormal) Comments: According to ATP-III Guidelines, HDL-C >59 mg/dL is considered anegative risk factor for CHD. Triglycerides 249 mg/dL (Abnormal) Range: 0-149 59-Wsf-692504:05 TSH (07460) Comments: PATIENT NOT FASTINGPERFORMED BY: [facility]6370 [facility] [id number] Information: [id number] TSH 3.800 {uIU/mL} (Normal) Range: 0.450-4.500 :21 [...] 7.2 K/mm3 (Normal) Range: 4.4-11.0 :21 LAMOTRIG 351693 7.9 ug/mL (Normal) Comments: ORDERED LIPIDNMR LIVERDR.SAVAGE ORDERED DEPAKOTE LAMACTAL CBC LIVER Range: 2.0-20.0 Comments: Detection Limit = 1.0Performed at: - [employer] Olp4470 [place], [place] [id number] Director: Jez Grullon PhDPerformed at: [facility] LabCo[address] [id number] Director: Kar Robison MD :21 LIVER Comments: [...] 1300; Secondarygoal: Small LDL-P < 527Performed At: U4FrdoZexkqpb [address] [place] [id number] SMALL LDL-P 1111 nmol/L (Abnormal) Comments: . [...] 1300; Secondarygoal: Small LDL-P < 527Performed At: [employer] [address] [id number] xSMLDLP 1111 nmol/L (Abnormal) Comments: . Low < 117 Moderate 117 - 526 Borderline 5 27 - 839 High > 839 . xTRIGLYCERIDES 329 mg/dL (Abnormal) :41 HEPATIC FUNCTION PANEL Comments: PATIENT WAS FASTINGClinical Information: ADD [id number], [id number] PERFORMED BY: [facility] [id number] (10796) Albumin, Serum 4.5 g/dL (Normal) Range: 3.5-5.5 Alkaline Phosphatase, S 36 [iU]/L (Normal) Range: 25-150 ALT (SGPT) 27 [iU]/L (Normal) Range: 0-55 AST (SGOT) 22 [iU]/L (Normal) Range: 0-40 Bilirubin, Direct 0.07 mg/dL (Normal) Range: 0.00-0.40 Bilirubin, Total 0.3 mg/dL (Normal) Range: 0.1-1.2 Protein, Total, Serum 7.0 g/dL (Normal) Range: 6.0-8.5 :41 LIPID PANEL (38189) Comments: do in 3 mo; PATIENT WAS FASTINGPERFORMED BY: [employer] [place] [id number] Cholesterol, Total 235 mg/dL (Abnormal) Range: 100-199 [...] Range: 34-200 Comments: Performed At: [facility]6370 [place], [place] [id number] :25 IRON, SERUM 95 ug/dL (Normal) Range: [...] not intractable, without status epilepticus : Reviewed [employer] Letter Indication: Epilepsy, unspecified, not intractable, without [...] not intractable, without status epilepticus : Reviewed [employer] Letter Indication: Epilepsy, unspecified, not intractable, without [...] not intractable, without status epilepticus : Reviewed [employer] Letter Indication: Epilepsy, unspecified, not intractable, without [...] not intractable, without status epilepticus : Reviewed [employer] Letter Indication: Epilepsy, unspecified, not intractable, without status epilepticus Hypercholesterolemia : Cholesterol mgmt Indication: Hypercholesterolemia Epilepsy, unspecified, not intractable, without status epilepticus : Reviewed [employer] Letter Indication: Epilepsy, unspecified, not intractable, without status epilepticus Epilepsy, unspecified, not intractable, without status epilepticus : Reviewed [employer] Letter Indication: Epilepsy, unspecified, not intractable, without status epilepticus Epilepsy, unspecified, not intractable, without status epilepticus : Reviewed Lab Indication: Epilepsy, unspecified, not intractable, without status epilepticus Epilepsy, unspecified, not intractable, without status epilepticus : Reviewed Diagnostic Tests Indication: Epilepsy, unspecified, not intractable, without status epilepticus Epilepsy, unspecified, not intractable, without status epilepticus : Reviewed [employer] Letter Indication: Epilepsy, unspecified, not intractable, without [...] diabetes mellitus Laceration of scalp : Reviewed [employer] Letter Indication: Laceration of scalp Benign essential [...] not intractable, without status epilepticus : Reviewed [employer] Letter Indication: Epilepsy, unspecified, not intractable, without [...] not intractable, without status epilepticus : Reviewed [employer] Letter Indication: Epilepsy, unspecified, not intractable, without [...] not intractable, without status epilepticus : Reviewed [employer] Letter Indication: Epilepsy, unspecified, not intractable, without [...] injury of chest wall Planned Observations CALCIFIDIOL (76530) VIT D 25Indication: Vitamin D deficiency, unspecified On: :53 Request TSH (06459)Indication: Hypothyroidism On: :53 Request URINALYSIS, W/ MICRO (65032)Indication: Benign essential hypertension On: 82-Byr-598232:53 Request MICROALBUMIN: CREATININE RATIO (53725) AND (77636)Indication: Benign essential hypertension On: 00-Dyd-233572:53 Request METABOLIC PANEL, COMPREHENSIVE (07299)Indication: Benign essential hypertension On: :53 Request LIPID PANEL (13816)Indication: Benign essential hypertension On: :53 Request CBC W/AUTO DIFF WBC (56911)Indication: Benign essential hypertension On: :53 Request CALCIFEDIOL (55217)Indication: Vitamin D deficiency, unspecified On: 8-Mlo-819292:38 Request URINALYSIS, W/ MICRO (01303)Indication: Benign essential hypertension On: 4-Lfs-744400:37 Request MICROALBUMIN: CREATININE RATIO (48108) AND (86543)Indication: Benign essential hypertension On: :37 Request METABOLIC PANEL, COMPREHENSIVE (80801)Indication: Benign essential hypertension On: :37 Request LIPID PANEL (90075)Indication: Hypercholesterolemia On: :37 Request CBC W/AUTO DIFF WBC (83061)Indication: Benign essential hypertension On: :37 Request TSH (94513)Indication: Hypothyroidism On: 5-Aht-441711:37 Request PSA (PROSTATE SPECIFIC ANTIGEN) (V76.44)Indication: Encounter for screening for malignant neoplasm of prostate (Renamed from Screening for prostate cancer) On: 19-Mav-352352:13 Request URINALYSIS, W/ MICRO (74678)Indication: Controlled diabetes mellitus On: 96-Zbc-311533:11 Request MICROALBUMIN: CREATININE RATIO (11793) AND (97272)Indication: Controlled diabetes mellitus On: 17-Ayy-753666:11 Request METABOLIC PANEL, COMPREHENSIVE (01478)Indication: Controlled diabetes mellitus On: 38-Zdy-871930:11 Request CBC W/AUTO DIFF WBC (77226)Indication: Controlled diabetes mellitus On: 56-Czl-871622:11 Request TSH (06911)Indication: Hypothyroidism On: 59-Ban-802179:11 Request CALCIFIDIOL (75142) VIT D 25Indication: Vitamin D deficiency, unspecified On: 14-Upw-164672:10 Request TSH (73476)Indication: Hypothyroidism On: 0-Ese-071013:43 Request T4, FREE (THYROXINE) (09852)Indication: Hypothyroidism On: 0-Ngl-736256:43 Request T3, FREE (TRIDOTHYRONINE) (32902)Indication: Hypothyroidism On: 43 Request Anti-TPO Antibody (52388)Indication: Hypothyroidism On: :36 Request T4, FREE (THYROXINE) (85791)Indication: Hypothyroidism On: :36 Request T3, FREE (TRIDOTHYRONINE) (53645)Indication: Hypothyroidism On: :36 Request TSH (63607)Indication: Controlled diabetes mellitus On: :36 Request URINALYSIS, W/ MICRO (51465)Indication: Benign essential hypertension On: :36 Request MICROALBUMIN: CREATININE RATIO (55490) AND (40898)Indication: Benign essential hypertension On: :36 Request METABOLIC PANEL, COMPREHENSIVE (39609)Indication: Benign essential hypertension On: :36 Request LIPID PANEL (22754)Indication: Hypercholesterolemia On: :36 Request CBC W/AUTO DIFF WBC (39953)Indication: Benign essential hypertension On: :36 Request Blood Glucose , Office (70089)Indication: Controlled diabetes mellitus On: :36 Request HgA1C , Office (17333)Indication: Controlled diabetes mellitus On: :35 Request CALCIFIDIOL (50953) VIT D 25Indication: Vitamin D deficiency, unspecified On: : Request URINALYSIS, W/ MICRO (92240)Indication: Benign essential hypertension On: :19 Request MICROALBUMIN: CREATININE RATIO (33336) AND (50987)Indication: Benign essential hypertension On: :19 Request METABOLIC PANEL, COMPREHENSIVE (15720)Indication: Benign essential hypertension On: : Request CBC W/AUTO DIFF WBC (61501)Indication: Benign essential hypertension On: :19 Request LIPID PANEL (16442)Indication: Hypercholesterolemia On: :19 Request TSH (77728)Indication: Hypothyroidism On: :19 Request CALCIFIDIOL (27130) VIT D 25Indication: Vitamin D deficiency, unspecified On: :46 Request TSH (57447)Indication: Hypothyroidism On: 46 Request URINALYSIS, W/ MICRO (43441)Indication: Controlled diabetes mellitus On: 46 Request MICROALBUMIN: CREATININE RATIO (90749) AND (68206)Indication: Controlled diabetes mellitus On: :46 Request METABOLIC PANEL, COMPREHENSIVE (47267)Indication: Controlled diabetes mellitus On: :46 Request LIPID PANEL (22452)Indication: Hypercholesterolemia On: Request CBC W/AUTO DIFF WBC (54033)Indication: Controlled diabetes mellitus On: Request METABOLIC PANEL, COMPREHENSIVE (27729)Indication: Benign essential hypertension On: :29 Request PSA (PROSTATE SPECIFIC ANTIGEN) (V76.44)Indication: Encounter for screening for malignant neoplasm of prostate (Renamed from Screening for prostate cancer) On: :16 Request CALCIFIDIOL (33917) VIT D 25Indication: Vitamin D deficiency, unspecified On: :14 Request URINALYSIS, W/ MICRO ([id number])Indication: Benign essential hypertension On: :14 Request MICROALBUMIN: CREATININE RATIO ([id number]) AND ([id number])Indication: Benign essential hypertension On: :14 Request METABOLIC PANEL, COMPREHENSIVE (31596)Indication: Benign essential hypertension On: :14 Request CBC W/AUTO DIFF WBC (54742)Indication: Benign essential hypertension On: :14 Request LIPID PANEL (31352)Indication: Hypercholesterolemia On: :14 Request TSH (65864)Indication: Hypothyroidism On: :14 Request Blood Glucose , Office (21174)Indication: Controlled diabetes mellitus On: :09 Request URINALYSIS, W/ MICRO (03674)Indication: Benign essential hypertension On: 12-Ogx-845195:08 Request MICROALBUMIN: CREATININE RATIO (04125) AND ([id number])Indication: Benign essential hypertension On: 62-Wvc-241091:08 Request CALCIFEDIOL (74720)Indication: Unspecified Diagnosis On: :55 Request Vitamin D Hydroxy (12397)Indication: Vitamin D deficiency, unspecified On: : Request TSH ([id number])Indication: Hypothyroidism On: : Request MICROALBUMIN: CREATININE RATIO (89825) AND ([id number])Indication: Benign essential hypertension On: Request METABOLIC PANEL, COMPREHENSIVE (79420)Indication: Benign essential hypertension On: : Request LIPID PANEL (23641)Indication: Hypercholesterolemia On: : Request CBC with auto diff (01098)Indication: Benign essential hypertension On: Request LIPID PANEL (15426)Indication: Hypercholesterolemia On: :34 Request TSH ([id number])Indication: Abnormal TSH On: :33 Request FECAL OCCULT- Tubes sent home (40649)Indication: Anemia, unspecified On: Request GIOVANY TEST, DIRECT (52629)Indication: Anemia, unspecified On: Request FOLIC ACID SERUM (47110)Indication: Anemia, unspecified On: Request Methymalonic Acid, Serum (00363)Indication: Anemia, unspecified On: Request VITAMIN B-12 (CYANOCOBALAMIN) (58805)Indication: Anemia, unspecified On: Request RETICULOCYTE COUNT MANUL (50478)Indication: Anemia, unspecified On: Request LDH (LD) (LACTATE DEHYDROGENASE) (16035)Indication: Anemia, unspecified On: Request IRON BINDING CAPACITY (TIBC) (43270)Indication: Anemia, unspecified On: Request IRON ([id number])Indication: Anemia, unspecified On: Request FERRITIN (41659)Indication: Anemia, unspecified On: Request CBC, PLATELETS & AUT DIFF (81706)Indication: Anemia, unspecified On: 68-Euh-784907:30 Request CALCIFEDIOL (98897)Indication: Vitamin D deficiency, unspecified On: 60-Alc-183441:37 Request MICROALBUMIN: CREATININE RATIO (49099) AND (83028)Indication: Benign essential hypertension On: :36 Request URINALYSIS (32840)Indication: Benign essential hypertension On: :36 Request TSH ([id number])Indication: Hypothyroidism On: :34 Request CBC, Platelets & Auto Diff (04034)Indication: Benign essential hypertension On: :34 Request Metabolic Panel, Comprehensive (97992)Indication: Benign essential hypertension On: :33 Request Valproic Acid (31253)Indication: Epilepsy, unspecified, not intractable, without status epilepticus On: :33 Request Lipid Panel (93722)Indication: Hypercholesterolemia On: :32 Request Vitamin D Hydroxy (65435)Indication: Vitamin D deficiency, unspecified On: :45 Request LIPID PANEL (19942)Indication: Hypercholesterolemia On: :45 Request TSH (62737)Indication: Hypothyroidism On: :45 Request URINALYSIS, W/ MICRO (67938)Indication: Benign essential hypertension On: :45 Request MICROALBUMIN: CREATININE RATIO ([id number]) AND (30944)Indication: Benign essential hypertension On: :45 Request METABOLIC PANEL, COMPREHENSIVE (99212)Indication: Benign essential hypertension On: :45 Request CBC WITH MANUAL DIFF ([id number])Indication: Benign essential hypertension On: :45 Request LIPID PANEL (62343)Indication: Hypercholesterolemia On: 9-Pgj-692558:41 Request LIPID PANEL (60536)Indication: Hypercholesterolemia On: :16 Request Vitamin D Hydroxy (75855)Indication: Vitamin D deficiency, unspecified On: :16 Request URINALYSIS, W/ MICRO (16502)Indication: Benign essential hypertension On: 61-Hus-650747:16 Request MICROALBUMIN: CREATININE RATIO ([id number]) AND (02034)Indication: Benign essential hypertension On: 70-Qhx-915429:16 Request METABOLIC PANEL, COMPREHENSIVE (67092)Indication: Benign essential hypertension On: 18-Vwe-628623:15 Request CBC WITH MANUAL DIFF ([id number])Indication: Benign essential hypertension On: 36-Kgl-576473:15 Request TSH ([id number])Indication: Hypothyroidism On: 38-Gke-683449:08 Request LIPID PANEL (28912)Indication: Hypercholesterolemia On: 31-Umb-584494:08 Request FOLIC ACID SERUM ([id number])Indication: Anemia, unspecified On: 39-Euj-409146:28 Request Fecal Occult Blood , Office (78283)Indication: Anemia, unspecified On: :38 Request FIBRIN DEGRAD QUANTITATV (47985)Indication: Anemia, unspecified On: : Request RETICULOCYTE COUNT ([id number])Indication: Anemia, unspecified On: :38 Request LDH (LD) (LACTATE DEHYDROGENASE) (82955)Indication: Anemia, unspecified On: :38 Request GIOVANY TEST, INDIRECT (60514)Indication: Anemia, unspecified On: 4-Ldr-157040:38 Request GIOVANY TEST, DIRECT ([id number])Indication: Anemia, unspecified On: :38 Request Methylmalonic acid, serum 19859Eljvmhtygj: Anemia, unspecified On: 3-Byb-027098:38 Request Vitamin B-12 (cyanocobalamin) (37263)Indication: Anemia, unspecified On: 1-Sng-610536:37 Request Iron Binding Capacity (TIBC) (46027)Indication: Anemia, unspecified On: 4-Wqn-783537:37 Request Iron (98282)Indication: Anemia, unspecified On: 8-Wie-715373:37 Request Ferritin (72026)Indication: Anemia, unspecified On: 7-Rep-314467:37 Request Folic Acid Serum (35418)Indication: Anemia, unspecified On: 5-Vjf-670122:37 Request MICROALBUMIN: CREATININE RATIO (76275) AND (48716)Indication: Benign essential hypertension On: 06-Cxs-775257:03 Request CBC WITH MANUAL DIFF ([id number])Indication: Benign essential hypertension On: 71-Tdq-992608:03 Request METABOLIC PANEL, COMPREHENSIVE (18592)Indication: Benign essential hypertension On: 54-Ldo-824995:03 Request TSH ([id number])Indication: Hypothyroidism On: 86-Cda-556589:03 Request LIPID PANEL (75383)Indication: Hypercholesterolemia On: 32-Ede-679918:03 Request CALCIFIDIOL (39289) VIT D 25Indication: Vitamin D deficiency, unspecified On: 01-Diu-211468:42 Request TSH ([id number])Indication: Abnormal TSH On: 38-Eht-593570:40 Request MICROALBUMIN: CREATININE RATIO (27328) AND (95811)Indication: Hypothyroidism On: 7-Yjz-103574:39 Request PHENYLKETONES QUALIT (92447)Indication: Epilepsy, unspecified, not intractable, without status epilepticus On: 55-Hxp-944735:12 Request Comments: Diliantin level PSA (PROSTATE SPECIFIC ANTIGEN) ([id number])Indication: Benign essential hypertension On: 82-Wgf-838965:04 Request LIPID PANEL ([id number])Indication: Hypercholesterolemia On: :03 Request HEPATIC FUNCTION PANEL ([id number])Indication: Hypercholesterolemia On: :19 Request LIPOPROTEIN, BLD, BY NMR ([id number])Indication: Hypercholesterolemia On: :19 Request LIPID PANEL ([id number])Indication: Hypercholesterolemia On: 02-Jll-611309:19 Request Comments: do in 3 months LIPOPROTEIN, BLD, BY NMR ([id number])Indication: Hypercholesterolemia On: :28 Request LIPID PANEL ([id number])Indication: Hypercholesterolemia On: 21-Utz-845430:28 Request URINALYSIS W/O MICRO ([id number])Indication: Benign essential hypertension On: 19-Vzr-290124:00 Request TSH ([id number])Indication: Hypothyroidism On: 95-Oag-415529:00 Request MICROALBUMIN: CREATININE RATIO (51784) AND ([id number])Indication: Benign essential hypertension On: 05-Naa-396310:00 Request METABOLIC PANEL, COMPREHENSIVE ([id number])Indication: Benign essential hypertension On: 93-Nps-506381:00 Request LIPID PANEL ([id number])Indication: Benign essential hypertension On: 04-Koz-020329:00 Request CBC WITH MANUAL DIFF ([id number])Indication: Benign essential hypertension On: 33-Wte-469517:00 Request URINALYSIS W/O MICRO ([id number]) On: 39-Fxt-009353:50 Request MICROALBUMIN URINE QUANT ([id number]) On: 84-Wur-099532:49 Request LIPID PANEL ([id number]) On: 55-Xqx-384579:49 Request CBC WITH MANUAL DIFF ([id number]) On: 79-Ecz-977994:49 Request TSH ([id number])Indication: Hypothyroidism On: :49 Request Lipid Panel (98827)Indication: Hypercholesterolemia On: 0-Cim-837609:17 Request VITAMIN B-12 (CYANOCOBALAMIN) ([id number])Indication: Anemia, unspecified On: 1-Nzk-161020:12 Request RETICULOCYTE COUNT MANUL ([id number])Indication: Anemia, unspecified On: 2-Ive-240972:12 Request LDH (LD) (LACTATE DEHYDROGENASE) (14549)Indication: Anemia, unspecified On: 6-Hea-767795:12 Request IRON BINDING CAPACITY (TIBC) (07651)Indication: Anemia, unspecified On: 2-Xrw-097874:12 Request IRON ([id number])Indication: Anemia, unspecified On: 1-Umb-076313:12 Request FOLIC ACID SERUM (40265)Indication: Anemia, unspecified On: 0-Rxd-224856:12 Request HAPTOGLOBIN ([id number])Indication: Anemia, unspecified On: 4-Cbr-076674:12 Request FERRITIN ([id number])Indication: Anemia, unspecified On: 2-Ydc-768107:12 Request CBC, PLATELETS & AUT DIFF ([id number])Indication: Anemia, unspecified On: 1-Tsk-093797:12 Request CBC WITH MANUAL DIFF ([id number])Indication: Anemia, unspecified On: 11-Anb-992011:27 Request TSH ([id number])Indication: Hypothyroidism On: 12-Kfp-202849:25 Request LIPID PANEL ([id number])Indication: Hypercholesterolemia On: 30-Qio-784636:25 Request Planned Encounters Medical; 6 Month FU - On: 26-Apr-2018 13:15 [facility] Valencia Barrett DO, DO, Kathleen Planned Procedures Flu Vaccine (Quadrivalent) On: 03-Jan-2017 Intent 07569Dp: Valencia Barrett DO Comments: Lot #[id number]/22/17ite-L dltd, IMDose prefilled syringegiven by:SAL Pedroza and ABN signed Valencia Barrett DO ELECTROCARDIOGRAM, COMPLETE On: 03-Jan-2017 Intent (ECG) ([id number])By: Arnold HILL, Comments: nsr no acute chg - Valencia Arnold DO, Valencia Flu Vaccine (Quadrivalent) On: 01-Jan-2015 Intent 15086Vj: Valencia Barrett DO Comments: Lot:[id number]:09/04/15Amt:0.5mlRoute:IMSite: L DltdGiven By: SAL Escobedo signed Valencia Barrett DO EKG (30577)By: Arnold HILL, On: 14-Dec-2013 Intent Valenciasixto Barrett DO Valencia Comments: nsr no acute chg ADMINISTRATION OF INFLUENZA On: 14-Dec-2013 Intent VIRUS VACCINE (G0008)By: Arnold Comments: Lot #[id number]-L dltd, IMDose prefilled syringegiven by:SAL Pedroza and ABN signed DO, Valencia Arnold DO, Valencia FLU VAC, SPLIT, >3 YEARS, On: 14-Dec-2013 Intent INTRAMUSC (88035)By: Valencia Barrett DO, DO Valencia ADMINISTRATION OF INFLUENZA On: 11-Dec-2012 Intent VIRUS VACCINE (G0008)By: Arnold Comments: Lot:[id number]:6.14Amt:0.5mLSite: L Dltd, IMGiven by: SAL Leal signed DO, Valencia Arnold DO, Valencia EKG ([id number])By: Arnold HILL, On: 11-Dec-2012 Intent Valenciapat Barrett DOMiaValencia Comments: nsr no acute chg Eprescribed prescriptions On: 11-Dec-2012 Intent (G8553)By: Valencia Barrett DO Arnold DO, Valencia FLU VAC, SPLIT, >3 YEARS, On: 11-Dec-2012 Intent INTRAMUSC (86418)By: Valencia Barrett DO Arnold DO, Valencia Eprescribed prescriptions On: 26-Apr-2012 Intent (G8553)By: Valencia Barrett DO, DO, Kathleen EKG (29931)By: Arnold HILL, On: 20-Dec-2011 Intent Valencia Taylor DO Comments: no acute chg/ nsr EKG (53171)By: Arnold HILL, On: 16-Dec-2010 Intent Valencia Taylor DO Comments: nsr no acute chg TDAP VACCINE >7 IM ([id number])By: On: 16-Dec-2010 Intent Valencia Barrett DO, DO, Kathleen FLU VAC, SPLIT, >3 YEARS, On: 05-Dec-2010 Intent INTRAMUSC (89533)By: Sherry, Comments: had already Delilah SALAZAR IMMUNIZ ADMNIN, 1 VAC, On: 10-Dec-2009 Intent SNGL/COMBO ([id number])By: Delilah Powell LPN FLU VAC, SPLIT, >3 YEARS, On: 10-Dec-2009 Intent INTRAMUSC (14611)By: Sherry, Comments: Lot #[id number]-4/11Site-L armDose0.5mlgiven by:BRADLEY Mazariegos LPN EKG (63593)By: Arnold HILL, On: 18-Jun-2009 Intent Valencia Taylor DO Comments: NSR NO ACUTE CHAGNES EKG (95676)By: Arnold HILL, On: 26-Jun-2008 Intent Valencia Taylor DO Comments: nsr no acute EKG (08755)By: Arnold HILL, On: 05-Jul-2007 Intent Valencia Taylor DO Comments: NSR NO ACUTE ISCHEMIC CHANGES EKG (76835)By: Arnold HILL, On: 25-May-2006 Intent Valencia Taylor [...] patient does not have durable power of senior attorney or living will. Other providers contributing [...] patient does not have durable power of senior attorney or living will. The patient has [...] patient does not have durable power of senior attorney or living will. The patient has [...]
--- OUTSIDE RECORDS SUMMARY | 2018-03-31 18:25 | XMS RPT_ITS ---
:1975 Author Organization OHIP Care Team Providers Name Role Phone Valencia Sánchez Primary Care Unavailable Corazon Morris Attending Unavailable Adam Velasquez Attending Unavailable Adam Velasquez Referring Unavailable Princess Valencia Primary Care Unavailable Princess Valencia Primary Care Unavailable Ramses Roque Attending Unavailable Princess, Valencia Primary Care Unavailable Corazon Morris Attending Unavailable Adam Velasquez Attending Unavailable Adam Velasquez Referring Unavailable Princess, Valencia Primary Care Unavailable PROBLEMS PROBLEMS DATE TYPE CONDITION / CODE ATTENDING STATUS SOURCE 2018 Unknown G40.019 - Adam Velasquez Active [place] Localization-rela [facility] (focal) [facility] (partial) 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, intractable, without status epilepticus / G40.019(ICD-10) PROCEDURES PROCEDURES No Procedure Records FoundRESULTS RESULTS VALPROIC ACID Collected: 02/04/2018 Status: F Source: [place] (DEPAKENE) LEVEL 7:32 AM [facility] REPOSITORY TYPE CODE TESTS RESULT OUT OF RANGE REFERENCE UNITS LAB L501.8100 50-100 ug/mL Normal VALPROIC ACID 88 Performed By: #### L501.8100 #### [facility] [address] [place], [address] LAMOTRIGINE (LAMICTAL) Collected: 02/04/2018 Status: F Source: [place] LEVEL 7:32 AM [facility] REPOSITORY TYPE CODE TESTS RESULT OUT OF RANGE REFERENCE UNITS LAB L3300.4400 2.0-20.0 ug/mL Normal LAMOTRIG 13.8 [id number] Result Comment: Detection Limit = 1.0 Performed at: [address] [id number] Cardroom Supervisor: Marlys Paz MD, Phone: [phone] Performed By: #### L3300.4400, L3380.1400 #### [facility] (refer to report for specific site) refer to report for address and phone number TOPIRAMATE, SERUM Collected: 02/04/2018 Status: F Source: [place] 7:32 AM [facility] REPOSITORY TYPE CODE TESTS RESULT OUT OF RANGE REFERENCE UNITS LAB L3380.1500 2.0-25.0 ug/mL Normal TOPIRAMATE 11.8 Result Comment: Detection Limit = 1.0 Performed By: #### L3300.4400, L3380.1400 #### [facility] (refer to report for specific site) refer to report for address and phone number MISCELLANEOUS LAB Collected: 02/04/2018 Status: F Source: [place] PROCEDURE 7:32 AM [facility] REPOSITORY Order Comment: Comments: [id number] Clobazam, Serum or Plasma Test(s) Ordered: [id number] Clobazam, Serum or Plasma TYPE CODE TESTS RESULT OUT OF RANGE REFERENCE UNITS LAB L801.1541 Normal [facility] LAB TEST Result Comment: TEST RESULT LIMITS Clobazam (ONFI) Clobazam 45 ng/mL 30 - 300 Desmethylclobazam 194 Low ng/mL 300 - 3000 This test was developed and its performance characteristics determined by [facility]. It has not been cleared or approved by the Food and Drug Administration. TESTING PERFORMED AT [facility]. ORIGINAL REPORT ON FILE IN LAB CONTAINS ADDITIONAL TEST SITE INFORMATION. Performed By: #### L801.1541 #### [facility] [address] [place], [address] EMERGENCY DEPARTMENT Observed: 11/26/2017 Status: F Source: J[place] SUMMARY 1:09 AM [facility] REPOSITORY [facility] Medical Records Department [address] [place] [address] Emergency Department Summary 11/25/17 1628 MR#: [id number] Acct: [id number] Name: RAGHU LOPEZ Rep #: [id number] : 1975 42 From: Corazon Morris MD PCP: Valencia Sánchez DO Status: DEP ER - ER Visit Summary Date of Service: 11/25/17 Chief Complaint: Seizure History of Present Illness: The patient is a 42 M brought in by paramedics after a seizure. Patient has daily seizures. Per the [facility] policy if his seizure last longer than 5 minutes he has to be evaluated. Staff estimates the seizure lasted approximately 10-12 minutes followed by a postictal period. There is been no recent change to his seizure medications. Patient follows with Dr. Velasquez. Physical Examination: Vital signs are unremarkable. Patient sitting upright in bed no acute distress. Head neck examination is unremarkable. There is no tongue injury. Heart is regular rate and rhythm. Lung sounds are clear. Abdomen is soft nontender. Neuro exam reveals no focal deficits. Test Results: Blood sugar was measured by paramedics and was 93. Valproic acid level here is 80. Lamictal and Topamax levels were sent out. Emergency Department Course and Treatment: Patient has been observed for an hour and a half and remains at baseline. Mother was advised she would receive a call if his levels return this weekend and are abnormal. Treatment Plan: [] Disposition: Discharge Impression: Seizure with history of epilepsy This note was generated with MitoGeneticsation software. It may contain incorrect words, spelling, and punctuation that were not noted in review of the chart prior to signing ED Disposition - Plan for ED Patient: Chief Complaint: Seizure Referrals: Valencia Sánchez DO [Primary Care Provider] - What to do if you have Problems For any increased pain, shortness of breath, bleeding, nausea or vomiting, chest pain, or any unexpected problems, contact your Primary Care Provider. Call [facility] ([phone]) or report to the closest Emergency Room. Call 911 if necessary. 11/26/17 010 <Electronically signed by Corazon Morris MD> Date Corazon Morris MD Cosigner Signature (If Indicated): Date CC: Valencia Sánchez DO DISCHARGE INSTRUCTION Observed: 11/25/2017 Status: F Source: JORDAN 5:49 PM [facility] REPOSITORY [facility] Medical Records Department [address] [place] [address] Discharge Instruction 11/25/171747 MR#: [id number] Acct: [id number] Name: RAGHU LOPEZ Rep #: [id number] : 1975 42 From: Corazon Morris MD PCP: Valencia Sánchez DO Status: REG ER ED Disposition - Plan for ED Patient: Disposition: Home or Assisted Living Chief Complaint: Seizure Instructions: ED Seizure Recurrent Referrals: Adam Velasquez MD [STAFF PHYSICIAN] - What to do if you have Problems For any increased pain, shortness of breath, bleeding, nausea or vomiting, chest pain, or any unexpected problems, contact your Primary Care Provider. Call [facility] ([phone]) or report to the closest Emergency Room. Call 911 if necessary. 11/25/171748 <Electronically signed by Corazon Morris MD> Date Corazon Morris MD Cosigner Signature (If Indicated): Date CC: Valencia Sánchez DO VALPROIC ACID Collected: 11/25/2017 Status: F Source: [place] (DEPAKENE) LEVEL 4:40 PM [facility] REPOSITORY TYPE CODE TESTS RESULT OUT OF RANGE REFERENCE UNITS LAB L501.8100 50-100 ug/mL Normal VALPROIC ACID 80 Performed By: #### L501.8100 #### [facility] [address] [place], [address] LAMOTRIGINE (LAMICTAL) Collected: 11/25/2017 Status: F Source: [place] LEVEL 4:40 PM [facility] REPOSITORY TYPE CODE TESTS RESULT OUT OF RANGE REFERENCE UNITS LAB L3300.4400 2.0-20.0 ug/mL Normal LAMOTRIG 10.0 [id number] Result Comment: Detection Limit = 1.0 Performed at: - [facility] [id number] Cardroom Supervisor: Kar Robison MD, Phone: [phone] Performed By: #### L3300.4400, L3380.1400 #### [facility] (refer to report for specific site) refer to report for address and phone number TOPIRAMATE, SERUM Collected: 11/25/2017 Status: F Source: JORDAN 4:40 PM [facility] REPOSITORY TYPE CODE TESTS RESULT OUT OF RANGE REFERENCE UNITS LAB L3380.1500 2.0-25.0 ug/mL Normal TOPIRAMATE 14.6 Result Comment: Detection Limit = 1.0 Performed By: #### L3300.4400, L3380.1400 #### [facility] (refer to report for specific site) refer to report for address and phone number EMERGENCY DEPARTMENT Observed: 07/19/2017 Status: F Source: [place] SUMMARY 2:18 PM [facility] REPOSITORY [facility] Medical Records Department [address] [place] [address] Emergency Department Summary 07/19/17 1416 MR#: [id number] Acct: [id number] Name: RAGHU LOPEZ Rep #: [id number] : 1975 42 From: Ramses Roque MD PCP: Valencia Sánchez DO Status: PRE ER - ER Visit Summary Date of Service: 07/19/17 Chief Complaint: Seizure History of Present Illness: The patient is a 42 M who presents after a seizure. He has a known seizure disorder and is on multiple antiepileptics. He actually has daily seizures. However his seizure today lasted greater than 5 minutes and per the facilities protocol he needs to be sent to the ER if seizure lasts greater than 5 minutes. The seizure did terminate on its own. He was postictal for about 15 minutes but is currently back to baseline with no complaints. [...] examination. Patient discharged. Treatment Plan: [] Disposition: Discharge Impression: Seizure This note was generated with 3DSoC dictation software. It may contain incorrect words, spelling, and punctuation that were not noted in review of the chart prior to signing ED Disposition - Plan for ED Patient: Chief Complaint: Seizure Referrals: Valencia Sánchez DO [Primary Care Provider] - What to do if you have Problems For any increased pain, shortness of breath, bleeding, nausea or vomiting, chest pain, or any unexpected problems, contact your Primary Care Provider. Call [facility] ([phone]) or report to the closest Emergency Room. Call 911 if necessary. 07/19/17 1418 <Electronically signed by Ramses Roque MD> Date Ramses Roque MD Cosigner Signature (If Indicated): Date CC: Valencia Sánchez DO DISCHARGE INSTRUCTION Observed: 07/19/2017 Status: F Source: [place] 2:18 PM [facility] REPOSITORY [facility] Medical Records Department [address] [place] [address] Discharge Instruction 07/19/17 1418 MR#: [id number] Acct: [id number] Name: RAGUH LOPEZ Rep #: [id number] : 1975 42 From: Ramses Roque MD PCP: Valencia Sánchez DO Status: PRE ER ED Disposition - Plan for ED Patient: Chief Complaint: Seizure Instructions: ED Seizure Recurrent Referrals: Valencia Sánchez DO [Primary Care Provider] - What to do if you have Problems For any increased pain, shortness of breath, bleeding, nausea or vomiting, chest pain, or any unexpected problems, contact your Primary Care Provider. Call [facility] ([phone]) or report to the closest Emergency Room. Call 911 if necessary. 07/19/17 1418 <Electronically signed by Ramses Roque MD> Date Ramses Roque MD Cosigner Signature (If Indicated): Date CC: Valencia Sánchez DO CBC W/DIFF, AUTOMATED Collected: 05/21/2017 Status: C Source: [place] 7:16 AM [facility] REPOSITORY Order Comment: DR VELASQUEZ ORDERED TOPAMAX DEPAKOTE LAMICTAL ONLY TYPE CODE TESTS RESULT OUT OF RANGE REFERENCE UNITS LAB L100.1000 4.4-11.0 K/mm3 Normal WBC 6.3 LAB L100.1200 4.6-6.2 M/mm3 Low RBC 3.85 LAB L100.1300 13.0-16.5 g/dl Low HGB 12.6 LAB L100.1400 40-54 % Low HCT 38.7 LAB L100.1500 80-94 fL High MCV 100.5 LAB L100.1600 27.0-32.0 pg High MCH 32.7 LAB L100.1700 32-36 g/gl Normal MCHC 32.6 LAB L100.1810 11.6-14.6 % Normal RDW CV 13.0 LAB L100.1820 35.1-43.9 fl High RDW SD 47.2 LAB L100.1900 150-450 K/mm3 Normal PLT 236 LAB L100.2000 6.2-12.0 fl Normal MPV 10.0 LAB L100.2100 47-70 % Low NEUT% 36.2 LAB L100.2200 19-41 % High LY% 49.1 LAB L100.2300 0-10 % Normal MONO% 10.0 LAB L100.2400 0-5 % Normal EO% 1.6 LAB L100.2500 0-1 % Normal BASO% 0.6 LAB L100.2550 0.0-0.9 % High IM GRAN % 2.500 Result Comment: IG% - Immature Granulocytes (promyelocytes, myelocytes and metamyelocytes) > 1% indicates that a LEFT SHIFT is Present. LAB L100.2620 2.0-7.7 X10 3/uL Normal Absolute Neut 2.3 LAB L100.2720 0.83-4.51 X10 3/ul Normal Absolute Lymph 3.10 LAB L100.9900 Normal PATH REV Reviewed Result Comment: Neutrophilic left shift. Macrocytosis Clinical correlation necessary. Ken Pearl M.D. 05/23/17 Pathologist comment added AMENDED REPORT 05/23/17 1244 PATH REV previously reported as: July salomon Performed By: #### L100.0100 #### [facility] [address] [place], [address] VALPROIC ACID Collected: 05/21/2017 Status: F Source: JORDAN ([facility]) LEVEL 7:16 AM [facility] REPOSITORY TYPE CODE TESTS RESULT OUT OF RANGE REFERENCE UNITS LAB L501.8100 50-100 ug/mL Normal VALPROIC ACID 78 Performed By: #### L501.8100 #### [facility] [address] [place], [address] LIPID PROFILE Collected: 05/21/2017 Status: F Source: [place] 7:16 AM [facility] REPOSITORY Order Comment: DR VELASQUEZ ORDERED TOPAMAX DEPAKOTE LAMICTAL ONLY TYPE CODE TESTS RESULT OUT OF RANGE REFERENCE UNITS LAB L501.4900 200 mg/dL High CHOL 236 Result Comment: <200 mg/dL Desirable 200-240 mg/dL Borderline >240 mg/dL High Risk LAB L501.5000 mg/dL High TRIG 551 Result Comment: The drugs N-Acetylcysteine and Metamizole may falsely depress this assay. TRIGLYCERIDE IS GREATER THAN 400 mg/dL. LDL RESULT IS INVALID AND WILL NOT BE REPORTED. Serum Triglycerides Reference Interval Normal <150 mg/dL Borderline high 150 - 199 mg/dL High 200 - 499 mg/dL Very High > or = 500 mg/dL LAB L501.6400 mg/dL Low HDL 26 Result Comment: The drugs N-Acetylcysteine and Metamizole may falsely depress this assay. Reference Range HDL <40 mg/dL Low HDL Cholesterol HDL >or= 60 mg/dL High HDL Cholesterol LAB L501.6500 0-130 mg/dL Test Normal not performed LDL LAB L501.6600 5-40 mg/dL Test Normal not performed VLDL Performed By: #### L500.4100, L501.9520 #### [facility] [address] [place], [address] THYROID STIM HORMONE Collected: 05/21/2017 Status: F Source: [place] (TSH) 7:16 AM [facility] REPOSITORY Order Comment: DR VELASQUEZ ORDERED TOPAMAX DEPAKOTE LAMICTAL ONLY TYPE CODE TESTS RESULT OUT OF RANGE REFERENCE UNITS LAB L501.9520 0.358-3.74 uIU/mL High TSH 4.29 Performed By: #### L500.4100, L501.9520 #### [facility] [address] [place], [place], [address] VITAMIN D,25 HYDROXY Collected: 05/21/2017 Status: F Source: [place] 7:16 AM [facility] REPOSITORY Order Comment: DR VELASQUEZ ORDERED TOPAMAX DEPAKOTE LAMICTAL ONLY TYPE CODE TESTS RESULT OUT OF RANGE REFERENCE UNITS LAB L506.1000 29.95-100.01 ng/mL Normal Vitamin D 38.1 25-OH Result Comment: Vitamin D 25(OH) Status Range Deficiency <20 ng/mL (50nmol/L) Insuffciency 20 - 30 ng/mL (50 - 75 nmol/L) Sufficiency 30 - 100 ng/mL (75 - 250 nmol/L) Toxicity >100 ng/mL (>250 nmol/L) Performed By: #### L506.1000 #### [facility] [address] [place], [address] LAMOTRIGINE (LAMICTAL) Collected: 05/21/2017 Status: F Source: [place] LEVEL 7:16 AM [facility] REPOSITORY Order Comment: DR VELASQUEZ ORDERED TOPAMAX DEPAKOTE LAMICTAL ONLY TYPE CODE TESTS RESULT OUT OF RANGE REFERENCE UNITS LAB L3300.4400 2.0-20.0 ug/mL Normal LAMOTRIG 11.1 [id number] Result Comment: Detection Limit = 1.0 Performed at: [facility] [id number] Cardroom Supervisor: Kar Robison MD, Phone: [phone] Performed By: #### L3300.4400, L3380.1400 #### [facility] (refer to report for specific site) refer to report for address and phone number TOPIRAMATE, SERUM Collected: 05/21/2017 Status: F Source: [place] 7:16 AM [facility] REPOSITORY Order Comment: DR VELASQUEZ ORDERED TOPAMAX DEPAKOTE LAMICTAL ONLY TYPE CODE TESTS RESULT OUT OF RANGE REFERENCE UNITS LAB L3380.1500 2.0-25.0 ug/mL Normal TOPIRAMATE 8.8 Result Comment: Detection Limit = 1.0 Performed By: #### L3300.4400, L3380.1400 #### [facility] (refer to report for specific site) refer to report for address and phone number 12 LEAD ELECTROCARDIOGRAM Observed: 05/20/2017 Status: F Source: [place] 1:20 PM [facility] Cardiovascular Services [address] [place] [address] 12 Lead EKG 05/17/17 1604 MR#: [id number] Acct: [id number] Name: RAGHU LOPEZ Rep #: [id number] : 1975 42 From: Mark Flores MD Attending Dr: Status: DEP ER Ordering Dr: Corazon Morris MD Date: 05/17/17 Location: ED Sex: M C Admitted: Test Reason : CP Blood Pressure : / mmHG Vent. Rate : 086 BPM Atrial Rate : 086 BPM P-R Int : 172 ms QRS Dur : 086 ms QT Int : 346 ms P-R-T Axes : 033 040 052 degrees QTc Int : 414 ms Normal sinus rhythm Normal ECG Confirmed by MARK FLORES MD ([id number]), fan mail editor LORETA GARCIA ([id number]) on 05/20/2017 1:20:03 PM Referred By: EKATERINA Confirmed By:MARK FLORES MD 05/20/17 1320 Date Mark Flores MD CC: Corazon Morris MD; Valencia Sánchez DO Signed EMERGENCY DEPARTMENT Observed: 05/18/2017 Status: F Source: JORDAN SUMMARY 12:16 AM [facility] Medical Records Department [address] [place] [address] Emergency Department Summary 05/17/17 1614 MR#: [id number] Acct: [id number] Name: RAGHU LOPEZ Rep #: [id number] : 1975 42 From: Corazon Morris MD PCP: Valencia Sánchez DO Status: DEP ER - ER Visit Summary Date of Service: 05/17/17 Chief Complaint: Chest pain History of Present Illness: The patient is a 42 M who reported 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 Per family and staff members at bedside, the traffic and transport planner pulled over and called 911. When EMS arrived patient had no complaints. They estimate symptoms lasted less than 5 minutes. He does reportedly state there was some shortness of breath during the episode, but denies any complaint at this time. Mother does state the patient had a heart cath in the past to evaluate his valves. I do not have record of this to review. Physical Examination: Vital signs are unremarkable. Patient sitting upright in bed no acute distress. Head and neck examination is unremarkable. Heart is regular rate and rhythm. There is no chest wall tenderness. Lungs are clear with good air movement. Abdomen is soft nontender. Lower exam examination was no significant edema or calf tenderness. Test Results: EKG is sinus 86 with no sign of acute ischemia. Two-view chest x-ray is unremarkable. Emergency Department Course and Treatment: Patient has had no recurrent symptoms here. His pain was extremely brief and I do not feel significant laboratory evaluation is necessary. This was discussed with mother at bedside. Treatment Plan: [] Disposition: Discharge Impression: Atypical chest pain, resolved This note was generated with 3DSoC dictation software. It may contain incorrect words, spelling, and punctuation that were not noted in review of the chart prior to signing ED Disposition - Plan for ED Patient: Chief Complaint: Chest Pain Referrals: Valencia Sánchez, [Primary Care Provider] - What to do if you have Problems For any increased pain, shortness of breath, bleeding, nausea or vomiting, chest pain, or any unexpected problems, contact your Primary Care Provider. Call [facility] ([phone]) or report to the closest Emergency Room. Call 911 if necessary. 05/18/17 0016 <Electronically signed by Corazon Morris MD> Date Corazon Morris MD Cosigner Signature (If Indicated): Date CC: Valencia Sánchez DO DISCHARGE INSTRUCTION Observed: 05/17/2017 Status: F Source: JORDAN 4:52 PM [facility] REPOSITORY [facility] Medical Records Department [address] [place] [address] [place] [address] Discharge Instruction 05/17/17 165 MR#: [id number] Acct: [id number] Name: RAGHU LOPEZ Rep #: [id number] : 1975 42 From: Corazon Morris MD PCP: Valencia Sánchez DO Status: REG ER ED Disposition - Plan for ED Patient: Disposition: Home or Assisted Living Chief Complaint: Chest Pain Instructions: ED Chest Pain Atypical Unkn Cause Referrals: Valencia Sánchez DO [Primary Care Provider] - As Needed What to do if you have Problems For any increased pain, shortness of breath, bleeding, nausea or vomiting, chest pain, or any unexpected problems, contact your Primary Care Provider. Call [facility] ([phone]) or report to the closest Emergency Room. Call 911 if necessary. 05/17/171651 <Electronically signed by Corazon Morris MD> Date Corazon Morris MD Cosigner Signature (If Indicated): Date CC: Valencia Sánchez DO CHEST PA AND LATERAL Observed: 05/17/2017 Status: F Source: JORDAN 4:12 PM [facility] REPOSITORY [facility] Imaging Services [address] [place] [address] Chest PA and Lateral MR#: [id number] Acct: [id number] Name: RAGHU LOPEZ Rep #: [id number] : 1975 M 42 From: Danny Taylor MD PCP: Valencia Sánchez DO Status: REG ER Study: Chest PA and Lateral Date of Exam: 05/17/17 Exam# [id number] Ordering Dr: Corazon Morris MD STUDY: X-RAY CHEST REASON FOR EXAM: Male, 42 years old. Chest pain TECHNIQUE: Frontal and lateral views of the chest. COMPARISON: None. FINDINGS: The lungs are clear and expanded. There is no demonstrated pleural abnormality. Normal size heart. Normal mediastinum and nathalie. Normal visualized pulmonary arteries. Normal visualized aortic arch and descending thoracic aorta. Normal visualized thoracic spine. Normal visualized ribs, clavicles, and shoulders. There is no demonstrated abnormality of the visualized soft tissue structures of the upper abdomen. RAD/Chest PA and Lateral IMPRESSION: Normal x-ray examination of the chest. 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 ALLERGIES ALLERGIES DATE TYPE / CODE NAME / CODE REACTION SEVERITY SOURCE 11/25/2017 Drug carbamazepin Rash Unknown [place] Allergy/161859137(S e/[id number] [facility] NOM[facility]) (RXNORM) Hospital Repository 11/25/2017 Drug gabapentin/F Unknown Unknown [place] Allergy/355704536(S [id number](RX [facility] NOM[facility]) NORM) Hospital Repository 11/25/2017 Miscellaneous HORSES Itching Unknown [place] Allergy/350882685(S [facility] NOM[facility]) Hospital Repository ENCOUNTERS ENCOUNTERS ADMIT/DISCHARGE ACCOUNT ADMITTING ENCOUNTER LOCATION SOURCE NUMBER CLASS 02/04/2018 [id number] Ambulatory [place] 9 [facility] ing:LAB Repository 11/25/2017/ [id number] Emergency [place] 8 2 [facility] ing:ED Repository 07/19/2017/ [id number] Emergency [place] 8 [facility] ing:ED Repository 05/21/2017 [id number] Ambulatory [place] 1 [facility] ing:LAB Repository 05/17/2017/ [id number] Emergency [place] 8 9 [facility] ing:ED Repository PAYERS PAYERS ENCOUNTER GUARANTOR PAYER SUBSCRIBER SOURCE 02/04/2018 RAGHU [id number] Primary RAGHU S SLOANDOB: [place] Insurance:MEDICARE [id number] [address]Nnx: (330) Number: Repository [phone] () [id number] Date:2018-02-04 02/04/2018 Secondary RAGHU S SLOANDOB: [place] Insurance:MEDICAID[place] [id number] Community icy Number: Hospital [id number] Repository Date:2018-02-04 02/04/2018 Tertiary NOT GIVENUNK [place] Insurance:SELF PAY [facility]: Effective Repository Date:2018-02-04 11/25/2017 Raghu S [id number] Primary Raghu S SloanDOB: [place] Insurance:MEDICARE [id number] [address]Xzx: (330) Number: Repository [phone] () [id number] Date:2017-11-25 11/25/2017 Secondary Raghu S SloanDOB: [place] Insurance:[place] [id number] Community icy Number: Hospital [id number] Repository Date:2017-11-25 11/25/2017 Tertiary NOT GIVENUNK [place] Insurance:SELF PAY [facility] Number: Effective Repository Date:2017-11-25 07/19/2017 Raghu S [id number] Primary Raghu S SloanDOB: [place] Insurance:MEDICARE [id number] [address]Ols: (330) Number: Repository [phone] () [id number] Date:2017-07-19 07/19/2017 Secondary Raghu S SloanDOB: [place] Insurance[place] [id number] Community ic Number: Hospital [id number] Repository Date:2017-07-19 07/19/2017 Tertiary NOT GIVENUNK [place] Insurance:SELF PAY [facility] Effective Repository Date:2017-07-19 05/21/2017 Rgahu S [id number] Primary Raghu S SloanDOB: [place] Insurance:[facility]ICARE [id number] [address]Dmz: [phone]) Number: Repository [phone] () [id number] Date:2017-05-21 05/21/2017 Secondary Raghu S SloanDOB: Mary Kate Insurance:MEDICAIDPol [id number] [id number] Repository Date:2017-05-21 05/21/2017 Tertiary NOT GIVENUNK Mary Kate Insurance:SELF PAY [facility] Number: Effective Repository Date:2017-05-21 05/17/2017 Raghu S [id number] Primary Raghu S SloanDOB: [place] Insurance:MEDICARE [id number] [address]Gsg: [phone]) Number: Repository [phone] () [id number] Date:2017-05-17 05/17/2017 Secondary Raghu S SloanDOB: [place] Insurance:MEDICAIDPol [id number] [facility] Number: Hospital [id number] Repository Date:2017-05-17 05/17/2017 Tertiary NOT GIVENUNK Mary Kate Insurance:SELF PAY [facility] Effective Repository Date:2017-05-17
== END ==
PROVIDERS: Family Provider Internal Medicine; PCP Internal Medicine; Referring Provider Psychiatry & Neurology Neurology; Visit Provider Psychiatry & Neurology Neurology
DX: G40.019 Localization-related (focal) (partial) idiopathic epilepsy and epileptic syndromes with seizures of localized onset, intractable, without status epilepticus (principal); G40.319 Generalized idiopathic epilepsy and epileptic syndromes, intractable, without status epilepticus
CPT/HCPCS: 36415; 80164; 80201; 82542

== ENCOUNTER → 2018-04-15 07:03 | Outpatient (CLI) | payer MEDICARE, MEDICAID, SELFPAY ==
[2018-04-15 08:25] LABS: Absolute Neutrophil Count 2.3 X10^3/uL (2.0-7.7); Basophil# 0.03 X10^3/uL; Basophil% 0.4 % (0-1); Eosinophil# 0.09 X10^3/uL; Eosinophils% 1.3 % (0-5); Hematocrit 37.9 % (40-54); Hemoglobin 11.9 g/dl (13.0-16.5); Lymphocyte % 53.3 % (19-41); Mean Corp Hgb Conc 31.4 g/gl (32-36); Mean Corpuscular Hgb 32.5 pg (27.0-32.0); Mean Corpuscular Volume 103.6 fL (80-94); Mean Platelet Vol. 9.5 fl (6.2-12.0); Monocyte# 0.62 X10^3/uL; Monocyte% 9.2 % (0-10); Neutrophil # 2.29 X10^3/uL (2.7-7.7); Neutrophil % 33.9 % (47-70); Platelet Count 233 K/mm3 (150-450); RBC Distribution Width SD 47.5 fl (35.1-43.9); Red Blood Count 3.66 M/mm3 (4.6-6.2); White Blood Count 6.8 K/mm3 (4.4-11.0)
[2018-04-15 08:32] LABS: POSITIVE COUNT NO; POSITIVE DIFFERENTIAL NO; POSITIVE MORPHOLOGY NO
[2018-04-15 09:32] LABS: Valproic Acid (Depakene) Level 64 ug/mL (50-100)
[2018-04-15 09:41] LABS: AST(SGOT) 33 U/L (15-37); Alanine Aminotransfer ALT/SGPT 59 U/L (16-61); Albumin, Serum 3.3 g/dL (3.2-5.0); Alkaline Phosphatase 36 U/L (45-117); Anion Gap 9 (5-15); BUN 24 mg/dL (7-18); BUN/Creat Ratio 18.9 RATIO (10-20); Calcium,Total 8.2 mg/dL (8.5-10.1); Chloride 112 mmol/L (98-107); Cholesterol 213 mg/dL (200); Creatinine, Serum 1.27 mg/dL (0.70-1.30); EST Glomerular Filtration Rate 66 mL/min (>60); Est Glom Filt Rate - Afr Amer 80 mL/min (>60); Globulin 3.4 g/dL (2.2-4.2); Glucose 99 mg/dL (74-106); High Density Lipoprotein 27 mg/dL; Potassium 3.9 mmol/L (3.5-5.1); Protein, Total 6.7 g/dL (6.4-8.2); Sodium Level 142 mmol/L (136-145); Triglycerides 303 mg/dL; Very Low Density Lipoprotein 61 mg/dL (5-40)
[2018-04-17 09:22] LABS: Vitamin D,25 Hydroxy 39.8 ng/mL (29.95-100.01)
[2018-04-19 12:41] LABS: Lamotrigine (Lamictal) Level 10.1 ug/mL (2.0-20.0)
== END ==
PROVIDERS: Family Provider Internal Medicine; PCP Internal Medicine; Referring Provider Internal Medicine; Visit Provider Internal Medicine
DX: I10 Essential (primary) hypertension (principal); E03.9 Hypothyroidism, unspecified; E55.9 Vitamin D deficiency, unspecified; G40.019 Localization-related (focal) (partial) idiopathic epilepsy and epileptic syndromes with seizures of localized onset, intractable, without status epilepticus; G40.319 Generalized idiopathic epilepsy and epileptic syndromes, intractable, without status epilepticus
CPT/HCPCS: 36415; 80053; 80061; 80164; 80201; 82306; 82542; 84443; 85025

== ENCOUNTER → 2018-11-04 | Outpatient (CLI) | payer MEDICARE, MEDICAID, SELFPAY ==
[2018-11-04 08:51] LABS: Free T3 2.1 pg/mL (2.18-3.98); T4 Free Direct 0.88 ng/dL (0.76-1.46); Thyroid Stim Hormone (TSH) 4.08 uIU/mL (0.358-3.74)
== END | disposition home or self-care (01) ==
LOC: LAB 07:24
PROVIDERS: Family Provider Internal Medicine; PCP Internal Medicine; Referring Provider Internal Medicine; Visit Provider Internal Medicine
DX: R94.6 Abnormal results of thyroid function studies (principal)
CPT/HCPCS: 36415; 84439; 84443; 84481

== ENCOUNTER → 2019-12-20 08:52 | Outpatient (CLI) | payer MEDICARE, MEDICAID, SELFPAY ==
--- NOTE | 2019-12-20 08:55 | US_ITS ---
STUDY: ABDOMINAL ULTRASOUND - RIGHT UPPER QUADRANT REASON FOR VISIT: Male, 44 years old fatty liver TECHNIQUE: Ultrasound evaluation of the right upper quadrant was performed with real-time and static crabtree-scale imaging. TECHNICAL QUALITY: Adequate. COMPARISON: None. FINDINGS: Liver: The liver measures 20.5 cm. There is increased echogenicity consistent with fatty infiltration. The bile ducts are within normal limits. There is hepatic color flow. The direction of portal flow is hepatopetal. There is no demonstrated mass lesion. Gallbladder: Normal distended gallbladder. The gallbladder wall measures 1.1 mm. There is a negative sonographic Cam''s sign. There is no pericholecystic fluid. There are no shadowing gallstones. 4 mm nonshadowing gallbladder polyp. Common Bile Duct (C.B.D.): The common bile duct measures 2.9 mm. Pancreas: Partially obscured by gas. Visible portions are normal. Right Kidney: Normal size of the right kidney. The right kidney measures 12.2 x 7.6 x 5.7 cm. Normal renal cortex. The right cortex measures 2 cm. There is no demonstrated renal mass or cyst. There is no right hydronephrosis. US/Liver IMPRESSION: 4 mm nonshadowing gallbladder polyp. No shadowing gallstones. Normal common bile duct. Hepatomegaly and fatty liver. Electronically Signed: Kar Black MD at 20:49 EDT Tel , Service support ,
== END ==
PROVIDERS: PCP Internal Medicine; Referring Provider Internal Medicine; Visit Provider Internal Medicine
DX: R74.8 Abnormal levels of other serum enzymes (principal)
CPT/HCPCS: 76705

== ENCOUNTER 2020-10-29 12:20 | Emergency (ER) | payer MEDICARE, MEDICAID, SELFPAY ==
[2020-10-29 12:21] VITALS: BP 121/73; PULSE 75; RESP 16; TEMP 37.2; O2SAT 96; BMI 29.5
--- NOTE | 2020-10-29 12:49 | EDS_ITS ---
HPI History of Present Illness Chief Complaint: Seizure Informant: patient and friend Onset/Context/Timing Onset: Today Context: Sudden Onset Timing: Intermittent Current Severity: Gone Maximum Severity: Moderate Narrative Narrative: 45-year-old male has a known history of seizure disorder for the she is on Topamax and Depakote. Denies recent illness. Today at the [employer] [facility] he had about a 10-minute seizure according to personnel there. He was seated in the chair did not fall had no head trauma or other injuries. Seizure since resolved currently has no complaints. He denies any recent hospitalization. Prior similar symptoms: Yes Recent Illness/Hospitalization: No PFSH PFSH Home Medications divalproex [Depakote] 1,000 mg PO BREAKFAST 06/27/13 [History Last Taken Unknown] divalproex [Depakote] 1,500 mg PO QHS 06/27/13 [History Last Taken Unknown] levothyroxine 125 mcg PO DAILY 06/27/13 [History Last Taken Unknown] lisinopril 20 mg PO DAILY 06/27/13 [History Last Taken Unknown] omega-3 acid ethyl esters 1 tab PO BID 06/27/13 [History Last Taken Unknown] cholecalciferol (vitamin D3) [Vitamin D3] 2,000 unit PO DAILY 05/17/17 [History Last Taken Unknown] fenofibrate nanocrystallized [Tricor] 145 mg PO DAILY 05/17/17 [History Last Taken Unknown] lamotrigine 150 mg PO BID 05/17/17 [History Last Taken Unknown] multivitamin [Daily Multiple] 1 tab PO DAILY 05/17/17 [History Last Taken Unknown] simvastatin [Zocor] 40 mg PO QHS 05/17/17 [History Last Taken Unknown] topiramate 200 mg PO BREAKFAST 05/17/17 [History Last Taken Unknown] clobazam [Onfi] 5 mg PO BID 10/29/20 [History Last Taken Unknown] metoprolol succinate 50 mg PO DAILY 10/29/20 [History Last Taken Unknown] topiramate [Topamax] 400 mg PO QHS 10/29/20 [History Last Taken Unknown] Allergy/AdvReac Type Severity Reaction Status Date / Time carbamazepine [From Tegretol] Allergy Rash Verified 10/29/20 15:44 gabapentin [From Neurontin] Allergy Unknown Verified 10/29/20 15:44 HORSES Allergy Itching Uncoded 11/25/17 16:09 Social History Smoking Status: Never smoker ROS ROS ED ROS Narrative Denies recent illness. Review of Systems ROS Unobtainable: Denies due to encephalopathy Constitutional Constitutional ED: Denies chills or fever(s) Eyes Eyes: Denies change in vision ENT ENT ED: Denies ear pain or sore throat Cardiovascular Cardiovascular: Denies chest pain Respiratory/Chest Respiratory/Chest: Denies cough or dyspnea Gastrointestinal Gastrointestinal: Denies abdominal pain, diarrhea, nausea or vomiting Genitourinary Genitourinary ED: Denies dysuria Musculoskeletal Musculoskeletal: Denies myalgias Integumentary Denies rash Neurologic Neurologic: Denies headache(s) Psychiatric Psychiatric: Denies depression Endocrine Endocrinology: Denies polyuria Allergic/Immunologic Allergic/Immunologic ED: Denies urticaria EXAM Physical Exam Narrative Exam Narrative: Middle-age male no acute distress. Vital signs stable afebrile. Currently is not seizing. He is awake alert. Answering questions. HEENT exam pupils round reactive light. No signs of trauma to his face or scalp. Neck nontender no meningismus. No lymphadenopathy. Lungs clear to auscultation. Heart regular rhythm no murmur. Abdomen soft nontender. Chest were nontender. Back nontender. Moving all 4 extremities. No deformity. Nontender. Neurologically is awake. Is alert he is answering questions and following commands. He has no focal motor deficits. Currently he does not act post ictal at this time. Const Vital Signs: 10/29/20 12:21 10/29/20 14:24 10/29/20 15:43 Temperature 98.9 F Temperature Source Temporal Pulse Rate 75 64 62 Respiratory Rate 16 23 H 15 Blood Pressure 121/73 H 110/65 104/51 L Blood Pressure Mean 89 80 68 Pulse Ox 96 98 96 Oxygen Delivery Method Room Air Room Air Room Air Positive well nourished and well developed; Negative for unkempt General Appearance ED: well developed and NAD; Negative for unkempt, cyanotic or diaphoretic HEENT Reports moist mucous membranes Negative for trauma or tenderness Eyes PERRL and EOMs intact bilaterally Neck no lymphadenopathy, supple and no JVD General: Negative for tenderness Chest Wall inspection of chest normal and palpation of chest normal Resp normal respiratory effort and clear to auscultation bilaterally Effort and Inspection: pain with movement Auscultation: Negative for rales, rhonchi or wheezes Cardio regular rate, regular rhythm, S1 normal heart sound, S2 normal heart sound and no murmurs GI normal to inspection, nondistended, normoactive bowel sounds, non-tender, non- distended and no masses Inspection: Negative for abdominal distention Auscultation: normoactive bowel sounds Palpation: soft; Negative for tender, guarding or rebound tenderness present Back/Spine no CVA tenderness Cervical Spine: Negative for cervical spine tenderness Thoracic Spine / Upper Back: Negative for thoracic spinal tenderness Lumbar Spine / Lower Back: Negative for lumbar spinal tenderness Extremity normal to inspection General Extremety ED: Negative for edema or tenderness General Extremity: Negative for edema Neuro Sensorium / Orientation: alert; Negative for lethargic or stuporous Motor Exam: strength 5/5 throughout Psych mental status grossly normal Appearance: Negative for unkempt Attitude: No agitated Mood & Affect: Negative for depressed, anxious or tearful Skin no rashes or lesions noted and no wounds MDM MDM MDM Narrative Medical decision making narrative: Middle-age male no acute distress. No longer seizing. Poorly had a seizure. Labs and antiseizure medication levels being obtained. Repeat exam patient is doing well at 4:06 PM. Will be discharged to home. Lab Data Attestation: I reviewed the patient's lab results. Lab results narrative: CBC White count 7. Hemoglobin 13. Electrolytes unremarkable gap 6. Creatinine 1.1. Valproic acid normal at 66. Labs: Laboratory Results - last 24 hr 10/29/20 10/29/20 10/29/20 12:25 12:25 12:25 WBC 7.2 RBC 3.99 L Hgb 13.0 Hct 40.0 MCV 100.3 H MCH 32.6 H MCHC 32.5 RDW Std Deviation 47.6 H RDW Coeff of Mary 12.9 Plt Count 237 MPV 9.2 Immature Gran % (Auto) 1.500 H Neut % (Auto) 37.7 L Lymph % (Auto) 47.5 H Kingfisher % (Auto) 11.5 H Eos % (Auto) 1.1 Baso % (Auto) 0.7 Absolute Neuts (auto) 2.7 Absolute Lymphs (auto) 3.40 Nucleated RBC % 0 Sodium 141 Potassium 4.1 Chloride 112 H Carbon Dioxide 23.0 Anion Gap 6 BUN 27 H Creatinine 1.15 Estim Creat Clear Calc 89.03 Est GFR (MDRD) Af Amer 88 Est GFR (MDRD) Non-Af 73 BUN/Creatinine Ratio 23.5 H Glucose 90 Calcium 9.1 Valproic Acid 66 Discharge Plan Triage Chief Complaint: Seizure ED Provider: Gomez Lucero Dx/Rx/DC Orders Clinical Impression: Seizure Instructions: ED Seizure, Recurrent (Adult) Prescriptions: No Action lisinopril 20 MG tablet 20 mg PO DAILY RF: 0 divalproex [Depakote] 500 MG tablet,delayed release (DR/EC) 1,500 mg PO QHS RF: 0 divalproex [Depakote] 500 MG tablet,delayed release (DR/EC) 1,000 mg PO BREAKFAST RF: 0 levothyroxine 100 MCG tablet 125 mcg PO DAILY RF: 0 omega-3 acid ethyl esters 1 GM capsule 1 tab PO BID RF: 0 multivitamin [Daily Multiple] 1 EACH tablet 1 tab PO DAILY RF: 0 lamotrigine 150 MG tablet 150 mg PO BID RF: 0 simvastatin [Zocor] 40 MG tablet 40 mg PO QHS RF: 0 topiramate 200 MG tablet 200 mg PO BREAKFAST RF: 0 cholecalciferol (vitamin D3) [Vitamin D3] 1,000 UNIT capsule 2,000 unit PO DAILY RF: 0 fenofibrate nanocrystallized [Tricor] 145 MG tablet 145 mg PO DAILY RF: 0 metoprolol succinate 50 mg Tablet Extended Release 24 Hr 50 mg PO DAILY RF: 0 topiramate [Topamax] 200 mg Tablet 400 mg PO QHS RF: 0 Onfi 5 mg Tablet 5 mg PO BID RF: 0 Primary Care Provider: Valencia Sánchez Referrals: Valecnia Sánchez DO [Primary Care Provider] - As Needed Activity Restrictions/Additional Instructions: Follow-up with your doctor. Continue current medications. Your Depakote level was normal at 66. Disposition Disposition: Home, Self Care
[2020-10-29 13:01] LABS: Absolute Neutrophil Count 2.7 X10^3/uL (2.0-7.7); Basophil# 0.05 X10^3/uL; Basophil% 0.7 % (0-1); Eosinophil# 0.08 X10^3/uL; Eosinophils% 1.1 % (0-5); Lymphocyte % 47.5 % (19-41); Mean Corp Hgb Conc 32.5 g/dL (32-36); Mean Corpuscular Hgb 32.6 pg (27.0-32.0); Mean Corpuscular Volume 100.3 fL (80-94); Mean Platelet Vol. 9.2 fl (6.2-12.0); Monocyte# 0.82 X10^3/uL; Monocyte% 11.5 % (0-10); NRBC Flagged by Analyzer 0 % (0-5); Neutrophil % 37.7 % (47-70); Platelet Count 237 K/mm3 (150-450); RBC Distribution Width CV 12.9 % (11.6-14.6); RBC Distribution Width SD 47.6 fl (35.1-43.9); Red Blood Count 3.99 M/mm3 (4.6-6.2); White Blood Count 7.2 K/mm3 (4.4-11.0)
[2020-10-29 13:13] LABS: Anion Gap 6 (5-15); BUN 27 mg/dL (7-18); BUN/Creat Ratio 23.5 RATIO (10-20); Calcium,Total 9.1 mg/dL (8.5-10.1); Chloride 112 mmol/L (98-107); Creatinine, Serum 1.15 mg/dL (0.70-1.30); EST Glomerular Filtration Rate 73 mL/min (>60); Est Glom Filt Rate - Afr Amer 88 mL/min (>60); Estimated Creatinine Clearance 89.03 ml/min; Glucose 90 mg/dL (74-106); Potassium 4.1 mmol/L (3.5-5.1); Sodium Level 141 mmol/L (136-145)
[2020-10-29 13:14] LABS: Valproic Acid (Depakene) Level 66 ug/mL (50-100)
[2020-10-29 14:24] VITALS: BP 110/65; PULSE 64; RESP 23; O2SAT 98
[2020-10-29 15:43] VITALS: BP 104/51; PULSE 62; RESP 15; O2SAT 96
[2020-10-29 16:21] VITALS: BP 116/76; PULSE 64; RESP 19
== END 2020-10-29 16:26 | disposition home or self-care (01) ==
PROVIDERS: Emergency Provider Emergency Medicine; PCP Internal Medicine
DX: G40.909 Epilepsy, unspecified, not intractable, without status epilepticus (principal); Z79.899 Other long term (current) drug therapy
CPT/HCPCS: 80048; 80164; 85025; 99285

== ENCOUNTER 2021-04-30 15:28 | Emergency (ER) | payer MEDICARE, MEDICAID, SELFPAY ==
[2021-04-30 15:30] VITALS: BP 122/104; PULSE 82; RESP 16; TEMP 36.6; O2SAT 96; BMI 29.3
--- NOTE | 2021-04-30 15:39 | EX.ED.DYSGE1 ---
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 Normally his seizures last 1 to 2 minutes. He was concerned because this seizure lasted 14 minutes. He answers yes to all questions. Prior similar symptoms: Yes Recent Illness[facility] Medical History Seizures Home Medications divalproex [Depakote] 1,000 mg PO BREAKFAST 06/27/13 [History Last Taken Unknown] divalproex [Depakote] 1,500 mg PO QHS 06/27/13 [History Last Taken Unknown] levothyroxine 100 mcg PO DAILY 06/27/13 [History Last Taken Unknown] lisinopril 20 mg PO DAILY 06/27/13 [History Last Taken Unknown] omega-3 acid ethyl esters 1 tab PO BID 06/27/13 [History Last Taken Unknown] cholecalciferol (vitamin D3) [Vitamin D3] 1,000 unit PO DAILY 05/17/17 [History Last Taken Unknown] fenofibrate nanocrystallized [Tricor] 145 mg PO DAILY 05/17/17 [History Last Taken Unknown] lamotrigine 150 mg PO BID 05/17/17 [History Last Taken Unknown] multivitamin [Daily Multiple] 1 tab PO DAILY 05/17/17 [History Last Taken Unknown] simvastatin [Zocor] 40 mg PO QHS 05/17/17 [History Last Taken Unknown] topiramate 200 mg PO BREAKFAST 05/17/17 [History Last Taken Unknown] clobazam [Onfi] 5 mg PO BID 10/29/20 [History Last Taken Unknown] metoprolol succinate 50 mg PO DAILY 10/29/20 [History Last Taken Unknown] topiramate [Topamax] 400 mg PO QHS 10/29/20 [History Last Taken Unknown] Allergy/AdvReac Type Severity Reaction Status Date / Time carbamazepine [From Tegretol] Allergy Rash Verified 04/30/21 15:30 gabapentin [From Neurontin] Allergy Unknown Verified 04/30/21 15:30 HORSES Allergy Itching Uncoded 04/30/21 15:30 Social History (Updated 04/30/21 @ 15:[address] Sina Lao MD) household members: other Smoking Status: Never smoker alcohol intake: never substance use type: does not use ROS ROS ED Review of Systems ROS Unobtainable: due to mental status and other Details: Patient answered yes to all questions including if his urine is purple. EXAM Physical Exam Const Vital Signs: 04/30/21 15:30 Temperature 97.9 F Temperature Source Temporal Pulse Rate 82 Respiratory Rate 16 Blood Pressure 122/104 H Blood Pressure Mean 110 Pulse Ox 96 Oxygen Delivery Method Room Air Positive well nourished and well developed General Appearance ED: well developed and NAD; Negative for cyanotic, diaphoretic or pallor HEENT Reports TM's clear and moist mucous membranes HEENT Narrative: Nares. Healed scar status post craniotomy. Negative for trauma or tenderness Tympanic Membrane ED: Yes TM's clear Eyes PERRL and EOMs intact bilaterally Eyes Narrative: There is no nystagmus. General Eye ED: Negative for pale conjunctiva or scleral icterus Neck no lymphadenopathy, supple and no JVD Chest Wall inspection of chest normal Resp normal respiratory effort and clear to auscultation bilaterally Cardio regular rate, regular rhythm, S1 normal heart sound, S2 normal heart sound and no murmurs GI normal to inspection, nondistended, normoactive bowel sounds and non-tender Palpation: soft Back/Spine no CVA tenderness Thoracic Spine / Upper Back: Negative for thoracic spinal tenderness or paraspinal muscle tenderness Neuro No oriented x3 and CN's II-XII intact bilaterally Neuro Narrative: Per escort patients he is at his baseline. He does move all his extremities and follows simple commands. Sensorium / Orientation: alert Psych Psych Narrative: Affect is flat Skin no rashes or lesions noted and no wounds General Skin Exam: Negative for jaundice or pallor MDM MDM MDM Narrative Medical decision making narrative: Patient with history of breakthrough seizures. This 1 was more prolonged. Electrolyte panel was obtained to assess sodium and rule out SIADH. Valproic acid level was obtained to verify he is at therapeutic level. Lab Data Attestation: I reviewed the patient's lab results. Lab results narrative: Valproic acid level is in therapeutic range. Of note mother arrived and he did not take his evening anticonvulsant doses. Suspect this is the etiology of his prolonged breakthrough seizure. Labs: Laboratory Results - last 24 hr 04/30/21 04/30/21 15:50 15:50 Sodium 142 Potassium 4.2 Chloride 114 H Carbon Dioxide 23.0 Anion Gap 5 BUN 21 H Creatinine 1.02 Estim Creat Clear Calc 105.21 Est GFR (MDRD) Af Amer 101 Est GFR (MDRD) Non-Af 84 BUN/Creatinine Ratio 20.6 H Glucose 109 H Calcium 9.1 Valproic Acid 64 Discharge Plan Triage Chief Complaint: Seizure ED Provider: Sina Lao Dx/Rx/DC Orders Clinical Impression: Generalized tonic clonic epilepsy Instructions: ED Seizure, Recurrent (Adult) Prescriptions: No Action lisinopril 20 MG tablet 20 mg PO DAILY RF: 0 divalproex [Depakote] 500 MG tablet,delayed release (DR/EC) 1,500 mg PO QHS RF: 0 divalproex [Depakote] 500 MG tablet,delayed release (DR/EC) 1,000 mg PO BREAKFAST RF: 0 levothyroxine 100 MCG tablet 100 mcg PO DAILY RF: 0 omega-3 acid ethyl esters 1 GM capsule 1 tab PO BID RF: 0 multivitamin [Daily Multiple] 1 EACH tablet 1 tab PO DAILY RF: 0 lamotrigine 150 MG tablet 150 mg PO BID RF: 0 simvastatin [Zocor] 40 MG tablet 40 mg PO QHS RF: 0 topiramate 200 MG tablet 200 mg PO BREAKFAST RF: 0 cholecalciferol (vitamin D3) [Vitamin D3] 1,000 UNIT capsule 1,000 unit PO DAILY RF: 0 fenofibrate nanocrystallized [Tricor] 145 MG tablet 145 mg PO DAILY RF: 0 metoprolol succinate 50 mg Tablet Extended Release 24 Hr 50 mg PO DAILY RF: 0 topiramate [Topamax] 200 mg Tablet 400 mg PO QHS RF: 0 Onfi 5 mg Tablet 5 mg PO BID RF: 0 Primary Care Provider: Valencia Sánchez Referrals: Valencia Sánchez DO [Primary Care Provider] - As Needed Disposition Disposition: Home, Self Care
[2021-04-30 16:13] LABS: Anion Gap 5 (5-15); BUN 21 mg/dL (7-18); BUN/Creat Ratio 20.6 RATIO (10-20); Calcium,Total 9.1 mg/dL (8.5-10.1); Chloride 114 mmol/L (98-107); Creatinine, Serum 1.02 mg/dL (0.70-1.30); EST Glomerular Filtration Rate 84 mL/min (>60); Est Glom Filt Rate - Afr Amer 101 mL/min (>60); Estimated Creatinine Clearance 105.21 ml/min; Glucose 109 mg/dL (74-106); Potassium 4.2 mmol/L (3.5-5.1); Sodium Level 142 mmol/L (136-145)
[2021-04-30 16:41] LABS: Valproic Acid (Depakene) Level 64 ug/mL (50-100)
[2021-04-30 17:47] VITALS: BP 130/69; PULSE 79; RESP 18; O2SAT 98
== END 2021-04-30 17:48 | disposition home or self-care (01) ==
PROVIDERS: Emergency Provider Emergency Medicine; PCP Internal Medicine; Visit Provider Emergency Medicine
DX: G40.409 Other generalized epilepsy and epileptic syndromes, not intractable, without status epilepticus (principal); Z79.890 Hormone replacement therapy; Z79.899 Other long term (current) drug therapy
CPT/HCPCS: 80048; 80164; 99284; A4216

== ENCOUNTER 2021-09-17 15:19 | Emergency (ER) | payer MEDICARE, MEDICAID, SELFPAY ==
[2021-09-17 15:20] VITALS: BP 140/69; PULSE 71; RESP 18; TEMP 37; O2SAT 98; BMI 29.5
--- NOTE | 2021-09-17 16:39 | EDS_ITS ---
HPI History of Present Illness Chief Complaint: Seizure Informant: patient, parent and EMS Narrative Narrative: Patient is a 46-year-old male with history of developmental delay, hypothyroid, hypertension and seizure disorder currently on Depakote, lamotrigine and Onfi presenting after seizure. Patient has daily seizures per his mother. He follows with Dr. Adam Velasquez neurology. He was prescribed a new seizure medicine but has not started taking as mother is concerned about side effects. Patient was at [facility] [place] today when he had a seizure. Apparently the seizure lasted for approximately 15 minutes and per protocol patient was sent to our emergency room. Mother states is not unusual for him to have a seizure like this. Patient is currently tired but mother feels that he is acting normal given his recent seizure. She has no other concerns at this time. She states his Depakote level is usually normal unless he is missed a dose and does not feel that there is much utility in checking his Depakote level today. She does not believe he is missed any medication doses. Patient has no complaints but does only answer through nodding his head yes or saying no. [facility] Medical History HTN (hypertension) Seizures Home Medications divalproex 500 mg tablet,delayed release (Depakote) 1,000 mg PO BREAKFAST 06/27/13 [History Last Taken Unknown] divalproex 500 mg tablet,delayed release (Depakote) 1,500 mg PO QHS 06/27/13 [History Last Taken Unknown] levothyroxine 100 mcg tablet 125 mcg PO DAILY 06/27/13 [History Last Taken Unknown] lisinopril 20 mg tablet 20 mg PO DAILY 06/27/13 [History Last Taken Unknown] omega-3 acid ethyl esters 1 gram capsule 1 tab PO BID 06/27/13 [History Last Taken Unknown] cholecalciferol (vitamin D3) 25 mcg (1,000 unit) capsule (Vitamin D3) 1,000 unit PO DAILY 05/17/17 [History Last Taken Unknown] lamotrigine 150 mg tablet 150 mg PO BID 05/17/17 [History Last Taken Unknown] multivitamin (Daily Multiple tablet) 1 tab PO DAILY 05/17/17 [History Last Taken Unknown] simvastatin 40 mg tablet (Zocor) 40 mg PO QHS 05/17/17 [History Last Taken Unknown] clobazam 5 mg tablet 5 mg PO BID 10/29/20 [History Last Taken Unknown] metoprolol succinate 50 mg tablet,extended release 24 hr 50 mg PO DAILY 10/29/20 [History Last Taken Unknown] topiramate 200 mg tablet (Topamax) 200 mg PO BID 10/29/20 [History Last Taken Unknown] fenofibrate nanocrystallized 145 mg tablet (Tricor) 145 mg PO DAILY 09/17/21 [History Last Taken Unknown] Allergy/AdvReac Type Severity Reaction Status Date / Time carbamazepine [From Tegretol] Allergy Rash Verified 09/17/21 15:24 gabapentin [From Neurontin] Allergy Unknown Verified 09/17/21 15:24 HORSES Allergy Itching Uncoded 09/17/21 15:24 Social History household members: other Smoking Status: Never smoker alcohol intake: never substance use type: does not use ROS ROS ED Review of Systems ROS Unobtainable: due to mental condition Neurologic Neurologic: Reports other Details: Seizure EXAM Physical Exam Const Vital Signs: 09/17/21 15:20 09/17/21 17:24 Temperature 98.6 F Temperature Source Oral Pulse Rate 71 70 Respiratory Rate 18 14 Blood Pressure 140/69 H 113/54 L Blood Pressure Mean 92 73 Pulse Ox 98 96 Oxygen Delivery Method Room Air Room Air Positive well nourished, well developed and obese General Appearance ED: well developed and NAD Nutritional Appearance: obese HEENT Reports TM's clear and moist mucous membranes Negative for trauma Tympanic Membrane ED: Yes TM's clear Eyes PERRL and EOMs intact bilaterally Neck supple Chest Wall inspection of chest normal Resp normal respiratory effort and clear to auscultation bilaterally Cardio regular rate, regular rhythm and no murmurs GI normal to inspection, nondistended, normoactive bowel sounds and non-tender Extremity normal to inspection General Extremety ED: Negative for tenderness Neuro Neuro Narrative: At baseline Slightly postictal Sensorium / Orientation: alert and orientation impaired Sensory Exam: No sensory level loss detected Motor Exam: strength 5/5 throughout; Negative for general weakness Psych Psych Narrative: Acting appropriate Skin no rashes or lesions noted MDM MDM MDM Narrative Medical decision making narrative: Patient is evaluated after having a breakthrough seizure. It did last for 15 to 20 minutes per squad report however has resolved on our evaluation. Patient is observed in the ER and has no further seizure history. Mother states he has an extensive seizure history and this is pretty much his baseline. She does not feel that he needs any lab work or levels checked at this time. She did state that her neurologist would like him to have levels and she thinks she has an order to check all of his levels. Mother is encouraged to call the neurologist tomorrow to let him know about the breakthrough seizure and to follow-up on getting his levels checked for his antiepileptics. Patient be discharged back to her care. Patient does not have any signs of trauma or focal neurologic deficits on my exam. Discharge Plan Triage Chief Complaint: Seizure ED Provider: Yulissa Ramirez Dx/Rx/DC Orders Clinical Impression: Breakthrough seizure Instructions: ED Seizure, Recurrent (Adult) Prescriptions: No Action lisinopril 20 MG tablet 20 mg PO DAILY divalproex [Depakote] 500 MG tablet,delayed release (DR/EC) 1,500 mg PO QHS divalproex [Depakote] 500 MG tablet,delayed release (DR/EC) 1,000 mg PO BREAKFAST levothyroxine 100 MCG tablet 125 mcg PO DAILY omega-3 acid ethyl esters 1 GM capsule 1 tab PO BID Label Comments: multivitamin [Daily Multiple] 1 EACH tablet 1 tab PO DAILY lamotrigine 150 MG tablet 150 mg PO BID simvastatin [Zocor] 40 MG tablet 40 mg PO QHS cholecalciferol (vitamin D3) [Vitamin D3] 1,000 UNIT capsule 1,000 unit PO DAILY metoprolol succinate 50 mg Tablet Extended Release 24 Hr 50 mg PO DAILY topiramate [Topamax] 200 mg Tablet 200 mg PO BID Onfi 5 mg Tablet 5 mg PO BID fenofibrate nanocrystallized [Tricor] 145 mg Tablet 145 mg PO DAILY Stand Alone Forms: ED Work / School Excuse Primary Care Provider: Valencia Sánchez Referrals: Adam Velasquez MD [NON-STAFF] - Valencia Sánchez DO [Primary Care Provider] - Activity Restrictions/Additional Instructions: Please follow-up with Dr. Velasquez about getting Pradeep medication levels checked within the next week. Disposition Disposition: Home, Self Care Discharge Date/Time: 09/17/21 17:38
[2021-09-17 17:24] VITALS: BP 113/54; PULSE 70; RESP 14; O2SAT 96
== END 2021-09-17 17:38 | disposition home or self-care (01) ==
PROVIDERS: Emergency Provider Emergency Medicine; PCP Internal Medicine; Visit Provider Emergency Medicine
DX: G40.909 Epilepsy, unspecified, not intractable, without status epilepticus (principal); I10 Essential (primary) hypertension; R62.50 Unspecified lack of expected normal physiological development in childhood; E03.9 Hypothyroidism, unspecified; E66.9 Obesity, unspecified; Z79.890 Hormone replacement therapy; Z79.899 Other long term (current) drug therapy
CPT/HCPCS: 99284

== ENCOUNTER → 2021-12-10 | Outpatient (CLI) | payer MEDICARE, MEDICAID, SELFPAY ==
[2021-12-10 10:07] LABS: Absolute Lymphocyte Count 3.94 X10^3/uL (0.83-4.51); Absolute Neutrophil Count 2.6 X10^3/uL (2.0-7.7); Basophil# 0.08 X10^3/uL; Eosinophils% 2.6 % (0-5); Hematocrit 40.8 % (40-54); Hemoglobin 13.2 g/dL (13.0-16.5); Lymphocyte # 3.94 X10^3/ul (0.83-4.51); Lymphocyte % 50.6 % (19-41); Mean Corp Hgb Conc 32.4 g/dL (32-36); Mean Corpuscular Hgb 32.8 pg (27.0-32.0); Mean Corpuscular Volume 101.5 fL (80-94); Mean Platelet Vol. 9.6 fl (6.2-12.0); Monocyte# 0.71 X10^3/uL; Monocyte% 9.1 % (0-10); NRBC Flagged by Analyzer 0 % (0-5); Neutrophil # 2.61 X10^3/uL (2.7-7.7); Neutrophil % 33.6 % (47-70); Platelet Count 230 K/mm3 (150-450); RBC Distribution Width CV 12.7 % (11.6-14.6); RBC Distribution Width SD 47.6 fl (35.1-43.9); Red Blood Count 4.02 M/mm3 (4.6-6.2); White Blood Count 7.8 K/mm3 (4.4-11.0)
[2021-12-10 10:25] LABS: Hemoglobin A1c 5.9 % (3.8-5.6)
[2021-12-10 10:48] LABS: ALB/GLOB Ratio 0.9 RATIO (0.9-2.4); AST(SGOT) 46 U/L (15-37); Alanine Aminotransfer ALT/SGPT 70 U/L (16-61); Albumin, Serum 3.3 g/dL (3.2-5.0); Alkaline Phosphatase 38 U/L (45-117); Anion Gap 6 (5-15); BUN 26 mg/dL (7-18); BUN/Creat Ratio 19.8 RATIO (10-20); Calcium,Total 9.2 mg/dL (8.5-10.1); Chloride 113 mmol/L (98-107); Cholesterol 223 mg/dL (200); Creatinine, Serum 1.31 mg/dL (0.70-1.30); EST Glomerular Filtration Rate 62 mL/min (>60); Est Glom Filt Rate - Afr Amer 76 mL/min (>60); Globulin 3.6 g/dL (2.2-4.2); Glucose 121 mg/dL (74-106); High Density Lipoprotein 30 mg/dL; Protein, Total 6.9 g/dL (6.4-8.2); Sodium Level 142 mmol/L (136-145); Thyroid Stim Hormone (TSH) 1.61 uIU/mL (0.358-3.74); Triglycerides 365 mg/dL; Very Low Density Lipoprotein 73 mg/dL (5-40)
== END | disposition home or self-care (01) ==
LOC: MTLAB 08:57
PROVIDERS: PCP Internal Medicine; Referring Provider Internal Medicine; Visit Provider Internal Medicine
DX: I10 Essential (primary) hypertension (principal); R73.9 Hyperglycemia, unspecified; E78.00 Pure hypercholesterolemia, unspecified; E03.9 Hypothyroidism, unspecified; R74.8 Abnormal levels of other serum enzymes
CPT/HCPCS: 36415; 80053; 80061; 83036; 84443; 85025

== ENCOUNTER → 2022-01-06 | Outpatient (CLI) | payer MEDICARE, MEDICAID, SELFPAY ==
--- NOTE | 2022-01-06 09:25 | US_ITS ---
STUDY: ABDOMINAL ULTRASOUND - RIGHT UPPER QUADRANT REASON FOR VISIT: Male, 46 years old Elevated liver enzymes TECHNIQUE: Ultrasound evaluation of the right upper quadrant was performed with real-time and static crabtree-scale imaging. TECHNICAL QUALITY: Adequate. COMPARISON: Comparison is made with prior study 12/20/2019. FINDINGS: Liver: The liver is mildly enlarged and measures 18.8 cm. There is increased echogenicity consistent with fatty infiltration. The bile ducts are within normal limits. There is hepatic color flow. The direction of portal flow is hepatopetal. There is a 2.6 cm x 1.6 cm x 1.4 cm hypoechoic nodule in the superior aspect of the right hepatic lobe. A similar-appearing nodule is seen adjacent to the gallbladder fossa suggests a possible focal fatty sparing. Gallbladder: Normal distended gallbladder. The gallbladder wall measures 1.9 mm. There is a negative sonographic Cam''s sign. There is no pericholecystic fluid. There are no gallstones. Stable 3 mm x 2 mm gallbladder polyp. Common Bile Duct (C.B.D.): The common bile duct measures 2.8 mm. Pancreas: Normal size of the head, body and tail of the pancreas. There is no demonstrated pancreatic mass or cyst. Right Kidney: Normal size of the right kidney. The right kidney measures 11.5 cm x 6.6 cm x 6.3 cm. Normal renal cortex. The right cortex measures 1.4 cm. There is no demonstrated renal mass or cyst. There is no right hydronephrosis. US/Abdomen Limited IMPRESSION: Fat infiltration of the liver with focal fatty sparing. Stable small gallbladder polyp. Electronically Signed: Thomas Montgomery MD at 14:54 EDT ,
== END | disposition home or self-care (01) ==
LOC: US 09:24
PROVIDERS: PCP Internal Medicine; Referring Provider Internal Medicine; Visit Provider Internal Medicine
DX: R74.8 Abnormal levels of other serum enzymes (principal)
CPT/HCPCS: 76705

== ENCOUNTER → 2022-04-03 | Outpatient (CLI) | payer MEDICARE, MEDICAID, SELFPAY ==
[2022-04-03 08:49] LABS: Valproic Acid (Depakene) Level 70 ug/mL (50-100)
[2022-04-07 16:48] LABS: Lamotrigine (Lamictal) Level 10.3 ug/mL (2.0-20.0); Topiramate 7.9 ug/mL (2.0-25.0)
== END | disposition home or self-care (01) ==
PROVIDERS: PCP Internal Medicine; Visit Provider Psychiatry & Neurology Neurology
DX: G40.409 Other generalized epilepsy and epileptic syndromes, not intractable, without status epilepticus (principal)
CPT/HCPCS: 36415; 80164; 80201; 82542

== ENCOUNTER → 2022-09-11 | Outpatient (CLI) | payer MEDICARE, MEDICAID, SELFPAY ==
[2022-09-11 08:19] LABS: Valproic Acid (Depakene) Level 66 ug/mL (50-100)
[2022-09-14 17:07] LABS: Lamotrigine (Lamictal) Level 15.6 ug/mL (2.0-20.0); Topiramate 6.7 ug/mL (2.0-25.0)
== END | disposition home or self-care (01) ==
LOC: LAB 07:38
PROVIDERS: PCP Internal Medicine; Referring Provider Psychiatry & Neurology Neurology; Visit Provider Psychiatry & Neurology Neurology
DX: G40.409 Other generalized epilepsy and epileptic syndromes, not intractable, without status epilepticus (principal)
CPT/HCPCS: 36415; 80164; 80201; 82542

== ENCOUNTER → 2022-11-11 | Outpatient (CLI) | payer MEDICARE, MEDICAID, SELFPAY ==
--- NOTE | 2022-11-11 09:38 | US_ITS ---
STUDY: ABDOMINAL ULTRASOUND - RIGHT UPPER QUADRANT REASON FOR VISIT: Male, 47 years old FATTY LIVER TECHNIQUE: Ultrasound evaluation of the right upper quadrant was performed with real-time and static crabtree-scale imaging. TECHNICAL QUALITY: Limited. Examination limited by bowel gas. COMPARISON: Comparison is made with prior study dated January 06, 2022. FINDINGS: Liver: The liver is enlarged and measures 19.2 cm. There is increased echogenicity consistent with fatty infiltration. The bile ducts are within normal limits. There is hepatic color flow. The direction of portal flow is hepatopetal. There is no demonstrated mass lesion. Stable focal fatty sparing in the region of the gallbladder fossa. Gallbladder: Normal distended gallbladder. The gallbladder wall measures 1.5 mm. There is a negative sonographic Cam''s sign. There is no pericholecystic fluid. There are no gallstones. Common Bile Duct (C.B.D.): The common bile duct measures 3.1 mm. Pancreas: There is nonvisualization of the pancreas due to overlying bowel gas. Right Kidney: Normal size of the right kidney. The right kidney measures 11.5 cm x 5.5 Ramiro by 6.4 cm. Normal renal cortex. The right cortex measures 1.6 cm. 1 cm x 1 cm x 0.8 cm cyst in the lower pole of the right kidney. There is no right hydronephrosis. US/Abdomen Limited IMPRESSION: Hepatomegaly and fatty infiltration of the liver. Stable examination. Electronically Signed: Thomas Montgomery MD at 15:40 EDT ,
--- NOTE | 2022-11-11 09:38 | US_ITS ---
STUDY: ABDOMINAL ULTRASOUND - ELASTOGRAPHY REASON FOR VISIT: Male, 47 years old. Fatty infiltration of the liver. TECHNIQUE: Liver stiffness measurements were obtained on a [employer] RS 85 ultrasound machine using a CA 1-7 probe following the SRU guidelines. 3 measurements were obtained using a 2-D-SWE method. TheIQR/M was 10% suggesting a quality data set. TECHNICAL QUALITY: Adequate. COMPARISON: None. FINDINGS: Liver: There is no demonstrated mass lesion. Median liver stiffness measured 7.3 kPa. Abdomen: There is no demonstrated mass lesion. US/Elastography Parenchyma/Organ IMPRESSION: Liver stiffness measures 7.3 kPa compatible with F2-F3 (Mild to moderate liver fibrosis) Metavir score. Electronically Signed: Thomas Montgomery MD at 15:42 EDT ,
== END | disposition home or self-care (01) ==
LOC: US 09:36
PROVIDERS: PCP Internal Medicine; Referring Provider Internal Medicine; Visit Provider Internal Medicine
DX: K76.0 Fatty (change of) liver, not elsewhere classified (principal)
CPT/HCPCS: 76705; 76981

== ENCOUNTER → 2023-07-09 | Outpatient (CLI) | payer MEDICARE, MEDICAID, SELFPAY ==
[2023-07-09 09:07] LABS: Absolute Lymphocyte Count 3.46 X10^3/uL (0.83-4.51); Absolute Neutrophil Count 3.6 X10^3/uL (2.0-7.7); Basophil# 0.08 X10^3/uL; Eosinophil# 0.12 X10^3/uL; Eosinophils% 1.5 % (0-5); Hematocrit 39.9 % (40-54); Hemoglobin 12.8 g/dL (13.0-16.5); Lymphocyte # 3.46 X10^3/ul (0.83-4.51); Lymphocyte % 43.1 % (19-41); Mean Corp Hgb Conc 32.1 g/dL (32-36); Mean Corpuscular Hgb 29.9 pg (27.0-32.0); Mean Corpuscular Volume 93.2 fL (80-94); Mean Platelet Vol. 9.9 fl (6.2-12.0); Monocyte% 8.7 % (0-10); NRBC Flagged by Analyzer 0 % (0-5); Neutrophil # 3.58 X10^3/uL (2.7-7.7); Neutrophil % 44.7 % (47-70); Platelet Count 339 K/mm3 (150-450); RBC Distribution Width CV 12.9 % (11.6-14.6); Red Blood Count 4.28 M/mm3 (4.6-6.2)
[2023-07-09 09:46] LABS: ALB/GLOB Ratio 1.2 RATIO (0.9-2.4); AST(SGOT) 24 U/L (15-37); Alanine Aminotransfer ALT/SGPT 46 U/L (16-61); Albumin, Serum 3.8 g/dL (3.2-5.0); Alkaline Phosphatase 43 U/L (45-117); Anion Gap 4 (5-15); BUN 22 mg/dL (7-18); BUN/Creat Ratio 14.9 RATIO (10-20); Calcium,Total 8.9 mg/dL (8.5-10.1); Chloride 116 mmol/L (98-107); Cholesterol 194 mg/dL (200); Creatinine, Serum 1.48 mg/dL (0.70-1.30); EST Glomerular Filtration Rate 54 mL/min (>60); Est Glom Filt Rate - Afr Amer 65 mL/min (>60); Globulin 3.3 g/dL (2.2-4.2); Glucose 111 mg/dL (74-106); High Density Lipoprotein 47 mg/dL; Potassium 4.2 mmol/L (3.5-5.1); Protein, Total 7.1 g/dL (6.4-8.2); Sodium Level 141 mmol/L (136-145); Thyroid Stim Hormone (TSH) 0.31 uIU/mL (0.358-3.74); Triglycerides 193 mg/dL; Very Low Density Lipoprotein 39 mg/dL (5-40)
[2023-07-11 08:04] LABS: Vitamin D,25 Hydroxy 54.8 ng/mL
[2023-07-11 15:08] LABS: Topiramate 9.3 ug/mL (2.0-25.0)
== END | disposition home or self-care (01) ==
PROVIDERS: Psychiatry & Neurology Neurology; PCP Internal Medicine; Referring Provider Internal Medicine; Visit Provider Internal Medicine
DX: I10 Essential (primary) hypertension (principal); G40.409 Other generalized epilepsy and epileptic syndromes, not intractable, without status epilepticus; E03.9 Hypothyroidism, unspecified; E78.00 Pure hypercholesterolemia, unspecified; E55.9 Vitamin D deficiency, unspecified
CPT/HCPCS: 36415; 80053; 80061; 80201; 82306; 82542; 84443; 85025

== ENCOUNTER → 2024-03-08 | Outpatient (CLI) | payer MEDICARE, SELFPAY ==
[2024-03-08 10:39] LABS: PSA,Total - Annual Screen 1.93 ng/mL (0.00-4.00)
== END | disposition home or self-care (01) ==
PROVIDERS: PCP Internal Medicine; Referring Provider Internal Medicine; Visit Provider Internal Medicine
DX: R94.6 Abnormal results of thyroid function studies (principal); Z12.5 Encounter for screening for malignant neoplasm of prostate
CPT/HCPCS: 36415; 84153; 84443; G0103

== ENCOUNTER 2024-05-24 09:04 | Outpatient (CLI) | payer MEDICARE, MEDICAID, SELFPAY ==
[2024-05-24 11:21] LABS: ALB/GLOB Ratio 1.6 RATIO (0.9-2.4); AST(SGOT) 25 U/L (<=37); Alanine Aminotransfer ALT/SGPT 37 U/L (<=46); Albumin, Serum 4.5 g/dL (3.5-5.0); Alkaline Phosphatase 47 U/L (40-129); Anion Gap 11 (5-15); BUN 30 mg/dL (4-19); BUN/Creat Ratio 21.1 RATIO (10-20); Calcium,Total 9.4 mg/dL (7.6-11.0); Carbon Dioxide 19.1 mmol/L (21.0-32.0); Chloride 111 mmol/L (98-108); Creatinine, Serum 1.44 mg/dL (0.70-1.20); EST Glomerular Filtration Rate 60 (>60); Globulin 2.7 g/dL (2.2-4.2); Glucose 109 mg/dL (70-99); Potassium 4.3 mmol/L (3.3-5.1); Protein, Total 7.2 g/dL (5.9-8.4); Sodium Level 141 mmol/L (133-145)
[2024-05-26 13:08] LABS: Lamotrigine (Lamictal) Level 7.6 ug/mL (2.0-20.0); Topiramate 8.2 ug/mL (2.0-25.0)
== END 2024-05-24 23:59 | disposition home or self-care (01) ==
LOC: MTLAB 09:12
PROVIDERS: PCP Internal Medicine; Referring Provider Psychiatry & Neurology Neurology; Visit Provider Psychiatry & Neurology Neurology
DX: G40.409 Other generalized epilepsy and epileptic syndromes, not intractable, without status epilepticus (principal); R29.6 Repeated falls
CPT/HCPCS: 36415; 80053; 80201; 82542

== ENCOUNTER 2024-10-01 19:29 | Emergency (ER) | payer MEDICAID, MEDICARE, SELFPAY ==
[2024-10-01 19:30] VITALS: BP 130/72; PULSE 92; RESP 18; TEMP 36.7; O2SAT 96; BMI 29.0
--- NOTE | 2024-10-01 19:46 | EKG12_ITS ---
Test Reason : DYSRHYTHMIA Blood Pressure : */* mmHG Vent. Rate : 91 BPM Atrial Rate : 91 BPM P-R Int : 180 ms QRS Dur : 90 ms QT Int : 354 ms P-R-T Axes : 40 25 44 degrees QTcB Int : 435 ms Normal sinus rhythm Normal ECG Confirmed by MARK ALMANZAR, RANJANA ([id number]), department editor WOJCIECH WU ([id number]) on 10/02/2024 1:03:39 PM Referred By: Confirmed By: RANJANA FLORES MD
--- NOTE | 2024-10-01 19:47 | CT_ITS ---
EXAM: BRAIN/HEAD WITHOUT CONTRAST; SPINE CERVICAL WITHOUT CONTRAS CLINICAL HISTORY: TRAUMA COMPARISON: None. TECHNIQUE: Noncontrast images of the head and cervical spine with multiplanar reconstructions. Dose reduction techniques were used including intermediate exposure control (AEC),iterative reconstruction technique, and/or mA and/or KV dose adjustments based on patient's size. FINDINGS: HEAD: No acute intracranial hemorrhage, extra-axial collection, mass effect or evidence of acute infarct. Ventricles and subarachnoid spaces are normal in size. Nonspecific small focus of parenchymal calcification in the anterior right temporal lobe. Absent [place] ocular lenses. There appears to be mild subcutaneous contusional changes to the right parieto- occipital scalp, and left facial soft tissues overlying the zygoma. No acute skull base or calvarial fracture. Well-aerated paranasal sinuses and mastoid air cells. Rightward nasal septal deviation. CERVICAL SPINE: No acute fracture or subluxation. Alignment is anatomic. Mild spondylotic changes with anterior endplate osteophytes, and hypertrophic facet arthropathy. Calcification of the posterior longitudinal ligament at C2-3. No significant spinal canal or osseous neural foraminal narrowing. No prevertebral soft tissue swelling. Prominent palatine tonsils with tonsilliths. Clear lung apices. CT/Brain/Head without Contrast IMPRESSION: No acute intracranial or cervical spine traumatic findings. Reading Location: [id number]
--- NOTE | 2024-10-01 19:47 | CT_ITS ---
EXAM: BRAIN/HEAD WITHOUT CONTRAST; SPINE CERVICAL WITHOUT CONTRAS CLINICAL HISTORY: TRAUMA COMPARISON: None. TECHNIQUE: Noncontrast images of the head and cervical spine with multiplanar reconstructions. Dose reduction techniques were used including intermediate exposure control (AEC),iterative reconstruction technique, and/or mA and/or KV dose adjustments based on patient's size. FINDINGS: HEAD: No acute intracranial hemorrhage, extra-axial collection, mass effect or evidence of acute infarct. Ventricles and subarachnoid spaces are normal in size. Nonspecific small focus of parenchymal calcification in the anterior right temporal lobe. Absent [place] ocular lenses. There appears to be mild subcutaneous contusional changes to the right parieto- occipital scalp, and left facial soft tissues overlying the zygoma. No acute skull base or calvarial fracture. Well-aerated paranasal sinuses and mastoid air cells. Rightward nasal septal deviation. CERVICAL SPINE: No acute fracture or subluxation. Alignment is anatomic. Mild spondylotic changes with anterior endplate osteophytes, and hypertrophic facet arthropathy. Calcification of the posterior longitudinal ligament at C2-3. No significant spinal canal or osseous neural foraminal narrowing. No prevertebral soft tissue swelling. Prominent palatine tonsils with tonsilliths. Clear lung apices. CT/Spine Cervical without Contras IMPRESSION: No acute intracranial or cervical spine traumatic findings. Reading Location: [id number]
[2024-10-01 20:08] LABS: Hematocrit 39.2 % (40-54); Hemoglobin 13.4 g/dL (13.0-16.5); Immature Granulocytes Count 0.070 X10^3/uL (0.0-0.0); Mean Corp Hgb Conc 34.2 g/dL (32-36); Mean Corpuscular Volume 90.3 fL (80-94); Mean Platelet Vol. 10.1 fl (6.2-12.0); NRBC Flagged by Analyzer 0 % (0-5); Platelet Count 403 K/mm3 (150-450); RBC Distribution Width CV 13.4 % (11.6-14.6); RBC Distribution Width SD 44.4 fl (35.1-43.9); Red Blood Count 4.34 M/mm3 (4.6-6.2); White Blood Count 9.2 K/mm3 (4.4-11.0)
[2024-10-01] MEDS: 0.9% Normal Saline (1000mL) 1,000 ML 999 ML IV (20:13)
[2024-10-01 20:15] VITALS: BP 122/75; PULSE 82; RESP 18; O2SAT 97
[2024-10-01 20:16] LABS: Prothrombin Time (Protime)PT. 12.9 SECONDS (11.7-14.9)
[2024-10-01 20:17] LABS: Partial Thromboplast Time 26.9 Seconds (24.1-36.2)
--- NOTE | 2024-10-01 20:26 | EX.ED.DYSGE1 ---
HPI History of Present Illness Chief Complaint: Seizure Narrative Narrative: Patient is a 49-year-old male with past medical history hypertension, type 2 diabetes, hyperlipidemia, seizures who presents to the emergency department chief complaint of seizure and a facial laceration. According to family members at bedside he had a unwitnessed fall in his seizure earlier this evening. According to the family noted at bedside he gets his medications on a daily basis and despite this he still has seizures. According to them just depends on where he is at and when he has a seizure in regards to where he falls and hits tonight landed and hit his face. They state they are unsure when his last tetanus shot was. [facility] Medical History Hx of corneal abrasion Hyperlipemia Diabetes type 2 HTN (hypertension) Seizures Home Medications ?Medication ?Instructions ?Recorded ?Last Taken ?Type lisinopril 20 mg tablet 20 mg PO DAILY 06/27/13 Unknown History omega-3 acid ethyl esters 1 gram 1 tab PO DAILY 06/27/13 Unknown History capsule cholecalciferol (vitamin D3) 25 1,000 unit PO DAILY 05/17/17 Unknown History mcg (1,000 unit) capsule (Vitamin D3) metoprolol succinate 50 mg 50 mg PO DAILY 10/29/20 Unknown History tablet,extended release 24 hr topiramate 200 mg tablet (Topamax) 200 mg PO BID 10/29/20 Unknown History fenofibrate nanocrystallized 145 145 mg PO DAILY 09/17/21 Unknown History mg tablet (Tricor) clobazam 10 mg tablet 5 mg PO BID 10/01/24 Unknown History lamotrigine 200 mg tablet 200 mg PO Q12H 10/01/24 Unknown History (Lamictal) metformin 500 mg tablet,extended 500 mg PO DAILY 10/01/24 Unknown History release 24 hr simvastatin 80 mg tablet 80 mg PO QHS 10/01/24 Unknown History Allergy/AdvReac Type Severity Reaction Status Date / Time carbamazepine (From Tegretol) Allergy Rash Verified 10/01/24 19:30 gabapentin (From Neurontin) Allergy Unknown Verified 10/01/24 19:30 horse dander Allergy Itching Verified 10/01/24 19:30 Social History household members: other Smoking Status: Never smoker alcohol intake: never substance use type: does not use ROS ROS ED ROS Narrative Review of systems unobtainable from the patient secondary to his baseline of nonverbal EXAM Physical Exam Narrative Exam Narrative: General: Patient was lying in bed rest comfortably did not appear to be acute distress Head: Atraumatic, normocephalic Eyes, ears, nose, throat: PERRL bilaterally, EOMI bilateral, no conjunctival injection noted. No raccoon eyes, no Hebert sign no nasal septal hematomas noted bilaterally Neck: Soft, supple, trachea midline Cardiovascular: Regular rate and rhythm Respiratory: Clear to auscultation bilaterally Abdomen: Soft, nondistended Extremities: +4/5 strength noted in the bilateral upper and lower extremities Neurological: Patient is at his baseline according to family members at bedside Skin: Patient has a large approximately 6 and half centimeter laceration along the left chin Const Vital Signs: 10/01/24 19:30 10/01/24 20:15 10/01/24 21:00 Temperature 98.1 F Temperature Source Oral Pulse Rate 92 82 81 Respiratory Rate 18 18 18 Blood Pressure 130/72 H 122/75 H 133/70 H Blood Pressure Mean 91 90 91 Pulse Ox 96 97 98 Oxygen Delivery Method Room Air Room Air Room Air MDM MDM MDM Narrative Medical decision making narrative: Patient is a 49-year-old male who presented to the emergency department chief complaint seizure and left chin laceration. On the differential diagnosis includes but not limited to normal breakthrough seizure, electrolyte O'Jose Antonio, intracranial hemorrhage, cervical spine fracture, chin laceration. Patient tetanus shot will be updated. Patient CBC was reviewed showed no evidence leukocytosis white blood count normal at 9.2, he was 13.4, platelet count of 403. Patient's INR normal at 1, PT of 12.9. His sodium was 142, potassium normal 3.9, creatinine was 1.51. Patient's AST and ALT were normal at 25 and 36. Patient TSH normal at 2.40 and free T4 and T3 normal at 1.20 and [address] head brain without contrast showed no acute intracranial hemorrhage, CT cervical spine reviewed showed no acute traumatic findings. Patient's EKG reviewed showed sinus rhythm rate 91 bpm. Patient had laceration repaired in the emergency department see procedure note for separate details tolerated this well no complications. Discussed results with the family at bedside and they would like to forego the urine testing. They were advised to have the sutures removed in approximately 5 to 7 days. They are encouraged return for worsening symptoms or other concerns. Once again this is not abnormal for him to have seizures daily. All question concerns answered he was discharged home in stable condition. Procedure name: Laceration repair Indication: Reduce risk of infection Location: Left chin 6 and half centimeter linear laceration Preprocedure diagnosis: Laceration Postprocedure diagnosis: Repaired laceration Informed consent was obtained prior to procedure started. Procedure: The appropriate timeout was taken. The area was prepped and draped in usual sterile fashion. Local anesthesia was achieved using 5 cc of lidocaine 1% without epinephrine. Wound was copiously irrigated. 14 6-0 Ethilon interrupted sutures were placed. Patient had one 4-0 Ethilon interrupted suture placed to approximate the wound edge. Estimated blood loss was less than 0.5 mL. Dressing was applied to the area and anticipatory guidance, as well as standard postprocedure care was explained. Return precautions are given. Patient Toller procedure well without any complications. Follow-up visit for suture removal and evaluation of laceration. Lab Data Labs: Laboratory Results - last 24 hr 10/01/24 19:30 WBC 9.2 RBC 4.34 L Hgb 13.4 Hct 39.2 L MCV 90.3 MCH 30.9 MCHC 34.2 RDW Std Deviation 44.4 H RDW Coeff of Mary 13.4 Plt Count 403 MPV 10.1 Immature Gran % (Auto) 0.800 Neut % (Auto) 41.2 L Lymph % (Auto) 47.7 H Johnson % (Auto) 7.7 Eos % (Auto) 1.8 Baso % (Auto) 0.8 Absolute Neuts (auto) 3.8 Absolute Lymphs (auto) 4.38 Nucleated RBC % 0 PT 12.9 INR 1.0 APTT 26.9 Sodium 142 Potassium 3.9 Chloride 109 H Carbon Dioxide 14.4 L Anion Gap 18 H BUN 27 H Creatinine 1.51 H Estim Creat Clear Calc 75.67 Est GFR (MDRD) Non-Af 56 L BUN/Creatinine Ratio 17.8 Glucose 111 H Calcium 9.7 Total Bilirubin < 0.15 Direct Bilirubin < 0.08 AST 25 ALT 36 Alkaline Phosphatase 49 Total Protein 7.4 Albumin 4.6 Globulin 2.8 TSH 2.400 Free T4 1.20 Free T3 pg/dL 2.4 Radiography Diagnostic Testing: Clinical Impression(s) from Imaging Studies Brain CT 10/01/24 19:47 IMPRESSION: No acute intracranial or cervical spine traumatic findings. Reading Location: [facility] Cervical Spine CT 10/01/24 19:47 IMPRESSION: No acute intracranial or cervical spine traumatic findings. Reading Location: [facility] Discharge Plan Triage Chief Complaint: Seizure ED Provider: Nas Tripp Dx/Rx/DC Orders Clinical Impression: Fall, Seizure Prescriptions: No Action lisinopril 20 MG tablet 20 mg PO DAILY omega-3 acid ethyl esters 1 GM capsule 1 tab PO DAILY Patient Comments: cholecalciferol (vitamin D3) [Vitamin D3] 1,000 UNIT capsule 1,000 unit PO DAILY metoprolol succinate 50 mg Tablet Extended Release 24 Hr 50 mg PO DAILY topiramate [Topamax] 200 mg Tablet 200 mg PO BID fenofibrate nanocrystallized [Tricor] 145 mg Tablet 145 mg PO DAILY lamotrigine [Lamictal] 200 mg tablet 200 mg PO Q12H metformin 500 mg tablet extended release 24 hr 500 mg PO DAILY clobazam 10 mg tablet 5 mg PO BID simvastatin 80 mg tablet 80 mg PO QHS Primary Care Provider: Valencia Sánchez Referrals: Valencia Sánchez DO [Primary Care Provider] - Activity Restrictions/Additional Instructions: Have his sutures removed in approximately 5 to 7 days. He can shower do not soak the sutures. Watch out for signs of infection such as surrounding redness or purulent drainage coming from the wound if this is to occur call the primary care physician or return to the emergency department. His blood work and his CT of his head and neck did not show any acute findings. Print Language: Iranian Disposition Disposition: Home, Self Care
[2024-10-01 20:28] LABS: Free T3 2.4 pg/mL (2.18-3.98)
[2024-10-01 20:32] LABS: AST(SGOT) 25 U/L (<=37); Alanine Aminotransfer ALT/SGPT 36 U/L (<=46); Albumin, Serum 4.6 g/dL (3.5-5.0); Alkaline Phosphatase 49 U/L (40-129); Anion Gap 18 (5-15); BUN 27 mg/dL (4-19); BUN/Creat Ratio 17.8 RATIO (10-20); Bilirubin, Direct < 0.08 mg/dL (0.00-0.30); Calcium,Total 9.7 mg/dL (7.6-11.0); Carbon Dioxide 14.4 mmol/L (21.0-32.0); Chloride 109 mmol/L (98-108); Estimated Creatinine Clearance 75.67 ml/min (50-250); Globulin 2.8 g/dL (2.2-4.2); Glucose 111 mg/dL (70-99); Potassium 3.9 mmol/L (3.3-5.1)
[2024-10-01] MEDS: Lidocaine 1% (20 ml mdv) 20 ML Vial 10 ML INFILT (20:46)
[2024-10-01 21:00] VITALS: BP 133/70; PULSE 81; RESP 18; O2SAT 98
[2024-10-01 22:00] VITALS: BP 132/73; PULSE 83; RESP 18; O2SAT 98
[2024-10-01 22:24] VITALS: BP 118/68; PULSE 77; RESP 18; TEMP 36.6; O2SAT 99
== END 2024-10-01 22:44 | disposition home or self-care (01) ==
PROVIDERS: Emergency Provider Emergency Medicine; PCP Internal Medicine; Visit Provider Emergency Medicine
DX: R56.9 Unspecified convulsions (principal); E11.9 Type 2 diabetes mellitus without complications; S01.81XA Laceration without foreign body of other part of head, initial encounter; E78.5 Hyperlipidemia, unspecified; I10 Essential (primary) hypertension; Z79.899 Other long term (current) drug therapy; Z79.84 Long term (current) use of oral hypoglycemic drugs; W19.XXXA Unspecified fall, initial encounter
CPT/HCPCS: 12014; 70450; 72125; 80048; 80076; 84439; 84443; 84481; 85025; 85610; 85730; 90471; 90715; 93005; 96360; 99285; A4216